=== PATIENT | male | born 1970 | race Caucasian/White ===

== ENCOUNTER 2024-10-23 01:04 | Emergency (ER) | payer MEDICARE, SELFPAY ==
--- NOTE | 2024-10-23 01:00 | DI.CT_ITS ---
Exam(s) CT LUMBAR SPINE WO EXAM: CT LUMBAR SPINE WO CLINICAL HISTORY: pain in mid lumbar after fall. TECHNIQUE: Imaging Protocol: Axial computed tomography images with coronal and sagittal reformatted images were created and reviewed COMPARISON: No exams were available for comparison FINDINGS: Bones: The last intervertebral disc space is designated the L5/S1 level for the numbering purpose of this examination. The vertebral body heights are well maintained. Alignment is satisfactory. No fracture is seen. T12-L1: No disc herniations or bulges are present. L1-2: No disc herniations or bulges are present. L2-3: No disc herniations or bulges are present. L3-4: No disc herniations or bulges are present. L4-5: Normal disc height. Concentric disc bulging. L5-S1: Normal disc height. Small central disc protrusion. The visualized SI joints and sacrum are well maintained. Soft Tissues: The paraspinal soft tissues are unremarkable. IMPRESSION: No evidence of fracture. RADIATION DOSE DELIVERED: 462.24mGy.cm Total DLP DATA REPOSITORY: All CT scans at this facility are submitted to the National Radiology Data Registry (NRDR) Dose Index Registry (DIR) with the [employer] (ACR). RADIATION OPTIMIZATION: All CT scans at this facility use at least one of these dose optimization te chniques: automated exposure control; mA and/or kV adjustment per patient size (includes targeted exa ms where dose is matched to clinical indication); or iterative reconstruction.
--- NOTE | 2024-10-23 01:00 | DI.CT_ITS ---
Exam(s) CT HEAD CERVICAL SPINE WO EXAM: CT HEAD CERVICAL SPINE WO CLINICAL HISTORY: fell, hit head, midline c spine pain. TECHNIQUE: Imaging Protocol: Axial computed tomography images with coronal and sagittal reformatted images were created and reviewed COMPARISON: No exams were available for comparison FINDINGS: Head CT Ventricles and Extra axial spaces: Normal in size and morphology for the patient's age. Hemorrhage: None. Cerebral parenchyma: No evidence of mass or acute infarct. Midline shift: None. Brainstem/Cerebellum: Normal. Calvarium: Normal. Visualized Paranasal sinuses/Mastoids: Clear. Soft tissues: Unremarkable. Cervical Spine CT BONES: Vertebral body heights are maintained. Alignment is normal. There is no evidence of acute frac ture. Degenerative disc changes and facet degenerative changes are seen, greatest at C5-6 and C6-7 where th ere is bilateral neural foraminal narrowing.. SOFT TISSUES: No paraspinal hematoma. The airway appears intact. No pneumothorax is seen at the lung apices. IMPRESSION: Head CT: No acute abnormality. C-spine CT: Degenerative changes, no acute abnormality. RADIATION DOSE DELIVERED: 1,220.03mGy.cm Total DLP DATA REPOSITORY: All CT scans at this facility are submitted to the National Radiology Data Registry (NRDR) Dose Index Registry (DIR) with the [employer] (ACR). RADIATION OPTIMIZATION: All CT scans at this facility use at least one of these dose optimization te chniques: automated exposure control; mA and/or kV adjustment per patient size (includes targeted exa ms where dose is matched to clinical indication); or iterative reconstruction.
[2024-10-23 01:09] VITALS: BP 129/81; PULSE 71; RESP 17; TEMP 36.6; O2SAT 98
[2024-10-23] MEDS: ACETAMINOPHEN 1,000 MG/100 ML BAG 400 MG IVPB (01:22)
[2024-10-23] MEDS: LORazepam 0.5 MG TAB PO (01:23)
--- NOTE | 2024-10-23 01:45 | ED.GENADUL_ITS ---
Discharge Plan Disposition Patient Disposition: Home Condition: Good Discharge Details Clinical Impression: Fall, Whiplash, Neck pain, Low back pain Primary Care Provider: Radhika Mora ED Provider: Terence Ryan Home Meds and New Rx's Prescriptions: New lidocaine [Lidoderm] 5 % adhesive patch,medicated 1 patch Topical Q24H Qty: 15 0RF No Action divalproex [Depakote] 250 MG tablet,delayed release (DR/EC) 250 mg PO BID sumatriptan succinate 100 MG tablet 100 mg PO ONCE duloxetine 60 MG capsule,delayed release(DR/EC) 60 mg PO BID clonazepam 1 mg tablet 1 mg PO QID Discharge Instructions Instructions: Low Back Pain ED, Neck Pain ED Additional Instructions: At this time your CT imaging has returned very reassuring. There is no evidence of bleeds in your brain, fractures of your bones in your head neck or back. Please use the Voltaren gel and apply 2-3 times per day to help with the aches and pains in the affected areas. Please use Lidoderm patches as prescribed to apply to the areas of increased pain. These have been sent to your pharmacy on file. If you notice any worsening of your symptoms, or any new symptoms such as vomiting, diarrhea, fever, chills, shortness of breath, chest pain, numbness, weakness, or fainting , please return immediately to the emergency department for reevaluation. Please follow up with your primary care provider as soon as possible for reassessment and reevaluation. As always, it was a pleasure participating in your medical care today. Referrals: Radhika Mora MD [Primary Care Provider] - [facility] General Date/Time Provider Initiated Documentation: 10/23/24 01:[address] [facility] Narrative: This is a 54-year-old male with a past medical history of NSAID allergy secondary to gastric irritation, GERD, previous alcoholism, anxiety, depression, who presents today for evaluation of a fall. Patient states that he was at his home when he slipped on some ice earlier today. He fell back and hit his low back and head and neck on the ice. He denies any loss of consciousness. This was all at about noon which was 13 hours ago. Since then he eventually developed a gradual worsening neck pain, headache a little bit of dizziness and low back pain. He denies any numbness tingling or weakness otherwise. He denies any vision changes. No other complaints at this time. Pain is made worse when he moves. Improved by nothing. He does not take any NSAID therapy. He was brought in via EMS, and he remained in C-spine precautions. Related Data Home Medications ?Medication ?Instructions ?Recorded ?Confirmed Depakote 250 mg tablet,delayed 250 mg PO BID 12/15/16 10/23/24 release (divalproex) duloxetine 60 mg capsule,delayed 60 mg PO BID 12/15/16 10/23/24 release sumatriptan succinate 100 mg tablet 100 mg PO ONCE 12/15/16 10/23/24 clonazepam 1 mg tablet 1 mg PO QID 10/23/24 10/23/24 lidocaine 5 % topical patch 1 patch topical Q24H #15 ea 10/23/24 (Lidoderm) Previous Rx's ?Medication ?Instructions ?Recorded lidocaine 5 % topical patch 1 patch topical Q24H #15 ea 10/23/24 (Lidoderm) Allergies Allergy/AdvReac Type Severity Reaction Status Date / Time prochlorperazine (From Allergy Unknown Unknown Verified 10/23/24 01:08 Compazine) promethazine (From Phenergan) Allergy Unknown Unknown Verified 10/23/24 01:08 NSAIDS (Non-Steroidal Allergy Unknown Verified 10/23/24 01:08 Anti-Inflamma General Stated Complaint: Fall/Non TraumaCriteria PUSHPA: 3 Exam Narrative Exam Narrative: 1.Const: Well-nourished, Well-developed, appearing stated age 2.Eyes: PERRL, no conjunctival injection, and symmetrical lids. 3.ENT: Atraumatic external nose and ears. Moist MM. Neck: Symmetric, trachea midline, No thyromegaly. There is no evidence of raccoon eyes, otoole sign, CSF rhinorrhea, mastoid tenderness, cranial crepitus, hemotympanum, exophthalmos, or hyphema. Patient demonstrates intact dentition with no signs of tooth avulsion or fracture, no signs of jaw deformity, no evidence of a LeFort's fracture, with an intact palate, nose and orbital region. There is no evidence of a nasal septal hematoma. No proptosis. Jaw closes symmetrically. Airway is clear. 4.CVS: +S1/S2, Peripheral pulses 2+ and equal in all extremities. Brisk capillary refill in all extremities. 5.RESP: Unlabored respiratory effort. Clear to auscultation bilaterally. No wheezes rales or rhonchi 6.GI: Soft, Nontender/Nondistended, No hepatosplenomegaly. No guarding or rebound. 7.MSK: Normocephali, Extremities w/o deformity or ttp No cyanosis or clubbing, Normal movement of all extremities Exam demonstrates mild midline tenderness at C3-C4 and C5, as well as midline tenderness at L5 3 L4-L5. No thoracic spinal tenderness.. Normal ROM in flexion, extension, side bend, and rotation. Patient has +5 out of 5 strength in the lower extremities in dorsiflexion and plantarflexion, knee flexion and extension, hip flexion and extension. Normal strength for dorsiflexion and plantar flexion of the great toe bilaterally. There is +2 over 2 dorsalis pedis pulses bilaterally. There is normal sensation to the skin with light touch at the foot, knee, and hip. Normal saddle sensation. Good sensation over the deep sural nerve area bilaterally. Rectal exam demonstrates good rectal tone with excellent bridget-rectal sensation. Reflexes are +2 over 4 in the patellar reflex bilaterally. +5 out of 5 strength in the medial, ulnar, radial nerve distribution bilaterally in the hands as well as intact light touch sensation to these dermatomes on the hands 8.Skin: Warm, Dry. No rashes or lesions. 9.Neuro: byproducts maker II-XII grossly intact. Sensation grossly intact, no focal neurologic deficits. No dysdiadochokinesia or dysmetria. Normal movements of extremities 10.Psych: (AAO) x3. Appropriate mood and affect Course Vital Signs Vital signs: Vital Signs Temperature 36.6 C 10/23/24 01:09 Pulse 71 10/23/24 01:09 Respiratory Rate 17 10/23/24 01:09 Blood Pressure 129/81 10/23/24 01:09 Pulse Oximetry 98 10/23/24 01:09 Temperature 36.6 C 10/23/24 01:09 Temperature Source Oral 10/23/24 01:09 Pulse 71 10/23/24 01:09 Respiratory Rate 17 10/23/24 01:09 Blood Pressure 129/81 10/23/24 01:09 Blood Pressure Position Supine 10/23/24 01:09 Pulse Oximetry 98 10/23/24 01:09 Oxygen Delivery Method Room Air 10/23/24 01:09 Oxygen Flow Rate 0 10/23/24 01:09 Pain Level 7 10/23/24 01:09 Medical Decision Making This is a 54-year-old male with a past medical history of NSAID allergy secondary to gastric irritation, GERD, previous alcoholism, anxiety, depression, who presents today for evaluation of a fall. Patient states that he was at his home when he slipped on some ice earlier today. He fell back and hit his low back and head and neck on the ice. He denies any loss of consciousness. This was all at about noon which was 13 hours ago. Since then he eventually developed a gradual worsening neck pain, headache a little bit of dizziness and low back pain. He denies any numbness tingling or weakness otherwise. He denies any vision changes. No other complaints at this time. Pain is made worse when he moves. Improved by nothing. He does not take any NSAID therapy. He was brought in via EMS, and he remained in C-spine precautions. Exam demonstrates mild midline cervical spine tenderness and lower lumbar spine tenderness. No major neurovascular deficits or neurologic deficits. No altered mental status. Pupils are equal. Differential is highest for sprain and whipl semaj, however differential does include osseous abnormality or fracture, subdural bleed, less likely epidural. Will get CT imaging, treat the patient's pain with Tylenol, and Voltaren gel, monitor closely and reassess. Additionally the patient does admit to notable amount of anxiety at this time while at the hospital. Will give a very small dose of 0.5 mg of Ativan. 3:[address] imaging has returned, no evidence of acute intracranial etiology. No mastoid tenderness on exam. No evidence of significant spinous pathology. There is evidence of disc bulging and arthritis, but no acute component. Patient feels much better. Patient does not have a ride at this time, we will give him Voltaren gel for home, we will give him a dose of morphine IR, and then observe him until discharge when he is able to be picked up by her CT. Patient otherwise feels well. Recommend continued NSAID therapy at home. Discussed red flags which return. I have extensively reviewed the treatment plan and dis charge instructions with the patient. I have addressed all patient concerns at this time. The patient was made aware of what symptoms to monitor for that would warrant a return to the emergency department. Discussed the plan with the patient, they demonstrate verbal understanding and agreement with our assessment and plan at this time. The documentation in this chart was dictated using [employer] dictation software. Please excuse any dictation errors. FINDINGS: Brain: No intracranial hemorrhage appreciated. No significant focal mass effect or significant midline shift. Cerebral ventricles: No disproportionate ventriculomegaly. Paranasal sinuses: No air-fluid levels seen. Mastoid air cells: Trace left mastoid fluid. Bones: Nasal septal and nasal bone deformities of indeterminate chronicity. C linical correlation and comparison with prior studies advised. Soft tissues: No acute findings. IMPRESSION: 1. No intracranial sequelae of trauma appreciated. 2. Additional studies dictated separately FINDINGS: Bones: No acute cervical spine fracture seen. Multilevel degenerative changes. At C2-C3 there is moderate right and mild left foraminal narrowing. At C3-C4 there is disc bulge with marked right and mild left foraminal narrowing. At C4-C5 there is disc bulge with marked right and foraminal narrowing. At C5-C6 there is prominent disc bulge with marked bilateral foraminal narrowing and moderate canal narrowing. At C6-C7 there is disc osteophyte complex with marked bilateral foraminal narrowing and marked canal narrowing. Pharynx: Tonsillar calcifications. Lungs: No acute findings. Lymph nodes: Bilateral cervical lymph nodes. Vasculature: Arterial calcifications. Soft tissues: No acute findings. IMPRESSION: 1. No cervical spine fracture seen. 2. Additional studies dictated separately. Thank you for allowing us to participate in the care of your patient. FINDINGS: Bones/joints: No fracture or suspicious osseous lesion. Broad-based L4-L5 disc bulge. Central L5- S1 disc herniation. Kidneys and ureters: Nonobstructive nephrolithiasis left kidney. Soft tissues: Unremarkable. IMPRESSION: Broad-based L4-L5 disc bulge. Central L5-S1 disc herniation. Thank you for allowing us to participate in the care of your patient. Dictated and Authenticated by: Akira Jean Baptiste MD 10/23/2024 2:21 AM Eastern Time ([place] & [place]) Quality:SDOH Health Related Social Needs: Health related social needs inadequate housing (Z59.1) , housing instability, housed, with risk of homelessness (Z59.811) PFSH All Active Problems (Updated 10/23/24 @ 03:18 by Terence Ryan DO) Low back pain (Acute) Neck pain (Acute) Whiplash (Acute) Fall (Acute) Medical History (Updated 10/23/24 @ 03:18 by Terence Ryan DO) Obesity History of alcoholism GERD (gastroesophageal reflux disease) Tremor Migraines Depression with psychotic features Anxiety Surgical History (Updated 06/15/18 @ 14:37 by [place]) Repair of inguinal hernia Family History Mother Depression Melanoma Social History Smoking/Tobacco Use Status: Current every day Tobacco Type: cigarettes Smoking risk assessment performed?: Yes Alcohol Intake: former Drug use: Occasionally Substance use type: marijuana Housing: homeless Do you feel safe at home: Yes
[2024-10-23 02:06] VITALS: BP 123/87; PULSE 59; RESP 16; O2SAT 99
--- NOTE | 2024-10-23 02:19 | DI.VRAD_ITS ---
PROCEDURE INFORMATION: Exam: CT Head Without Contrast Exam date and time: 10/23/2024 1:40 AM Age: 54 years old Clinical indication: Injury or trauma; Fall; Blunt trauma (contusions or hematomas); Consciousness not specified; Injury date: 10/23/24; Injury details: Fell, hit head, midline c spine pain TECHNIQUE: Imaging protocol: Computed tomography of the head without contrast. Radiation optimization: All CT scans at this facility use at least one of these dose optimization techniques: automated exposure control; mA and/or kV adjustment per patient size (includes targeted exams where dose is matched to clinical indication); or iterative reconstruction. COMPARISON: No relevant prior studies available. FINDINGS: Brain: No intracranial hemorrhage appreciated. No significant focal mass effect or significant midline shift. Cerebral ventricles: No disproportionate ventriculomegaly. Paranasal sinuses: No air-fluid levels seen. Mastoid air cells: Trace left mastoid fluid. Bones: Nasal septal and nasal bone deformities of indeterminate chronicity. Clinical correlation and comparison with prior studies advised. Soft tissues: No acute findings. IMPRESSION: 1. No intracranial sequelae of trauma appreciated. 2. Additional studies dictated separately. PROCEDURE INFORMATION: Exam: CT Cervical Spine Without Contrast Exam date and time: 10/23/2024 1:40 AM Age: 54 years old Clinical indication: Injury or trauma; Fall; Blunt trauma (contusions or hematomas); Consciousness not specified; Injury date: 10/23/24; Injury details: Fell, hit head, midline c spine pain TECHNIQUE: Imaging protocol: Computed tomography of the cervical spine without contrast. Radiation optimization: All CT scans at this facility use at least one of these dose optimization techniques: automated exposure control; mA and/or kV adjustment per patient size (includes targeted exams where dose is matched to clinical indication); or iterative reconstruction. COMPARISON: No relevant prior studies available. FINDINGS: Bones: No acute cervical spine fracture seen. Multilevel degenerative changes. At C2-C3 there is moderate right and mild left foraminal narrowing. At C3-C4 there is disc bulge with marked right and mild left foraminal narrowing. At C4-C5 there is disc bulge with marked right and foraminal narrowing. At C5-C6 there is prominent disc bulge with marked bilateral foraminal narrowing and moderate canal narrowing. At C6-C7 there is disc osteophyte complex with marked bilateral foraminal narrowing and marked canal narrowing. Pharynx: Tonsillar calcifications. Lungs: No acute findings. Lymph nodes: Bilateral cervical lymph nodes. Vasculature: Arterial calcifications. Soft tissues: No acute findings. IMPRESSION: 1. No cervical spine fracture seen. 2. Additional studies dictated separately. Dictated and Authenticated by: Nancy Aguila MD. Orderin Connor Pratt MD
--- NOTE | 2024-10-23 02:22 | DI.VRAD_ITS ---
PROCEDURE INFORMATION: Exam: CT Lumbar Spine Without Contrast Exam date and time: 10/23/2024 1:55 AM Age: 54 years old Clinical indication: Injury or trauma; Blunt trauma (contusions or hematomas); Injury date: 10/23/24; Injury details: Pain in mid lumbar after fall TECHNIQUE: Imaging protocol: Computed tomography of the lumbar spine without contrast. Radiation optimization: All CT scans at this facility use at least one of these dose optimization techniques: automated exposure control; mA and/or kV adjustment per patient size (includes targeted exams where dose is matched to clinical indication); or iterative reconstruction. COMPARISON: No relevant prior studies available. FINDINGS: Bones/joints: No fracture or suspicious osseous lesion. Broad-based L4-L5 disc bulge. Central L5-S1 disc herniation. Kidneys and ureters: Nonobstructive nephrolithiasis left kidney. Soft tissues: Unremarkable. IMPRESSION: Broad-based L4-L5 disc bulge. Central L5-S1 disc herniation. Dictated and Authenticated by: Akira Jean Baptiste MD. Orderin Connor Pratt MD
[2024-10-23 02:30] VITALS: BP 119/76; PULSE 62; RESP 17; O2SAT 98
[2024-10-23] MEDS: Diclofenac 1% Gel 100 GM TUBE TP (02:38)
[2024-10-23] MEDS: MORPHine IR 15 MG TAB PO (02:38)
--- NOTE | 2024-10-23 06:57 | NUR.NOTE ---
Addendum entered by Mira Muñoz 10/23/24 16:28: Patient does not have a PCP. Prior authorization faxed to [facility]. they stated they would try to deal with it. Addendum entered by Mira Muñoz 10/23/24 09:42: Prior authorization for lidocaine 5% patches faxed to PCP. Original Note: Access chart to get the demographic information and insurance information for [facility]. Filled out authorization form and faxed to [facility]. Nursing Note:
== END 2024-10-23 06:12 | disposition home or self-care (01) ==
LOC: ER 06:37
PROVIDERS: Emergency Provider Student in an Organized Health Care Education/Training Program
DX: M54.2 Cervicalgia; S13.4XXA Sprain of ligaments of cervical spine, initial encounter; M54.50 Low back pain, unspecified; W00.0XXA Fall on same level due to ice and snow, initial encounter; Z59.10 Inadequate housing, unspecified; Z59.811 Housing instability, housed, with risk of homelessness
CPT/HCPCS: 96374; 99284; 70450; 72125; 72131; 99283; J0131

== ENCOUNTER 2024-11-09 23:09 | Emergency (ER) | payer MEDICARE, SELFPAY ==
[2024-11-09 23:20] VITALS: BP 109/74; PULSE 65; RESP 16; TEMP 36.4; O2SAT 99
[2024-11-09 23:36] LABS: Abs Immature Grans 0.01 10^3/uL (0.0-0.06); Absolute Basophil Count 0.02 10^3/uL (0.0-0.2); Absolute Eosinophil Count 0.21 10^3/uL (0.0-0.7); Absolute Lymphocyte Count 2.35 10^3/uL (1.2-3.4); Absolute Neutrophil Count 3.25 10^3/uL (1.2-6.7); Basophils % 0.3 %; Eosinophils % 3.2 %; HCT 41.7 % (40.0-50.0); HGB 14.3 g/dL (13.5-17.5); Immature Grans % 0.2 %; Lymphocytes % 35.9 %; MCH 32.1 pg (27.0-33.0); MCHC 34.3 % (32.0-36.0); MCV 94 fL (80-95); MPV 10.2 fL (8.0-11.0); Monocytes % 10.7 %; Neutrophils % 49.7 %; Platelet Count 225 10^3/uL (130-400); RBC 4.46 10^6/uL (4.36-5.78); RDW-SD 44.7 fL; WBC 6.54 10^3/uL (4.4-10.8)
[2024-11-09 23:56] LABS: Salicylate 4.3 mg/dL (<2.8)
[2024-11-10 00:02] LABS: ALT 17 U/L (16-63); AST 7 U/L (15-37); Albumin 3.3 g/dL (3.4-5.0); Alkaline Phosphatase 54 U/L (46-116); Anion Gap 8.5 mmol/L (3-11); BUN 9 mg/dL (7-18); Bilirubin, Total 0.3 mg/dL (0.2-1.0); CO2 29.5 mmol/L (21.0-32.0); CREATININE 0.8 mg/dL (0.70-1.30); Calcium 9.1 mg/dL (8.5-10.1); Chloride 104 mmol/L (98-107); Estimated GFR 105.17 (mL/min/1.73m2); Glucose 103 mg/dL (74-106); Potassium 3.7 mmol/L (3.5-5.1); Sodium 142 mmol/L (136-145); Total Protein 6.3 g/dL (6.4-8.2)
[2024-11-10 00:04] LABS: Acetaminophen < 2 ug/mL (10-30); ETHANOL BLOOD < 3.0 mg/dL (<10)
--- NOTE | 2024-11-10 00:39 | ED.GENADUL_ITS ---
Discharge Plan Discharge Details Chief Complaint: PsychEval Clinical Impression: Depression, Suicide ideation Primary Care Provider: None,None ED Provider: Terence Ryan Home Meds and New Rx's Prescriptions: No Action divalproex [Depakote] 250 MG tablet,delayed release (DR/EC) 250 mg PO BID sumatriptan succinate 100 MG tablet 100 mg PO ONCE duloxetine 60 MG capsule,delayed release(DR/EC) 60 mg PO BID clonazepam 1 mg tablet 1 mg PO QID lidocaine [Lidoderm] 5 % adhesive patch,medicated 1 patch Topical Q24H Qty: 15 0RF HPI General Date/Time Provider Initiated Documentation: 11/09/24 23:12 . HPI Narrative: 54-year-old male with a past medical history of depression, presents today for suicidal thoughts. 10 years ago the patient did try to overdose on medications secondary to suicidal ideations. He has been taking his clonazepam, Depakote, duloxetine as prescribed. Patient states that over the last week or so he has become notably sad and depressed. He has lost interest in activities. He has not been sleeping well, he has not showered for the last 3 days. He states that he wants to end his life and he would do this by jumping off a katerine , walking into traffic or jumping off a bridge. He denies any auditory visual hallucinations. He denies any IV or illicit drug use. No other complaints at this time. Related Data Home Medications ?Medication ?Instructions ?Recorded ?Confirmed Depakote 250 mg tablet,delayed 250 mg PO BID 12/15/16 11/09/24 release (divalproex) duloxetine 60 mg capsule,delayed 60 mg PO BID 12/15/16 11/09/24 release sumatriptan succinate 100 mg tablet 100 mg PO ONCE 12/15/16 11/09/24 clonazepam 1 mg tablet 1 mg PO QID 10/23/24 11/09/24 lidocaine 5 % topical patch 1 patch topical Q24H #15 ea 10/23/24 11/09/24 (Lidoderm) Previous Rx's ?Medication ?Instructions ?Recorded lidocaine 5 % topical patch 1 patch topical Q24H #15 ea 10/23/24 (Lidoderm) Allergies Allergy/AdvReac Type Severity Reaction Status Date / Time prochlorperazine (From Allergy Unknown Unknown Verified 11/09/24 23:24 Compazine) promethazine (From Phenergan) Allergy Unknown Unknown Verified 11/09/24 23:24 NSAIDS (Non-Steroidal Allergy Unknown Verified 11/09/24 23:24 Anti-Inflamma General Stated Complaint: PsychEval PUSHPA: 2 Exam Narrative Exam Narrative: 1.Const: Well-nourished, disheveled appearing, well-developed, appearing stated age 2.Eyes: PERRL, no conjunctival injection, and symmetrical lids. 3.ENT: Atraumatic external nose and ears. Moist MM. Neck: Symmetric, trachea midline, No thyromegaly. 4.CVS: +S1/S2, Peripheral pulses 2+ and equal in all extremities. Brisk capil althea refill in all extremities. 5.RESP: Unlabored respiratory effort. Clear to auscultation bilaterally. No wheezes rales or rhonchi 6.GI: Soft, Nontender/Nondistended, No hepatosplenomegaly. No guarding or rebound. 7.MSK: Normocephalic/Atraumatic, Extremities w/o deformity or ttp No cyanosis or clubbing, Normal movement of all extremities 8.Skin: Warm, Dry. No rashes or lesions. 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 Sensation grossly intact, no focal neurologic deficits. 10.Psych: (AAO) x3. Appropriate mood and affect Course Vital Signs Vital signs: Vital Signs Temperature 36.4 C L 11/09/24 23:20 Pulse 65 11/09/24 23:20 Respiratory Rate 16 11/09/24 23:20 Blood Pressure 109/74 11/09/24 23:20 Pulse Oximetry 99 11/09/24 23:20 Temperature 36.4 C L 11/09/24 23:20 Temperature Source Temporal Artery Scan 11/09/24 23:20 Pulse 65 11/09/24 23:20 Respiratory Rate 16 11/09/24 23:20 Blood Pressure 109/74 11/09/24 23:20 Blood Pressure Position Sitting 11/09/24 23:20 Pulse Oximetry 99 11/09/24 23:20 Oxygen Delivery Method Room Air 11/09/24 23:20 Oxygen Flow Rate 0 11/09/24 23:20 Pain Level 0 11/09/24 23:20 Lab/Test Results Lab/Test Results: Laboratory Tests Range/Units 11/09/24 23:30 WBC (4.4-10.8) 10^3/uL 6.54 RBC (4.36-5.78) 10^6/uL 4.46 Hgb (13.5-17.5) g/dL 14.3 Hct (40.0-50.0) % 41.7 MCV (80-95) fL 94 MCH (27.0-33.0) pg 32.1 MCHC (32.0-36.0) % 34.3 RDW (11.8-14.1) % 13.0 Plt Count (130-400) 10^3/uL 225 MPV (8.0-11.0) fL 10.2 Immature Gran % % 0.2 Neutrophils % % 49.7 Lymphocytes % % 35.9 Monocytes % % 10.7 Eosinophils % % 3.2 Basophils % % 0.3 Nucleated RBC % (0.0-0.3) % 0.0 Absolute Neutrophils (1.2-6.7) 10^3/uL 3.25 Absolute Lymphocytes (1.2-3.4) 10^3/uL 2.35 Absolute Monocytes (0.1-0.8) 10^3/uL 0.70 Absolute Eosinophils (0.0-0.7) 10^3/uL 0.21 Absolute Basophils (0.0-0.2) 10^3/uL 0.02 Sodium (136-145) mmol/L 142 Potassium (3.5-5.1) mmol/L 3.7 Chloride (98-107) mmol/L 104 Carbon Dioxide (21.0-32.0) mmol/L 29.5 Anion Gap (3-11) mmol/L 8.5 BUN (7-18) mg/dL 9 Creatinine (0.70-1.30) mg/dL 0.8 Est GFR (CKD-EPI 2020) (mL/min/1.73m2) 105.17 Glucose (74-106) mg/dL 103 Calcium (8.5-10.1) mg/dL 9.1 Total Bilirubin (0.2-1.0) mg/dL 0.3 AST (15-37) U/L 7 L ALT (16-63) U/L 17 Alkaline Phosphatase (46-116) U/L 54 Total Protein (6.4-8.2) g/dL 6.3 L Albumin (3.4-5.0) g/dL 3.3 L TSH (0.36-3.74) uIU/mL 1.10 Salicylates (<2.8) mg/dL 4.3 Acetaminophen (10-30) ug/mL < 2 Ethyl Alcohol (<10) mg/dL < 3.0 Medical Decision Making 54-year-old male with a past medical history of depression, presents today for suicidal thoughts. 10 years ago the patient did try to overdose on medications secondary to suicidal ideations. He has been taking his clonazepam, Depakote, duloxetine as prescribed. Patient states that over the last week or so he has become notably sad and depressed. He has lost interest in activities. He has not been sleeping well, he has not showered for the last 3 days. He states that he wants to end his life and he would do this by jumping off a katerine, walking into traffic or jumping off a bridge. He denies any auditory visual hallucinations. He denies any IV or illicit drug use. No other complaints at this time. Exam demonstrates no significant abnormalities, concern for suicidal plan and thoughts. Medical screening exam was performed, labs were drawn and are unremarkable. Patient is high risk for home, but he is seeking voluntary treatment. With the patient's active suicidal plan, I do feel that if he no longer is seeking voluntary treatment then he would be an appropriate candidate for potential EE. Patient was seen and assessed by mental health, they agree. Patient will remain here until placement can be achieved. Scheduled medication orders have been placed. Quality:[facility] Health Related Social Needs: Health related social needs inadequate housing (Z59.1) , housing instability, housed, with risk of homelessness (Z59.811) [facility] All Active Problems (Updated 11/10/24 @ 00:46 by Terence Ryan DO) Suicide ideation (Acute) Depression (Chronic) Low back pain (Acute) Neck pain (Acute) Whiplash (Acute) Fall (Acute) Medical History (Updated 11/10/24 @ 00:46 by Terence Ryan DO) Obesity History of alcoholism GERD (gastroesophageal reflux disease) Tremor Migraines Depression with psychotic features Anxiety Surgical History (Updated 06/15/18 @ 14:37 by [employer] [place]) Repair of inguinal hernia Family History Mother Depression Melanoma Social History Smoking/Tobacco Use Status: Current every day Tobacco Type: cigarettes Smoking risk assessment performed?: Yes Alcohol Intake: former Drug use: Occasionally Substance use type: marijuana Housing: homeless Do you feel safe at home: Yes
[2024-11-10 01:04] LABS: *AMPHETAMINES SCREEN URINE Negative (Negative); *BARBITURATES SCREEN URINE Negative (Negative); *BENZODIAZEPINES SCREEN URINE Negative (Negative); Cannabinoids THC Positive (Negative); Cocaine Screen,Urine Negative (Negative); METHADONE URINE SCREEN Negative (Negative); OPIATES URINE SCREEN Negative (Negative)
[2024-11-10] MEDS: LORazepam 1 MG TAB PO (01:07)
[2024-11-10 01:08] LABS: Tricyclic Antidepressants Negative (Negative)
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
[2024-11-10 01:55] LABS: Lab Add On Test DONE
[2024-11-10 02:06] LABS: VALPROIC ACID 48.1 ug/mL
--- NOTE | 2024-11-10 08:03 | W.EDPROG ---
Date of service: 11/10/24 Time of Service: 08:04 Medical Decision Making I received sign out on this depressed 54 yo M, suicidal with plan. Home medications have been ordered. He is pending placement. Patient has an active plan and would meet likely criteria for EE if his voluntary status with change. 10:21 am I spoke to Desi Will from the [facility] who graciously agreed to accept the patient. Nurses will complete nurse to nurse and I will sign transfer paperwork. 11:15 AM Patient was transiently resistant to going to the [facility] that he had reportedly had poor experiences that in the past. Is reportedly staying locally in a motel. I met with the patient and advised him that given his concern that he might meet criteria for involuntary hold. Given that he had been accepted to the [facility] to go later today I felt that this was the best option. After lengthy conversation with the patient and his nurse and he was amenable to transferred to the [facility]. 3 PM Patient was reluctant to go to the [facility]. He was escalating his behaviors and requesting to be discharged. Given his concerning statements threatening suicide I have reengaged with [facility] human services to pursue the possibility of an EE. He amenable he took 5 mg of oral haloperidol. 3:45 PM Patient agrees to go voluntarily. Will sign patient out to the oncoming evening provider while he remains in the emergency department. Quality:[facility] Health Related Social Needs: Health related social needs inadequate housing (Z59.1), housing instability, housed, with risk of homelessness (Z59.811) Discharge Plan Discharge Details Chief Complaint: PsychEval Clinical Impression: Depression, Suicide ideation Primary Care Provider: None,None ED Provider: Aram Duran Home Meds and New Rx's Prescriptions: No Action sumatriptan succinate 100 MG tablet 100 mg PO ONCE duloxetine 60 MG capsule,delayed release(DR/EC) 60 mg PO BID clonazepam 1 mg tablet 1 mg PO QID lidocaine [Lidoderm] 5 % adhesive patch,medicated 1 patch Topical Q24H Qty: 15 0RF divalproex 500 mg tablet extended release 24 hr 1,000 mg PO HS Patient Comments: TAKE TWO TABLETS BY MOUTH EVERY EVENING AT BEDTIME
[2024-11-10] MEDS: clonazePAM 1 MG TAB PO ×3 (08:45→17:03)
[2024-11-10] MEDS: Divalproex 250 MG TABEC PO (08:45)
[2024-11-10] MEDS: DULoxetine 30 MG CAP 60 MG PO (08:45)
[2024-11-10 08:58] VITALS: BP 111/70; PULSE 56; RESP 18; TEMP 35.7; O2SAT 98
[2024-11-10] MEDS: Nicotine 4 MG GUM CH ×2 (10:38→16:05)
--- NOTE | 2024-11-10 12:23 | CMSP_ITS ---
Date of service: 11/10/24 Time of Service: 12:23 Care Management Safety Plan Status Status: Voluntary Reason for Wait Reason for Wait: Inpatient Admission (accepted at [facility]. Waiting for bed.) Safety Plan Safety Plan: VOLUNTARY FOR INPATIENT PSYCHIATRIC STABILIZATION.? Patient is appropriate in all interactions since arriving at [facility]; Pt has demonstrated appropriate coping and communication skills, has articulated his or her needs and concerns and is fully engaged during staff interactions. Safety plan has been established with patient, and care team, to adhere to patient goals, identify restrictions based on behavioral status, address nutrition, and determine allowed personal belongings, tools for hygiene and personal care. Determine level of activity including ambulation, level of supervision, visitors, and determine privileges based on behaviors and level of engagement by pt. VOLUNTARY SAFETY PLAN: 1. Will remain on suicide precautions, in paper clothes 2. Will remain in Zone B under direct supervision of one-on-one staff at all times provided by [employer]; CHRISTINA, CONFORMAL PAD FORMER pool coordinator. 3. May have paper cups, plates, finger foods as well as a cardboard spoon with which to eat meals. 4. Follow [facility] Management of the Admitted Behavioral Health Patient policy. 5. Shower available in Zone B without restriction. 6. Personal belongings-soft items permitted at RN discretion. 7. Visitors-none at this time. 8. Activities: soft cart items approved per RN discretion. 9.? Bathroom available in Zone B without restriction. 10. Phone: limited to [facility] cordless phone at RN discretion. Due to VOLUNTARY status, if patient wishes to leave [facility], staff will contact [facility] Crisis Screener ([phone]) and Men'S Furnishings Salesperson ([phone]) as soon as possible. In the event of elopement, notify [facility] Police ([phone]). Patient is currently voluntarily at [facility] and seeking inpatient admission when a bed becomes available. [facility] Frontline Yard Switcher will continue seeking placement. Please contact the [employer] Furn[employer] Salesperson ([phone]) and [facility] Yard Switcher ([phone]) for any needed changes in the Safety Plan. Safety plan has been provided to interdepartmental care team.
--- NOTE | 2024-11-10 12:23 | PDOC.CMSAFE ---
Date of service: 11/10/24 Time of Service: 12:23 Care Management Safety Plan Status Status: Voluntary Reason for Wait Reason for Wait: Inpatient Admission (accepted at [place] [facility]. Waiting for bed.) Safety Plan Safety Plan: VOLUNTARY FOR INPATIENT PSYCHIATRIC STABILIZATION.? Patient is appropriate in all interactions since arriving at [facility]; Pt has demonstrated appropriate coping and communication skills, has articulated his or her needs and concerns and is fully engaged during staff interactions. Safety plan has been established with patient, and care team, to adhere to patient goals, identify restrictions based on behavioral status, address nutrition, and determine allowed personal belongings, tools for hygiene and personal care. Determine level of activity including ambulation, level of supervision, visitors, and determine privileges based on behaviors and level of engagement by pt. VOLUNTARY SAFETY PLAN: 1. Will remain on suicide precautions, in paper clothes 2. Will remain in Zone B under direct supervision of one-on-one staff at all times provided by [employer]; CHRISTINA, [employer] TECHNICIAN floral decorator. 3. May have paper cups, plates, finger foods as well as a cardboard spoon with which to eat meals. 4. Follow [facility] Management of the Admitted Behavioral Health Patient policy. 5. Shower available in Zone B without restriction. 6. Personal belongings-soft items permitted at RN discretion. 7. Visitors-none at this time. 8. Activities: soft cart items approved per RN discretion. 9.? Bathroom available in Zone B without restriction. 10. Phone: limited to [facility] cordless phone at RN discretion. Due to VOLUNTARY status, if patient wishes to leave [facility], staff will contact [facility] Crisis Screener ([phone]) and Band Aid Machine Operator ([phone]) as soon as possible. In the event of elopement, notify [facility] Police ([phone]). Patient is currently voluntarily at [facility] and seeking inpatient admission when a bed becomes available. [facility] Frontline Nail Technician Teacher will continue seeking placement. Please contact the Band Aid Machine Operator ([phone]) and [facility] Nail Technician Teacher ([phone]) for any needed changes in the Safety Plan. Safety plan has been provided to interdepartmental care team.
--- NOTE | 2024-11-10 12:36 | CMPROGNOTE_ITS ---
Date of service: 11/10/24 Time of Service: 12:36 Care Management Progress Note Progress Note Text Progress Note Text: Isidro has been accepted to [facility] and is awaiting a bed. Discharge Anticipated Barriers to Discharge: Bed availability Patient/Family Education Needs: Review discharge instructions, discuss Ask Me Three Transportation: Other Plan: Anticipate that Isidro will be transferred to [facility] once a bed is available, he will transfer via secure transport. MH Services (Omit if N/A) Current MH Services: [facility] Status Status: Voluntary Reason for Wait: Inpatient Admission Social Determinants of Health Screening Will the Patient Participate in the Screening?: Declined to provide
[2024-11-10] MEDS: Haloperidol 5 MG TAB PO (12:52)
--- NOTE | 2024-11-10 15:57 | ED.PROG_ITS ---
Date of service: 11/10/24 Time of Service: 15:57 Medical Decision Making This patient was signed out to me. Please see previous notes for H&P and initial eval. In brief, 54yo M presenting with SI with plan to jump off bridge. Medically cleared, pending voluntary inpatient placement (likely meets EE criteria should he wish to leave). Anticipated [facility] this afternoon, transport at 1645. No acute events during my brief time caring for patient. Transported BR at ~1700. Quality:[facility] Health Related Social Needs: Health related social needs inadequate housing (Z59.1) , housing instability, housed, with risk of homelessness (Z59.811) Discharge Plan Disposition Patient Disposition: Psychiatric Hospital/Unit Specific Psychiatric Facility: [facility] Condition: Good Discharge Details Clinical Impression: Depression, Suicide ideation Primary Care Provider: None,None ED Provider: Shanelle Huffman Home Meds and New Rx's Prescriptions: No Action sumatriptan succinate 100 MG tablet 100 mg PO ONCE duloxetine 60 MG capsule,delayed release(DR/EC) 60 mg PO BID clonazepam 1 mg tablet 1 mg PO QID lidocaine [Lidoderm] 5 % adhesive patch,medicated 1 patch Topical Q24H Qty: 15 0RF divalproex 500 mg tablet extended release 24 hr 1,000 mg PO HS Patient Comments: TAKE TWO TABLETS BY MOUTH EVERY EVENING AT BEDTIME
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
== END 2024-11-10 16:50 ==
PROVIDERS: Student in an Organized Health Care Education/Training Program; Emergency Provider Student in an Organized Health Care Education/Training Program
DX: R45.851 Suicidal ideations (principal); F32.A Depression, unspecified; Z59.10 Inadequate housing, unspecified; Z59.811 Housing instability, housed, with risk of homelessness; F17.210 Nicotine dependence, cigarettes, uncomplicated
CPT/HCPCS: 00123; 36415; 80053; 80307; 96127; 99285; 80164; 80320; 80329; 84443; 85025

== ENCOUNTER 2025-01-19 00:37 | Emergency (ER) | payer MEDICARE, SELFPAY ==
[2025-01-19 00:11] VITALS: BP 134/74; PULSE 91; RESP 18; TEMP 36.6; O2SAT 96
--- NOTE | 2025-01-19 00:34 | ED.GENADUL_ITS ---
Discharge Plan Disposition Patient Disposition: Home Condition: Good Discharge Details Clinical Impression: Spasm of left trapezius muscle Primary Care Provider: None,None ED Provider: Terence Ryan Home Meds and New Rx's Prescriptions: New cyclobenzaprine 10 mg tablet 10 mg PO TID Qty: 14 0RF lidocaine [Lidoderm] 5 % adhesive patch,medicated 1 patch Topical Q24H Qty: 15 0RF No Action sumatriptan succinate 100 MG tablet 100 mg PO ONCE duloxetine 60 MG capsule,delayed release(DR/EC) 60 mg PO BID zolpidem 10 mg tablet 10 mg PO DAILY PRN nicotine (polacrilex) 4 mg mini lozenge 4 mg buccal Q2H PRN Patient Comments: USE 1 LOZENGE BY MOUTH EVERY 2 HOURS NEEDED clonazepam 1 mg tablet 1 mg PO QID divalproex 500 mg tablet extended release 24 hr 1,000 mg PO HS Patient Comments: TAKE TWO TABLETS BY MOUTH EVERY EVENING AT BEDTIME Discharge Instructions Instructions: Muscle Spasm ED Additional Instructions: At this time the CT scan of your head and neck shows no evidence of fracture or other significant abnormality. As we discussed together, I suspect is a component of a muscle spasm and a bruise that is causing the pain. Please take the cyclobenzaprine as prescribed. Please be mindful that it can cause you to be lightheaded, feel slightly confused or imbalance. Please be cautious while taking the medication. Do not operate firearms, climb ladders, swim or operate heavy machinery or drive vehicles while on the medication. If you notice any worsening of your symptoms, or any new symptoms such as vomiting, diarrhea, fever, chills, shortness of breath, chest pain, numbness, weakness, or fainting , please return immediately to the emergency department for reevaluation. Please follow up with your primary care provider as soon as possible for reassessment and reevaluation. As always, it was a pleasure participating in your medical care today. HPI General Date/Time Provider Initiated Documentation: 01/19/25 01:23 . HPI Narrative: This is a pleasant 54-year-old male with a past medical history of seizures on Depakote, gastric ulcers, chronic headaches, alcoholism, GERD, depression and anxiety who presents today for evaluation of left neck pain. Patient states that 2 days ago he fell and hit his left neck and the back of his head. Since then he has had pain in that area. Worse with movement and palpation. He denies any vision changes or numbness or tingling. He is taken Tylenol without any improvement. He denies any back or chest pain. He is not on blood thinners. No other complaints at this time. No other modifying factors. Related Data Home Medications ?Medication ?Instructions ?Recorded ?Confirmed duloxetine 60 mg capsule,delayed 60 mg PO BID 12/15/16 01/19/25 release sumatriptan succinate 100 mg tablet 100 mg PO ONCE 12/15/16 01/19/25 clonazepam 1 mg tablet 1 mg PO QID 10/23/24 01/19/25 divalproex 500 mg tablet,extended 1,000 mg PO HS 11/10/24 01/19/25 release 24 hr cyclobenzaprine 10 mg tablet 10 mg PO TID #14 tabs 01/19/25 lidocaine 5 % topical patch 1 patch topical Q24H #15 ea 01/19/25 (Lidoderm) nicotine (polacrilex) 4 mg buccal 4 mg buccal Q2H PRN 01/19/25 01/19/25 mini lozenge zolpidem 10 mg tablet 10 mg PO DAILY PRN 01/19/25 01/19/25 Previous Rx's ?Medication ?Instructions ?Recorded cyclobenzaprine 10 mg tablet 10 mg PO TID #14 tabs 01/19/25 lidocaine 5 % topical patch 1 patch topical Q24H #15 ea 01/19/25 (Lidoderm) Allergies Allergy/AdvReac Type Severity Reaction Status Date / Time prochlorperazine (From Allergy Unknown Unknown Verified 01/19/25 00:17 Compazine) promethazine (From Phenergan) Allergy Unknown Unknown Verified 01/19/25 00:17 NSAIDS (Non-Steroidal Allergy Unknown Verified 01/19/25 00:17 Anti-Inflamma General Stated Complaint: Nk/Back Pain PUSHPA: 3 Exam Narrative Exam Narrative: 1.Const: Well-nourished, Well-developed, appearing stated age 2.Eyes: PERRL, no conjunctival injection, and symmetrical lids. 3.ENT: Atraumatic external nose and ears. Moist MM. Neck: Symmetric, trachea midline, No thyromegaly. There is no evidence of raccoon eyes, otoole sign, CSF rhinorrhea, mastoid tenderness, cranial crepitus, hemotympanum, exophthalmos, or hyphema. Patient demonstrates intact dentition with no signs of tooth avulsion or fracture, no signs of jaw deformity, no evidence of a LeFort's fracture, with an intact palate, nose and orbital region. There is no evidence of a nasal septal hematoma. No proptosis. Jaw closes symmetrically. Airway is clear. 4.CVS: +S1/S2, Peripheral pulses 2+ and equal in all extremities. Brisk capillary refill in all extremities. 5.RESP: Unlabored respiratory effort. Clear to auscultation bilaterally. No wheezes rales or rhonchi 6.GI: Soft, Nontender/Nondistended, No hepatosplenomegaly. No guarding or rebound. 7.MSK: Normocephalic/Atraumatic, Extremities w/o deformity or ttp No cyanosis or clubbing, Normal movement of all extremities. Mild pain over the supraspinatus muscle of the left scapula, mild pain and tenderness and spasm over the left trapezius muscle. No midline tenderness to palpation over the TLS spine. Mild tenderness over the mid to left lateral cervical spine around C5-6-7. Normal ROM in flexion, extension, side bend, and rotation. Patient has +5 out of 5 strength in the lower extremities in dorsiflexion and plantarflexion, knee flexion and extension, hip flexion and extension. Normal strength for dorsiflexion and plantar flexion of the great toe bilaterally. There is +2 over 2 dorsalis pedis pulses bilaterally. There is normal sensation to the skin with light touch at the foot, knee, and hip. Normal saddle sensation. Good sensation over the deep sural nerve area bilaterally. Rectal exam demonstrates good rectal tone with excellent bridget-rectal sensation. Reflexes are +2 over 4 in the patellar reflex bilaterally. +5 out of 5 strength in the medial, ulnar, radial nerve distribution bilaterally in the hands as well as intact light touch sensation to these dermatomes on the hands 8.Skin: Warm, Dry. No rashes or lesions. 9.Neuro: manager net II-XII grossly intact. Sensation grossly intact, no focal neurologic deficits. 10.Psych: (AAO) x3. Appropriate mood and affect Course Vital Signs Vital signs: Vital Signs Temperature 36.6 C 01/19/25 00:11 Pulse 91 H 01/19/25 00:11 Respiratory Rate 18 01/19/25 00:11 Blood Pressure 134/74 01/19/25 00:11 Pulse Oximetry 96 01/19/25 00:11 Temperature 36.6 C 01/19/25 00:11 Temperature Source Oral 01/19/25 00:11 Pulse 91 H 01/19/25 00:11 Respiratory Rate 18 01/19/25 00:11 Blood Pressure 134/74 01/19/25 00:11 Blood Pressure Position Sitting 01/19/25 00:11 Pulse Oximetry 96 01/19/25 00:11 Oxygen Delivery Method Room Air 01/19/25 00:11 Oxygen Flow Rate 0 01/19/25 00:11 Pain Level 8 01/19/25 00:19 Medical Decision Making This is a pleasant 54-year-old male with a past medical history of seizures on Depakote, gastric ulcers, chronic headaches, alcoholism, GERD, depression and anxiety who presents today for evaluation of left neck pain. Patient states that 2 days ago he fell and hit his left neck and the back of his head. Since then he has had pain in that area. Worse with movement and palpation. He denies any vision changes or numbness or tingling. He is taken Tylenol without any improvement. He denies any back or chest pain. He is not on blood thinners. No other complaints at this time. No other modifying factors. Exam demonstrates mild muscle spasm over the trapezius and left supraspinatus muscle, mild lateral paraspinal tenderness over C5-6 and 7 on the left. Concern for potential osseous injury. Will get radiographic imaging, treat with Lidoderm patches, monitor closely and reassess. 1:26 AM On reassessment patient CT scan of the head has returned negative. No acute process. CT scan of the C-spine negative for acute process. Symptoms appear consistent with a muscle spasm and contusion. No evidence of acute life- threatening neurovascular injury or compromise based on exam and assessment. Patient will be given cyclobenzaprine Lidoderm patches for home. Recommend stretches. Discussed red flags for which to return. I have extensively reviewed the treatment plan and discharge instructions with the patient. I have addressed all patient concerns at this time. The patient was made aware of what symptoms to monitor for that would warrant a return to the emergency department. Discussed the plan with the patient, they demonstrate verbal understanding and agreement with our assessment and plan at this time. The documentation in this chart was dictated using [employer] dictation software. Please excuse any dictation errors. FINDINGS: Brain: No acute intracranial hemorrhage or mass lesions. No midline shift. Normal pink-white differentiation. Cerebral ventricles: No ventriculomegaly. Paranasal sinuses: Visualized sinuses are unremarkable. No fluid levels. Mastoid air cells: Visualized mastoid air cells are well aerated. Bones: Unremarkable. No acute fracture. Soft tissues: Unremarkable. IMPRESSION: No acute intracranial findings FINDINGS: Bones: Mild degenerative changes are present within the cervical spine including intervertebral disc space narrowing, endplate sclerosis, and osteophytosis. There is loss of the expected cervical lordosis and focal kyphosis centered at C4. No acute fracture or dislocation. Lungs: Mild scarring is present at the bilateral pulmonary apices. Soft tissues: Unremarkable. There are multiple incidentally noted tonsilliths bilaterally. IMPRESSION: No acute cervical spine injury. Thank you for allowing us to participate in the care of your patient. Dictated and Authenticated by: Laura Duffy MD 01/19/2025 1:17 AM Eastern Time ([place] Quality:SDOH Health Related Social Needs: Health related social needs inadequate housing (Z59.1) , housing inst ability, housed, with risk of homelessness (Z59.811) PFSH All Active Problems (Updated 01/19/25 @ 01:24 by Terence Ryan DO) Spasm of left trapezius muscle (Acute) Medical History (Updated 01/19/25 @ 01:24 by Terence Ryan DO) Obesity History of alcoholism GERD (gastroesophageal reflux disease) Tremor Migraines Depression with psychotic features Anxiety Surgical History (Updated 06/15/18 @ 14:37 by [facility]) Repair of inguinal hernia Family History Mother Depression Melanoma Social History Smoking/Tobacco Use Status: Current every day Tobacco Type: cigars Smoking risk assessment performed?: Yes Alcohol Intake: former Drug use: Occasionally Substance use type: marijuana Housing: other Do you feel safe at home: Yes Do you feel safe in your relationship?: Yes
[2025-01-19] MEDS: Lidocaine 5% Patch 2 PATCH TP (00:44)
--- NOTE | 2025-01-19 00:49 | DI.CT_ITS ---
Exam(s) CT HEAD CERVICAL SPINE WO EXAM: CT HEAD CERVICAL SPINE WO CLINICAL HISTORY: fell, hit left neck. TECHNIQUE: Imaging Protocol: Axial computed tomography images with coronal and sagittal reformatted images were created and reviewed COMPARISON: CT CT HEAD CERVICAL SPINE WO from 10/23/2024 FINDINGS: Head CT Ventricles and Extra axial spaces: Normal in size and morphology for the patient's age. Hemorrhage: None. Cerebral parenchyma: No evidence of mass or acute infarct. Midline shift: None. Brainstem/Cerebellum: Normal. Calvarium: Normal. Visualized Paranasal sinuses/Mastoids: Clear. Soft tissues: Unremarkable. Cervical Spine CT BONES: Vertebral body heights are maintained. Alignment is normal. There is no evidence of acute frac ture. Degenerative disc changes and facet degenerative changes are seen at C5-6 and C6-7 where there is swetha ral foraminal narrowing. There is also some narrowing of the AP dimension of the central canal at th gabi levels.. SOFT TISSUES: No paraspinal hematoma. The airway appears intact. No pneumothorax is seen at the lung apices. Mild emphysematous changes. IMPRESSION: Head CT: No acute abnormality. C-spine CT: Degenerative changes, no acute abnormality. RADIATION DOSE DELIVERED: 1,195.29mGy.cm Total DLP DATA REPOSITORY: All CT scans at this facility are submitted to the National Radiology Data Registry (NRDR) Dose Index Registry (DIR) with the [employer] ([employer]). RADIATION OPTIMIZATION: All CT scans at this facility use at least one of these dose optimization te chniques: automated exposure control; mA and/or kV adjustment per patient size (includes targeted exa ms where dose is matched to clinical indication); or iterative reconstruction.
--- NOTE | 2025-01-19 01:18 | DI.VRAD_ITS ---
PROCEDURE INFORMATION: Exam: CT Head Without Contrast Exam date and time: 01/19/2025 12:34 AM Age: 54 years old Clinical indication: Injury or trauma; Blunt trauma (contusions or hematomas); Consciousness not specified; Injury date: 01/17/25; Fall, hit left neck TECHNIQUE: Imaging protocol: Computed tomography of the head without contrast. Radiation optimization: All CT scans at this facility use at least one of these dose optimization techniques: automated exposure control; mA and/or kV adjustment per patient size (includes targeted exams where dose is matched to clinical indication); or iterative reconstruction. COMPARISON: CT HEAD CERVICAL SPINE WO 10/23/2024 1:40 AM FINDINGS: Brain: No acute intracranial hemorrhage or mass lesions. No midline shift. Normal pink-white differentiation. Cerebral ventricles: No ventriculomegaly. Paranasal sinuses: Visualized sinuses are unremarkable. No fluid levels. Mastoid air cells: Visualized mastoid air cells are well aerated. Bones: Unremarkable. No acute fracture. Soft tissues: Unremarkable. IMPRESSION: No acute intracranial findings. PROCEDURE INFORMATION: Exam: CT Cervical Spine Without Contrast Exam date and time: 01/19/2025 12:34 AM Age: 54 years old Clinical indication: Injury or trauma; Blunt trauma (contusions or hematomas); Consciousness not specified; Injury date: 01/17/25; Fall, hit left neck TECHNIQUE: Imaging protocol: Computed tomography of the cervical spine without contrast. Radiation optimization: All CT scans at this facility use at least one of these dose optimization techniques: automated exposure control; mA and/or kV adjustment per patient size (includes targeted exams where dose is matched to clinical indication); or iterative reconstruction. COMPARISON: CT HEAD CERVICAL SPINE WO 10/23/2024 1:40 AM FINDINGS: Bones: Mild degenerative changes are present within the cervical spine including intervertebral disc space narrowing, endplate sclerosis, and osteophytosis. There is loss of the expected cervical lordosis and focal kyphosis centered at C4. No acute fracture or dislocation. Lungs: Mild scarring is present at the bilateral pulmonary apices. Soft tissues: Unremarkable. There are multiple incidentally noted tonsilliths bilaterally. IMPRESSION: No acute cervical spine injury. Dictated and Authenticated by: Laura Duffy MD. Orderin Connor Pratt MD
[2025-01-19] MEDS: Cyclobenzaprine 10 MG TAB, 3 TABS/BTL PO (01:31)
== END 2025-01-19 01:54 | disposition home or self-care (01) ==
PROVIDERS: Emergency Provider Student in an Organized Health Care Education/Training Program
DX: M62.838 Other muscle spasm (principal); M54.2 Cervicalgia; G40.909 Epilepsy, unspecified, not intractable, without status epilepticus
CPT/HCPCS: 99284; 70450; 72125

== ENCOUNTER 2025-01-20 00:31 | Emergency (ER) | payer MEDICARE, SELFPAY ==
[2025-01-20] VITALS (18 sets, daily range): BP systolic 106–136; BP diastolic 69–80; PULSE 53–81; RESP 20–32; O2SAT 95–98
--- NOTE | 2025-01-20 00:14 | W.ED.GENAD ---
Discharge Plan Disposition Patient Disposition: Home Condition: Good Discharge Details Chief Complaint: Fall/Non TraumaCriteria Clinical Impression: Medication refill Primary Care Provider: None,None ED Provider: Terence Ryan Home Meds and New Rx's Prescriptions: No Action sumatriptan succinate 100 MG tablet 100 mg PO ONCE duloxetine 60 MG capsule,delayed release(DR/EC) 60 mg PO BID zolpidem 10 mg tablet 10 mg PO DAILY PRN nicotine (polacrilex) 4 mg mini lozenge 4 mg buccal Q2H PRN Patient Comments: USE 1 LOZENGE BY MOUTH EVERY 2 HOURS NEEDED cyclobenzaprine 10 mg tablet 10 mg PO TID Qty: 14 0RF lidocaine [Lidoderm] 5 % adhesive patch,medicated 1 patch Topical Q24H Qty: 15 0RF clonazepam 1 mg tablet 1 mg PO QID divalproex 500 mg tablet extended release 24 hr 1,000 mg PO HS Patient Comments: TAKE TWO TABLETS BY MOUTH EVERY EVENING AT BEDTIME Discharge Instructions Additional Instructions: Please take 1 cyclobenzaprine pill every 8 hours. Please abide by the discharge instructions given at your previous visit. If you notice any worsening of your symptoms, or any new symptoms such as vomiting, diarrhea, fever, chills, shortness of breath, chest pain, numbness, weakness, or fainting , please return immediately to the emergency department for reevaluation. Please follow up with your primary care provider as soon as possible for reassessment and reevaluation. As always, it was a pleasure participating in your medical care today. HPI HPI Narrative: This is a pleasant 54-year-old male with a past medical history of seizures on Depakote, gastric ulcers, chronic headaches, alcoholism, GERD, depression and anxiety who presents today for medication refill. Patient was here about 24 hours ago, at that time he had fallen and hit his left head and neck. He had a spasm of his trapezius muscle. CT scan of the head neck was performed with no evidence of acute process or fracture. Patient was given Lidoderm patches and cyclobenzaprine and had notable improvement of his symptoms. Unfortunately he contacted his pharmacy today (which is Wednesday) and states that they said that because of the holiday weekend his prescription will not be filled until Wednesday. He subsequently called EMS to be brought in for medications. Of note he does state that he did fall once today, he did not hit anything. He had a slight contusion on the wrist but he states that this does not hurt otherwise. He denies hitting his head or back. He states that it did not necessarily make his back or neck pain significantly worse. He denies any fever or chills. He states that the cyclobenzaprine that he was given as a to go pack yesterday had nearly completely resolved his symptoms. When he was evaluated by EMS they did give him fentanyl and Ofirmev for his chronic pain. He otherwise feels well at this time, with no other complaints. He did not strike his head or his back when he fell earlier today. No chest pain abdominal pain or extremity pain otherwise. Related Data Home Medications ?Medication ?Instructions ?Recorded ?Confirmed duloxetine 60 mg capsule,delayed 60 mg PO BID 12/15/16 01/20/25 release sumatriptan succinate 100 mg tablet 100 mg PO ONCE 12/15/16 01/20/25 clonazepam 1 mg tablet 1 mg PO QID 10/23/24 01/20/25 divalproex 500 mg tablet,extended 1,000 mg PO HS 11/10/24 01/20/25 release 24 hr cyclobenzaprine 10 mg tablet 10 mg PO TID #14 tabs 01/19/25 01/20/25 lidocaine 5 % topical patch 1 patch topical Q24H #15 ea 01/19/25 01/20/25 (Lidoderm) nicotine (polacrilex) 4 mg buccal 4 mg buccal Q2H PRN 01/19/25 01/20/25 mini lozenge zolpidem 10 mg tablet 10 mg PO DAILY PRN 01/19/25 01/20/25 Previous Rx's ?Medication ?Instructions ?Recorded cyclobenzaprine 10 mg tablet 10 mg PO TID #14 tabs 01/19/25 lidocaine 5 % topical patch 1 patch topical Q24H #15 ea 01/19/25 (Lidoderm) Allergies Allergy/AdvReac Type Severity Reaction Status Date / Time prochlorperazine (From Allergy Unknown Unknown Verified 01/20/25 00:19 Compazine) promethazine (From Phenergan) Allergy Unknown Unknown Verified 01/20/25 00:19 NSAIDS (Non-Steroidal Allergy Unknown Verified 01/20/25 00:19 Anti-Inflamma General PUSHPA: 3 Exam Narrative Exam Narrative: 1.Const: Well-nourished, Well-developed, appearing stated age 2.Eyes: PERRL, no conjunctival injection, and symmetrical lids. 3.ENT: Atraumatic external nose and ears. Moist MM. Neck: Symmetric, trachea midline, No thyromegaly. 4.CVS: +S1/S2, Peripheral pulses 2+ and equal in all extremities. Brisk capillary refill in all extremities. 5.RESP: Unlabored respiratory effort. Clear to auscultation bilaterally. No wheezes rales or rhonchi 6.GI: Soft, Nontender/Nondistended, No hepatosplenomegaly. No guarding or rebound. 7.MSK: Normocephalic/Atraumatic, Extremities w/o deformity or ttp No cyanosis or clubbing, Normal movement of all extremities. No midline cervical thoracic or lumbar spine tenderness. No significant tenderness in the wrists. Good movement. No anatomical snuffbox tenderness. 8.Skin: Warm, Dry. No rashes or lesions. 9.Neuro: chief lifestyle officer II-XII grossly intact. Sensation grossly intact, no focal neurologic deficits. 10.Psych: (AAO) x3. Appropriate mood and affect Medical Decision Making This is a pleasant 54-year-old male with a past medical history of seizures on Depakote, gastric ulcers, chronic headaches, alcoholism, GERD, depression and anxiety who presents today for medication refill. Patient was here about 24 hours ago, at that time he had fallen and hit his left head and neck. He had a spasm of his trapezius muscle. CT scan of the head neck was performed with no evidence of acute process or fracture. Patient was given Lidoderm patches and cyclobenzaprine and had notable improvement of his symptoms. Unfortunately he contacted his pharmacy today (which is Wednesday) and states that they said that because of the holiday weekend his prescription will not be filled until Wednesday. He subsequently called EMS to be brought in for medications. Of note he does state that he did fall once today, he did not hit anything. He had a slight contusion on the wrist but he states that this does not hurt otherwise. He denies hitting his head or back. He states that it did not necessarily make his back or neck pain significantly worse. He denies any fever or chills. He states that the cyclobenzaprine that he was given as a to go pack yesterday had nearly completely resolved his symptoms. When he was evaluated by EMS they did give him fentanyl and Ofirmev for his chronic pain. He otherwise feels well at this time, with no other complaints. He did not strike his head or his back when he fell earlier today. No chest pain abdominal pain or extremity pain otherwise. Patient looks clinically well, no signs of trauma for the head neck chest abdomen pelvis or extremities. Patient has complete resolution of his pain after the medications of fentanyl and Ofirmev given by EMS. Otherwise patient shows no concerning deficits. Fall earlier today elicited no additional trauma based on current clinical assessment and exam, and lack of tenderness. No indication for repeat imaging especially with his last imaging being stable. Patient will be discharged home with 4 days of Flexeril. I have extensively reviewed the treatment plan and discharge instructions with the patient. I have addressed all patient concerns at this time. The patient was made aware of what symptoms to monitor for that would warrant a return to the emergency department. Discussed the plan with the patient, they demonstrate verbal understanding and agreement with our assessment and plan at this time. The documentation in this chart was dictated using [employer] dictation software. Please excuse any dictation errors. Quality:SDOH Health Related Social Needs: Health related social needs inadequate housing (Z59.1), housing instability, housed, with risk of homelessness (Z59.811) PFSH All Active Problems (Updated 01/20/25 @ 00:50 by Terence Ryan DO) Medication refill (Acute) Spasm of left trapezius muscle (Acute) Medical History (Updated 01/20/25 @ 00:50 by Terence Ryan DO) Obesity History of alcoholism GERD (gastroesophageal reflux disease) Tremor Migraines Depression with psychotic features Anxiety Surgical History (Updated 06/15/18 @ 14:37 by [employer] MD) Repair of inguinal hernia Family History Mother Depression Melanoma Social History Smoking/Tobacco Use Status: Current every day Tobacco Type: cigars Smoking risk assessment performed?: Yes Alcohol Intake: former Drug use: Occasionally Substance use type: marijuana Housing: other Do you feel safe at home: Yes Do you feel safe in your relationship?: Yes
[2025-01-20] MEDS: Cyclobenzaprine 10 MG TAB 60 MG PO (01:57)
[2025-01-20] MEDS: Cyclobenzaprine 10 MG TAB, 3 TABS/BTL PO (01:57)
== END 2025-01-20 02:00 | disposition home or self-care (01) ==
PROVIDERS: Emergency Provider Student in an Organized Health Care Education/Training Program
DX: Z76.0 Encounter for issue of repeat prescription; Z59.10 Inadequate housing, unspecified; Z59.811 Housing instability, housed, with risk of homelessness
CPT/HCPCS: 99283; 99282

== ENCOUNTER 2025-02-02 21:28 | Emergency (ER) | payer MEDICARE, SELFPAY ==
[2025-02-02 21:28] VITALS: BP 99/66; PULSE 79; RESP 16; TEMP 35.3; O2SAT 96
[2025-02-02] MEDS: Methocarbamol 500 MG TAB 1000 MG PO (21:38)
[2025-02-02] MEDS: Acetaminophen 500 MG TAB 1000 MG PO (21:38)
--- NOTE | 2025-02-02 22:39 | ED.GENADUL_ITS ---
Discharge Plan Disposition Patient Disposition: Home Discharge Details Clinical Impression: Back pain Primary Care Provider: None,None ED Provider: Parish Jacobson Home Meds and New Rx's Prescriptions: No Action sumatriptan succinate 100 MG tablet 100 mg PO ONCE duloxetine 60 MG capsule,delayed release(DR/EC) 60 mg PO BID zolpidem 10 mg tablet 10 mg PO DAILY PRN nicotine (polacrilex) 4 mg mini lozenge 4 mg buccal Q2H PRN Patient Comments: USE 1 LOZENGE BY MOUTH EVERY 2 HOURS NEEDED cyclobenzaprine 10 mg tablet 10 mg PO TID Qty: 14 0RF lidocaine [Lidoderm] 5 % adhesive patch,medicated 1 patch Topical Q24H Qty: 15 0RF clonazepam 1 mg tablet 1 mg PO QID divalproex 500 mg tablet extended release 24 hr 1,000 mg PO HS Patient Comments: TAKE TWO TABLETS BY MOUTH EVERY EVENING AT BEDTIME Discharge Instructions Additional Instructions: You have a normal back and neurologic exam this evening after you fell out of your bed. Please continue Tylenol, lidocaine patches and your clonazepam can be helpful for muscle soreness as well. Do gentle stretches, heat pack and range of motion exercises to help with the stiffness. Follow-up with your primary care provider for any ongoing issues. HPI General Date/Time Provider Initiated Documentation: 02/02/25 21:32 . Limitations to Documentation: no limitations . Information obtained by: patient and EMS . HPI Narrative: 55-year-old gentleman with past medical history of anxiety, alcoholism presents for evaluation of back pain. Patient reports that he rolled out of bed this evening onto the floor. He did not hit his head or lose consciousness. He reports that his back hurt so he called EMS. He reports his bed is approximately 3 feet off the ground and rolled onto carpeted surface. Patient tried no medications prior to coming to the emergency department. Related Data Home Medications ?Medication ?Instructions ?Recorded ?Confirmed duloxetine 60 mg capsule,delayed 60 mg PO BID 12/15/16 02/02/25 release sumatriptan succinate 100 mg tablet 100 mg PO ONCE 12/15/16 02/02/25 clonazepam 1 mg tablet 1 mg PO QID 10/23/24 02/02/25 divalproex 500 mg tablet,extended 1,000 mg PO HS 11/10/24 02/02/25 release 24 hr cyclobenzaprine 10 mg tablet 10 mg PO TID #14 tabs 01/19/25 02/02/25 lidocaine 5 % topical patch 1 patch topical Q24H #15 ea 01/19/25 02/02/25 (Lidoderm) nicotine (polacrilex) 4 mg buccal 4 mg buccal Q2H PRN 01/19/25 02/02/25 mini lozenge zolpidem 10 mg tablet 10 mg PO DAILY PRN 01/19/25 02/02/25 Previous Rx's ?Medication ?Instructions ?Recorded cyclobenzaprine 10 mg tablet 10 mg PO TID #14 tabs 01/19/25 lidocaine 5 % topical patch 1 patch topical Q24H #15 ea 01/19/25 (Lidoderm) Allergies Allergy/AdvReac Type Severity Reaction Status Date / Time prochlorperazine (From Allergy Unknown Unknown Verified 02/02/25 21:36 Compazine) promethazine (From Phenergan) Allergy Unknown Unknown Verified 02/02/25 21:36 NSAIDS (Non-Steroidal Allergy Unknown Verified 02/02/25 21:36 Anti-Inflamma General Stated Complaint: Fall/Non TraumaCriteria PUSHPA: 4 Exam Narrative Exam Narrative: Review of Systems: All systems reviewed & are unremarkable except as noted in HPI and below Well-developed, no acute distress NCAT PERRL, normal conjunctiva RRR no murmur Unlabored respiratory effort clear bilaterally Nondistended abdomen No midline back tenderness step-off or deformity there is no significant appreciable paraspinal tenderness Bilateral lower extremities with 5 out of 5 strength, normal gait, normal sensation Course Vital Signs Vital signs: Vital Signs Temperature 35.3 C L 02/02/25 21:28 Pulse 79 02/02/25 21:28 Respiratory Rate 16 02/02/25 21:28 Blood Pressure 99/66 L 02/02/25 21:28 Pulse Oximetry 96 02/02/25 21:28 Temperature 35.3 C L 02/02/25 21:28 Temperature Source Temporal Artery Scan 02/02/25 21:28 Pulse 79 02/02/25 21:28 Respiratory Rate 16 02/02/25 21:28 Blood Pressure 99/66 L 02/02/25 21:28 Pulse Oximetry 96 02/02/25 21:28 Oxygen Delivery Method Room Air 02/02/25 21:28 Oxygen Flow Rate 0 02/02/25 21:28 Pain Level 9 02/02/25 21:28 Medical Decision Making Emergent evaluation of back pain after rolling out of bed. The patient has benign examination. Based on his description of his bed the mechanism of injury , this was not a very far fall and I do not suspect that traumatic injury. He has a normal physical examination no signs or concerns for acute neurologic emergency. He is ambulatory around the emergency department, got himself off the EMS stretcher and walked into his room. Patient was provided some medication for symptom relief in the emergency department and recommend continued Tylenol and Motrin at home. Note no indication for additional prescriptions especially given his HAT PRESSER reviewed. Quality:SDOH Health Related Social Needs: Health related social needs inadequate housing (Z59.1) , housing instability, housed, with risk of homelessness (Z59.811) PFSH All Active Problems (Updated 02/02/25 @ 21:35 by Parish Jacobson MD) Back pain (Acute) Medication refill (Acute) Spasm of left trapezius muscle (Acute) Medical History (Updated 02/02/25 @ 21:35 by Parish Jacobson MD) Obesity History of alcoholism GERD (gastroesophageal reflux disease) Tremor Migraines Depression with psychotic features Anxiety Surgical History (Updated 06/15/18 @ 14:37 by [employer]) Repair of inguinal hernia Family History Mother Depression Melanoma Social History Smoking/Tobacco Use Status: Current every day Tobacco Type: cigars Smoking risk assessment performed?: Yes Alcohol Intake: former Drug use: Occasionally Substance use type: marijuana Housing: other Do you feel safe at home: Yes Do you feel safe in your relationship?: Yes
== END 2025-02-02 21:49 | disposition home or self-care (01) ==
LOC: ER 21:45
PROVIDERS: Emergency Provider Emergency Medicine
DX: M54.50 Low back pain, unspecified (principal); F17.290 Nicotine dependence, other tobacco product, uncomplicated; W06.XXXA Fall from bed, initial encounter; Y93.89 Activity, other specified; Y92.013 Bedroom of single-family (private) house as the place of occurrence of the external cause
CPT/HCPCS: 99283

== ENCOUNTER 2025-02-24 10:51 | Emergency (ER) | payer MEDICARE, SELFPAY ==
[2025-02-24] VITALS (42 sets, daily range): BP systolic 104–129; BP diastolic 62–81; PULSE 45–58; RESP 12–24; TEMP 36.4–36.6; O2SAT 95–99
--- NOTE | 2025-02-24 10:45 | RT.EKG_ITS ---
APPROVED REPORT Exam: Resting ECG Reason for Exam: Dizziness and Weakness Patient Location: E HR:53 bpm ECG Measurements Heart Rate 53 AXIS MO [id number] P [id number] QRSd 79 QRS 60 QT 392 T 46 QTc 369 Conclusion Atrial fibrillation...V-rate 51- 54, irreg A-activity Ventricular premature complex...V complex w/ short R-R interval I have reviewed and interpreted ECG and agree with software generated interpretation.
--- NOTE | 2025-02-24 11:00 | DI.CT_ITS ---
Exam(s) CT BRAIN NECK CTA EXAM: CT BRAIN NECK CTA CLINICAL HISTORY: Left-sided weakness, RUSS, eval for bleed or stroke. TECHNIQUE: Imaging Protocol: Axial CT angiography was performed with multi- slice acquisition and multi-planar and MIP reconstructions. CONTRAST MATERIAL: Intravenous: Omnipaque 350 Contrast volume:70 ml COMPARISON: CT CT HEAD CERVICAL SPINE WO from 01/19/2025 FINDINGS: CT Head W/O and W contrast: Ventricles and Extra axial spaces: Normal in size and morphology for the patient's age. Hemorrhage: None. Cerebral parenchyma: No evidence of acute infarct or mass. Midline shift: None. Brainstem/Cerebellum: No acute findings.. Calvarium: Normal. Visualized Paranasal sinuses/Mastoids: Clear. Soft Tissues: Unremarkable. Enhancement: Normal. Venous sinuses are patent. CTA Brain W: Internal Carotid Arteries: Right: No aneurysm, occlusion or significant stenosis. Left: No aneurysm, occlusion or significant stenosis. Middle Cerebral Arteries: Right: No aneurysm, occlusion or significant stenosis. Left: No aneurysm, occlusion or significant stenosis. Anterior Cerebral Arteries: Right: No aneurysm, occlusion or significant stenosis. Left: No aneurysm, occlusion or significant stenosis. Posterior cerebral Arteries: Right: No aneurysm, occlusion or significant stenosis. Left: No aneurysm, occlusion or significant stenosis. Vertebral Arteries: Right: No aneurysm, occlusion or significant stenosis. Left: No aneurysm, occlusion or significant stenosis. Basilar Artery: No aneurysm, occlusion or significant stenosis. CTA Neck W: Common Carotid: No visible atherosclerotic changes. Right: No dissection, occlusion or significant stenosis. Left: No dissection, occlusion or significant stenosis. External Carotid: Right: No dissection, occlusion or significant stenosis. Left: No dissection, occlusion or significant stenosis. Internal Carotid: No visible atherosclerotic changes. Right: No dissection, occlusion or significant stenosis. Left: No dissection, occlusion or significant stenosis. Vertebral Artery: Right: No dissection, occlusion or significant stenosis. Left: No dissection, occlusion or significant stenosis. Lung Apices: No acute findings. Mild emphysematous changes. Bones: No acute abnormality. Soft Tissues: Normal. IMPRESSION: 1. CTA brain: Normal CTA examination of the [place]. 2. Head CT: No acute abnormality. 3. CTA neck: No evidence of occlusion, significant stenosis or dissection. The preliminary [facility] report was reviewed. RADIATION DOSE DELIVERED: Total DLP DATA REPOSITORY: All CT scans at this facility are submitted to the National Radiology Data Registry (NRDR) Dose Index Registry (DIR) with the [employer] (ACR). RADIATION OPTIMIZATION: All CT scans at this facility use at least one of these dose optimization techniques: automated exposure control; mA and/or kV adjustment per patient size (includes targeted exams where dose is matched to clinical indication); or iterative reconstruction.
[2025-02-24] MEDS: Normal Saline - Diluent 50 ML VIAL IJ (11:12)
[2025-02-24] MEDS: Omnipaque 350 MG/ML 100 ML BTL 70 ML IJ (11:13)
[2025-02-24 11:20] LABS: BE (Venous) 7 mmol/L (-2-3); HCO3 (Venous) 33 mmol/L (23-28); O2 Sat (Venous) 26 %; TCO2 (Venous) 30 mmol/L (24-29); pH (Venous) 7.34 (7.31-7.41); pO2 (Venous) 15 mmHg
[2025-02-24 11:22] LABS: Abs Immature Grans 0.02 10^3/uL (0.0-0.06); Absolute Basophil Count 0.02 10^3/uL (0.0-0.2); Absolute Eosinophil Count 0.18 10^3/uL (0.0-0.7); Absolute Lymphocyte Count 2.25 10^3/uL (1.2-3.4); Absolute Monocyte Count 0.37 10^3/uL (0.1-0.8); Absolute Neutrophil Count 4.91 10^3/uL (1.2-6.7); Basophils % 0.3 %; Eosinophils % 2.3 %; HCT 46.4 % (40.0-50.0); HGB 15.3 g/dL (13.5-17.5); Immature Grans % 0.3 %; MCH 31.4 pg (27.0-33.0); MCV 95 fL (80-95); MPV 10.1 fL (8.0-11.0); Monocytes % 4.8 %; Neutrophils % 63.3 %; Platelet Count 308 10^3/uL (130-400); RBC 4.87 10^6/uL (4.36-5.78); RDW-SD 48.8 fL; WBC 7.75 10^3/uL (4.4-10.8)
[2025-02-24 11:24] LABS: Bilirubin Negative (Negative); Blood Negative (Negative); Clarity Clear (Clear); Glucose Negative (Negative); Ketones Negative (Negative); Leukocyte Esterase Negative (Negative); Nitrite Negative (Negative); Specific Gravity 1.015 (1.005-1.025); Urobilinogen 0.2 mg/dL (Up to 0.2); pH 7.5 (5-8)
[2025-02-24 11:24] LABS: pCO2 (Venous) 61 mmHg (41-51)
[2025-02-24] MEDS: Normal Saline 500 ML IV (11:33)
--- NOTE | 2025-02-24 11:33 | W.ED.GENAD ---
Discharge Plan Disposition Patient Disposition: Home Condition: Good Discharge Details Clinical Impression: Weakness, Dehydration Primary Care Provider: None,None ED Provider: Terence Ryan Home Meds and New Rx's Prescriptions: No Action sumatriptan succinate 100 MG tablet 100 mg PO PRN duloxetine 60 MG capsule,delayed release(DR/EC) 60 mg PO BID zolpidem 10 mg tablet 10 mg PO DAILY PRN nicotine (polacrilex) 4 mg mini lozenge 4 mg buccal Q2H PRN Patient Comments: USE 1 LOZENGE BY MOUTH EVERY 2 HOURS NEEDED cyclobenzaprine 10 mg tablet 10 mg PO TID Qty: 14 0RF lidocaine [Lidoderm] 5 % adhesive patch,medicated 1 patch Topical Q24H Qty: 15 0RF clonazepam 1 mg tablet 1 mg PO QID divalproex 500 mg tablet extended release 24 hr 1,000 mg PO HS Patient Comments: TAKE TWO TABLETS BY MOUTH EVERY EVENING AT BEDTIME Discharge Instructions Instructions: Generalized Weakness Additional Instructions: At this time your workup is returned reassuring. Your CAT scan does not show any evidence of stroke, bleed, fracture or other abnormality. Please drink plenty fluids and stay well-hydrated. Please follow-up closely with your primary care provider. If you notice any worsening of your symptoms, or any new symptoms such as vomiting, diarrhea, fever, chills, shortness of breath, chest pain, numbness, weakness, or fainting , please return immediately to the emergency department for reevaluation. Please follow up with your primary care provider as soon as possible for reassessment and reevaluation. As always, it was a pleasure participating in your medical care today. HPI General Date/Time Provider Initiated Documentation: 02/24/25 10:52. HPI Narrative: 55-year-old male who denies any medical problems but does have a history of psychiatric problems including alcoholism, depression, anxiety, and has been diagnosed with migraines and GERD in the past,(who is also not seen at medical doctor in years) presents today for evaluation of headache and weakness. Patient states that he awoke last night at around 3 AM with a sudden onset headache, headache is in the front of his head, he does not describe it as thunderclap in nature, but does state that it was relatively quick in onset. He states that he normally gets headaches but this is slightly worse than normal. He states that it kept him up throughout the rest of the night. He also noticed some weakness in his left upper and lower extremity at the time, which has mildly improved. He admits to very mild dizziness but denies any falls or trauma. He denies any chest pain, chest tightness, arm neck or shoulder pain. He denies any visual changes. No other complaints at this time. Patient does admit to strong history of alcoholism in the past, but denies any current use. He denies any IV or illicit drug use. He denies any other complaints at this time. Related Data Home Medications ?Medication ?Instructions ?Recorded ?Confirmed duloxetine 60 mg capsule,delayed 60 mg PO BID 12/15/16 02/24/25 release sumatriptan succinate 100 mg tablet 100 mg PO PRN 12/15/16 02/24/25 clonazepam 1 mg tablet 1 mg PO QID 10/23/24 02/24/25 divalproex 500 mg tablet,extended 1,000 mg PO HS 11/10/24 02/24/25 release 24 hr cyclobenzaprine 10 mg tablet 10 mg PO TID #14 tabs 01/19/25 02/24/25 Held on 02/24/25. Instructions: Pt Stopped/Never Started lidocaine 5 % topical patch 1 patch topical Q24H #15 ea 01/19/25 02/24/25 (Lidoderm) Held on 02/24/25. Instructions: Pt Stopped/Never Started nicotine (polacrilex) 4 mg buccal 4 mg buccal Q2H PRN 01/19/25 02/24/25 mini lozenge Held on 02/24/25. Instructions: Pt Stopped/Never Started zolpidem 10 mg tablet 10 mg PO DAILY PRN 01/19/25 02/24/25 Previous Rx's ?Medication ?Instructions ?Recorded cyclobenzaprine 10 mg tablet 10 mg PO TID #14 tabs 01/19/25 Held on 02/24/25. Instructions: Pt Stopped/Never Started lidocaine 5 % topical patch 1 patch topical Q24H #15 ea 01/19/25 (Lidoderm) Held on 02/24/25. Instructions: Pt Stopped/Never Started Allergies Allergy/AdvReac Type Severity Reaction Status Date / Time prochlorperazine (From Allergy Unknown Unknown Verified 02/24/25 11:29 Compazine) promethazine (From Phenergan) Allergy Unknown Unknown Verified 02/24/25 11:29 NSAIDS (Non-Steroidal Allergy Unknown Verified 02/24/25 11:29 Anti-Inflamma General Stated Complaint: GenMedical PUSHPA: 2 Exam Narrative Exam Narrative: 1.Const: Well-nourished, Well-developed, appearing stated age. Notable disheveled meant in dirtiness, particularly with significant cigarette smoke stains over his hands bilaterally 2.Eyes: PERRL, no conjunctival injection, and symmetrical lids. 3.ENT: Atraumatic external nose and ears. Moist MM. Neck: Symmetric, trachea midline, No thyromegaly. 4.CVS: +S1/S2, Peripheral pulses 2+ and equal in all extremities. Brisk capillary refill in all extremities. 5.RESP: Unlabored respiratory effort. Clear to auscultation bilaterally. No wheezes rales or rhonchi 6.GI: Soft, Nontender/Nondistended, No hepatosplenomegaly. No guarding or rebound. 7.MSK: Normocephalic/Atraumatic, Extremities w/o deformity or ttp No cyanosis or clubbing, Normal movement of all extremities 8.Skin: Warm, Dry. No rashes or lesions. 9.Neuro: professor of philosophy II-XII grossly intact. Sensation grossly intact, no focal neurologic deficits. All 6 cardinal planes of vision are fully intact. No evidence of rotatory or vertical nystagmus. The patient demonstrated a normal [id number], good dexterity. There was no evidence of dysdiadochokinesia. Patient was able to ambulate without difficulty. There was no wide-based gait. Romberg testing was normal. Pxne-ah-wfdx testing was normal. Sensation was intact bilaterally as well as muscle strength bilaterally for all extremities. Patient was able to verbalize butter cup with no slurring, or miss pronunciation. NIH stroke score of 0, 10.Psych: (AAO) x3. Appropriate mood and affect Course Vital Signs Vital signs: Vital Signs Pulse 57 L 02/24/25 10:51 Respiratory Rate 17 02/24/25 10:51 Blood Pressure 129/71 02/24/25 10:51 Pulse Oximetry 99 02/24/25 10:51 Temperature 36.4 C L 02/24/25 11:01 Temperature Source Tympanic 02/24/25 11:01 Pulse 57 L 02/24/25 10:51 Respiratory Rate 17 02/24/25 10:51 Respiratory Effort Normal, Non-Labored 02/24/25 11:01 Respiratory Depth Normal 02/24/25 11:01 Respiratory Pattern Normal 02/24/25 11:01 Blood Pressure 129/71 02/24/25 10:51 Blood Pressure Position Sitting 02/24/25 10:51 Pulse Oximetry 99 02/24/25 10:51 Oxygen Delivery Method Room Air 02/24/25 10:51 Oxygen Flow Rate 0 02/24/25 10:51 Pain Level 0 02/24/25 10:51 Lab/Test Results Lab/Test Results: Laboratory Tests Range/Units 02/24/25 02/24/25 11:09 11:15 WBC (4.4-10.8) 10^3/uL 7.75 RBC (4.36-5.78) 10^6/uL 4.87 Hgb (13.5-17.5) g/dL 15.3 Hct (40.0-50.0) % 46.4 MCV (80-95) fL 95 MCH (27.0-33.0) pg 31.4 MCHC (32.0-36.0) % 33.0 RDW (11.8-14.1) % 14.0 Plt Count (130-400) 10^3/uL 308 MPV (8.0-11.0) fL 10.1 Immature Gran % % 0.3 Neutrophils % % 63.3 Lymphocytes % % 29.0 Monocytes % % 4.8 Eosinophils % % 2.3 Basophils % % 0.3 Nucleated RBC % (0.0-0.3) % 0.0 Absolute Neutrophils (1.2-6.7) 10^3/uL 4.91 Absolute Lymphocytes (1.2-3.4) 10^3/uL 2.25 Absolute Monocytes (0.1-0.8) 10^3/uL 0.37 Absolute Eosinophils (0.0-0.7) 10^3/uL 0.18 Absolute Basophils (0.0-0.2) 10^3/uL 0.02 VBG pH (7.31-7.41) 7.34 VBG pCO2 (41-51) mmHg 61 H VBG pO2 mmHg 15 VBG HCO3 (23-28) mmol/L 33 H VBG Total CO2 (24-29) mmol/L 30 H VBG O2 Saturation % 26 VBG Base Excess (-2-3) mmol/L 7 H Urine Color (Yellow) Yellow Urine Clarity (Clear) Clear Urine pH (5-8) 7.5 Ur Specific [place] (1.005-1.025) 1.015 Urine Protein (Neg-Trace) mg/dL Negative Urine Ketones (Negative) mg/dL Negative Urine Blood (Negative) Negative Urine Nitrite (Negative) Negative Urine Bilirubin (Negative) Negative Urine Urobilinogen (Up to 0.2) mg/dL 0.2 Ur Leukocyte Esterase (Negative) Negative Urine Glucose (Negative) mg/dL Negative Medical Decision Making 55-year-old male who denies any medical problems but does have a history of psychiatric problems including alcoholism, depression, anxiety, and has been diagnosed with migraines and GERD in the past,(who is also not seen at medical doctor in years) presents today for evaluation of headache and weakness. Patient states that he awoke last night at around 3 AM with a sudden onset headache, headache is in the front of his head, he does not describe it as thunderclap in nature, but does state that it was relatively quick in onset. He states that he normally gets headaches but this is slightly worse than normal. He states that it kept him up throughout the rest of the night. He also noticed some weakness in his left upper and lower extremity at the time, which has mildly improved. He admits to very mild dizziness but denies any falls or trauma. He denies any chest pain, chest tightness, arm neck or shoulder pain. He denies any visual changes. No other complaints at this time. Patient does admit to strong history of alcoholism in the past, but denies any current use. He denies any IV or illicit drug use. He denies any other complaints at this time. Exam demonstrates a disheveled male, no acute distress, assessment demonstrates an NIH stroke scale of 0, no focal neurologic deficits. No dysdiadochokinesia or dysmetria. No nuchal rigidity or neck stiffness. No tenderness over his eyes to suggest acute angle-closure glaucoma. Headache origin was earlier this morning, however it does not appear overly clinically consistent with evidence to suggest ruptured aneurysm or acute bleed, however this is on the differential. Will start with CT/CTA to evaluate for major hemorrhage, major stroke or tumor, or intact aneurysm. Will treat with Ofirmev, we will evaluate for electrolyte disturbance, patient is not a tPA candidate secondary to the longevity of symptoms, and lack of symptoms currently. Meningitis seems notably clinically inconsistent as he has a soft and supple neck with no stiffness. Will monitor closely and reassess. 3:[address] scan has returned, negative for acute process, no evidence of large occlusion or stroke. Laboratory workup has returned normal, no significant laboratory abnormalities. Mild elevation in his pCO2, but normal pH, electrolytes stable, renal function normal. Ammonia less than 10, serial troponins normal, thyroid function normal, urinalysis negative for infection. Patient on reassessment feels much better. He ambulates well throughout the ED. No evidence to suggest stroke. Additionally headache is completely resolved. Symptoms clinically inconsistent with meningitis, acute intercranial hemorrhage, encephalitis. Suspect he was certainly fatigued tired and mildly dehydrated. After fluid and rest he is feeling well. Patient stable for discharge. No evidence or focal neurologic deficit to suggest stroke or other concerning etiology. Patient will be discharged home. Discussed red flags which return. I have extensively reviewed the treatment plan and discharge instructions with the patient. I have addressed all patient concerns at this time. The patient was made aware of what symptoms to monitor for that would warrant a return to the emergency department. Discussed the plan with the patient, they demonstrate verbal understanding and agreement with our assessment and plan at this time. The documentation in this chart was dictated using [employer] dictation software. Please excuse any dictation errors. FINDINGS: ANTERIOR CIRCULATION: Right internal carotid artery: Intracranial segment is patent with no significant stenosis or occlusion. No aneurysm. Right middle cerebral artery: No occlusion or significant stenosis. No aneurysm. Right anterior cerebral artery: No occlusion or significant stenosis. No aneurysm. Left internal carotid artery: Intracranial segment is patent with no significant stenosis. No aneurysm. Left middle cerebral artery: No occlusion or significant stenosis. No aneurysm. Left anterior cerebral artery: No occlusion or significant stenosis. No aneurysm. POSTERIOR CIRCULATION: Right vertebral artery: No occlusion or significant stenosis. No aneurysm Left vertebral artery: No occlusion or significant stenosis. No aneurysm. Basilar artery: No occlusion or significant stenosis. No aneurysm. Right posterior cerebral artery: No occlusion or significant stenosis. No aneurysm. Left posterior cerebral artery: No occlusion or significant stenosis. No aneurysm. HEAD: Brain: Normal. No hemorrhage. Unremarkable white matter. No mass effect. Cerebral ventricles: Normal. No ventriculomegaly. Bones: Unremarkable. No acute fracture. Paranasal sinuses: Visualized sinuses are normal. No fluid levels. Mastoid air cells: Visualized mastoids are normal. No mastoid effusion. Soft tissues: Unremarkable. IMPRESSION: 1. No large vessel occlusion. 2. Unremarkable CT head. FINDINGS: Right common carotid artery: No stenosis. No dissection or occlusion. Right internal carotid artery: No stenosis of the extracranial segment. No dissection or occlusion. Right external carotid artery: No occlusion or stenosis of the origin. Left common carotid artery: No stenosis. No dissection or occlusion. Left internal carotid artery: No stenosis of the extracranial segment. No dissection or occlusion. Left external carotid artery: No occlusion or stenosis of the origin Right vertebral artery: No stenosis. No dissection or occlusion. Left vertebral artery: No stenosis. No dissection or occlusion. Pharynx: There are calcified tonsilliths in the tonsils Soft tissues: Normal. No significant soft tissue swelling. Bones/joints: There are mild degenerative changes in the cervical spine. Lungs: Mild paraseptal emphysematous changes in the apical lungs IMPRESSION: No occlusion or stenosis in the arteries of the neck. Quality:SDOH Health Related Social Needs: Health related social needs inadequate housing risk of homeless PFSH All Active Problems (Updated 02/24/25 @ 15:23 by Terence Ryan DO) Dehydration (Acute) Weakness (Acute) Back pain (Acute) Medical History (Updated 02/24/25 @ 15:23 by Terence Ryan DO) Obesity History of alcoholism GERD (gastroesophageal reflux disease) Tremor Migraines Depression with psychotic features Anxiety Surgical History (Updated 06/15/18 @ 14:37 by [employer] [facility]) Repair of inguinal hernia Family History Mother Depression Melanoma Social History Smoking/Tobacco Use Status: Current every day Tobacco Type: cigars Smoking risk assessment performed?: Yes Alcohol Intake: former Drug use: Occasionally Substance use type: marijuana Housing: other Do you feel safe at home: Yes Do you feel safe in your relationship?: Yes
[2025-02-24 11:42] LABS: PTT Activated 26.7 sec (20.6-30.2); Prothrombin Time 10.2 sec (9.1-11.1)
[2025-02-24 11:48] LABS: Ammonia < 10 umol/L (11-32)
[2025-02-24 11:56] LABS: ALT 24 U/L (16-63); AST 13 U/L (15-37); Albumin 3.8 g/dL (3.4-5.0); Alkaline Phosphatase 69 U/L (46-116); Anion Gap 6.5 mmol/L (3-11); BUN 3 mg/dL (7-18); Bilirubin, Total 0.5 mg/dL (0.2-1.0); CO2 33.5 mmol/L (21.0-32.0); CREATININE 0.6 mg/dL (0.70-1.30); Calcium 9.4 mg/dL (8.5-10.1); Chloride 103 mmol/L (98-107); Glucose 98 mg/dL (74-106); Potassium 4.6 mmol/L (3.5-5.1); Sodium 143 mmol/L (136-145); Total Protein 7.7 g/dL (6.4-8.2)
[2025-02-24 12:00] LABS: TSH (W/Ref FT4) 0.57 uIU/mL (0.36-3.74); Troponin I 4 ng/L (<or=76)
[2025-02-24 12:29] LABS: Troponin I 4 ng/L (<or=76)
--- NOTE | 2025-02-24 13:40 | DI.VRAD_ITS ---
PROCEDURE INFORMATION: Exam: CTA Head Without And With Contrast, Arteriography Exam date and time: 02/24/2025 12:33 PM Age: 55 years old Clinical indication: Stroke-like symptoms; Left upper extremity numbness/paresthesia TECHNIQUE: Imaging protocol: Computed tomographic angiography of the head without and with contrast. Exam focused on the arteries. 3D rendering (Not supervised by radiologist): MIP and/or 3D reconstructed images were created by the technologist. Contrast material: OMNI 350; Contrast volume: 70 ml; Contrast route: INTRAVENOUS (IV); Other technique: STROKE PROTOCOL was implemented. COMPARISON: CT HEAD CERVICAL SPINE WO 01/19/2025 12:34 AM FINDINGS: ANTERIOR CIRCULATION: Right internal carotid artery: Intracranial segment is patent with no significant stenosis or occlusion. No aneurysm. Right middle cerebral artery: No occlusion or significant stenosis. No aneurysm. Right anterior cerebral artery: No occlusion or significant stenosis. No aneurysm. Left internal carotid artery: Intracranial segment is patent with no significant stenosis. No aneurysm. Left middle cerebral artery: No occlusion or significant stenosis. No aneurysm. Left anterior cerebral artery: No occlusion or significant stenosis. No aneurysm. POSTERIOR CIRCULATION: Right vertebral artery: No occlusion or significant stenosis. No aneurysm. Left vertebral artery: No occlusion or significant stenosis. No aneurysm. Basilar artery: No occlusion or significant stenosis. No aneurysm. Right posterior cerebral artery: No occlusion or significant stenosis. No aneurysm. Left posterior cerebral artery: No occlusion or significant stenosis. No aneurysm. HEAD: Brain: Normal. No hemorrhage. Unremarkable white matter. No mass effect. Cerebral ventricles: Normal. No ventriculomegaly. Bones: Unremarkable. No acute fracture. Paranasal sinuses: Visualized sinuses are normal. No fluid levels. Mastoid air cells: Visualized mastoids are normal. No mastoid effusion. Soft tissues: Unremarkable. IMPRESSION: 1. No large vessel occlusion. 2. Unremarkable CT head. ASSESSMENT: ASPECTS ([place] Stroke Program Early CT Score) is 10. PROCEDURE INFORMATION: Exam: CTA Neck Without And With Contrast Exam date and time: 02/24/2025 12:33 PM Age: 55 years old Clinical indication: Stroke-like symptoms; Left upper extremity numbness/paresthesia TECHNIQUE: Imaging protocol: Computed tomographic angiography of the neck without and with contrast. Exam focused on the cervical segments of the vasculature. 3D rendering (Not supervised by radiologist): MIP and/or 3D reconstructed images were created by the technologist. Contrast material: OMNI 350; Contrast volume: 70 ml; Contrast route: INTRAVENOUS (IV); COMPARISON: No relevant prior studies available. FINDINGS: Right common carotid artery: No stenosis. No dissection or occlusion. Right internal carotid artery: No stenosis of the extracranial segment. No dissection or occlusion. Right external carotid artery: No occlusion or stenosis of the origin. Left common carotid artery: No stenosis. No dissection or occlusion. Left internal carotid artery: No stenosis of the extracranial segment. No dissection or occlusion. Left external carotid artery: No occlusion or stenosis of the origin. Right vertebral artery: No stenosis. No dissection or occlusion. Left vertebral artery: No stenosis. No dissection or occlusion. Pharynx: There are calcified tonsilliths in the tonsils Soft tissues: Normal. No significant soft tissue swelling. Bones/joints: There are mild degenerative changes in the cervical spine. Lungs: Mild paraseptal emphysematous changes in the apical lungs IMPRESSION: No occlusion or stenosis in the arteries of the neck. REFERENCES: NASCET CRITERIA. The degree of stenosis in the cervical segment of the internal carotid artery is based on NASCET criteria. Normal is no stenosis. Mild is less than 50% stenosis. Moderate is 50-69% stenosis. Severe is 70% to 99% stenosis. Total occlusion is no detectable patent lumen. Dictated and Authenticated by: Tank Jaramillo MD. Orderin Connor Pratt MD
[2025-02-24] MEDS: MORPHine 4 MG/ML SYR IVP (13:47)
[2025-02-24] MEDS: Meclizine 25 MG TAB PO (15:11)
== END 2025-02-24 16:37 | disposition home or self-care (01) ==
PROVIDERS: Emergency Provider Student in an Organized Health Care Education/Training Program
DX: R53.1 Weakness (principal); R42 Dizziness and giddiness; E86.0 Dehydration; F17.290 Nicotine dependence, other tobacco product, uncomplicated
CPT/HCPCS: 36415; 70496; 70498; 80053; 82805; 93005; 96365; 96375; 99285; 81003; 82140; 84443; 84484; 85025; 85610; 85730; 93010; 99284; J0131; J2270; J3490

== ENCOUNTER 2025-02-25 21:48 | Emergency (ER) | payer MEDICARE, SELFPAY ==
[2025-02-25] VITALS (22 sets, daily range): BP systolic 100–120; BP diastolic 48–75; PULSE 60–75; RESP 18; TEMP 36.7; O2SAT 94–99
--- NOTE | 2025-02-25 22:13 | W.ED.GENAD ---
Discharge Plan Discharge Details Chief Complaint: Headache Primary Care Provider: None,None ED Provider: Melquiades Shrestha Home Meds and New Rx's Prescriptions: No Action sumatriptan succinate 100 MG tablet 100 mg PO PRN duloxetine 60 MG capsule,delayed release(DR/EC) 60 mg PO BID zolpidem 10 mg tablet 10 mg PO DAILY PRN nicotine (polacrilex) 4 mg mini lozenge 4 mg buccal Q2H PRN Patient Comments: USE 1 LOZENGE BY MOUTH EVERY 2 HOURS NEEDED cyclobenzaprine 10 mg tablet 10 mg PO TID Qty: 14 0RF lidocaine [Lidoderm] 5 % adhesive patch,medicated 1 patch Topical Q24H Qty: 15 0RF clonazepam 1 mg tablet 1 mg PO QID divalproex 500 mg tablet extended release 24 hr 1,000 mg PO HS Patient Comments: TAKE TWO TABLETS BY MOUTH EVERY EVENING AT BEDTIME HPI General Date/Time Provider Initiated Documentation: 02/25/25 21:58. HPI Narrative: Isidro is a 55-year-old male who presents to the emergency department today via EMS for evaluation of sudden onset of headache accompanied by dizziness and slightly blurred vision to L eye occurring approximately 3 hours prior to arrival. He reports that he took some of his Imitrex without improvement of symptoms. Dizziness is described as a feeling of offkilter, difficulty walking. Denies fever/chills, congestion, ear pain/tinnitus, sore throat, cough, shortness of breath, chest pain, nausea/vomiting, abdominal pain, change in bowel or bladder function, extremity weakness. Denies significant past medical history other than migraines, does have history of psychiatric problems including alcoholism (denies recent alcohol use), depression/anxiety. Does not have PCP. Physical exam remarkable for slight wobbling on Romberg, gait not evaluated due to unsteadiness on feet. Normal [id number], RAAM's, heel murphy. 5/5 muscle strength upper and lower extremities, sensation grossly intact. 2+ patellar reflexes. A+O x 4. Cranial nerves II through XII intact as tested, no nystagmus. Clear speech easy work of breathing, lung sounds clear bilaterally. Normal heart sounds. Abdomen soft, nondistended, nontender to palpation. No pedal edema. DDx includes but is not limited to: Migraine, dehydration, electrolyte imbalance. No red flags concerning for posterior stroke at this time. I did review recent ED note from 02/24/2025 in which patient had normal CTA for evaluation of headache/weakness. IV fluids, toradol, and droperidol given for headache symptoms. Handoff report given to Dr. Shrestha, overnight attending physician with results pending. Related Data Home Medications ?Medication ?Instructions ?Recorded ?Confirmed duloxetine 60 mg capsule,delayed 60 mg PO BID 12/15/16 02/25/25 release sumatriptan succinate 100 mg tablet 100 mg PO PRN 12/15/16 02/25/25 clonazepam 1 mg tablet 1 mg PO QID 10/23/24 02/25/25 divalproex 500 mg tablet,extended 1,000 mg PO HS 11/10/24 02/25/25 release 24 hr cyclobenzaprine 10 mg tablet 10 mg PO TID #14 tabs 01/19/25 02/25/25 Held on 02/24/25. Instructions: Pt Stopped/Never Started lidocaine 5 % topical patch 1 patch topical Q24H #15 ea 01/19/25 02/25/25 (Lidoderm) Held on 02/24/25. Instructions: Pt Stopped/Never Started nicotine (polacrilex) 4 mg buccal 4 mg buccal Q2H PRN 01/19/25 02/25/25 mini lozenge Held on 02/24/25. Instructions: Pt Stopped/Never Started zolpidem 10 mg tablet 10 mg PO DAILY PRN 01/19/25 02/25/25 Previous Rx's ?Medication ?Instructions ?Recorded cyclobenzaprine 10 mg tablet 10 mg PO TID #14 tabs 01/19/25 Held on 02/24/25. Instructions: Pt Stopped/Never Started lidocaine 5 % topical patch 1 patch topical Q24H #15 ea 01/19/25 (Lidoderm) Held on 02/24/25. Instructions: Pt Stopped/Never Started Allergies Allergy/AdvReac Type Severity Reaction Status Date / Time prochlorperazine (From Allergy Unknown Unknown Verified 02/25/25 21:49 Compazine) promethazine (From Phenergan) Allergy Unknown Unknown Verified 02/25/25 21:49 NSAIDS (Non-Steroidal Allergy Unknown Verified 02/25/25 21:49 Anti-Inflamma General Stated Complaint: Headache PUSHPA: 3 Review of Systems Narrative: see HPI Exam Const General: cooperative, healthy appearing, comfortable, no acute distress and well developed Nutritional Appearance: thin Orientation: alert and oriented x3 HENMT Head: normal to inspection, normocephalic and atraumatic Ears: hearing grossly normal bilaterally General nose exam: external nose normal Face and sinus: normal facial exam Mouth: oral mucosae normal, lip normal and tongue normal Neck Neck: normal visual inspection, full ROM and no lymphadenopathy Resp Effort & Inspection: normal respiratory effort and able to speak in complete sentences Auscultation: clear to auscultation bilaterally Cardio Rate: regular rate Rhythm: regular rhythm GI Inspection: normal to inspection Palpation: soft, no guarding, not rigid and nontender Skin General skin exam: no rashes or lesions noted Neuro General: patient alert, patient oriented x3, tone normal, moves all extremities and CN's II-XI intact bilaterally Cranial Nerves: CN's II-XI intact bilaterally, PERRL, EOM intact bilaterally, no nystagmus and facial strength normal Cognition: normal cognition Speech: speech normal Motor: muscle tone normal throughout and strength 5/5 throughout Sensory Exam: no sensory deficits noted Coordination: dyidqz-ge-kvdi test normal, ltvh-qp-[id number] test normal, rapid alternating movement UE normal and other (swaying with Romberg) Extrem General: normal to inspection and pedal edema present Course Vital Signs Vital signs: Vital Signs Temperature 36.7 C 02/25/25 21:43 Pulse 67 02/25/25 21:43 Respiratory Rate 18 02/25/25 21:43 Blood Pressure 112/48 L 02/25/25 21:43 Pulse Oximetry 96 02/25/25 21:43 Temperature 36.7 C 02/25/25 21:43 Pulse 70 02/25/25 21:50 Respiratory Rate 18 02/25/25 21:43 Blood Pressure 112/48 L 02/25/25 21:45 Blood Pressure Mean 68 02/25/25 21:45 Pulse Oximetry 96 02/25/25 21:50 Pain Level 10 02/25/25 21:43 Medical Decision Making Quality:SDOH Health Related Social Needs: Health related social needs inadequate housing risk of homeless PFSH All Active Problems (Updated 02/24/25 @ 15:23 by Terence Ryan DO) Dehydration (Acute) Weakness (Acute) Back pain (Acute) Medical History (Updated 02/24/25 @ 15:23 by Terence Ryan DO) Obesity History of alcoholism GERD (gastroesophageal reflux disease) Tremor Migraines Depression with psychotic features Anxiety Surgical History (Updated 06/15/18 @ 14:37 by [employer] [place]) Repair of inguinal hernia Family History Mother Depression Melanoma Social History Smoking/Tobacco Use Status: Current every day Tobacco Type: cigars Smoking risk assessment performed?: Yes Alcohol Intake: former Drug use: Occasionally Substance use type: marijuana Housing: other Do you feel safe at home: Yes Do you feel safe in your relationship?: Yes
[2025-02-25] MEDS: Ketorolac 15 MG/ML VIAL IVP (22:32)
[2025-02-25] MEDS: Normal Saline 1,000 ML 1000 ML IV (22:32)
[2025-02-25] MEDS: Droperidol 5 MG/2 ML VIAL 2.5 MG IVP (22:33)
[2025-02-25 22:36] LABS: Abs Immature Grans 0.02 10^3/uL (0.0-0.06); Absolute Basophil Count 0.05 10^3/uL (0.0-0.2); Absolute Eosinophil Count 0.27 10^3/uL (0.0-0.7); Absolute Lymphocyte Count 3.12 10^3/uL (1.2-3.4); Absolute Monocyte Count 0.82 10^3/uL (0.1-0.8); Absolute Neutrophil Count 6.52 10^3/uL (1.2-6.7); Basophils % 0.5 %; Eosinophils % 2.5 %; HCT 45.6 % (40.0-50.0); HGB 15.3 g/dL (13.5-17.5); Immature Grans % 0.2 %; Lymphocytes % 28.9 %; MCH 31.9 pg (27.0-33.0); MCHC 33.6 % (32.0-36.0); MCV 95 fL (80-95); MPV 10.3 fL (8.0-11.0); Monocytes % 7.6 %; Neutrophils % 60.3 %; Platelet Count 350 10^3/uL (130-400); RBC 4.79 10^6/uL (4.36-5.78); RDW 13.9 % (11.8-14.1); RDW-SD 48.5 fL
[2025-02-25 22:55] LABS: ETHANOL BLOOD < 3.0 mg/dL (<10)
[2025-02-25 23:00] LABS: Bilirubin Negative (Negative); Blood Negative (Negative); Clarity Clear (Clear); Glucose Negative (Negative); Ketones Negative (Negative); Leukocyte Esterase Negative (Negative); Nitrite Negative (Negative); pH 8.5 (5-8)
[2025-02-25 23:00] LABS: ALT 24 U/L (16-63); AST 13 U/L (15-37); Albumin 3.7 g/dL (3.4-5.0); Alkaline Phosphatase 65 U/L (46-116); Anion Gap 5.9 mmol/L (3-11); BUN 8 mg/dL (7-18); Bilirubin, Total 0.4 mg/dL (0.2-1.0); CO2 35.1 mmol/L (21.0-32.0); CREATININE 0.9 mg/dL (0.70-1.30); Calcium 9.4 mg/dL (8.5-10.1); Chloride 103 mmol/L (98-107); Estimated GFR 100.86 (mL/min/1.73m2); Glucose 84 mg/dL (74-106); Magnesium 1.8 mg/dL (1.8-2.4); Potassium 3.7 mmol/L (3.5-5.1); Sodium 144 mmol/L (136-145); Total Protein 7.4 g/dL (6.4-8.2)
[2025-02-25 23:03] LABS: TSH 1.24 uIU/mL (0.36-3.74)
[2025-02-25 23:17] LABS: *AMPHETAMINES SCREEN URINE Negative (Negative); *BARBITURATES SCREEN URINE Negative (Negative); *BENZODIAZEPINES SCREEN URINE Negative (Negative); Cannabinoids THC Positive (Negative); Cocaine Screen,Urine Negative (Negative); METHADONE URINE SCREEN Negative (Negative); OPIATES URINE SCREEN Negative (Negative)
[2025-02-25 23:19] LABS: Tricyclic Antidepressants Negative (Negative)
[2025-02-25 23:24] LABS: VALPROIC ACID 64.1 ug/mL
[2025-02-26] VITALS (69 sets, daily range): BP systolic 93–146; BP diastolic 53–86; PULSE 50–69; RESP 18; O2SAT 94–100
--- NOTE | 2025-02-26 05:35 | ED.PROG_ITS ---
Date of service: 02/25/25 Time of Service: 22:30 Medical Decision Making The patient was seen and evaluated in conjunction with Mitra Lopez, the nurse practitioner the initially evaluated the patient and with the main emergency note. Briefly, this patient has a fully normal neurologic examination with no significant findings of cranial nerve deficits, normal motor function, normal sensory function, and absent nystagmus both vertically and horizontally. The patient has a history of chronic neck pain and has a frontal headache, which she describes as different than his typical migraine pain which is usually in the bilateral parietal areas. The patient was seen here yesterday and was given IV analgesics which did not fully alleviate his headache. While his headache was better, he states that it never fully went away and returned later this evening prompting him to return to the emergency room for evaluation. The patient used his sumatriptan at home without any significant improvement in his symptoms. Here in the emergency room, the patient was given given some IV ketorolac but also IV droperidol along with IV fluid hydration. The patient fell asleep and has been resting comfortably throughout the arc of this entire shift. His workup including chemistries, white blood count, and toxicology screening were all negative for any acute findings. This most likely represents a change presentation for the patient's chronic migraine disease, although the patient could be experiencing a tension type headache as well. When the patient awakens this morning, if he has any residual headache symptoms, I will likely recommend a Medrol Dosepak in conjunction with some Fioricet as a bridge to primary care follow-up for ongoing management considerations. I did send a tick panel on the patient as there has been recent uptick in the diagnosis of Anaplasma in the local area which has been associated with headaches. However, the patient has not been experiencing any high fever or associated rash. The patient has no known tick exposure. I do not anticipate that the patient will r equire admission to the hospital but should be able to be discharged with oral outpatient medications as needed. Quality:SDOH Health Related Social Needs: Health related social needs inadequate housing risk of homeless Discharge Plan Disposition Patient Disposition: Home Condition: Good Discharge Details Clinical Impression: Headache, chronic migraine without aura Primary Care Provider: None,None ED Provider: Melquiades Shrestha Home Meds and New Rx's Prescriptions: No Action sumatriptan succinate 100 MG tablet 100 mg PO PRN duloxetine 60 MG capsule,delayed release(DR/EC) 60 mg PO BID zolpidem 10 mg tablet 10 mg PO DAILY PRN nicotine (polacrilex) 4 mg mini lozenge 4 mg buccal Q2H PRN Patient Comments: USE 1 LOZENGE BY MOUTH EVERY 2 HOURS NEEDED cyclobenzaprine 10 mg tablet 10 mg PO TID Qty: 14 0RF lidocaine [Lidoderm] 5 % adhesive patch,medicated 1 patch Topical Q24H Qty: 15 0RF clonazepam 1 mg tablet 1 mg PO QID divalproex 500 mg tablet extended release 24 hr 1,000 mg PO HS Patient Comments: TAKE TWO TABLETS BY MOUTH EVERY EVENING AT BEDTIME Discharge Instructions Instructions: Migraine in adults Additional Instructions: Continue your current medications as previously directed. Follow-up with your regular primary care doctor for reevaluation and further management if your migraine headache disease is not well-controlled. You can always return to the ER for any new concerns or sudden changes in your health which you feel require emergency medical attention. If your tick panel becomes positive for any organisms, we will contact you for further treatment recommendations. Discharge Data Discharge Physician: Melquiades Shrestha
[2025-02-27 10:48] LABS: Lyme Ab w Rflx to Lyme Confirm Negative (Negative)
[2025-03-01 15:00] LABS: Anaplasma phagocytophilum Negative (Negative); B. miyamotoi PCR Negative (Negative); Babesia divergens/MO-1 Negative (Negative); Babesia duncani Negative (Negative); Babesia microti Negative (Negative); Ehrlichia chaffeensis Negative (Negative); Ehrlichia ewingii/canis Negative (Negative); Ehrlichia muris eauclairensis Negative (Negative)
== END 2025-02-26 06:48 | disposition home or self-care (01) ==
PROVIDERS: Nurse Practitioner Family; Emergency Provider Emergency Medicine Emergency Medical Services
DX: G43.709 Chronic migraine without aura, not intractable, without status migrainosus (principal); H53.8 Other visual disturbances; R42 Dizziness and giddiness; Z59.811 Housing instability, housed, with risk of homelessness; Z59.10 Inadequate housing, unspecified
CPT/HCPCS: 99284; 99285; 96374; 96375; 00123; 80053; 80307; 87798; 96361; 80164; 80320; 81003; 83735; 84443; 84484; 85025; 86618; J1790; J1885

== ENCOUNTER 2025-03-10 01:12 | Emergency (ER) | payer MEDICARE, SELFPAY ==
[2025-03-10] VITALS (8 sets, daily range): BP systolic 109–120; BP diastolic 67–76; PULSE 60–74; RESP 16; TEMP 36.5; O2SAT 94–98
--- NOTE | 2025-03-10 01:30 | DI.CT_ITS ---
Exam(s) CT CERVICAL SPINE RECONS CT BRAIN NECK CTA EXAM: CT BRAIN NECK CTA CLINICAL HISTORY: fall, HS, vertgio. TECHNIQUE: Imaging Protocol: Axial CT angiography was performed with multi- slice acquisition and multi-planar and MIP reconstructions. CONTRAST MATERIAL: Intravenous: Omnipaque 350 Contrast volume:70 ml COMPARISON: CT CT HEAD CERVICAL SPINE WO from 10/23/[address] BRAIN NECK CTA from 02/24/[address] CERVICAL SPINE RECONS from 03/10/2025 FINDINGS: CT Head W/O and W contrast: Ventricles and Extra axial spaces: Normal in size and morphology for the patient's age. Hemorrhage: None. Cerebral parenchyma: No evidence of acute infarct or mass. No evidence of atrophy or white matter changes. Midline shift: None. Brainstem/Cerebellum: No acute findings.. Calvarium: Normal. Visualized Paranasal sinuses/Mastoids: Mucous retention in the left maxillary sinus. Soft Tissues: Unremarkable. Enhancement: Normal. Venous sinuses are patent. CTA Brain W: Internal Carotid Arteries: Right: No aneurysm, occlusion or significant stenosis. Left: No aneurysm, occlusion or significant stenosis. Middle Cerebral Arteries: Right: No aneurysm, occlusion or significant stenosis. Left: No aneurysm, occlusion or significant stenosis. Anterior Cerebral Arteries: Right: No aneurysm, occlusion or significant stenosis. Left: No aneurysm, occlusion or significant stenosis. Posterior cerebral Arteries: Right: No aneurysm, occlusion or significant stenosis. Left: No aneurysm, occlusion or significant stenosis. Vertebral Arteries: Right: No aneurysm, occlusion or significant stenosis. Left: No aneurysm, occlusion or significant stenosis. Basilar Artery: No aneurysm, occlusion or significant stenosis. CTA Neck W: Common Carotid: Right: Minimal plaque at the bulb. No dissection, occlusion or significant stenosis. Left: Mild plaque at the bulb. No dissection, occlusion or significant stenosis. External Carotid: Right: No dissection, occlusion or significant stenosis. Left: No dissection, occlusion or significant stenosis. Internal Carotid: Right: No dissection, occlusion or significant stenosis. Left: No dissection, occlusion or significant stenosis. Vertebral Artery: Right: No dissection, occlusion or significant stenosis. Left: No dissection, occlusion or significant stenosis. Lung Apices: No acute findings. Mild paraseptal emphysematous changes. Bones: No acute abnormality. Stable reversal of the normal cervical lordosis. Mild moderate narrowing of the C 5 6 and C6-7 disc spaces. Endplate osteophytes cause bilateral neural foraminal narrowing, greater greater at C6-7. Mild narrowing of the AP dimension of the central canal. Soft Tissues: Normal. IMPRESSION: 1. CTA brain: Normal CTA examination of the [place]. 2. Head CT: No acute abnormality. 3. CTA neck: No evidence of occlusion, significant stenosis or dissection. 4. Cervical Spine: Degenerative disc changes at C5-6 and C6-7. Stable degenerative reversal of the normal cervical lordosis. No acute abnormality. The preliminary [facility] report was reviewed. RADIATION DOSE DELIVERED: Total DLP DATA REPOSITORY: All CT scans at this facility are submitted to the National Radiology Data Registry (NRDR) Dose Index Registry (DIR) with the [employer] (ACR). RADIATION OPTIMIZATION: All CT scans at this facility use at least one of these dose optimization techniques: automated exposure control; mA and/or kV adjustment per patient size (includes targeted exams where dose is matched to clinical indication); or iterative reconstruction.
[2025-03-10 01:59] LABS: Abs Immature Grans 0.02 10^3/uL (0.0-0.06); HCT 43.0 % (40.0-50.0); HGB 14.5 g/dL (13.5-17.5); Immature Grans % 0.2 %; MCH 31.5 pg (27.0-33.0); MCHC 33.7 % (32.0-36.0); MCV 93 fL (80-95); MPV 10.0 fL (8.0-11.0); Platelet Count 284 10^3/uL (130-400); RBC 4.61 10^6/uL (4.36-5.78); RDW 13.6 % (11.8-14.1); RDW-SD 46.4 fL; WBC 9.84 10^3/uL (4.4-10.8)
[2025-03-10] MEDS: Normal Saline - Diluent 50 ML VIAL IJ (02:05)
[2025-03-10] MEDS: Omnipaque 350 MG/ML 100 ML BTL 70 ML IJ (02:06)
[2025-03-10 02:21] LABS: ALT 20 U/L (16-63); AST 8 U/L (15-37); Albumin 3.2 g/dL (3.4-5.0); Alkaline Phosphatase 60 U/L (46-116); Anion Gap 5.2 mmol/L (3-11); BUN 9 mg/dL (7-18); Bilirubin, Total 0.2 mg/dL (0.2-1.0); CO2 34.8 mmol/L (21.0-32.0); Calcium 9.2 mg/dL (8.5-10.1); Chloride 102 mmol/L (98-107); Estimated GFR 114.00 (mL/min/1.73m2); Glucose 100 mg/dL (74-106); Magnesium 1.6 mg/dL (1.8-2.4); Potassium 3.7 mmol/L (3.5-5.1); Sodium 142 mmol/L (136-145); Total Protein 6.8 g/dL (6.4-8.2)
[2025-03-10] MEDS: Droperidol 5 MG/2 ML VIAL 1.25 MG IVP (02:23)
[2025-03-10] MEDS: ACETAMINOPHEN 1,000 MG/100 ML BAG 400 MG IVPB (02:23)
--- NOTE | 2025-03-10 02:33 | W.ED.GENAD ---
Discharge Plan Disposition Patient Disposition: Home Condition: Good Discharge Details Clinical Impression: Frequent falls, Headache, Neck pain, Vertigo Primary Care Provider: None,None ED Provider: Shanelle Huffman Home Meds and New Rx's Prescriptions: Continued sumatriptan succinate 100 MG tablet 100 mg PO PRN duloxetine 60 MG capsule,delayed release(DR/EC) 60 mg PO BID clonazepam 1 mg tablet 1 mg PO QID divalproex 500 mg tablet extended release 24 hr 1,000 mg PO HS Patient Comments: TAKE TWO TABLETS BY MOUTH EVERY EVENING AT BEDTIME Discontinued nicotine (polacrilex) 4 mg mini lozenge 4 mg buccal Q2H PRN Patient Comments: USE 1 LOZENGE BY MOUTH EVERY 2 HOURS NEEDED cyclobenzaprine 10 mg tablet 10 mg PO TID Qty: 14 0RF lidocaine [Lidoderm] 5 % adhesive patch,medicated 1 patch Topical Q24H Qty: 15 0RF zolpidem 12.5 mg tablet,ext release multiphase 12.5 mg PO HS PRN Discharge Instructions Instructions: Preventing falls in adults, Dizziness, Adult ED, Vertigo ED Additional Instructions: Stop taking your Ambien; this may contributing to your frequent falls. Call your primary care doctor in the morning to schedule an appointment for within the next 72 hours to followup on your visit here. At that visit please discuss your vertigo, falls, and the medications you are on. Return to the emergency department for new or worsening symptoms including new/different/worse headache, vomiting, numbness or weakness, or if you have any other concerns. HPI General Mode of arrival: EMS. Date/Time Provider Initiated Documentation: 03/10/25 01:40. Limitations to Documentation: no limitations. Information obtained by: patient and old records reviewed (ED visit notes/images/labs 02/24/25, 02/26/25 , 02/02/25, and 01/19/25). HPI Narrative: 55yo M with hx of migraines and vertigo presenting with head injury. Has had vertigo on and off for the past three to four weeks. This evening when standing up from bed he fell backwards and struck his head. No LOC. His vertigo is still present but is not worse than usual tonight. No nausea, vomiting, numbness, weakness, or vision changes. He does have a dull occiptal headache as well as posterior neck pain. Headache and neck pain started after the fall. He is otherwise in his usual state of health with no fevers, chills, rash, chest pain, shortness of breath, abdominal pain, extremity pain, or other concerns. Related Data Home Medications ?Medication ?Instructions ?Recorded ?Confirmed duloxetine 60 mg capsule,delayed 60 mg PO BID 12/15/16 03/10/25 release sumatriptan succinate 100 mg tablet 100 mg PO PRN 12/15/16 03/10/25 clonazepam 1 mg tablet 1 mg PO QID 10/23/24 03/10/25 divalproex 500 mg tablet,extended 1,000 mg PO HS 11/10/24 03/10/25 release 24 hr Allergies Allergy/AdvReac Type Severity Reaction Status Date / Time prochlorperazine (From Allergy Unknown Unknown Verified 03/10/25 01:00 Compazine) promethazine (From Phenergan) Allergy Unknown Unknown Verified 03/10/25 01:00 NSAIDS (Non-Steroidal Allergy Unknown Verified 03/10/25 01:00 Anti-Inflamma General Stated Complaint: Dizzy/Sync PUSHPA: 3 Review of Systems Narrative: see HPI Exam Narrative Exam Narrative: GENERAL: Alert, C-collar in place. SKIN: Warm and well perfused. No rashes, bruises, discolorations or abrasions. HEAD: Atraumatic, normocephalic without edema, discoloration or evidence of trauma. Facial bones without deformities or tenderness. EYES: PERRL. No scleral icterus or conjunctival injection. EARS: No hemotympanum. NOSE: No discharge, tenderness, laxity. MOUTH: No malocclusion or trismus. Moist mucus membranes without blood. NECK: Trachea midline. No discolorations or edema. Neck immobilized in cervical collar. CV: Regular rate and rhythm, Normal s1 and s2. No murmurs, rubs, or gallops. PV: Radial pulses 2+ bilaterally and symmetric. Dorsalis pedis pulses 2+ bilaterally and symmetric. 2+ capillary refill. No extremity edema. CHEST: No abrasions or ecchymosis. Chest symmetric with respirations. No chest wall tenderness. Lungs are clear to auscultation bilaterally. ABDOMEN: No ecchymosis or abrasions. Soft, nondistended, nontender. BACK: No abrasions, skin openings, or ecchymosis. TTP of occiput through distal C-spine with paraspinal tenderness in the same area. No step offs. No other bony tenderness of spine. PELVIC: Pelvis stable, nontender to lateral compression MSK: No gross deformities or discolorations or lesions. Tolerates full range of motion of extremities without tenderness. NEURO: GCS 15.? PERRL.? EOMI.? Fluent speech, no dysarthria. Motor- 5/5 strength symmetric bilateral upper and lower extremities Sensation- ?Intact to light touch and symmetric multiple dermatomes including upper and lower extremities Coordination- No dysmetria on finger to nose Reflexes- 2/4 achilles & patellar, no clonus Gait/station: ?Deferred CRANIAL NERVES: II: Pupils equal and reactive, III, IV, : EOM intact, no gaze preference or deviation, no nystagmus. V: normal sensation in V1, V2, and V3 segments bilaterally VII: no asymmetry, no nasolabial fold flattening VIII: normal hearing to speech IX, X: normal palatal elevation, no uvular deviation XI: Deferred; c-collar in place XII: midline tongue protrusion Course Vital Signs Vital signs: Vital Signs Temperature 36.5 C 03/10/25 00:57 Pulse 74 03/10/25 00:57 Respiratory Rate 16 03/10/25 00:57 Blood Pressure 112/76 03/10/25 00:57 Pulse Oximetry 94 03/10/25 00:57 Temperature 36.5 C 03/10/25 00:57 Pulse 74 03/10/25 00:57 Respiratory Rate 16 03/10/25 01:09 Respiratory Effort Normal 03/10/25 01:09 Respiratory Depth Normal 03/10/25 01:09 Respiratory Pattern Normal 03/10/25 01:09 Blood Pressure 112/76 03/10/25 00:57 Pulse Oximetry 94 03/10/25 00:57 Oxygen Delivery Method Room Air 03/10/25 00:57 Oxygen Flow Rate 0 03/10/25 00:57 Lab/Test Results Lab/Test Results: Laboratory Tests Range/Units 03/10/25 01:52 WBC (4.4-10.8) 10^3/uL 9.84 RBC (4.36-5.78) 10^6/uL 4.61 Hgb (13.5-17.5) g/dL 14.5 Hct (40.0-50.0) % 43.0 MCV (80-95) fL 93 MCH (27.0-33.0) pg 31.5 MCHC (32.0-36.0) % 33.7 RDW (11.8-14.1) % 13.6 Plt Count (130-400) 10^3/uL 284 MPV (8.0-11.0) fL 10.0 Immature Gran % % 0.2 Neutrophils % % 58.2 Lymphocytes % % 28.5 Monocytes % % 7.8 Eosinophils % % 4.8 Basophils % % 0.5 Nucleated RBC % (0.0-0.3) % 0.0 Absolute Neutrophils (1.2-6.7) 10^3/uL 5.73 Absolute Lymphocytes (1.2-3.4) 10^3/uL 2.80 Absolute Monocytes (0.1-0.8) 10^3/uL 0.77 Absolute Eosinophils (0.0-0.7) 10^3/uL 0.47 Absolute Basophils (0.0-0.2) 10^3/uL 0.05 Sodium (136-145) mmol/L 142 Potassium (3.5-5.1) mmol/L 3.7 Chloride (98-107) mmol/L 102 Carbon Dioxide (21.0-32.0) mmol/L 34.8 H Anion Gap (3-11) mmol/L 5.2 BUN (7-18) mg/dL 9 Creatinine (0.70-1.30) mg/dL 0.6 L Est GFR (CKD-EPI 2020) (mL/min/1.73m2) 114.00 Glucose (74-106) mg/dL 100 Calcium (8.5-10.1) mg/dL 9.2 Magnesium (1.8-2.4) mg/dL 1.6 L Total Bilirubin (0.2-1.0) mg/dL 0.2 AST (15-37) U/L 8 L ALT (16-63) U/L 20 Alkaline Phosphatase (46-116) U/L 60 Total Protein (6.4-8.2) g/dL 6.8 Albumin (3.4-5.0) g/dL 3.2 L Medical Decision Making 55yo M with hx of migraines and vertigo presenting with head injury. Fell backwards from standing d/t vertigo. Vertigo is not worse than usual. Since the fall has had headache and neck pain. No numbness, weakness, or visual changes. Normal neurologic exam. TTP of occiput through distal cervical spine, both midline and paraspinal. Will start with tylenol and droperidol for headache (pt with allergy to compazine) while awaiting results of workup. [facility] records reviewed with frequent ED visits following falls. -Labs reviewed as below, CBC reassuring with no leukocytosis or anemia, CMP with no actionable abnormalities, Mg slightly low. -CTs independently reviewed; no ICH or displaced cervical spinal fracture on my view, radiology reads below with no acute findings including no vascular injury or large vessel occlusion. On reassessment patient reports headache has improved but is still present. Will add toradol and IV magnesium. Cervical collar removed, CN XI intact. Normal Romberg. Pt reports mild vertigo remains, worse with head movement, and is unchanged from it's baseline state over the last three weeks. Low suspicion for posterior stroke (certainly not acute); would not transfer for emergent MRI. Med rec shows patient on QID klonopin as well as zolpidem (dose recently increased); this may be contributing to his frequent ED visits for falls. On subsequent reassessment patient reports headache and neck pain have improved and are now tolerable. Able to range neck freely. Ambulated in department steadily independently. Discharged; discharge instructions and return precautions were reviewed with patient who verbalized understanding. All questions were answered and he is in full agreement with the plan. Imaging Data Radiologic Study: Imaging: CT Scan Radiologist's impression: CTA head/neck: IMPRESSION: 1. No large vessel occlusion. 2. Unremarkable CT head. IMPRESSION: No stenosis or occlusion/vascular injury C spine: IMPRESSION: No acute fracture. Bones: Reversal cervical lordosis. No acute fracture. No subluxation. Moderate spondylosis C5-C6 and C6-C7 with secondary stenosis *Reversed cervical lordotic alignment is unchanged from prior cervical spine CT Lab Data Lab results reviewed: Yes I reviewed the patient's lab results. Labs: Laboratory Tests Range/Units 03/10/25 01:52 WBC (4.4-10.8) 10^3/uL 9.84 RBC (4.36-5.78) 10^6/uL 4.61 Hgb (13.5-17.5) g/dL 14.5 Hct (40.0-50.0) % 43.0 MCV (80-95) fL 93 MCH (27.0-33.0) pg 31.5 MCHC (32.0-36.0) % 33.7 RDW (11.8-14.1) % 13.6 Plt Count (130-400) 10^3/uL 284 MPV (8.0-11.0) fL 10.0 Immature Gran % % 0.2 Neutrophils % % 58.2 Lymphocytes % % 28.5 Monocytes % % 7.8 Eosinophils % % 4.8 Basophils % % 0.5 Nucleated RBC % (0.0-0.3) % 0.0 Absolute Neutrophils (1.2-6.7) 10^3/uL 5.73 Absolute Lymphocytes (1.2-3.4) 10^3/uL 2.80 Absolute Monocytes (0.1-0.8) 10^3/uL 0.77 Absolute Eosinophils (0.0-0.7) 10^3/uL 0.47 Absolute Basophils (0.0-0.2) 10^3/uL 0.05 Sodium (136-145) mmol/L 142 Potassium (3.5-5.1) mmol/L 3.7 Chloride (98-107) mmol/L 102 Carbon Dioxide (21.0-32.0) mmol/L 34.8 H Anion Gap (3-11) mmol/L 5.2 BUN (7-18) mg/dL 9 Creatinine (0.70-1.30) mg/dL 0.6 L Est GFR (CKD-EPI 2020) (mL/min/1.73m2) 114.00 Glucose (74-106) mg/dL 100 Calcium (8.5-10.1) mg/dL 9.2 Magnesium (1.8-2.4) mg/dL 1.6 L Total Bilirubin (0.2-1.0) mg/dL 0.2 AST (15-37) U/L 8 L ALT (16-63) U/L 20 Alkaline Phosphatase (46-116) U/L 60 Total Protein (6.4-8.2) g/dL 6.8 Albumin (3.4-5.0) g/dL 3.2 L Quality:SDOH Health Related Social Needs: Health related social needs inadequate housing risk of homeless PFSH All Active Problems (Updated 03/10/25 @ 06:27 by Shanelle Huffman MD) Vertigo (Acute) Neck pain (Acute) Headache (Acute) Frequent falls (Acute) Headache, chronic migraine without aura (Acute) Dehydration (Acute) Weakness (Acute) Medical History (Updated 03/10/25 @ 06:27 by Shanelle Huffman MD) Obesity History of alcoholism GERD (gastroesophageal reflux disease) Tremor Migraines Depression with psychotic features Anxiety Surgical History (Updated 06/15/18 @ 14:37 by [email or web address] [place]) Repair of inguinal hernia Family History Mother Depression Melanoma Social History Smoking/Tobacco Use Status: Current every day Tobacco Type: cigars Smoking risk assessment performed?: Yes Alcohol Intake: former Drug use: Occasionally Substance use type: marijuana Housing: other Do you feel safe at home: Yes Do you feel safe in your relationship?: Yes
--- NOTE | 2025-03-10 03:10 | DI.VRAD_ITS ---
Addendum created by William Lewis MD on 03/10/2025 3:31:41 AM EDT: Also unchanged in alignment from the cervical CT of January 19, 2025. Addendum created by William Lewis MD on 03/10/2025 3:30:25 AM EDT: Reversed cervical lordotic alignment is unchanged from prior cervical spine CT October 23, 2024. Initial report created on 03/10/2025 3:10:16 AM EDT: PROCEDURE INFORMATION: Exam: CT Cervical Spine Without Contrast Exam date and time: 03/10/2025 1:49 AM Age: 55 years old Clinical indication: Injury or trauma; Blunt trauma; Injury date: 03/10/25; Fall, neck pain TECHNIQUE: Imaging protocol: Computed tomography of the cervical spine without contrast. Total images: 481 Radiation optimization: All CT scans at this facility use at least one of these dose optimization techniques: automated exposure control; mA and/or kV adjustment per patient size (includes targeted exams where dose is matched to clinical indication); or iterative reconstruction. COMPARISON: No relevant prior studies available. FINDINGS: Bones: Reversal cervical lordosis. No acute fracture. No subluxation. Moderate spondylosis C5-C6 and C6-C7 with secondary stenosis. Lungs: Apical paraseptal emphysema. Pleural spaces: Biapical pleural thickening. Soft tissues: Unremarkable. IMPRESSION: No acute fracture. Dictated and Authenticated by: William Lewis MD. Orderin Armida Timmons MD
--- NOTE | 2025-03-10 03:28 | DI.VRAD_ITS ---
PROCEDURE INFORMATION: Exam: CTA Head Without And With Contrast, Arteriography Exam date and time: 03/10/2025 1:49 AM Age: 55 years old Clinical indication: Injury or trauma; Blunt trauma; Head; Injury date: 03/10/25; Fall, hs, vertigo TECHNIQUE: Imaging protocol: Computed tomographic angiography of the head without and with contrast. Exam focused on the arteries. 3D rendering (Not supervised by radiologist): MIP and/or 3D reconstructed images were created by the technologist. Total images: 2255 Radiation optimization: All CT scans at this facility use at least one of these dose optimization techniques: automated exposure control; mA and/or kV adjustment per patient size (includes targeted exams where dose is matched to clinical indication); or iterative reconstruction. Contrast material: [id number]; Contrast volume: 70 ml; Contrast route: INTRAVENOUS (IV); COMPARISON: CT BRAIN NECK CTA 02/24/2025 12:33 PM FINDINGS: ANTERIOR CIRCULATION: Right internal carotid artery: No significant stenosis or occlusion. No aneurysm or dissection. Right middle cerebral artery: No significant stenosis or occlusion. No aneurysm or dissection. Right anterior cerebral artery: No significant stenosis or occlusion. No aneurysm or dissection. Left internal carotid artery: No significant stenosis or occlusion. No aneurysm or dissection. Left middle cerebral artery: No significant stenosis or occlusion. No aneurysm or dissection. Left anterior cerebral artery: No significant stenosis or occlusion. No aneurysm or dissection. POSTERIOR CIRCULATION: Right vertebral artery: No significant stenosis or occlusion. No aneurysm or dissection. Left vertebral artery: No significant stenosis or occlusion. No aneurysm or dissection. Basilar artery: No significant stenosis or occlusion. No aneurysm or dissection. Right posterior cerebral artery: No significant stenosis or occlusion. No aneurysm or dissection. Left posterior cerebral artery: No significant stenosis or occlusion. No aneurysm or dissection. Veins: No dural venous sinus thrombosis. HEAD: Brain: No hemorrhage. No edema. No abnormal intracerebral enhancement. Cerebral ventricles: No significant hydrocephalus. Bones: No acute bony abnormality. Paranasal sinuses: Chronic left maxillary sinusitis. Mastoid air cells: No mastoid effusion. Soft tissues: No significant soft tissue swelling. IMPRESSION: 1. No large vessel occlusion. 2. Unremarkable CT head. PROCEDURE INFORMATION: Exam: CTA Neck Without And With Contrast Exam date and time: 03/10/2025 1:49 AM Age: 55 years old Clinical indication: Injury or trauma; Blunt trauma; Head; Injury date: 03/10/25; Fall, hs, vertigo TECHNIQUE: Imaging protocol: Computed tomographic angiography of the neck without and with contrast. Exam focused on the cervical segments of the vasculature. 3D rendering (Not supervised by radiologist): MIP and/or 3D reconstructed images were created by the technologist. Radiation optimization: All CT scans at this facility use at least one of these dose optimization techniques: automated exposure control; mA and/or kV adjustment per patient size (includes targeted exams where dose is matched to clinical indication); or iterative reconstruction. Contrast material: [id number]; Contrast volume: 70 ml; Contrast route: INTRAVENOUS (IV); COMPARISON: No relevant prior studies available. FINDINGS: Right common carotid artery: No significant stenosis, occlusion or dissection. Right internal carotid artery: No significant stenosis, occlusion or dissection. Right external carotid artery: No significant stenosis or occlusion. Left common carotid artery: No significant stenosis, occlusion or dissection. Left internal carotid artery: No significant stenosis, occlusion or dissection. Left external carotid artery: No significant stenosis or occlusion. Right vertebral artery: No significant stenosis, occlusion or dissection. Left vertebral artery: No significant stenosis, occlusion or dissection. Right subclavian artery: No significant stenosis or occlusion. Left subclavian artery: No significant stenosis or occlusion. Soft tissues: No significant soft tissue swelling or mass. Bones/joints: Reversal cervical lordosis. 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 Lungs: Apical paraseptal emphysema. IMPRESSION: No stenosis or occlusion/vascular injury. REFERENCES: NASCET CRITERIA. The degree of stenosis in the cervical segment of the internal carotid artery is based on NASCET criteria. Normal is no stenosis. Mild is less than 50% stenosis. Moderate is 50-69% stenosis. Severe is 70% to 99% stenosis. Total occlusion is no detectable patent lumen. Dictated and Authenticated by: William Lewis MD. Orderin Armida Timmons MD
[2025-03-10] MEDS: Ketorolac 15 MG/ML VIAL IVP (03:40)
[2025-03-10] MEDS: MAGNESIUM SULFATE 1 GM/100 ML BAG IV_INF (03:41)
== END 2025-03-10 07:35 | disposition home or self-care (01) ==
PROVIDERS: Emergency Provider Student in an Organized Health Care Education/Training Program
DX: R51.9 Headache, unspecified (principal); M54.2 Cervicalgia; R42 Dizziness and giddiness; F17.290 Nicotine dependence, other tobacco product, uncomplicated; Z91.81 History of falling
CPT/HCPCS: 70496; 70498; 72125; 80053; 96365; 96367; 96375; 99285; 83735; 85025; J0131; J1790; J1885; J3475; J3490

== ENCOUNTER 2025-03-13 23:43 | Emergency (ER) | payer MEDICARE, SELFPAY ==
--- NOTE | 2025-03-13 23:30 | RT.EKG_ITS ---
APPROVED REPORT Exam: Resting ECG Reason for Exam: dizziness Patient Location: E HR:63 bpm ECG Measurements Heart Rate 63 AXIS MA 159 P 53 QRSd 91 QRS 57 QT 380 T 51 QTc 388 Conclusion Sinus rhythm...normal P axis, V-rate 60- 99 Ventricular premature complex...V complex w/ short R-R interval Normal [place]/Interval No ST changes
[2025-03-13 23:40] VITALS: BP 122/71; PULSE 71; RESP 18; TEMP 36.4; O2SAT 95
[2025-03-13 23:53] VITALS: BP 122/71; PULSE 71; RESP 18; TEMP 36.4; O2SAT 95
--- NOTE | 2025-03-13 23:55 | ED.GENADUL_ITS ---
Discharge Plan Disposition Patient Disposition: Home Condition: Good Discharge Details Clinical Impression: Headache, Vertigo Primary Care Provider: None,None ED Provider: Derek Benz Meds and New Rx's Prescriptions: New meclizine 25 mg tablet 25 mg PO TID PRN (Reason: dizziness) Qty: 20 0RF Continued sumatriptan succinate 100 MG tablet 100 mg PO PRN duloxetine 60 MG capsule,delayed release(DR/EC) 60 mg PO BID clonazepam 1 mg tablet 1 mg PO QID divalproex 500 mg tablet extended release 24 hr 1,000 mg PO HS Patient Comments: TAKE TWO TABLETS BY MOUTH EVERY EVENING AT BEDTIME Discharge Instructions Additional Instructions: You were seen for recurrent headache and dizziness. Your examination, EKG, laboratory studies are all reassuring. Previous imaging was reviewed. A prescription for meclizine has been sent to pharmacy for you to try while you are waiting for your upcoming appointment to see if it improves your dizziness. Be sure to stay hydrated during the hot weather. Return to ED for any new neurologic change, inability to ambulate, syncope, other concerns. HPI General Mode of arrival: EMS . Date/Time Provider Initiated Documentation: 03/13/25 23:49 . Limitations to Documentation: no limitations . Information obtained by: patient, RN notes reviewed and old records reviewed . HPI Narrative: Patient presents to ED by ambulance with complaint of headache and vertigo. Patient has history of same. Patient actually here less than a week ago with similar complaints. The vertigo is not new. He does have primary care down in [place] but because he is in the [facility] program he is up here and has no way to get back to primary care. He does report that he has made an appointment with a primary up here though he is not sure how long he will still be in the area. He does not have anything to take for his vertigo. He has not had any falls in the last day or 2. He does not think he has been drinking enough which may contribute to some of his symptoms. Denies any type of chest pain, shortness of breath, abdominal pain, vomiting, numbness or weakness. States his gait is pretty good for the most part. He has been taking acetaminophen for his headache. Has history of headaches in addition to the vertigo. Reports that he cannot really use NSAIDs because of a history of ulcers. Reports allergy to prochlorperazine and promethazine which caused anxiety. Related Data Home Medications ?Medication ?Instructions ?Recorded ?Confirmed duloxetine 60 mg capsule,delayed 60 mg PO BID 12/15/16 03/10/25 release sumatriptan succinate 100 mg tablet 100 mg PO PRN 11/2803/10/25 clonazepam 1 mg tablet 1 mg PO QID 10/23/24 5 divalproex 500 mg tablet,extended 1,000 mg PO HS 11/1003/10/25 release 24 hr meclizine 25 mg tablet 25 mg PO TID PRN dizziness # 20 tabs 03/14/25 Previous Rx's ?Medication ?Instructions ?Recorded meclizine 25 mg tablet 25 mg PO TID PRN dizziness # 20 tabs 03/14/25 Allergies Allergy/AdvReac Type Severity Reaction Status Date / Time prochlorperazine (From Allergy Unknown Unknown Verified 03/10/25 01:00 Compazine) promethazine (From Phenergan) Allergy Unknown Unknown Verified 03/10/25 01:00 NSAIDS (Non-Steroidal Allergy Unknown Verified 03/10/25 01:00 Anti-Inflamma General Stated Complaint: GenMedical PUSHPA: 4 Exam Narrative Exam Narrative: Const: Thin male in NAD. VS per triage. HEENT: NC/AT. Normal facial exam. Neck: Supple. Trachea midline. Lungs: Normal respiratory effort. Lungs are clear. Cor: RRR with murmur. Good radial pulses. GI: Soft/ND/NT. Neuro: A+O x 3. Normal speech, mentation, gait. Cranial nerves II - XII grossly intact. No gross motor or sensory deficit. Ext: No C/C/E. Course Vital Signs Vital signs: Vital Signs Temperature 97.6 F 03/13/25 23:40 Pulse 71 03/13/25 23:40 Respiratory Rate 18 03/13/25 23:40 Blood Pressure 122/71 03/13/25 23:40 Pulse Oximetry 95 03/13/25 23:40 Temperature 97.6 F 03/13/25 23:40 Temperature Source Tympanic 03/13/25 23:40 Pulse 71 03/13/25 23:40 Respiratory Rate 18 03/13/25 23:40 Blood Pressure 122/71 03/13/25 23:40 Blood Pressure Position Supine 03/13/25 23:40 Pulse Oximetry 95 03/13/25 23:40 Oxygen Delivery Method Room Air 03/13/25 23:40 Oxygen Flow Rate 0 03/13/25 23:40 Medical Decision Making Patient presents to ED with continued headache and vertigo which are chronic intermittent problems for him. He has no neurologic complaints or symptoms. He has had no recent fall. He was here on the and underwent CTA of brain and neck as well as CT cervical spine. There was nothing acute found. Reports he is seeing someone in the area on Wednesday to try to get a prescription to help with his vertigo. Has been taking acetaminophen today for his headache. His exam is unremarkable. He is non-focal neurologically. He is on valproic acid with a recent check back in January. Will place an IV and give a single dose of ketorolac to help with his headache. Will try oral meclizine to help with his vertigo. Will check a repeat valproic acid level as well as hemoglobin and electrolytes. Does not require any further imaging at this time. Laboratory studies are reassuring. His valproic acid remains low normal. Hemoglobin is normal. Electrolytes are normal. He does report improvement with fluids and medications. Will plan discharge with a prescription for meclizine for him to try over the next few days while he is waiting for his appointment next week. Stay hydrated during the heat wave. Return precautions provided. Medical Records Medical records reviewed: Yes I reviewed the patient's medical records. Medical records narrative: previous ED visit/imaging Lab Data Lab results reviewed: Yes I reviewed the patient's lab results. Lab results narrative: see [facility] ECG Data Attestation: I personally reviewed and interpreted this ECG (s) as follows: Prior ECG tracings: available for review Interpretation: see EKG/[facility] Quality:SDOH Health Related Social Needs: Health related social needs risk of homeless transpo i nsecurity house/econ circumstance education Health related social needs details patient currently lives in a hotel which he pays out of pocket for. PFSH All Active Problems (Updated 03/14/25 @ 02:04 by Derek Benz MD) Vertigo (Acute) Neck pain (Acute) Headache (Acute) Frequent falls (Acute) Headache, chronic migraine without aura (Acute) Dehydration (Acute) Weakness (Acute) Medical History Obesity History of alcoholism GERD (gastroesophageal reflux disease) Tremor Migraines Depression with psychotic features Anxiety Surgical History Repair of inguinal hernia Family History Mother Depression Melanoma Social History Smoking/Tobacco Use Status: Current every day Tobacco Type: cigars Smoking risk assessment performed?: Yes Alcohol Intake: former Drug use: Occasionally Substance use type: marijuana Housing: other Do you feel safe at home: Yes Do you feel safe in your relationship?: Yes
[2025-03-14] MEDS: Meclizine 25 MG TAB PO (00:47)
[2025-03-14 00:56] LABS: HCT 40.2 % (40.0-50.0); HGB 13.7 g/dL (13.5-17.5); MCH 31.9 pg (27.0-33.0); MCHC 34.1 % (32.0-36.0); MCV 94 fL (80-95); MPV 10.1 fL (8.0-11.0); Platelet Count 276 10^3/uL (130-400); RBC 4.30 10^6/uL (4.36-5.78); RDW 13.6 % (11.8-14.1); RDW-SD 46.5 fL; WBC 8.45 10^3/uL (4.4-10.8)
[2025-03-14] MEDS: Ketorolac 15 MG/ML VIAL IVP (00:56)
[2025-03-14] MEDS: Normal Saline 1,000 ML 1000 ML IV (00:57)
[2025-03-14 01:05] LABS: Anion Gap 5.3 mmol/L (3-11); BUN 10 mg/dL (7-18); CO2 33.7 mmol/L (21.0-32.0); Calcium 9.1 mg/dL (8.5-10.1); Chloride 104 mmol/L (98-107); Estimated GFR 108.82 (mL/min/1.73m2); Glucose 98 mg/dL (74-106); Potassium 3.7 mmol/L (3.5-5.1); Sodium 143 mmol/L (136-145)
[2025-03-14 03:21] VITALS: BP 131/90; PULSE 59; RESP 16; TEMP 36.4; O2SAT 97
== END 2025-03-14 05:33 | disposition home or self-care (01) ==
PROVIDERS: Emergency Provider Emergency Medicine
DX: R51.9 Headache, unspecified (principal); R42 Dizziness and giddiness; F17.290 Nicotine dependence, other tobacco product, uncomplicated
CPT/HCPCS: 80048; 85027; 93005; 96361; 96374; 99284; 80164; 93010; J1885

== ENCOUNTER 2025-03-24 23:50 | Emergency (ER) | payer MEDICARE, SELFPAY ==
--- NOTE | 2025-03-24 23:45 | RT.EKG_ITS ---
APPROVED REPORT Exam: Resting ECG Reason for Exam: fall Patient Location: E HR:62 bpm ECG Measurements Heart Rate 62 AXIS ME 162 P 49 QRSd 90 QRS 68 QT 380 T 48 QTc 385 Conclusion Sinus rhythm...normal P axis, V-rate 60- 99 I have reviewed and interpreted ECG and agree with software generated interpretation.
[2025-03-24 23:50] VITALS: BP 100/69; PULSE 71; RESP 29; TEMP 36.6; O2SAT 94
[2025-03-24 23:54] VITALS: PULSE 69; PULSE 72; RESP 18; O2SAT 94
[2025-03-25] VITALS (23 sets, daily range): BP systolic 98–131; BP diastolic 65–84; PULSE 56–73; RESP 17–32; TEMP 36.6; O2SAT 92–100
--- NOTE | 2025-03-25 00:12 | DI.CT_ITS ---
Exam(s) CT HEAD CERVICAL SPINE WO EXAM: CT HEAD CERVICAL SPINE WO CLINICAL HISTORY: fell, hit posterior head, +LOC, pain in mid c spin. TECHNIQUE: Imaging Protocol: Axial computed tomography images with coronal and sagittal reformatted images were created and reviewed COMPARISON: CT CT CERVICAL SPINE RECONS from 03/10/2025 FINDINGS: Head CT Ventricles and Extra axial spaces: Normal in size and morphology for the patient's age. Hemorrhage: None. Cerebral parenchyma: No evidence of mass or acute infarct. Midline shift: None. Brainstem/Cerebellum: Normal. Calvarium: Normal. Visualized Paranasal sinuses/Mastoids: Clear. Soft tissues: Unremarkable. Cervical Spine CT BONES: Vertebral body heights are maintained. Alignment is normal. There is no evidence of acute fracture. There are elongated styloid processes which could be associated with [place] syndrome. Degenerative disc changes and facet degenerative changes are seen at C5-6 and C6-7 causing bilateral neural foraminal narrowing and mild to moderate central canal stenosis, greater at C5-6... SOFT TISSUES: No paraspinal hematoma. The airway appears intact. There are few calcifications in the tongue No pneumothorax is seen at the lung apices. Mild emphysematous changes. IMPRESSION: Head CT: No acute abnormality. C-spine CT: Degenerative changes, no acute abnormality. The preliminary [facility] report was reviewed. RADIATION DOSE DELIVERED: Total DLP DATA REPOSITORY: All CT scans at this facility are submitted to the National Radiology Data Registry (NRDR) Dose Index Registry (DIR) with the [employer] (A[employer]). RADIATION OPTIMIZATION: All CT scans at this facility use at least one of these dose optimization techniques: automated exposure control; mA and/or kV adjustment per patient size (includes targeted exams where dose is matched to clinical indication); or iterative reconstruction.
--- NOTE | 2025-03-25 00:12 | DI.CT_ITS ---
Exam(s) CT CHEST/ABD/PEL W CT THORACIC LUMBAR SPINE REC EXAM: CT CHEST/ABD/PEL W CLINICAL HISTORY: fell, hit back,entire spine pain R hip pain. TECHNIQUE: Imaging Protocol: Axial computed tomography images with coronal and sagittal reformatted images were created and reviewed. Computer aided detection (CAD) was utilized. CONTRAST MATERIAL: Intravenous: Omnipaque 350 Contrast volume:75 ml Oral: no COMPARISON: CT CT LUMBAR SPINE WO from 10/23/[address] THORACIC LUMBAR SPINE REC from 03/25/2025 FINDINGS: CHEST: Pulmonary parenchyma: No consolidation. No dominant measurable mass. Mild emphysematous changes at the lung apices. Dependent changes at the bases. Tracheobronchial tree: No bronchiectasis. No mucous plugging.No bronchial wall thickening. Pleura: No effusion or pneumothorax. Mediastinum: Within normal limits. Pulmonary arteries: No visible emboli. Cardiovascular: Heart size normal. No pericardial effusion. Thoracic aorta non-dilated. Bones: Unremarkable for age. Minimal endplate osteophytes. Focal area of sclerosis in the anterior left 6th rib. No additional screw orotic lesions elsewhere. No lytic lesions. No compression fractures. Soft tissues: Unremarkable. ABDOMEN and PELVIS: The exam is limited by streak artifact secondary to patient arm positioning. Liver: Normal density. No suspicious mass. Gallbladder and biliary tract: No evidence of stones or wall thickening. No biliary dilatation. Pancreas: Normal density, no abnormal calcifications or inflammatory process. Spleen: Normal. Kidneys: Normal size, contour and axis. Tiny nonobstructing stone near the upper pole of the left kidney. No obstructive uropathy. Small simple cyst lower pole right kidney. No suspicious masses seen. Adrenal glands: Mild thickening of the left adrenal gland. Small low-density nodule unchanged infra from prior exam. It measures water density on the prior exam, consistent with adenoma. No follow-up recommended. Aorta: Abdominal portion non-dilated. Lymph nodes: Within normal limits. Soft tissues: Unremarkable. Bladder: Unremarkable. Bowel: No obstruction or bowel wall thickening. Peritoneal cavity: No ascites. No focal collection. No mesenteric inflammatory response. No free air. Bones: Unremarkable for age. No evidence of spine or pelvic fracture. Reproductive organs: Unremarkable for age. IMPRESSION: No acute abnormality in the chest, abdomen or pelvis. No evidence of thoracic or lumbar spine fractures. Nonspecific area of sclerosis in the anterior left 6th rib. The preliminary [facility] report was reviewed. RADIATION DOSE DELIVERED: Total DLP DATA REPOSITORY: All CT scans at this facility are submitted to the National Radiology Data Registry (NRDR) Dose Index Registry (DIR) with the [employer] (ACR). RADIATION OPTIMIZATION: All CT scans at this facility use at least one of these dose optimization techniques: automated exposure control; mA and/or kV adjustment per patient size (includes targeted exams where dose is matched to clinical indication); or iterative reconstruction.
[2025-03-25 00:16] LABS: Abs Immature Grans 0.04 10^3/uL (0.0-0.06); HCT 44.1 % (40.0-50.0); HGB 14.8 g/dL (13.5-17.5); Immature Grans % 0.3 %; MCH 31.5 pg (27.0-33.0); MCHC 33.6 % (32.0-36.0); MCV 94 fL (80-95); MPV 10.2 fL (8.0-11.0); Platelet Count 299 10^3/uL (130-400); RBC 4.70 10^6/uL (4.36-5.78); RDW 13.5 % (11.8-14.1); RDW-SD 47.0 fL; WBC 13.07 10^3/uL (4.4-10.8)
[2025-03-25 00:31] LABS: Magnesium 1.6 mg/dL (1.8-2.4)
[2025-03-25 00:42] LABS: ALT 21 U/L (16-63); AST 12 U/L (15-37); Albumin 3.5 g/dL (3.4-5.0); Alkaline Phosphatase 62 U/L (46-116); Anion Gap 5.6 mmol/L (3-11); BUN 14 mg/dL (7-18); Bilirubin, Total 0.2 mg/dL (0.2-1.0); CO2 37.4 mmol/L (21.0-32.0); Calcium 9.5 mg/dL (8.5-10.1); Chloride 103 mmol/L (98-107); Estimated GFR 88.88 (mL/min/1.73m2); Glucose 63 mg/dL (74-106); Potassium 3.6 mmol/L (3.5-5.1); Sodium 146 mmol/L (136-145); Total Protein 7.0 g/dL (6.4-8.2); Troponin I 4 ng/L (<or=76)
[2025-03-25] MEDS: Normal Saline - Diluent 50 ML VIAL IJ (00:48)
[2025-03-25] MEDS: Omnipaque 350 MG/ML 100 ML BTL IJ (00:49)
--- NOTE | 2025-03-25 00:56 | DI.[facility]_ITS ---
PROCEDURE INFORMATION: Exam: CT Head Without Contrast Exam date and time: 03/25/2025 12:35 AM Age: 55 years old Clinical indication: Injury or trauma; Fall; Blunt trauma (contusions or hematomas); Consciousness not specified; Injury details: Fell, hit posterior head, +loc, pain in mid c spin TECHNIQUE: Imaging protocol: Computed tomography of the head without contrast. COMPARISON: CT BRAIN NECK CTA 03/10/2025 1:49 AM FINDINGS: Brain: Normal. No hemorrhage. Unremarkable white matter. No mass effect. Cerebral ventricles: No ventriculomegaly. Paranasal sinuses: Visualized sinuses are unremarkable. No fluid levels. Mastoid air cells: Visualized mastoid air cells are well aerated. Bones: Unremarkable. No acute fracture. Soft tissues: Unremarkable. IMPRESSION: No acute findings. PROCEDURE INFORMATION: Exam: CT Cervical Spine Without Contrast Exam date and time: 03/25/2025 12:35 AM Age: 55 years old Clinical indication: Injury or trauma; Fall; Blunt trauma (contusions or hematomas); Consciousness not specified; Injury details: Fell, hit posterior head, +loc, pain in mid c spin TECHNIQUE: Imaging protocol: Computed tomography of the cervical spine without contrast. COMPARISON: CT CERVICAL SPINE WO 03/10/2025 1:49 AM FINDINGS: Bones: Degenerative changes of the cervical spine most evident at C5-C6 and C6-C7 where there is robust disc osteophyte complexes causing [id number] spinal canal stenosis and severe superimposed bilateral foraminal stenosis. Bilateral prominent styloid processes. Pharynx: Benign tonsilliths are seen. Lungs: Lung apices are normal. Vasculature: Some mild early atherosclerotic disease. Soft tissues: Unremarkable. IMPRESSION: 1. No acute findings. 2. 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 Dictated and Authenticated by: Jaydon Santamaria MD. Orderin Connor Pratt MD
--- NOTE | 2025-03-25 01:01 | W.ED.GENAD ---
Discharge Plan Disposition Patient Disposition: Home Condition: Good Discharge Details Clinical Impression: Adrenal nodule, Fall, Hypomagnesemia, Hypoglycemia, Food insecurity Primary Care Provider: None,None ED Provider: Terence Ryan Home Meds and New Rx's Prescriptions: No Action sumatriptan succinate 100 MG tablet 100 mg PO PRN duloxetine 60 MG capsule,delayed release(DR/EC) 60 mg PO BID meclizine 25 mg tablet 25 mg PO TID PRN (Reason: dizziness) Qty: 20 0RF clonazepam 1 mg tablet 1 mg PO QID divalproex 500 mg tablet extended release 24 hr 1,000 mg PO HS Patient Comments: TAKE TWO TABLETS BY MOUTH EVERY EVENING AT BEDTIME Discharge Instructions Additional Instructions: As we discussed together, it would be caputo to follow-up with a family doctor in the area to continue to monitor and manage your chronic medical conditions. Additionally there was evidence of an adrenal gland nodule on your imaging, please follow-up on this not emergently for further determination of potential cancerous status. Please take your home meclizine to help with your dizziness. Please visit the [employer] kitchen in the area for food. They have regular meals on Tuesdays, , Saturdays and Sundays. If you notice any worsening of your symptoms, or any new symptoms such as vomiting, diarrhea, fever, chills, shortness of breath, chest pain, numbness, weakness, or fainting , please return immediately to the emergency department for reevaluation. Please follow up with your primary care provider as soon as possible for reassessment and reevaluation. As always, it was a pleasure participating in your medical care today. HPI General Date/Time Provider Initiated Documentation: 03/25/25 00:19. HPI Narrative: 55-year-old male who denies any medical problems but does have a history of psychiatric problems including alcoholism, depression, anxiety, and has been diagnosed with migraines and GERD in the past,(who is also not seen at medical doctor in years) and is prescribed occasional clonazepam (but uncertain from whom) presents today for evaluation of fall. Patient states that for weeks he has been feeling dizzy occasionally. He has been to the emergency department multiple times for falls. He states that he was standing up today when he felt lightheaded, and slightly dizzy. He felt that the room was slightly spinning. He then fell backwards and hit the back of his head. He believes he was unconscious for some time. When he awoke he had neck and back pain. He denies any new numbness or tingling. EMS then brought him to the emergency department for further assessment. He denies any chest pain or abdominal pain. He does admit to mild right-sided hip pain. He denies any syncope prior to the event. No other complaints at this time. He denies any bowel or bladder incontinence. Related Data Home Medications ?Medication ?Instructions ?Recorded ?Confirmed duloxetine 60 mg capsule,delayed 60 mg PO BID 12/15/16 03/10/25 release sumatriptan succinate 100 mg tablet 100 mg PO PRN 12/15/16 03/10/25 clonazepam 1 mg tablet 1 mg PO QID 10/23/24 03/10/25 divalproex 500 mg tablet,extended 1,000 mg PO HS 11/10/24 03/10/25 release 24 hr meclizine 25 mg tablet 25 mg PO TID PRN dizziness #20 tabs 03/14/25 Previous Rx's ?Medication ?Instructions ?Recorded meclizine 25 mg tablet 25 mg PO TID PRN dizziness #20 tabs 03/14/25 Allergies Allergy/AdvReac Type Severity Reaction Status Date / Time prochlorperazine (From Allergy Unknown Unknown Verified 03/10/25 01:00 Compazine) promethazine (From Phenergan) Allergy Unknown Unknown Verified 03/10/25 01:00 NSAIDS (Non-Steroidal Allergy Unknown Verified 03/10/25 01:00 Anti-Inflamma General Stated Complaint: Fall/Non TraumaCriteria PUSHPA: 3 Exam Narrative Exam Narrative: 1.Const: Well-nourished, Well-developed, appearing stated age 2.Eyes: PERRL, no conjunctival injection, and symmetrical lids. 3.ENT: Atraumatic external nose and ears. Moist MM. Neck: Symmetric, trachea midline, No thyromegaly. There is no evidence of raccoon eyes, otoole sign, CSF rhinorrhea, mastoid tenderness, cranial crepitus, hemotympanum, exophthalmos, or hyphema. Patient demonstrates intact dentition with no signs of tooth avulsion or fracture, no signs of jaw deformity, no evidence of a LeFort's fracture, with an intact palate, nose and orbital region. There is no evidence of a nasal septal hematoma. No proptosis. Jaw closes symmetrically. Airway is clear. 4.CVS: +S1/S2, Peripheral pulses 2+ and equal in all extremities. Brisk capillary refill in all extremities. 5.RESP: Unlabored respiratory effort. Clear to auscultation bilaterally. No wheezes rales or rhonchi 6.GI: Soft, Nontender/Nondistended, No hepatosplenomegaly. No guarding or rebound. 7.MSK: Extremities w/o deformity. No cyanosis or clubbing, Normal movement of all extremities. Patient does have pain at the right hip, as well as with logroll of the right lower extremity radiating pain subsequently to the right hip. There is tenderness to palpation over the CTLS spine. Patient has +5 out of 5 strength in the lower extremities in dorsiflexion and plantarflexion, knee flexion and extension, hip flexion and extension. Normal strength for dorsiflexion and plantar flexion of the great toe bilaterally. There is +2 over 2 dorsalis pedis pulses bilaterally. There is normal sensation to the skin with light touch at the foot, knee, and hip. Normal saddle sensation. Good sensation over the deep sural nerve area bilaterally. Rectal exam demonstrates good rectal tone.. Reflexes are +2 over 4 in the patellar reflex bilaterally. +5 out of 5 strength in the medial, ulnar, radial nerve distribution bilaterally in the hands as well as intact light touch sensation to these dermatomes on the hands 8.Skin: Warm, Dry. No rashes or lesions. 9.Neuro: inside sales lead II-XII grossly intact. Sensation grossly intact, no focal neurologic deficits. 10.Psych: (AAO) x3. Appropriate mood and affect Course Vital Signs Vital signs: Vital Signs Temperature 36.6 C 03/24/25 23:50 Pulse 71 03/24/25 23:50 Respiratory Rate 29 H 03/24/25 23:50 Blood Pressure 100/69 03/24/25 23:50 Pulse Oximetry 94 03/24/25 23:50 Temperature 36.6 C 03/24/25 23:50 Temperature Source Oral 03/24/25 23:50 Pulse 63 03/25/25 00:31 Pulse 64 03/25/25 00:31 Respiratory Rate 27 H 03/25/25 00:31 Blood Pressure 105/66 03/25/25 00:30 Blood Pressure Mean 78 03/25/25 00:30 Blood Pressure Position Supine 03/24/25 23:50 Pulse Oximetry 94 03/25/25 00:31 Oxygen Delivery Method Room Air 03/24/25 23:50 Oxygen Flow Rate 0 03/24/25 23:50 Lab/Test Results Lab/Test Results: Laboratory Tests Range/Units 03/25/25 00:05 WBC (4.4-10.8) 10^3/uL 13.07 H RBC (4.36-5.78) 10^6/uL 4.70 Hgb (13.5-17.5) g/dL 14.8 Hct (40.0-50.0) % 44.1 MCV (80-95) fL 94 MCH (27.0-33.0) pg 31.5 MCHC (32.0-36.0) % 33.6 RDW (11.8-14.1) % 13.5 Plt Count (130-400) 10^3/uL 299 MPV (8.0-11.0) fL 10.2 Immature Gran % % 0.3 Neutrophils % % 65.4 Lymphocytes % % 22.9 Monocytes % % 7.7 Eosinophils % % 3.4 Basophils % % 0.3 Nucleated RBC % (0.0-0.3) % 0.0 Absolute Neutrophils (1.2-6.7) 10^3/uL 8.55 H Absolute Lymphocytes (1.2-3.4) 10^3/uL 2.99 Absolute Monocytes (0.1-0.8) 10^3/uL 1.01 H Absolute Eosinophils (0.0-0.7) 10^3/uL 0.44 Absolute Basophils (0.0-0.2) 10^3/uL 0.04 Sodium (136-145) mmol/L 146 H Potassium (3.5-5.1) mmol/L 3.6 Chloride (98-107) mmol/L 103 Carbon Dioxide (21.0-32.0) mmol/L 37.4 H Anion Gap (3-11) mmol/L 5.6 BUN (7-18) mg/dL 14 Creatinine (0.70-1.30) mg/dL 1.0 Est GFR (CKD-EPI 2021) (mL/min/1.73m2) 88.88 Glucose (74-106) mg/dL 63 L Calcium (8.5-10.1) mg/dL 9.5 Magnesium (1.8-2.4) mg/dL 1.6 L Total Bilirubin (0.2-1.0) mg/dL 0.2 AST (15-37) U/L 12 L ALT (16-63) U/L 21 Alkaline Phosphatase (46-116) U/L 62 Troponin I (<or=76) ng/L 4 Total Protein (6.4-8.2) g/dL 7.0 Albumin (3.4-5.0) g/dL 3.5 Medical Decision Making 55-year-old male who denies any medical problems but does have a history of psychiatric problems including alcoholism, depression, anxiety, and has been diagnosed with migraines and GERD in the past,(who is also not seen at medical doctor in years) and is prescribed occasional clonazepam (but uncertain from whom) presents today for evaluation of fall. Patient states that for weeks he has been feeling dizzy occasionally. He has been to the emergency department multiple times for falls. He states that he was standing up today when he felt lightheaded, and slightly dizzy. He felt that the room was slightly spinning. He then fell backwards and hit the back of his head. He believes he was unconscious for some time. When he awoke he had neck and back pain. He denies any new numbness or tingling. EMS then brought him to the emergency department for further assessment. He denies any chest pain or abdominal pain. He does admit to mild right-sided hip pain. He denies any syncope prior to the event. No other complaints at this time. He denies any bowel or bladder incontinence. Exam demonstrates no evidence of significant focal trauma, however he has tenderness over the cervical thoracic or lumbar spine. He also has tenderness over the right hip. No deformities though. Will get CT imaging, evaluate for cardiac etiology, monitor closely and reassess. 1:[address] imaging is returned, no evidence of acute fracture or dislocation or bleed. There is questionable evidence of an adrenal gland, possible nonspecific colitis however this does not clinically correlate with his current symptomatology. I did discuss the adrenal gland abnormality, and patient understands. I did recommend follow-up for him. Patient's laboratory workup has returned and shows a low glucose at 63, patient states that he has not been eating much because of money issues. I have discussed with him the soup [place] in town as well as other forms of assistance to help with food. Additionally his magnesium is low at 1.6. We will give IV magnesium 2 g, as well as an amp of D50 glucose to prevent any hypoglycemia. We will offer food. Patient otherwise is stable. He is neurovascularly intact. We did give meclizine here, and will send a prescription to his pharmacy for meclizine at home as needed for BPPV. Symptoms at this time appear clinically inconsistent with stroke, fracture, or other life-threatening abnormality. Patient is requesting to be discharged so that he can walk home. I did offer to let him stay in the ED until morning, but he has declined. I have extensively reviewed the treatment plan and discharge instructions with the patient. I have addressed all patient concerns at this time. The patient was made aware of what symptoms to monitor for that would warrant a return to the emergency department. Discussed the plan with the patient, they demonstrate verbal understanding and agreement with our assessment and plan at this time. The documentation in this chart was dictated using [employer] dictation software. Please excuse any dictation errors. FINDINGS: Brain: Normal. No hemorrhage. Unremarkable white matter. No mass effect. Cerebral ventricles: No ventriculomegaly. Paranasal sinuses: Visualized sinuses are unremarkable. No fluid levels. Mastoid air cells: Visualized mastoid air cells are well aerated. Bones: Unremarkable. No acute fracture. Soft tissues: Unremarkable. IMPRESSION: No acute findings. FINDINGS: Bones: Degenerative changes of the cervical spine most evident at C5-C6 and C6-C7 where there is robust disc osteophyte complexes causing [id number] spinal canal stenosis and severe superimposed bilateral foraminal stenosis. Bilateral prominent styloid processes. Pharynx: Benign tonsilliths are seen. Lungs: Lung apices are normal. Vasculature: Some mild early atherosclerotic disease. Soft tissues: Unremarkable. IMPRESSION: 1. No acute findings. 2. Findings which can be seen in [place] syndrome. FINDINGS: Bones/joints: No acute fracture. Normal alignment. No significant disc bulge or herniation. No severe spinal canal stenosis. No significant neural foraminal narrowing. Soft tissues: See dedicated CT of the chest, abdomen, and pelvis. IMPRESSION: No acute thoracic spine fracture. FINDINGS: Bones/joints: Degenerative disc bulge at L4-L5 which causes perhaps mild narrowing of the anterior thecal sac. No significant osseous narrowing of the neural foramina. Soft tissues: See dedicated CT of the chest, abdomen, and pelvis. IMPRESSION: No acute findings. Thank you for allowing us to participate in the care of your patient. Dictated and Authenticated by: Jaydon Santamaria DO 03/25/2025 1:19 AM Eastern Time ([place] & [place]) FINDINGS: Lungs: Few small foci of subpleural emphysema are noted of the lung apices. Ground-glass attenuation in the posterior dependent aspects of the bilateral lung bases. Pleural spaces: Unremarkable. No pneumothorax. No pleural effusion. Heart: Unremarkable. No cardiomegaly. No pericardial effusion. Lymph nodes: Unremarkable. No enlarged lymph nodes. Vasculature: Unremarkable. No aortic aneurysm. Bones/joints: Expansile sclerotic cortical based focus at the anterior left 6th rib (series 4, image 59). No aggressive erosion or soft tissue appearance. Margins are thin/narrow. Soft tissues: Unremarkable. IMPRESSION: 1. No acute findings. 2. 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 If there is point tenderness, recommend further evaluation with bone scan. 3. Lung base findings suggest possible underlying fibrotic changes, although nonspecific and could represent scarring/atelectasis. FINDINGS: Liver: Benign right hepatic cyst. A few other hepatic hypodensities too small to characterize by modality, statistically likely represent benign inconsequential finding. Gallbladder and biliary ducts: Normal. No calcified stones. No ductal dilation. Pancreas: Normal. No ductal dilation. Spleen: Incidental splenule. Adrenal glands: Thickened appearance of the bilateral adrenal glands, focal nodule noted in the inferior lateral arm of the left adrenal gland measuring about 14 x 12 mm (series 4, image 78). Kidneys and ureters: Nonobstructive left lower renal pole stone. Benign exophytic right renal cyst. Stomach and bowel: Moderate colonic stool burden. Perhaps mild proximal colonic inflammatory changes. Appendix: No evidence of appendicitis. Intraperitoneal space: Unremarkable. No free air. No significant fluid collection. Vasculature: Few pelvic phleboliths are seen. Lymph nodes: Unremarkable. No enlarged lymph nodes. Urinary bladder: Unremarkable as visualized. Reproductive: Unremarkable as visualized. Bones/joints: Right os acetabula versus chronic labral injury. Mild degenerative changes throughout the visualized osseous structures. Soft tissues: Unremarkable. IMPRESSION: 1. No acute traumatic findings. 2. Possible mild nonspecific proximal colitis. 3. Adrenal protocol MRI is recommended for further evaluation of the left adrenal nodule. This is nonurgent recommendation/finding Quality:SDOH Health Related Social Needs: Health related social needs risk of homeless transpo insecurity house/econ circumstance education Health related social needs details patient currently lives in a hotel which he pays out of pocket for. Critical Care Time Critical Care Time Critical Care Time: Yes Total Critical Care Time: 20 Attestation: Upon my evaluation, this patient had a high probability of imminent or life-threatening deterioration, which required my direct attention, intervention, and personal management. I have personally provided 20 minutes of critical care time exclusive of time spent on separately billable procedures. Time includes review of laboratory data, radiology results, discussion with consultants, and monitoring for potential decompensation. Interventions were performed as documented. PFSH All Active Problems (Updated 03/25/25 @ 01:36 by Terence Ryan DO) Food insecurity (Acute) Hypoglycemia (Acute) Hypomagnesemia (Acute) Fall (Acute) Adrenal nodule (Acute) Vertigo (Acute) Neck pain (Acute) Headache (Acute) Frequent falls (Acute) Headache, chronic migraine without aura (Acute) Dehydration (Acute) Weakness (Acute) Medical History Obesity History of alcoholism GERD (gastroesophageal reflux disease) Tremor Migraines Depression with psychotic features Anxiety Surgical History Repair of inguinal hernia Family History Mother Depression Melanoma Social History Smoking/Tobacco Use Status: Current every day Tobacco Type: cigars Per week: 14 Smoking risk assessment performed?: Yes Alcohol Intake: former Drug use: Occasionally Substance use type: marijuana Housing: other Do you feel safe at home: Yes Do you feel safe in your relationship?: Yes
[2025-03-25] MEDS: LORazepam 20 MG/10 ML VIAL IVP (01:02)
[2025-03-25] MEDS: Normal Saline 500 ML IV (01:04)
--- NOTE | 2025-03-25 01:16 | DI.VRAD_ITS ---
PROCEDURE INFORMATION: Exam: CT Chest With Contrast; Diagnostic Exam date and time: 03/25/2025 12:45 AM Age: 55 years old Clinical indication: Injury or trauma; Fall; Generalized; Blunt trauma (contusions or hematomas); Injury details: Fell, hit back, entire spine pain \T\ R hip pain TECHNIQUE: Imaging protocol: Diagnostic computed tomography of the chest with contrast. Contrast material: OMNI 350; Contrast volume: 75 ml; Contrast route: INTRAVENOUS (IV); COMPARISON: CT CERVICAL SPINE WO 03/10/2025 1:49 AM FINDINGS: Lungs: Few small foci of subpleural emphysema are noted of the lung apices. Ground-glass attenuation in the posterior dependent aspects of the bilateral lung bases. Pleural spaces: Unremarkable. No pneumothorax. No pleural effusion. Heart: Unremarkable. No cardiomegaly. No pericardial effusion. Lymph nodes: Unremarkable. No enlarged lymph nodes. Vasculature: Unremarkable. No aortic aneurysm. Bones/joints: Expansile sclerotic cortical based focus at the anterior left 6th rib (series 4, image 59). No aggressive erosion or soft tissue appearance. Margins are thin/narrow. Soft tissues: Unremarkable. IMPRESSION: 1. No acute findings. 2. 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 If there is point tenderness, recommend further evaluation with bone scan. 3. Lung base findings suggest possible underlying fibrotic changes, although nonspecific and could represent scarring/atelectasis. PROCEDURE INFORMATION: Exam: CT Abdomen And Pelvis With Contrast Exam date and time: 03/25/2025 12:45 AM Age: 55 years old Clinical indication: Injury or trauma; Fall; Generalized; Blunt trauma (contusions or hematomas); Injury details: Fell, hit back, entire spine pain \T\ R hip pain TECHNIQUE: Imaging protocol: Computed tomography of the abdomen and pelvis with contrast. Contrast material: OMNI 350; Contrast volume: 75 ml; Contrast route: INTRAVENOUS (IV); COMPARISON: CT LUMBAR SPINE WO 10/23/2024 1:55 AM FINDINGS: Liver: Benign right hepatic cyst. A few other hepatic hypodensities too small to characterize by modality, statistically likely represent benign inconsequential finding. Gallbladder and biliary ducts: Normal. No calcified stones. No ductal dilation. Pancreas: Normal. No ductal dilation. Spleen: Incidental splenule. Adrenal glands: Thickened appearance of the bilateral adrenal glands, focal nodule noted in the inferior lateral arm of the left adrenal gland measuring about 14 x 12 mm (series 4, image 78). Kidneys and ureters: Nonobstructive left lower renal pole stone. Benign exophytic right renal cyst. Stomach and bowel: Moderate colonic stool burden. Perhaps mild proximal colonic inflammatory changes. Appendix: No evidence of appendicitis. Intraperitoneal space: Unremarkable. No free air. No significant fluid collection. Vasculature: Few pelvic phleboliths are seen. Lymph nodes: Unremarkable. No enlarged lymph nodes. Urinary bladder: Unremarkable as visualized. Reproductive: Unremarkable as visualized. Bones/joints: Right os acetabula versus chronic labral injury. Mild degenerative changes throughout the visualized osseous structures. Soft tissues: Unremarkable. IMPRESSION: 1. No acute traumatic findings. 2. Possible mild nonspecific proximal colitis. 3. Adrenal protocol MRI is recommended for further evaluation of the left adrenal nodule. This is nonurgent recommendation/findings. Dictated and Authenticated by: Jaydon Santamaria MD. Orderin Connor Pratt MD
--- NOTE | 2025-03-25 01:19 | DI.VRAD_ITS ---
PROCEDURE INFORMATION: Exam: CT Thoracic Spine Without Contrast Exam date and time: 03/25/2025 12:45 AM Age: 55 years old Clinical indication: Injury or trauma; Fall; Blunt trauma (contusions or hematomas); Injury details: Fell, hit back, entire spine pain \T\ R hip pain TECHNIQUE: Imaging protocol: Computed tomography of the thoracic spine without contrast. COMPARISON: CT CERVICAL SPINE WO 03/10/2025 1:49 AM FINDINGS: Bones/joints: No acute fracture. Normal alignment. No significant disc bulge or herniation. No severe spinal canal stenosis. No significant neural foraminal narrowing. Soft tissues: See dedicated CT of the chest, abdomen, and pelvis. IMPRESSION: No acute thoracic spine fracture. PROCEDURE INFORMATION: Exam: CT Lumbar Spine Without Contrast Exam date and time: 03/25/2025 12:45 AM Age: 55 years old Clinical indication: Injury or trauma; Fall; Blunt trauma (contusions or hematomas); Injury details: Fell, hit back, entire spine pain \T\ R hip pain TECHNIQUE: Imaging protocol: Computed tomography of the lumbar spine without contrast. COMPARISON: CT LUMBAR SPINE WO 10/23/2024 1:55 AM FINDINGS: Bones/joints: Degenerative disc bulge at L4-L5 which causes perhaps mild narrowing of the anterior thecal sac. No significant osseous narrowing of the neural foramina. Soft tissues: See dedicated CT of the chest, abdomen, and pelvis. IMPRESSION: No acute findings. Dictated and Authenticated by: Jaydon Santamaria MD. Orderin Connor Pratt MD
[2025-03-25] MEDS: MAGNESIUM SULFATE 2 GM/50 ML BAG IV_INF (01:26)
[2025-03-25] MEDS: Dextrose 50%-Water 25 GM/50 ML SYR IVP (01:27)
[2025-03-25] MEDS: MORPHine 4 MG/ML SYR 2 MG IVP (01:38)
[2025-03-25] MEDS: Meclizine 25 MG TAB PO (01:41)
--- NOTE | 2025-03-25 02:46 | NUR.NOTE ---
patient ambulated out of the ED accompanied by RN. states understanding of instructions
== END 2025-03-25 02:45 | disposition home or self-care (01) ==
PROVIDERS: Emergency Provider Student in an Organized Health Care Education/Training Program
DX: R42 Dizziness and giddiness (principal); E27.8 Other specified disorders of adrenal gland; E83.42 Hypomagnesemia; E16.2 Hypoglycemia, unspecified; F17.290 Nicotine dependence, other tobacco product, uncomplicated; Z59.41 Food insecurity
CPT/HCPCS: 74177; 80053; 93005; 96361; 96374; 96375; 99285; 70450; 71260; 72125; 83735; 84484; 85025; 93010; 99284; J2060; J2270; J3475; J3490

== ENCOUNTER 2025-04-12 06:06 | Emergency (ER) | payer MEDICARE, SELFPAY ==
[2025-04-12 06:01] VITALS: BP 143/85; PULSE 87; RESP 18; TEMP 36.9; O2SAT 98
--- NOTE | 2025-04-12 06:45 | DI.CT_ITS ---
Exam(s) CT ABDOMEN PELVIS W EXAM: CT ABDOMEN PELVIS W CLINICAL HISTORY: LLQ pain and tenderness. TECHNIQUE: Imaging Protocol: Axial computed tomography images with coronal and sagittal reformatted images were created and reviewed CONTRAST MATERIAL: Intravenous: Omnipaque 350 Contrast volume:100 ml Oral: no COMPARISON: CT CT CHEST/ABD/PEL W from 03/25/[address] THORACIC LUMBAR SPINE REC from 03/25/2025 FINDINGS: ABDOMEN and PELVIS: Lung Bases: No acute findings. Liver: Normal density. No suspicious mass. Gallbladder and biliary tract: No radiodense calculus. No wall thickening or pericholecystic fluid. No biliary dilation. Pancreas: Normal density. No abnormal calcifications or inflammatory process. No evidence of mass. Spleen: Normal. Kidneys: Normal size, contour and axis. Nonobstructing stone upper pole left kidney. No obstructive uropathy. Simple cyst lower pole right kidney. No follow-up recommended. No suspicious masses seen. Adrenal glands: Stable small left adrenal nodule. Vasculature: Abdominal aorta non-dilated. Soft tissues: Unremarkable. Bladder: No gross wall thickening. No calculi.No focal mass. Bowel: No obstruction. No bowel wall thickening. Appendix normal. Peritoneal cavity: No ascites. No focal collection. No mesenteric inflammatory response. No free air. Bones: Unremarkable for age. Reproductive organs: Unremarkable. Lymph nodes: No pathologically enlarged lymph nodes. IMPRESSION:: No acute abnormality in the abdomen or pelvis. RADIATION DOSE DELIVERED: 250.09mGy.cm Total DLP DATA REPOSITORY: All CT scans at this facility are submitted to the National Radiology Data Registry (NRDR) Dose Index Registry (DIR) with the [employer] (ACR). RADIATION OPTIMIZATION: All CT scans at this facility use at least one of these dose optimization techniques: automated exposure control; mA and/or kV adjustment per patient size (includes targeted exams where dose is matched to clinical indication); or iterative reconstruction.
--- NOTE | 2025-04-12 06:45 | RT.EKG_ITS ---
APPROVED REPORT Exam: Resting ECG Reason for Exam: medical clearance Patient Location: E HR:71 bpm ECG Measurements Heart Rate 71 AXIS NH 150 P 65 QRSd 88 QRS 63 QT 380 T 52 QTc 413 Conclusion Sinus rhythm...normal P axis, V-rate 60- 99 appropriate intervals
--- NOTE | 2025-04-12 06:49 | W.ED.GENAD ---
Discharge Plan Discharge Details Chief Complaint: PsychEval Clinical Impression: Suicide ideation, Abdominal pain Primary Care Provider: None,None ED Provider: Shanelle Huffman Home Meds and New Rx's Prescriptions: No Action sumatriptan succinate 100 MG tablet 100 mg PO PRN duloxetine 60 MG capsule,delayed release(DR/EC) 60 mg PO BID meclizine 25 mg tablet 25 mg PO TID PRN (Reason: dizziness) Qty: 20 0RF clonazepam 1 mg tablet 1 mg PO QID divalproex 500 mg tablet extended release 24 hr 1,000 mg PO HS Patient Comments: TAKE TWO TABLETS BY MOUTH EVERY EVENING AT BEDTIME zolpidem [Ambien] .ROUTE HPI General Mode of arrival: EMS. Date/Time Provider Initiated Documentation: 04/12/25 06:12. Limitations to Documentation: no limitations. Information obtained by: patient. HPI Narrative: 55yo M with hx bipolar disorder presenting with SI. Has been thinking about killing himself, looked around for a knife and could not find one. Reports prior suicide attempts via overdose and via putting in a gun in his mouth and pulling the trigger (Reports the gun misfired). Reports prior admission to [facility] for psychiatric reasons. Suicidality is worse today in the setting of finanical pressures. He is also reporting LLQ abdomminal pain that started last night, dull, moderate, no alleviating or aggraving factors. Has has some diarrhea (nonbloody), no nausea or vomiting. He does state that even if he was not having SI he would have sought medical attention for this today. Does use cocaine frequently, last yesterday. Otherwise in his usual state of heatlh. Related Data Home Medications ?Medication ?Instructions ?Recorded ?Confirmed duloxetine 60 mg capsule,delayed 60 mg PO BID 12/15/16 04/12/25 release sumatriptan succinate 100 mg tablet 100 mg PO PRN 12/15/16 04/12/25 clonazepam 1 mg tablet 1 mg PO QID 10/23/24 04/12/25 divalproex 500 mg tablet,extended 1,000 mg PO HS 11/10/24 04/12/25 release 24 hr meclizine 25 mg tablet 25 mg PO TID PRN dizziness #20 tabs 03/14/25 04/12/25 zolpidem .ROUTE 04/12/25 Previous Rx's ?Medication ?Instructions ?Recorded meclizine 25 mg tablet 25 mg PO TID PRN dizziness #20 tabs 03/14/25 Allergies Allergy/AdvReac Type Severity Reaction Status Date / Time prochlorperazine (From Allergy Unknown Unknown Verified 04/12/25 06:08 Compazine) promethazine (From Phenergan) Allergy Unknown Unknown Verified 04/12/25 06:08 NSAIDS (Non-Steroidal Allergy Unknown Verified 04/12/25 06:08 Anti-Inflamma General Stated Complaint: PsychEval PUSHPA: 2 Review of Systems Narrative: see HPI Exam Narrative Exam Narrative: General: Alert, well appearing, well nourished,anxious Head: Normocephalic, atraumatic Neck: Trachea midline, ?Neck supple. ENT: ?MMM.? Cardiac: ?RRR, no murmurs appreciated Resp: No respiratory distress. CTAB. Abd: ?Soft, non-distended, mild LLQ tenderness with no rebound or guarding : ?No suprapubic tenderness. Extremities: ?No deformities.? No peripheral edema. Neurologic: GCS 15. ? Moves all extremities freely against gravity Psych: Anxious, tearful, cooperative.? Well groomed.? Mood awful, affect congruent.? Speech with normal volume, rate, rythym and tone. Linear and goal directed.? + SI with plan to cut. Denies HI/AH/VH. ? Does not appear to be responding to internal stimuli. Course Vital Signs Vital signs: Vital Signs Temperature 36.9 C 04/12/25 06:01 Pulse 87 04/12/25 06:01 Respiratory Rate 18 04/12/25 06:01 Blood Pressure 143/85 H 04/12/25 06:01 Pulse Oximetry 98 04/12/25 06:01 Temperature 36.9 C 04/12/25 06:01 Pulse 87 04/12/25 06:01 Respiratory Rate 18 04/12/25 06:01 Blood Pressure 143/85 H 04/12/25 06:01 Pulse Oximetry 98 04/12/25 06:01 Oxygen Delivery Method Room Air 04/12/25 06:01 Oxygen Flow Rate 0 04/12/25 06:01 Pain Level 0 04/12/25 06:01 Medical Decision Making 55yo M with hx bipolar disorder presenting with SI. [facility] plan to cut. Prior SA with adequate means and prior psych admissions. Vital signs reassuring on arrival; he also reports LLQ abdominal pain and diarrhea. LLQ mildly TTP with no rebound or guarding (? diverticulitis, gastroenteritis; low supscion for obstruction or emergently surigcal pathology). Will treat pain with tylenol pending results of workup, and given PO ativan for anxiety. Medical screening to include EKG, labs, CT imaging given abdominal tenderness. If medically cleared would have patient evaluated by [facility]. Signed out to oncoming physican, plan as above. Quality:SDOH Health Related Social Needs: Health related social needs risk of homeless transpo insecurity house/econ circumstance education Health related social needs details patient currently lives in a hotel which he pays out of pocket for. PFSH All Active Problems (Updated 04/12/25 @ 08:01 by Shanelle Huffman MD) Abdominal pain (Acute) Suicide ideation (Acute) Food insecurity (Acute) Hypoglycemia (Acute) Hypomagnesemia (Acute) Fall (Acute) Adrenal nodule (Acute) Medical History Obesity History of alcoholism GERD (gastroesophageal reflux disease) Tremor Migraines Depression with psychotic features Anxiety Surgical History Repair of inguinal hernia Family History Mother Depression Melanoma Social History Smoking/Tobacco Use Status: Current every day Tobacco Type: cigars Per week: 14 Smoking risk assessment performed?: Yes Alcohol Intake: former Drug use: Occasionally Substance use type: marijuana and crack/cocaine Housing: other Do you feel safe at home: Yes Do you feel safe in your relationship?: Yes
[2025-04-12 07:52] LABS: Abs Immature Grans 0.02 10^3/uL (0.0-0.06); HCT 44.1 % (40.0-50.0); HGB 14.9 g/dL (13.5-17.5); Immature Grans % 0.3 %; MCH 31.0 pg (27.0-33.0); MCHC 33.8 % (32.0-36.0); MCV 92 fL (80-95); MPV 9.7 fL (8.0-11.0); Platelet Count 288 10^3/uL (130-400); RBC 4.80 10^6/uL (4.36-5.78); RDW 13.5 % (11.8-14.1); RDW-SD 46.4 fL; WBC 7.21 10^3/uL (4.4-10.8)
[2025-04-12] MEDS: LORazepam 1 MG TAB PO (08:07)
[2025-04-12] MEDS: ACETAMINOPHEN 1,000 MG/100 ML BAG 400 MG IVPB (08:07)
[2025-04-12 08:29] LABS: ALT 32 U/L (16-63); AST 22 U/L (15-37); Albumin 3.6 g/dL (3.4-5.0); Alkaline Phosphatase 61 U/L (46-116); Anion Gap 6.9 mmol/L (3-11); BUN 8 mg/dL (7-18); Bilirubin, Total 0.5 mg/dL (0.2-1.0); CO2 31.1 mmol/L (21.0-32.0); Calcium 9.4 mg/dL (8.5-10.1); Chloride 103 mmol/L (98-107); Estimated GFR 104.51 (mL/min/1.73m2); Glucose 116 mg/dL (74-106); Lipase 25 U/L (<78); Magnesium 1.9 mg/dL (1.8-2.4); Potassium 4.5 mmol/L (3.5-5.1); Sodium 141 mmol/L (136-145); Total Protein 7.2 g/dL (6.4-8.2)
[2025-04-12 08:50] LABS: Salicylate 5.7 mg/dL (<2.8)
[2025-04-12 08:51] LABS: Acetaminophen < 2 ug/mL (10-30)
[2025-04-12] MEDS: Omnipaque 350 MG/ML 500 ML BTL-Imaging package IJ (09:02)
[2025-04-12] MEDS: Normal Saline Flush 10 ML SYR IVP (09:04)
[2025-04-12] MEDS: Normal Saline - Diluent 50 ML VIAL IJ (09:04)
[2025-04-12 10:12] LABS: Glucose Negative (Negative)
[2025-04-12] MEDS: Nicotine 21 MG/24 HR PATCH TD (12:50)
--- NOTE | 2025-04-12 13:37 | ED.PSYCHBOAR ---
Date of service: 04/12/25 Time of Service: 13:37 Psychiatric Border Handoff Update Brief Story: Patient signed out to me pending PT labs all of which came back without concerning findings. Patient still voicing thoughts of self-harm. He was evaluated by the crisis screener and the plan will be for him to be a voluntary psych bed search. Status: voluntary Able to leave: would need physician/XOCHITL and crisis evaluation prior to leaving Mediation Reconciliation performed: Yes Code Status ordered: Yes Diet ordered: Yes Discharge Plan Discharge Details Chief Complaint: PsychEval Clinical Impression: Suicide ideation, Abdominal pain Primary Care Provider: None,None ED Provider: Michael Rubalcava Home Meds and New Rx's Prescriptions: No Action sumatriptan succinate 100 MG tablet 100 mg PO PRN duloxetine 60 MG capsule,delayed release(DR/EC) 60 mg PO BID meclizine 25 mg tablet 25 mg PO TID PRN (Reason: dizziness) Qty: 20 0RF clonazepam 1 mg tablet 1 mg PO QID divalproex 500 mg tablet extended release 24 hr 1,000 mg PO HS Patient Comments: TAKE TWO TABLETS BY MOUTH EVERY EVENING AT BEDTIME zolpidem [Ambien] 10 mg .Route .night
[2025-04-12] MEDS: Acetaminophen 500 MG TAB 1000 MG PO (13:43)
--- NOTE | 2025-04-12 14:19 | PDOC.MHCN_ITS ---
Date of service: 04/12/25 Time of Service: 13:05 PHQ-9 Over the last 2 weeks, how often have you been bothered by any of the following problems? 1. Little interest or pleasure in doing things: nearly every day 2. Feeling down, depressed, or hopeless: nearly every day 3. Trouble falling or staying asleep, or sleeping too much: nearly every day 4. Feeling tired or having little energy: several days 5. Poor appetite or overeating: nearly every day 6. Feeling bad about yourself - or that you are a failure or have let yourself and your family down: nearly every day 7. Trouble concentrating on things, such as reading the newspaper or watching television: more than half the days 8. Moving or speaking so slowly that other people could have noticed? - Or the opposite - being so fidgety or restless that you have been moving around a lot more than usual: nearly every day 9. Thoughts that you would be better off or of hurting yourself in some way: several days Total score: 22 If you checked off any problems, how difficult have these problems made it for you to do your work, take care of things at home, or get along with other people?: very difficult Source: Developed by Drs. Derek Dobbs, Meme Odell, Alok Mott and colleagues, with an educational kai from [employer]. Suicide Severity Rate CSSRS Have you wished you were or wished you could go to sleep and not wake up?: Yes Have you actually had any thoughts of killing yourself?: Yes CSSRS2 Have you been thinking about how you might do this?: Yes Have you had these thoughts and had some intention of acting on them?: Yes Have you started to work out or worked out the details of how to kill yourself? Do you intend to carry out this plan?: Yes CSSRS3 Have you ever done anything, started to do anything or prepared to do anything to end your life?: Yes CSSRS4 Was this within the past three months?: No Screening Score Total Score: 6 Screening: Positive Mental Health Emergency Note Release [facility] release signed:: Yes Reason for Visit The client presented to the [facility] ED endorsing SI. The client reports coming off a four day cocaine more, having food, housing and financial insecurities. The client is known to [facility] and this loan underwriter. The client was seen last by ES on 11/10/24. The client self reports to have been hospitalized 3-[facility] times in the [facility] roughly ten years ago. In the last 2 weeks has the pt presented for ES prior to today?: No Client Information Client is: New Well Housed: No,status: Homeless Unstable housing Non Suicidal Self Injury Current: No History: No Safety Risk/Harm to Self or Others Current Ideation to Harm Self or Others: Yes to self. (The client rates his intent to be a 8 out of 10. The client shares a plan of jumping off a bridge or stabbing himself.) Intent: yes, has intent. Plan: yes,has a plan. History of suicide attempt: yes,history of suicide attempt reported. Details of previous suicide attempt: The client reports two past attempts on his life by OD and having a firearm in his mouth. Risk: Does risk to harm exist?: yes. Access to means: No. Risk: Moderate Risk Duty to warn indicated: No Asssessment/Mental Status Appearance: Poor hygiene Attitude: Cooperative and Friendly Behavior: Unremarkable Speech: Normal Affect: Flat Mood: Depressed Thought process: Goal directed and Circumstational Hallucinations: No Delusions: No Attention: Unremarkable Perception: Not impaired Orientation: Fully orientated Memory: Intact Insight: Poor Judgement: Poor Neurovegetative Symptoms Sleep: Decrease Appetitie: Decrease Interests: Decrease Energy: Decrease Libido: Not applicable Substance Use: Have you used substances in the last 7 days?: yes, The client reports to have been using cocaine over the past four days. Additional Issues: Assaultive/Threatening Behavior: No Medical Concerns: No Client engaged in active self harm w/weapon: No Threatening to run away: No Child reported abuse/neglect: No Voluntarily presenting for services: Yes Domestic violence is a concern: No Extreme Psychosis or extreme behavior is present: No Impression The client is a 55 year old biological male who is currently homeless in [place], [place]. The client presents in blue paper scrubs in his hospital bed displaying poor hygiene. Affect is flat and speech is in normal range. Client is friendly and cooperative; they report their mood as depressed. Thought process appears to be circumstantial and goal directed as they see the need for treatment. There are no delusions observed by this clinician. The client denied visual and auditory hallucinations. Cognitive assessment reveals orientation to person, place and time. The client reports coming to [facility] because he has hit [facility]. The client states he has no food, no housing and no money. The client states he has been staying at the [facility] in [facility] since September and now is out of money and cannot afford to stay there anymore. The client reports going on a cocaine more the last four days due to everything going on in his life. The client denied HI and NSSI with no intent or plan. The client reports SI with intent scored a 8 out of 10. The client shared a plan of ending his life by stabbing himself and states he would have last night if he could have found a knife. The client reports another plan of jumping off the bridge by the [facility] [employer] [place]. The client scored a 22/27 on the PHQ-9 and a 6/6 on the CSSRS. The client states he would like to seek voluntary impatient treatment to help with his mental health and get back on the right track. Plan/Disposition Recommended Disposition: Hospitalization facilities contacted. Plan: The client will remain in the Zone B of [facility] awaiting voluntary inpatient treatment. The client will receive daily assessments from until placement is secured. Reports/communication Outcome discussed with: ED/Personnel
[2025-04-12] MEDS: clonazePAM 1 MG TAB PO ×2 (16:17→19:45)
--- NOTE | 2025-04-12 18:58 | ED.PROG_ITS ---
Date of service: 04/12/25 Time of Service: 18:58 Medical Decision Making Patient was stable throughout my shift. Did receive a call from Dr. Rider at [facility]. She accepts the patient for transfer. Transfer paperwork will be completed. I have extensively reviewed the treatment plan with the pat true. I have addressed all patient concerns at this time. I have also discussed the plan with the admitting physician and they agree with the current assessment and plan and have agreed to assume responsibility for the patient. All parties demonstrate verbal understanding and agreement with our assessment and plan at this time. The documentation in this chart was dictated using [employer] dictation software. Please excuse any dictation errors. Quality:SDOH Health Related Social Needs: Health related social needs risk of homeless transpo i nsecurity house/econ circumstance education Health related social needs details patient currently lives in a hotel which he pays out of pocket for. Discharge Plan Disposition Patient Disposition: Psychiatric Hospital/Unit Specific Psychiatric Facility: [facility] Discharge Details Clinical Impression: Suicide ideation, Abdominal pain Primary Care Provider: None,None ED Provider: Terence Ryan Home Meds and New Rx's Prescriptions: No Action sumatriptan succinate 100 MG tablet 100 mg PO PRN duloxetine 60 MG capsule,delayed release(DR/EC) 60 mg PO BID meclizine 25 mg tablet 25 mg PO TID PRN (Reason: dizziness) Qty: 20 0RF clonazepam 1 mg tablet 1 mg PO QID divalproex 500 mg tablet extended release 24 hr 1,000 mg PO HS Patient Comments: TAKE TWO TABLETS BY MOUTH EVERY EVENING AT BEDTIME zolpidem [Ambien] 10 mg .Route .night Discharge Instructions Additional Instructions: You were seen and medically cleared. No abnormalities were noted on your workup. Because of your depression and suicidal plan, the patient will be tr ansferred to [facility] for continued inpatient management.
[2025-04-12] MEDS: DULoxetine 30 MG CAP 60 MG PO (19:45)
[2025-04-12] MEDS: Zolpidem 10 MG TAB PO (19:46)
[2025-04-12] MEDS: Divalproex Sodium 500 MG TAB.ER.24H 1000 MG PO (19:46)
[2025-04-13] MEDS: clonazePAM 1 MG TAB PO ×4 (08:25→20:13)
[2025-04-13] MEDS: DULoxetine 30 MG CAP 60 MG PO ×2 (08:25→20:11)
[2025-04-13 08:29] VITALS: BP 157/96; PULSE 106; RESP 18; TEMP 36.6; O2SAT 98
--- NOTE | 2025-04-13 09:13 | CMSP_ITS ---
Date of service: 04/13/25 Time of Service: 09:15 Care Management Safety Plan Status Status: Voluntary Reason for Wait Reason for Wait: Inpatient Admission Safety Plan Safety Plan: VOLUNTARY FOR INPATIENT PSYCHIATRIC STABILIZATION.? Patient is appropriate in all interactions since arriving at [facility]; Pt has demonstrated appropriate coping and communication skills, has articulated his or her needs and concerns and is fully engaged during staff interactions. Safety plan has been established with patient, and care team, to adhere to patient goals, identify restrictions based on behavioral status, address nutrition, and determine allowed personal belongings, tools for hygiene and personal care. Determine level of activity including ambulation, level of superv ision, visitors, and determine privileges based on behaviors and level of engagement by pt. VOLUNTARY SAFETY PLAN: 1. Will remain on suicide precautions, in paper clothes 2. Will remain in Zone B under direct supervision of one-on-one staff at all times provided by [employer]; CHRISTINA, CLINICAL NURSING PROFESSOR radio communication coordinator. 3. May have paper cups, plates, finger foods as well as a cardboard spoon with which to eat meals. 4. Follow [facility] Management of the Admitted Behavioral Health Patient policy. 5. Shower available in Zone B without restriction. 6. Personal belongings-soft items permitted at RN discretion. 7. Visitors-none at this time. 8. Activities: soft cart items, hospital tablets (Netflix/Dendron+/music) approved per RN discretion. 9.? Bathroom available in Zone B without restriction. 10. Phone: limited to [facility] cordless phone at RN discretion. Due to VOLUNTARY status, if patient wishes to leave [facility], staff will contact [facility] Crisis Screener ([phone]) and Enrollment Advisor ([phone]) as soon as possible. In the event of elopement, notify [facility] Police ([phone]). Patient is currently voluntarily at [facility] and seeking inpatient admission when a bed becomes available. [facility] Frontline Compressor Stations Superintendent will continue seeking placement. Please contact the Enrollment Advisor ([phone]) and [facility] Compressor Stations Superintendent ([phone]) for any needed changes in the Safety Plan. Safety plan has been provided to interdepartmental care team.
--- NOTE | 2025-04-13 09:13 | PDOC.CMSAFE ---
Date of service: 04/13/25 Time of Service: 09:15 Care Management Safety Plan Status Status: Voluntary Reason for Wait Reason for Wait: Inpatient Admission Safety Plan Safety Plan: VOLUNTARY FOR INPATIENT PSYCHIATRIC STABILIZATION.? Patient is appropriate in all interactions since arriving at [facility]; Pt has demonstrated appropriate coping and communication skills, has articulated his or her needs and concerns and is fully engaged during staff interactions. Safety plan has been established with patient, and care team, to adhere to patient goals, identify restrictions based on behavioral status, address nutrition, and determine allowed personal belongings, tools for hygiene and personal care. Determine level of activity including ambulation, level of supervision, visitors, and determine privileges based on behaviors and level of engagement by pt. VOLUNTARY SAFETY PLAN: 1. Will remain on suicide precautions, in paper clothes 2. Will remain in Zone B under direct supervision of one-on-one staff at all times provided by [employer]; CHRISTINA, UNDERWRITING INTERNSHIP supervisor film processing. 3. May have paper cups, plates, finger foods as well as a cardboard spoon with which to eat meals. 4. Follow [facility] Management of the Admitted Behavioral Health Patient policy. 5. Shower available in Zone B without restriction. 6. Personal belongings-soft items permitted at RN discretion. 7. Visitors-none at this time. 8. Activities: soft cart items, hospital tablets (Netflix/Obed+/music) approved per RN discretion. 9.? Bathroom available in Zone B without restriction. 10. Phone: limited to [facility] cordless phone at RN discretion. Due to VOLUNTARY status, if patient wishes to leave [facility], staff will contact [facility] Crisis Screener ([phone]) and Vrt Mechanic ([phone]) as soon as possible. In the event of elopement, notify [facility] Police ([phone]). Patient is currently voluntarily at [facility] and seeking inpatient admission when a bed becomes available. [facility] Frontline Flavor Maker will continue seeking placement. Please contact the Vrt Mechanic ([phone]) and [facility] Flavor Maker ([phone]) for any needed changes in the Safety Plan. Safety plan has been provided to interdepartmental care team.
[2025-04-13] MEDS: Nicotine 21 MG/24 HR PATCH TD (12:00)
--- NOTE | 2025-04-13 15:20 | CMPROGNOTE_ITS ---
Date of service: 04/13/25 Time of Service: 11:30 Care Management Progress Note Progress Note Text Progress Note Text: Huddle was held with [facility] staff, [facility] staff and ER nurse charge rn. Isidro was offered a bed at [facility]. Per, [facility], when this was discussed with Isidro, he became extremely anxious, and even to the point of crying. He had been at been at [place] years ago, and had a bad experience. He reported he had been hospitalized there for a year, and he will only go if it the absolute last resort. Transfer was put on hold. [facility] is going to f/u on the referrals sent yesterday to other facilities. [facility] stated that because Isidro is here voluntarily, he does have the right to refuse transfer. Status Status: Voluntary Reason for Wait: Inpatient Admission Social Determinants of Health Screening Will the Patient Participate in the Screening?: Declined to provide
--- NOTE | 2025-04-13 15:20 | PDOC.CMPRO ---
Date of service: 04/13/25 Time of Service: 11:30 Care Management Progress Note Progress Note Text Progress Note Text: Huddle was held with [facility] staff, Zone [facility] staff and ER gas charger. Isidro was offered a bed at [facility]. Per, [facility], when this was discussed with Isidro, he became extremely anxious, and even to the point of crying. He had been at been at [place] years ago, and had a bad experience. He reported he had been hospitalized there for a year, and he will only go if it the absolute last resort. Transfer was put on hold. [facility] is going to f/u on the referrals sent yesterday to other facilities. [facility] stated that because Isidro is here voluntarily, he does have the right to refuse transfer. Status Status: Voluntary Reason for Wait: Inpatient Admission Social Determinants of Health Screening Will the Patient Participate in the Screening?: Declined to provide
--- NOTE | 2025-04-13 16:31 | ED.PROG1_ITS ---
Date of service: 04/13/25 Time of Service: 16:31 Psychiatric Border Handoff Update Status: voluntary Able to leave: would need physician/XOCHITL and crisis evaluation prior to leaving Behavioral Concerns: none Potential Disposition: none Barriers to Disposition: patient refused [facility] Medical Concerns: none Mediation Reconciliation performed: Yes Code Status ordered: Yes Diet ordered: Yes Discharge Plan Disposition Patient Disposition: Psychiatric Hospital/Unit Discharge Details Clinical Impression: Suicide ideation Primary Care Provider: None,None ED Provider: Blair Buchanan P[place]a Meds and New Rx's Prescriptions: No Action sumatriptan succinate 100 MG tablet 100 mg PO PRN duloxetine 60 MG capsule,delayed release(DR/EC) 60 mg PO BID meclizine 25 mg tablet 25 mg PO TID PRN (Reason: dizziness) Qty: 20 0RF clonazepam 1 mg tablet 1 mg PO QID divalproex 500 mg tablet extended release 24 hr 1,000 mg PO HS Patient Comments: TAKE TWO TABLETS BY MOUTH EVERY EVENING AT BEDTIME zolpidem [Ambien] 10 mg .Route .night Discharge Instructions Additional Instructions: You were seen and medically cleared. No abnormalities were noted on your workup. Because of your depression and suicidal plan, the patient will be transferred to [facility] for continued inpatient management.
[2025-04-13] MEDS: Acetaminophen 500 MG TAB 1000 MG PO (17:26)
[2025-04-13] MEDS: Divalproex Sodium 500 MG TAB.ER.24H 1000 MG PO (20:11)
[2025-04-13] MEDS: Zolpidem 10 MG TAB PO (20:13)
[2025-04-14 07:09] VITALS: BP 129/76; PULSE 54; RESP 16; TEMP 36.6; O2SAT 98
--- NOTE | 2025-04-14 07:43 | ED.PROG1_ITS ---
Date of service: 04/14/25 Time of Service: 07:44 Psychiatric Border Handoff Update Brief Story: 55-year-old male presenting the ER with complaints of epigastric pain with a reassuring evaluation, admitted to also having active suicidal ideations. Currently pending bed search for inpatient psychiatric facility. Behavioral Concerns: SI with plan. History of bipolar Potential Disposition: Inpatient psychiatric facility Barriers to Disposition: Bed search Medical Concerns: None at this time Future to do Items: Follow-up with behavioral health recommendations for placement Discharge Plan Disposition Patient Disposition: Psychiatric Hospital/Unit Discharge Details Clinical Impression: Suicide ideation Primary Care Provider: None,None ED Provider: Shabbir Gonzalez Home Meds and New Rx's Prescriptions: No Action sumatriptan succinate 100 MG tablet 100 mg PO PRN duloxetine 60 MG capsule,delayed release(DR/EC) 60 mg PO BID meclizine 25 mg tablet 25 mg PO TID PRN (Reason: dizziness) Qty: 20 0RF clonazepam 1 mg tablet 1 mg PO QID divalproex 500 mg tablet extended release 24 hr 1,000 mg PO HS Patient Comments: TAKE TWO TABLETS BY MOUTH EVERY EVENING AT BEDTIME zolpidem [Ambien] 10 mg .Route .night Discharge Instructions Additional Instructions: You were seen and medically cleared. No abnormalities were noted on your collin p. Because of your depression and suicidal plan, the patient will be transferred to [facility] for continued inpatient management.
[2025-04-14] MEDS: DULoxetine 30 MG CAP 60 MG PO ×2 (07:54→19:50)
[2025-04-14] MEDS: clonazePAM 1 MG TAB PO ×4 (07:54→19:50)
--- NOTE | 2025-04-14 08:45 | CMSP_ITS ---
Date of service: 04/14/25 Time of Service: 08:45 Care Management Safety Plan Status Status: Voluntary Reason for Wait Reason for Wait: Inpatient Admission Safety Plan Safety Plan: VOLUNTARY FOR INPATIENT PSYCHIATRIC STABILIZATION.? Patient is appropriate in all interactions since arriving at [facility]; Pt has demonstrated appropriate coping and communication skills, has articulated his or her needs and concerns and is fully engaged during staff interactions. Safety plan has been established with patient, and care team, to adhere to patient goals, identify restrictions based on behavioral status, address nutrition, and determine allowed personal belongings, tools for hygiene and personal care. Determine level of activity including ambulation, level of superv ision, visitors, and determine privileges based on behaviors and level of engagement by pt. VOLUNTARY SAFETY PLAN: 1. Will remain on suicide precautions, in paper clothes 2. Will remain in Zone B under direct supervision of one-on-one staff at all times provided by [employer]; CHRISTINA, FRONT END ASSISTANT director of institutional research. 3. May have paper cups, plates, finger foods as well as a cardboard spoon with which to eat meals. 4. Follow [facility] Management of the Admitted Behavioral Health Patient policy. 5. Shower available in Zone B without restriction. 6. Personal belongings-soft items permitted at RN discretion. 7. Visitors-none at this time. 8. Activities: soft cart items, hospital tablets (Netflix/[employer]+/music) approved per RN discretion. 9.? Bathroom available in Zone B without restriction. 10. Phone: limited to [facility] cordless phone at RN discretion. Due to VOLUNTARY status, if patient wishes to leave [facility], staff will contact [facility] Crisis Screener ([phone]) and Urban Designer ([phone]) as soon as possible. In the event of elopement, notify [facility] Police ([phone]). Patient is currently voluntarily at [facility] and seeking inpatient admission when a bed becomes available. [facility] Frontline Revenue Cycle Administrator will continue seeking placement. Please contact the Urban Designer ([phone]) and [facility] Revenue Cycle Administrator ([phone]) for any needed changes in the Safety Plan. Safety plan has been provided to interdepartmental care team.
--- NOTE | 2025-04-14 08:45 | PDOC.CMSAFE ---
Date of service: 04/14/25 Time of Service: 08:45 Care Management Safety Plan Status Status: Voluntary Reason for Wait Reason for Wait: Inpatient Admission Safety Plan Safety Plan: VOLUNTARY FOR INPATIENT PSYCHIATRIC STABILIZATION.? Patient is appropriate in all interactions since arriving at [facility]; Pt has demonstrated appropriate coping and communication skills, has articulated his or her needs and concerns and is fully engaged during staff interactions. Safety plan has been established with patient, and care team, to adhere to patient goals, identify restrictions based on behavioral status, address nutrition, and determine allowed personal belongings, tools for hygiene and personal care. Determine level of activity including ambulation, level of supervision, visitors, and determine privileges based on behaviors and level of engagement by pt. VOLUNTARY SAFETY PLAN: 1. Will remain on suicide precautions, in paper clothes 2. Will remain in Zone B under direct supervision of one-on-one staff at all times provided by [employer]; CHRISTINA, COMMUNICATIONS INSTRUCTOR arch cushion skiving machine operator. 3. May have paper cups, plates, finger foods as well as a cardboard spoon with which to eat meals. 4. Follow [facility] Management of the Admitted Behavioral Health Patient policy. 5. Shower available in Zone B without restriction. 6. Personal belongings-soft items permitted at RN discretion. 7. Visitors-none at this time. 8. Activities: soft cart items, hospital tablets (Netflix/Obed+/music) approved per RN discretion. 9.? Bathroom available in Zone B without restriction. 10. Phone: limited to [facility] cordless phone at RN discretion. Due to VOLUNTARY status, if patient wishes to leave [facility], staff will contact [facility] Crisis Screener ([phone]) and Manufacturing Engineer ([phone]) as soon as possible. In the event of elopement, notify [facility] Police ([phone]). Patient is currently voluntarily at [facility] and seeking inpatient admission when a bed becomes available. [facility] Frontline Leadership Program Internship will continue seeking placement. Please contact the Manufacturing Engineer ([phone]) and [facility] Leadership Program Internship ([phone]) for any needed changes in the Safety Plan. Safety plan has been provided to interdepartmental care team.
--- NOTE | 2025-04-14 09:36 | NUR.NOTE ---
Helen declined. Nursing Note:
[2025-04-14] MEDS: Nicotine 21 MG/24 HR PATCH TD (10:43)
--- NOTE | 2025-04-14 10:48 | PDOC.MHPN2 ---
Date of service: 04/14/25 Time of Service: 10:48 Mental Health Emergency Note Release [facility] release signed:: Yes Reason for Visit The client is known to [facility] and this clinician. The client was seen last by ES on 11/10/24. The client self-reports to have been hospitalized 3-4 times in the past roughly ten years ago. However, per this clinician last note in October he was hospitalized then at . In the last 2 weeks has the pt presented for ES prior to today?: Unknown Impression The client is a 55-year-old biological male who is currently homeless in [place], [place]. The client presents in blue paper scrubs in his hospital bed. The client uses He/Hi pronouns, and all underrepresented categories were honored during this assessment. The client expressed anxiety about having to go to noting he had a traumatic experience there. This clinician explained that we are looking at other hospitals however, may be the only one and either way we would discuss with him first. The client denied current SI and HI and last had SI all day yesterday. His sleep and appetite are fine. He is still voluntarily seeking treatment. Plan/Disposition Recommended Disposition: Hospitalization facilities contacted. Plan: The client will remain at [facility] pending acceptance to a psychiatric facility. Reports/communication Outcome discussed with: ED/Personnel
--- NOTE | 2025-04-14 14:28 | CMPROGNOTE_ITS ---
Date of service: 04/14/25 Time of Service: 14:28 Care Management Progress Note Progress Note Text Progress Note Text: Isidro met with [facility] staff this morning, and huddle with [facility], [facility] staff and RN force adjustment supervisor was held shortly thereafter. Isidro is still voicing anxiety over [place]. [facility] is exploring other options for him, but he is aware his only choice may be [place]. He was declined at [facility]. Per staff, Isidro is eating and sleeping well. Status Status: Voluntary Reason for Wait: Inpatient Admission Social Determinants of Health Screening Will the Patient Participate in the Screening?: Declined to provide
--- NOTE | 2025-04-14 14:28 | PDOC.CMPRO ---
Date of service: 04/14/25 Time of Service: 14:28 Care Management Progress Note Progress Note Text Progress Note Text: Isidro met with [facility] staff this morning, and huddle with [facility], [facility] staff and RN air intercept controller supervisor was held shortly thereafter. Isidro is still voicing anxiety over [place]. [facility] is exploring other options for him, but he is aware his only choice may be [place]. He was declined at [facility]. Per staff, Isidro is eating and sleeping well. Status Status: Voluntary Reason for Wait: Inpatient Admission Social Determinants of Health Screening Will the Patient Participate in the Screening?: Declined to provide
[2025-04-14] MEDS: LORazepam 1 MG TAB PO (18:19)
[2025-04-14] MEDS: Divalproex Sodium 500 MG TAB.ER.24H 1000 MG PO (19:50)
[2025-04-14] MEDS: Zolpidem 10 MG TAB PO (19:50)
[2025-04-14] MEDS: diphenhydrAMINE 25 MG CAP PO (23:55)
[2025-04-14] MEDS: Melatonin 3 MG TAB PO (23:55)
--- NOTE | 2025-04-15 07:12 | ED.PSYCHBOAR ---
Date of service: 04/15/25 Time of Service: 07:12 Psychiatric Border Handoff Update Brief Story: 55-year-old male presents for suicidal ideation. Medically cleared. Pending bed search. Required melatonin Benadryl for sleep last night. No acute issues. Behavioral Concerns: Active suicidality Potential Disposition: Inpatient psychiatric facility Barriers to Disposition: Bed availability, refused to go to [facility] Medical Concerns: None at this time Mediation Reconciliation performed: Yes Code Status ordered: Yes Diet ordered: Yes Discharge Plan Disposition Patient Disposition: Psychiatric Hospital/Unit Discharge Details Clinical Impression: Suicide ideation Primary Care Provider: None,None ED Provider: Shabbir Gonzalez Home Meds and New Rx's Prescriptions: No Action sumatriptan succinate 100 MG tablet 100 mg PO PRN duloxetine 60 MG capsule,delayed release(DR/EC) 60 mg PO BID meclizine 25 mg tablet 25 mg PO TID PRN (Reason: dizziness) Qty: 20 0RF clonazepam 1 mg tablet 1 mg PO QID divalproex 500 mg tablet extended release 24 hr 1,000 mg PO HS Patient Comments: TAKE TWO TABLETS BY MOUTH EVERY EVENING AT BEDTIME zolpidem [Ambien] 10 mg .Route .night Discharge Instructions Additional Instructions: You were seen and medically cleared. No abnormalities were noted on your workup. Because of your depression and suicidal plan, the patient will be transferred to [facility] for continued inpatient management.
[2025-04-15 07:39] VITALS: BP 126/73; PULSE 97; RESP 16; TEMP 36.6; O2SAT 97
[2025-04-15] MEDS: DULoxetine 30 MG CAP 60 MG PO (08:51)
[2025-04-15] MEDS: clonazePAM 1 MG TAB PO ×4 (08:51→19:49)
--- NOTE | 2025-04-15 09:14 | CMSP_ITS ---
Date of service: 04/15/25 Time of Service: 09:14 Care Management Safety Plan Status Status: Voluntary Reason for Wait Reason for Wait: Inpatient Admission Safety Plan Safety Plan: VOLUNTARY FOR INPATIENT PSYCHIATRIC STABILIZATION.? Patient is appropriate in all interactions since arriving at [facility]; Pt has demonstrated appropriate coping and communication skills, has articulated his or her needs and concerns and is fully engaged during staff interactions. Safety plan has been established with patient, and care team, to adhere to patient goals, identify restrictions based on behavioral status, address nutrition, and determine allowed personal belongings, tools for hygiene and personal care. Determine level of activity including ambulation, level of supervision, visitors, and determine privileges based on behaviors and level of engagement by pt. VOLUNTARY SAFETY PLAN: 1. Will remain on suicide precautions, in paper clothes 2. Will remain in Zone B under direct supervision of one-on-one staff at all times provided by [employer]; CHRISTINA, BUSINESS ANALYST SALES OPERATIONS wad compressor operator adjuster. 3. May have paper cups, plates, finger foods as well as a cardboard spoon with which to eat meals. 4. Follow [facility] Management of the Admitted Behavioral Health Patient policy. 5. Shower available in Zone B without restriction. 6. Personal belongings-soft items permitted at RN discretion. 7. Visitors-none at this time. 8. Activities: soft cart items, hospital tablets (Netflix/Obed+/music) approved per RN discretion. 9.? Bathroom available in Zone B without restriction. 10. Phone: limited to [facility] cordless phone at RN discretion. Due to VOLUNTARY status, if patient wishes to leave [facility], staff will contact [facility] Crisis Screener ([phone]) and Physical Education Department Chair ([phone]) as soon as possible. In the event of elopement, notify [facility] Police ([phone]). Patient is currently voluntarily at [facility] and seeking inpatient admission when a bed becomes available. [facility] Frontline Senior Manager Creative Services will continue seeking placement. Please contact the Physical Education Department Chair ([phone]) and [facility] Senior Manager Creative Services ([phone]) for any needed changes in the Safety Plan. Safety plan has been provided to interdepartmental care team.
--- NOTE | 2025-04-15 10:48 | MHPN_ITS ---
Date of service: 04/15/25 Time of Service: 10:59 Mental Health Emergency Note Release [facility] release signed:: Yes Reason for Visit The client is known to [facility] and this clinician. The client was seen last by ES on 11/10/24. The client self-reports to have been hospitalized 3-4 times in the past roughly ten years ago. However, per this clinician last note in October he was hospitalized then at . [facility] In the last 2 weeks has the pt presented for ES prior to today?: Unknown Impression The client is a 55-year-old biological male who is currently homeless in [place], [place]. The client presents in blue paper scrubs in his hospital bed. The client uses He/Hi pronouns, and all underrepresented categories were honored during this assessment. The client is not endorsing any SI or HI and still would like inpatient treatment to help me get straightened out and on the right path. He presents sitting on his side in his bed. He reported poor sleep last night due to tremors. He reported he has struggled with the tremors his entire life. He also is experiencing a headache. He is fully oriented and is seeking voluntary treatment. He reported his appetite is normal. Plan/Disposition Recommended Disposition: Hospitalization facilities contacted. Plan: The client will remain at [facility] pending acceptance to a psychiatric facility. Person reported agreement to plan: Yes Reports/communication Outcome discussed with: ED/Personnel
[2025-04-15] MEDS: Acetaminophen 500 MG TAB 1000 MG PO (10:59)
[2025-04-15] MEDS: Nicotine 21 MG/24 HR PATCH TD (12:19)
--- NOTE | 2025-04-15 12:57 | CMPROGNOTE_ITS ---
Date of service: 04/15/25 Time of Service: 11:00 Care Management Progress Note Progress Note Text Progress Note Text: Isidro was seen by [facility] c iron worker this morning. Huddle was held after session with [facility], [facility] staff, RN hand silvering supervisor and CM. [facility] stated that Isidro is not endorsing any SI/HI today. He would still like to go inpatient to help me get straightened out and on the right path. He reported he slept poorly last night as he was having tremors. Isidro is recently homeless. Isidro is still expressing anxiety over going to [facility], but he was declined at [place], and [facility] feels he will be a difficult placement. Per [facility], Isidro did have a stay at [facility] in October of this year, but he feels trauma from years ago when he was there for a year. Isidro had been accepted to [facility] on Wednesday, but refused the bed. [facility] plans to send another referral today. Status Status: Voluntary Reason for Wait: Inpatient Admission Social Determinants of Health Screening Will the Patient Participate in the Screening?: Declined to provide
--- NOTE | 2025-04-15 12:57 | PDOC.CMPRO ---
Date of service: 04/15/25 Time of Service: 11:00 Care Management Progress Note Progress Note Text Progress Note Text: Isidro was seen by [facility] machine worker this morning. Huddle was held after session with [facility], [facility] staff, RN stewarding supervisor and CM. [facility] stated that Isidro is not endorsing any SI/HI today. He would still like to go inpatient to help me get straightened out and on the right path. He reported he slept poorly last night as he was having tremors. Isidro is recently homeless. Isidor is still expressing anxiety over going to [place], but he was declined at [place], and [facility] feels he will be a difficult placement. Per [facility], Isidro did have a stay at [place] in October of this year, but he feels trauma from years ago when he was there for a year. Isidro had been accepted to [place] on Wednesday, but refused the bed. [facility] plans to send another referral today. Status Status: Voluntary Reason for Wait: Inpatient Admission Social Determinants of Health Screening Will the Patient Participate in the Screening?: Declined to provide
[2025-04-15 18:20] VITALS: BP 117/81; PULSE 104; RESP 18; TEMP 37.5; O2SAT 96
[2025-04-15] MEDS: Zolpidem 10 MG TAB PO (19:49)
[2025-04-15] MEDS: Divalproex Sodium 500 MG TAB.ER.24H 1000 MG PO (19:49)
--- NOTE | 2025-04-15 20:45 | RT.EKG_ITS ---
APPROVED REPORT Exam: Resting ECG Reason for Exam: Chest pain Patient Location: E HR:80 bpm ECG Measurements Heart Rate 80 AXIS [place] 155 P 54 QRSd 85 QRS 56 QT 344 T 45 QTc 397 Conclusion Sinus rhythm, rate 80 No interval abnormalities Borderline ST segment elevation <1mm V1/V2, no reciprocal changes No other changes from priors
--- NOTE | 2025-04-15 21:00 | DI.RAD_ITS ---
Exam(s) XR CHEST 2V PA LATERAL EXAM: XR CHEST 2V PA LATERAL CLINICAL HISTORY: Chest pain. TECHNIQUE: 2D digital imaging was performed. COMPARISON: No exams were available for comparison FINDINGS: 2 views: Heart size is normal. The mediastinum is not widened. There is bilateral hyperinflation-COPD findings. Left hemidiaphragm is elevated. There is no free air subjacent to the hemidiaphragms. No pulmonary edema. No fractures. IMPRESSION: No acute pulmonary findings. DATA REPOSITORY: RADIATION DOSE DELIVERED:
[2025-04-15] MEDS: Calcium Carbonate *TUMS* 500 MG CHEW 1000 MG PO (21:07)
[2025-04-15] MEDS: Aspirin 81 MG CHEW 324 MG CH (21:07)
[2025-04-15 21:22] LABS: Abs Immature Grans 0.02 10^3/uL (0.0-0.06); HCT 44.0 % (40.0-50.0); HGB 14.8 g/dL (13.5-17.5); Immature Grans % 0.2 %; MCH 30.7 pg (27.0-33.0); MCHC 33.6 % (32.0-36.0); MCV 91 fL (80-95); MPV 9.8 fL (8.0-11.0); Platelet Count 295 10^3/uL (130-400); RBC 4.82 10^6/uL (4.36-5.78); RDW 13.2 % (11.8-14.1); RDW-SD 44.2 fL; WBC 11.00 10^3/uL (4.4-10.8)
[2025-04-15 21:52] LABS: ALT 25 U/L (16-63); AST 12 U/L (15-37); Albumin 3.4 g/dL (3.4-5.0); Alkaline Phosphatase 57 U/L (46-116); Anion Gap 8.1 mmol/L (3-11); BUN 15 mg/dL (7-18); Bilirubin, Total 0.2 mg/dL (0.2-1.0); CO2 31.9 mmol/L (21.0-32.0); Calcium 9.3 mg/dL (8.5-10.1); Chloride 103 mmol/L (98-107); Estimated GFR 104.51 (mL/min/1.73m2); Glucose 99 mg/dL (74-106); Magnesium 1.5 mg/dL (1.8-2.4); Potassium 4.1 mmol/L (3.5-5.1); Sodium 143 mmol/L (136-145); Total Protein 6.8 g/dL (6.4-8.2); Troponin I 5 ng/L (<or=76)
[2025-04-15 21:57] LABS: D-Dimer 111 ng/mlFEU (<500)
[2025-04-15] MEDS: MAGNESIUM SULFATE 2 GM/50 ML BAG IV_INF (22:36)
[2025-04-15 22:45] LABS: Troponin I 6 ng/L (<or=76)
[2025-04-15] MEDS: ACETAMINOPHEN 1,000 MG/100 ML BAG 400 MG IVPB (23:40)
--- NOTE | 2025-04-16 00:08 | ED.PROG1_ITS ---
Date of service: 04/16/25 Time of Service: 20:00 Psychiatric Border Handoff Update Brief Story: In brief, this is a 55-year-old male patient who is boarding in our emergency department voluntarily for suicidal ideation and depression awaiting inpatient psychiatric placement. Prior to my taking over their care, the patient was medically cleared, and has been resting comfortably. They have met with the social sciences department chair and we are awaiting final dispo. They have not required any additional medications for restraint or sedation. They have been admitted to ED psych observation. On my shift, the patient had a sudden onset of left-sided chest pain, reproducible with palpation, associated with some tachypnea. He has no significant cardiac risk factors or history, states that he has never had pain like this in the past, and it came on at rest. It does not radiate, is not worse with deep breath, and no overlying skin changes were noted. His repeat physical examination demonstrates tachypnea with no tachycardia, clear lung sounds, heart with regular rate and rhythm. An EKG was obtained, which shows a sinus rhythm without evidence of acute/active ischemia, interval abnormalities or ectopy. No significant changes are appreciated from priors. He does have borderline less than 1 mm elevations in V1 and V2 that do not meet STEMI criteria. I provided the patient with 4 baby aspirin, and will obtain laboratory studies to include CBC, CMP, magnesium, troponin. Will obtain chest x-ray. Chest x-ray reviewed by myself, that does not show any acute abnormalities to explain the patient's new symptoms. I reviewed the patient's laboratory studies, which show no significant leukocytosis, anemia or thrombocytopenia. D- dimer was negative at 111 and we will not proceed with CT imaging of the chest. There are no electrolyte derangements beyond a slightly low magnesium to 1.5, which was repleted intravenously. No evidence of kidney or liver dysfunction. The patient's 1st and 2nd troponin were negative and without significant 1 hour delta increase. The patient remains with chest pain, reproducible, and for this reason we will proceed with the 3-hour troponin. I provided the patient with Tylenol for his presumed most likely musculoskeletal chest pain. I signed out the care of the patient to the oncoming provider prior to results of the third and final Trope, anticipating that this patient will be appropriate for transfer back to [facility] after final medical clearance is completed. Alexa Dwyer MD Status: voluntary Able to leave: would need physician/XOCHITL and crisis evaluation prior to leaving Discharge Plan Disposition Patient Disposition: Psychiatric Hospital/Unit Discharge Details Clinical Impression: Suicide ideation Primary Care Provider: None,None ED Provider: Alexa Dwyer Home Meds and New Rx's Prescriptions: No Action sumatriptan succinate 100 MG tablet 100 mg PO PRN duloxetine 60 MG capsule,delayed release(DR/EC) 60 mg PO BID meclizine 25 mg tablet 25 mg PO TID PRN (Reason: dizziness) Qty: 20 0RF clonazepam 1 mg tablet 1 mg PO QID divalproex 500 mg tablet extended release 24 hr 1,000 mg PO HS Patient Comments: TAKE TWO TABLETS BY MOUTH EVERY EVENING AT BEDTIME zolpidem [Ambien] 10 mg .Route .night Discharge Instructions Additional Instructions: You were seen and medically cleared. No abnormalities were noted on your workup. Because of your depression and suicidal plan, the patient will be transferred to [facility] for continued inpatient management.
[2025-04-16 00:52] LABS: Troponin I 5 ng/L (<or=76)
--- NOTE | 2025-04-16 01:03 | W.EDPROG ---
Date of service: 04/16/25 Time of Service: 00:00 Medical Decision Making Mag infusion completed. 3rd troponin reassuring. Transferred back to Quality:SDOH Health Related Social Needs: Health related social needs risk of homeless transpo insecurity house/econ circumstance education Health related social needs details patient currently lives in a hotel which he pays out of pocket for. Discharge Plan Disposition Patient Disposition: Psychiatric Hospital/Unit Discharge Details Clinical Impression: Suicide ideation Primary Care Provider: None,None ED Provider: Shanelle Huffman Home Meds and New Rx's Prescriptions: No Action sumatriptan succinate 100 MG tablet 100 mg PO PRN duloxetine 60 MG capsule,delayed release(DR/EC) 60 mg PO BID meclizine 25 mg tablet 25 mg PO TID PRN (Reason: dizziness) Qty: 20 0RF clonazepam 1 mg tablet 1 mg PO QID divalproex 500 mg tablet extended release 24 hr 1,000 mg PO HS Patient Comments: TAKE TWO TABLETS BY MOUTH EVERY EVENING AT BEDTIME zolpidem [Ambien] 10 mg .Route .night Discharge Instructions Additional Instructions: You were seen and medically cleared. No abnormalities were noted on your workup. Because of your depression and suicidal plan, the patient will be transferred to [facility] for continued inpatient management.
--- NOTE | 2025-04-16 07:24 | ED.PROG1_ITS ---
Date of service: 04/16/25 Time of Service: 07:24 Psychiatric Border Handoff Update Brief Story: Patient here on voluntary status for thoughts of self-harm. Will continue to monitor until safe disposition found Status: voluntary Able to leave: would need physician/XOCHITL and crisis evaluation prior to leaving Mediation Reconciliation performed: Yes Code Status ordered: Yes Diet ordered: Yes Discharge Plan Discharge Details Chief Complaint: PsychEval Clinical Impression: Suicide ideation Primary Care Provider: None,None ED Provider: Michael Rubalcava [place] Meds and New Rx's Prescriptions: No Action sumatriptan succinate 100 MG tablet 100 mg PO PRN duloxetine 60 MG capsule,delayed release(DR/EC) 60 mg PO BID meclizine 25 mg tablet 25 mg PO TID PRN (Reason: dizziness) Qty: 20 0RF clonazepam 1 mg tablet 1 mg PO QID divalproex 500 mg tablet extended release 24 hr 1,000 mg PO HS Patient Comments: TAKE TWO TABLETS BY MOUTH EVERY EVENING AT BEDTIME zolpidem [Ambien] 10 mg .Route .night Discharge Instructions Additional Instructions: You were seen and medically cleared. No abnormalities were noted on your workup. Because of your depression and suicidal plan, the patient will be transferred to [facility] for continued inpatient management.
[2025-04-16 08:15] VITALS: BP 128/91; PULSE 104; RESP 16; TEMP 37.4; O2SAT 99
--- NOTE | 2025-04-16 08:24 | CMPROGNOTE_ITS ---
Date of service: 04/16/25 Time of Service: 16:07 Care Management Progress Note Progress Note Text Progress Note Text: CM huddled with [facility], the Multiple Drum Sander Helper, ED chief controller tower, and KAVITHA VASQUEZ to discuss the Peter?s current plan of care. Per [facility], the patient became recently homeless as of Wednesday, having previously resided at the [facility]. It was reported that the patient had been accepted for admission at [facility] on Wednesday but declined the available bed. [facility] reports the patient is currently experiencing suicidal ideation, rated at 7/10 and did not have a clear plan for SI other than anything. The patient is originally from the [facility] and remains an active client of the [facility]. [facility] is in the process of resubmitting referrals and anticipates a discharge with a safety plan if the patient is not accepted into an inpatient treatment facility, for tomorrow. CM will continue follow and support discharge planning efforts. Social Determinants of Health Screening Will the Patient Participate in the Screening?: Declined to provide
--- NOTE | 2025-04-16 08:24 | CMSP_ITS ---
Date of service: 04/16/25 Time of Service: 08:25 Care Management Safety Plan Status Status: Voluntary Safety Plan Safety Plan: VOLUNTARY FOR INPATIENT PSYCHIATRIC STABILIZATION.? Patient is appropriate in all interactions since arriving at [facility]; Pt has demonstrated appropriate coping and communication skills, has articulated his or her needs and concerns and is fully engaged during staff interactions. Safety plan has been established with patient, and care team, to adhere to patient goals, identify restrictions based on behavioral status, address nutrition, and determine allowed personal belongings, tools for hygiene and personal care. Determine level of activity including ambulation, level of supervision, visitors, and determine privileges based on behaviors and level of engagement by pt. VOLUNTARY SAFETY PLAN: 1. Will remain on suicide precautions, in paper clothes 2. Will remain in Zone B under direct supervision of one-on-one staff at all times provided by [employer]; CHRISTINA, EDUCATIONAL DIAGNOSTICIAN host coordinator. 3. May have paper cups, plates, finger foods as well as a cardboard spoon with which to eat meals. 4. Follow [facility] Management of the Admitted Behavioral Health Patient policy. 5. Shower available in Zone B without restriction. 6. Personal belongings-soft items permitted at RN discretion. 7. Visitors-none at this time. 8. Activities: soft cart items, hospital tablets (Netflix/[place]+/music) appr travis per RN discretion. 9.? Bathroom available in Zone B without restriction. 10. Phone: limited to [facility] cordless phone at RN discretion. Due to VOLUNTARY status, if patient wishes to leave [facility], staff will contact [facility] Crisis Screener ([phone]) and State Editor ([phone]) as soon as possible. In the event of elopement, notify [facility] Police ([phone]). Patient is currently voluntarily at [facility] and seeking inpatient admission when a bed becomes available. [facility] Frontline Consular Officer will continue seeking placement. Please contact the State Editor ([phone]) and [facility] Consular Officer ([phone]) for any needed changes in the Safety Plan. Safety plan has been provided to interdepartmental care team.
--- NOTE | 2025-04-16 08:24 | PDOC.CMPRO ---
Date of service: 04/16/25 Time of Service: 16:07 Care Management Progress Note Progress Note Text Progress Note Text: CM huddled with [facility], the Elevator Examiner, ED remote control mirror installer, and KAVITHA VASQUEZ to discuss the Peter?s current plan of care. Per [facility], the patient became recently homeless as of Wednesday, having previously resided at the [facility]. It was reported that the patient had been accepted for admission at [facility] on Wednesday but declined the available bed. [facility] reports the patient is currently experiencing suicidal ideation, rated at 7/10 and did not have a clear plan for SI other than anything. The patient is originally from the [facility] and remains an active client of the [facility]. [facility] is in the process of resubmitting referrals and anticipates a discharge with a safety plan if the patient is not accepted into an inpatient treatment facility, for tomorrow. CM will continue follow and support discharge planning efforts. Social Determinants of Health Screening Will the Patient Participate in the Screening?: Declined to provide
--- NOTE | 2025-04-16 08:24 | PDOC.CMSAFE ---
Date of service: 04/16/25 Time of Service: 08:25 Care Management Safety Plan Status Status: Voluntary Safety Plan Safety Plan: VOLUNTARY FOR INPATIENT PSYCHIATRIC STABILIZATION.? Patient is appropriate in all interactions since arriving at [facility]; Pt has demonstrated appropriate coping and communication skills, has articulated his or her needs and concerns and is fully engaged during staff interactions. Safety plan has been established with patient, and care team, to adhere to patient goals, identify restrictions based on behavioral status, address nutrition, and determine allowed personal belongings, tools for hygiene and personal care. Determine level of activity including ambulation, level of supervision, visitors, and determine privileges based on behaviors and level of engagement by pt. VOLUNTARY SAFETY PLAN: 1. Will remain on suicide precautions, in paper clothes 2. Will remain in Zone B under direct supervision of one-on-one staff at all times provided by [employer]; CHRISTINA, SENIOR SAFETY SUPPORT MANAGER acoustical tile carpenters supervisor. 3. May have paper cups, plates, finger foods as well as a cardboard spoon with which to eat meals. 4. Follow [facility] Management of the Admitted Behavioral Health Patient policy. 5. Shower available in Zone B without restriction. 6. Personal belongings-soft items permitted at RN discretion. 7. Visitors-none at this time. 8. Activities: soft cart items, hospital tablets (Netflix/[place]+/music) approved per RN discretion. 9.? Bathroom available in Zone B without restriction. 10. Phone: limited to [facility] cordless phone at RN discretion. Due to VOLUNTARY status, if patient wishes to leave [facility], staff will contact [facility] Crisis Screener ([phone]) and Trimmer Machine Operator ([phone]) as soon as possible. In the event of elopement, notify [facility] Police ([phone]). Patient is currently voluntarily at [facility] and seeking inpatient admission when a bed becomes available. [facility] Frontline Warehouse And Receiving Supervisor will continue seeking placement. Please contact the Trimmer Machine Operator ([phone]) and [facility] Warehouse And Receiving Supervisor ([phone]) for any needed changes in the Safety Plan. Safety plan has been provided to interdepartmental care team.
[2025-04-16] MEDS: clonazePAM 1 MG TAB PO ×4 (09:57→19:27)
[2025-04-16] MEDS: DULoxetine 30 MG CAP 60 MG PO ×2 (10:14→19:29)
[2025-04-16] MEDS: Nicotine 2 MG LOZG SUC ×2 (12:21→17:52)
--- NOTE | 2025-04-16 17:13 | PDOC.MHCN_ITS ---
Date of service: 04/13/25 Time of Service: 11:00 PHQ-9 Over the last 2 weeks, how often have you been bothered by any of the following problems? 1. Little interest or pleasure in doing things: more than half the days 2. Feeling down, depressed, or hopeless: nearly every day 3. Trouble falling or staying asleep, or sleeping too much: more than half the days 4. Feeling tired or having little energy: more than half the days 5. Poor appetite or overeating: not at all 6. Feeling bad about yourself - or that you are a failure or have let yourself and your family down: nearly every day 7. Trouble concentrating on things, such as reading the newspaper or watching television: not at all 8. Moving or speaking so slowly that other people could have noticed? - Or the opposite - being so fidgety or restless that you have been moving around a lot more than usual: not at all 9. Thoughts that you would be better off or of hurting yourself in some way: nearly every day Total score: 15 If you checked off any problems, how difficult have these problems made it for you to do your work, take care of things at home, or get along with other people?: very difficult PHQ-9 Results: Positive Source: Developed by Drs. Derek Dobbs, Meme Odell, Alok Mott and colleagues, with an educational kai from [employer]. Suicide Severity Rate CSSRS Have you wished you were or wished you could go to sleep and not wake up?: Yes Have you actually had any thoughts of killing yourself?: Yes CSSRS2 Have you been thinking about how you might do this?: Yes Have you had these thoughts and had some intention of acting on them?: Yes Have you started to work out or worked out the details of how to kill yourself? Do you intend to carry out this plan?: No CSSRS3 Have you ever done anything, started to do anything or prepared to do anything to end your life?: Yes CSSRS4 Was this within the past three months?: No Screening Score Total Score: 6 Screening: Positive Mental Health Emergency Note Release [facility] release signed:: Yes Reason for Visit Suicidal thoughts with intent and plan. In the last 2 weeks has the pt presented for ES prior to today?: Unknown Client Information Client is: New Well Housed: No,status: Homeless Stable housing Non Suicidal Self Injury Current: No History: No Safety Risk/Harm to Self or Others Current Ideation to Harm Self or Others: Yes to self. Intent: yes, has intent. Plan: yes,has a plan. Risk: Does risk to harm exist?: yes. Access to means: Yes. Risk: High Risk Duty to warn indicated: No Asssessment/Mental Status Appearance: Poor hygiene Attitude: Cooperative and Friendly Behavior: Unremarkable Speech: Normal Affect: Labile and Cogruent with mood Mood: Stressed, Depressed and Anxious Thought process: Circumstational and Poverty of content Hallucinations: No Delusions: No Attention: Unremarkable Perception: Not impaired Orientation: Fully orientated Memory: Intact Insight: Fair Judgement: Fair Neurovegetative Symptoms Sleep: Decrease Appetitie: No change Interests: No change Energy: No change Libido: No change Substance Use: Have you used substances in the last 7 days?: yes, Reported 4 day cocaine more Additional Issues: Assaultive/Threatening Behavior: No Medical Concerns: No Client engaged in active self harm w/weapon: No Threatening to run away: No Child reported abuse/neglect: No Voluntarily presenting for services: Yes Domestic violence is a concern: No Extreme Psychosis or extreme behavior is present: No Impression The client presented in a malodorous and disheveled state, dressed in hospital s afety scrubs and grippy socks. He displayed a friendly and cooperative demeanor, welcoming the team into the room at [facility] Zone B. However, the client continues to be at risk to himself due to homelessness, financial instability, and substance issues. He expressed feelings of hopelessness, stating he has 'given up' and that he would probably find a way to kill himself if he left the hospital today. The client had an immediate and dramatic reaction to the prospect of going to [facility], citing a very traumatic experience there in the past. He became very emotional, shaking and crying as he described having a 'terrible time last time, it was horrible. ' Currently, the client remains in voluntary status, awaiting placement at an alternative inpatient facility, excluding [facility]. Referrals for inpatient treatment were resubmitted today. Additionally, a request for community connections and kingdom recovery was made through [facility] Care Management. Plan/Disposition Recommended Disposition: Hospitalization facilities contacted and Community resources. Person reported agreement to plan: Yes Facilities contacted if Applicable [facility] (Client reports extreme trauma experience at [place] and is terrified of returning.) Not accepted, Other [facility] Not accepted, No bed available [facility] Not accepted, No bed available, [facility] Not accepted, No bed available [facility] Not accepted, Acuity Reports/communication Outcome discussed with: ED/Personnel
--- NOTE | 2025-04-16 17:38 | MHPN_ITS ---
Date of service: 04/16/25 Time of Service: 11:00 Suicide Severity Rate CSSRS Have you wished you were or wished you could go to sleep and not wake up?: Yes Have you actually had any thoughts of killing yourself?: Yes CSSRS2 Have you been thinking about how you might do this?: Yes Have you had these thoughts and had some intention of acting on them?: Yes Have you started to work out or worked out the details of how to kill yourself? Do you intend to carry out this plan?: No CSSRS3 Have you ever done anything, started to do anything or prepared to do anything to end your life?: Yes CSSRS4 Was this within the past three months?: No Screening Score Total Score: 6 Screening: Positive Mental Health Emergency Note Release [facility] release signed:: Yes Reason for Visit Suicidal thoughts and historical suicidal actions. In the last 2 weeks has the pt presented for ES prior to today?: Unknown Client Information Client is: New Well Housed: No,status: Homeless Stable housing Non Suicidal Self Injury Current: No History: No Safety Risk/Harm to Self or Others Current Ideation to Harm Self or Others: Yes to self. Intent: yes, has intent. Plan: no.does not have a plan. Risk: Risk: Moderate Risk Duty to warn indicated: No Asssessment/Mental Status Appearance: Well groomed Attitude: Cooperative and Friendly Behavior: Unremarkable Speech: Normal Affect: Normal and Cogruent with mood Mood: Depressed and Anxious Thought process: Circumstational and Poverty of content Hallucinations: No Delusions: No Attention: Unremarkable Perception: Not impaired Orientation: Fully orientated Memory: Intact Insight: Good Judgement: Good Neurovegetative Symptoms Sleep: Increase Appetitie: No change Interests: No change Energy: No change Libido: No change Substance Use: Have you used substances in the last 7 days?: yes, Reported four day cocaine more just prior to admission. Additional Issues: Assaultive/Threatening Behavior: No Medical Concerns: No Client engaged in active self harm w/weapon: No Threatening to run away: No Child reported abuse/neglect: No Voluntarily presenting for services: Yes Domestic violence is a concern: No Extreme Psychosis or extreme behavior is present: No Impression The client presented as clean, calm, and friendly, wearing blue safety scrubs and yellow grippy socks. He reported that he has been eating and sleeping well, but also indicated a recent visit to Emergency last night due to chest pain, which he noted has returned today while gesturing and rubbing his lower left ribcage. Although the client denied suicidal ideation (SI), homicidal ideation (HI), and non-suicidal self-injury (NSSI), he qualified this by stating that if he has to leave before receiving help, he would become suicidal and would find a way to end his life. Additionally, the client expressed feelings of anxiety and depression, along with concerns regarding how he will manage in the community. The clinician identified the underlying problems related to housing, resources, and the need for community supports. Plan/Disposition Recommended Disposition: Hospitalization facilities contacted and Community resources. Person reported agreement to plan: Yes Facilities contacted if Applicable [facility] Not accepted, No bed available [facility] Not accepted, No bed available, [facility] Not accepted, Acuity Reports/communication Outcome discussed with: ED/Personnel
[2025-04-16] MEDS: Zolpidem 10 MG TAB PO (19:27)
[2025-04-16] MEDS: Divalproex Sodium 500 MG TAB.ER.24H 1000 MG PO (19:29)
[2025-04-16] MEDS: Acetaminophen 500 MG TAB 1000 MG PO (19:29)
[2025-04-16] MEDS: SUMAtriptan 50 MG TAB 100 MG PO (20:30)
[2025-04-17 08:01] VITALS: BP 129/86; PULSE 80; RESP 18; TEMP 36.6; O2SAT 98
[2025-04-17] MEDS: DULoxetine 30 MG CAP 60 MG PO ×2 (08:11→19:49)
[2025-04-17] MEDS: clonazePAM 1 MG TAB PO ×4 (08:11→19:49)
[2025-04-17] MEDS: Nicotine 21 MG/24 HR PATCH TD (08:20)
--- NOTE | 2025-04-17 11:17 | ED.PSYCHBOAR ---
Date of service: 04/17/25 Time of Service: 11:17 Psychiatric Border Handoff Update Brief Story: Patient presents the emergency department for suicidal ideation. Has been observed in the emergency department for the past 6 days. Initially refused to go to [facility] despite there being an available bed. Since then patient has been well-behaved and has had no acute issues during his stay. The past 2 days he has contemplated leaving to follow-up with a skilled nursing. However this morning he stated that he would take his that smoke a cigarette and kill himself. As such patient will require psychiatric inpatient treatment, and since he is refusing to go to the only available bed he will be made involuntary patient in order to facilitate psychiatric care. Status: EE Able to leave: no, this patient is an EE Behavioral Concerns: Active suicidal ideation Potential Disposition: Inpatient psychiatric facility Barriers to Disposition: Bed search Medical Concerns: Medically cleared no active concerns Discharge Plan Discharge Details Chief Complaint: PsychEval Clinical Impression: Suicide ideation Primary Care Provider: None,None ED Provider: Shabbir Gonzalez Home Meds and New Rx's Prescriptions: No Action sumatriptan succinate 100 MG tablet 100 mg PO PRN duloxetine 60 MG capsule,delayed release(DR/EC) 60 mg PO BID meclizine 25 mg tablet 25 mg PO TID PRN (Reason: dizziness) Qty: 20 0RF clonazepam 1 mg tablet 1 mg PO QID divalproex 500 mg tablet extended release 24 hr 1,000 mg PO HS Patient Comments: TAKE TWO TABLETS BY MOUTH EVERY EVENING AT BEDTIME zolpidem [Ambien] 10 mg .Route .night Discharge Instructions Additional Instructions: You were seen and medically cleared. No abnormalities were noted on your workup. Because of your depression and suicidal plan, the patient will be transferred to [facility] for continued inpatient management.
--- NOTE | 2025-04-17 12:00 | CMSP_ITS ---
Date of service: 04/17/25 Time of Service: 12:01 Care Management Safety Plan Status Status: Involuntary Reason for Wait Reason for Wait: Inpatient Admission and Assessment/Screening Safety Plan Safety Plan: INVOLUNTARY FOR INPATIENT PSYCHIATRIC STABILIZATION.? Patient is appropriate in all interactions since arriving at [facility]; Pt has demonstrated appropriate coping and communication skills, has articulated his or her needs and concerns and is fully engaged during staff interactions. Safety plan has been established with patient, and care team, to adhere to patient goals, identify restrictions based on behavioral status, address nutrition, and determine allowed personal belongings, tools for hygiene and personal care. Determine level of activity including ambulation, level of supervision, visitors, and determine privileges based on behaviors and level of engagement by pt. SAFETY PLAN: 1. Will remain on suicide precautions, in paper clothes 2. Will remain in Zone B under direct supervision of one-on-one staff at all times provided by [employer]; CHRISTINA, TRADE MARKER newspaper illustrator. 3. May have paper cups, plates, finger foods as well as a cardboard spoon with which to eat meals. 4. Follow [facility] Management of the Admitted Behavioral Health Patient policy. 5. Shower available in Zone B without restriction. 6. Personal belongings-soft items permitted at RN discretion. 7. Visitors-none at this time. 8. Activities: soft cart items approved per RN discretion. 9.? Bathroom available in Zone B without restriction. 10. Phone: limited to legal aid on [facility] cordless phone at RN discretion. Due to INVOLUNTARY status, patient is being held at [facility] by the Department of Mental Health ([facility]) until 2nd certification by [facility] Psychiatrist can be performed (within 24 hours). Staff will provide de-escalation support (CPI) as needed. If patient wishes to leave [facility], staff will contact [facility] Crisis Screener ) and Traffic And Transport Planner ([phone]) as soon as possible. In the event of elopement, notify [place] State Police ([phone]). Patient is currently involuntarily at [facility]. [facility] Frontline Garment Looper will continue seeking placement. Please contact the Traffic And Transport Planner for any needed changes to Safety Plan. Safety plan has been provided to interdepartmental care team. Patient will be transported by [facility] at time of discharge.
--- NOTE | 2025-04-17 12:00 | PDOC.CMSAFE ---
Date of service: 04/17/25 Time of Service: 12:01 Care Management Safety Plan Status Status: Involuntary Reason for Wait Reason for Wait: Inpatient Admission and Assessment/Screening Safety Plan Safety Plan: INVOLUNTARY FOR INPATIENT PSYCHIATRIC STABILIZATION.? Patient is appropriate in all interactions since arriving at [facility]; Pt has demonstrated appropriate coping and communication skills, has articulated his or her needs and concerns and is fully engaged during staff interactions. Safety plan has been established with patient, and care team, to adhere to patient goals, identify restrictions based on behavioral status, address nutrition, and determine allowed personal belongings, tools for hygiene and personal care. Determine level of activity including ambulation, level of supervision, visitors, and determine privileges based on behaviors and level of engagement by pt. SAFETY PLAN: 1. Will remain on suicide precautions, in paper clothes 2. Will remain in Zone B under direct supervision of one-on-one staff at all times provided by [employer]; CHRISTINA, COAL WEIGHER security director. 3. May have paper cups, plates, finger foods as well as a cardboard spoon with which to eat meals. 4. Follow [facility] Management of the Admitted Behavioral Health Patient policy. 5. Shower available in Zone B without restriction. 6. Personal belongings-soft items permitted at RN discretion. 7. Visitors-none at this time. 8. Activities: soft cart items approved per RN discretion. 9.? Bathroom available in Zone B without restriction. 10. Phone: limited to bankruptcy paralegal on [facility] cordless phone at RN discretion. Due to INVOLUNTARY status, patient is being held at [facility] by the Department of Mental Health ([facility]) until 2nd certification by [facility] Psychiatrist can be performed (within 24 hours). Staff will provide de-escalation support (CPI) as needed. If patient wishes to leave [facility], staff will contact [facility] Crisis Screener ([phone]) and Api Architect ([phone]) as soon as possible. In the event of elopement, notify [place] [employer] ([phone]). Patient is currently involuntarily at [facility]. [facility] Frontline Geology Faculty Member will continue seeking placement. Please contact the Api Architect for any needed changes to Safety Plan. Safety plan has been provided to interdepartmental care team. Patient will be transported by [employer] at time of discharge.
--- NOTE | 2025-04-17 12:05 | CMPROGNOTE_ITS ---
Date of service: 04/17/25 Time of Service: 12:05 Care Management Progress Note Progress Note Text Progress Note Text: CM huddled with NK, ED provider, ED RN, ED supervisor propellant charge loading, and RN Collections Assistant to discuss the plan of care. Per RN, Isidro reported that he is feeling that he wants to leave and go to a usp. RN provided this information to [facility], who discussed it with him. Per [facility], Isidro stated that he wants to leave the ED, smoke a cigarette, and then end his life. He did not engage in safety planning, and has already declined a voluntary bed at [facility]. [facility] and the ED provider agreed that Isidro should be held for emergency evaluation, therefore an EE was written, and he is being held involuntarily at this time, pending a second certification. [facility] will resend updated referrals now that Isidro is involuntary. Safety plan was updated as an involuntary plan. CM will continue to follow. Social Determinants of Health Screening Will the Patient Participate in the Screening?: Declined to provide
--- NOTE | 2025-04-17 12:05 | PDOC.CMPRO ---
Date of service: 04/17/25 Time of Service: 12:05 Care Management Progress Note Progress Note Text Progress Note Text: CM huddled with NK, ED provider, ED RN, ED discharge coordinator, and RN Senior Account Representative to discuss the plan of care. Per RN, Isidro reported that he is feeling that he wants to leave and go to a retirement. RN provided this information to [facility], who discussed it with him. Per [facility], Isidro stated that he wants to leave the ED, smoke a cigarette, and then end his life. He did not engage in safety planning, and has already declined a voluntary bed at [facility]. [facility] and the ED provider agreed that Isidro should be held for emergency evaluation, therefore an EE was written, and he is being held involuntarily at this time, pending a second certification. [facility] will resend updated referrals now that Isidro is involuntary. Safety plan was updated as an involuntary plan. CM will continue to follow. Social Determinants of Health Screening Will the Patient Participate in the Screening?: Declined to provide
[2025-04-17] MEDS: SUMAtriptan 50 MG TAB 100 MG PO ×2 (15:11→22:53)
--- NOTE | 2025-04-17 16:18 | MHPN_ITS ---
Date of service: 04/17/25 Time of Service: 10:50 Mental Health Emergency Note Release [facility] release signed:: Yes Reason for Visit Mr Limon is a 55 year old single male who is currently unhoused. The client reports that he is considering leaving and is not sure if he wants to stay. This clinician stated that he could work on creating a safety plan with the client. This clinician stated that the client would need to consider [place] [facility] as an option if he chose to stay. The client escalated verbally stating in an increased volume that he would not be held involuntarily and would call his lawyer criminal. Clinician Cory Cohen reassured the client at this stage the client was not being held against his will. The client reported wanting to leave. The client refused to engage in screening tools. This clinician worked with the client on creating a safety plan and next steps to find housing and get back to [facility] where the client has services. The client after completing the safety plan then told this clinician and clinician Cory Cohen that he would go smoke a cigarette and complete suicide. The client refused to disclose a plan. QMHP Sarahy was requested and then wrote a emergency examination. In the last 2 weeks has the pt presented for ES prior to today?: No Impression Mr Limon is a 55 year old single male who is currently unhoused. The client reports that he is considering leaving and is not sure if he wants to stay. This clinician stated that he could work on creating a safety plan with the client. This clinician stated that the client would need to consider [place] [facility] as an option if he chose to stay. The client escalated verbally stating in an increased volume that he would not be held involuntarily and would call his lawyer criminal. Clinician Cory Cohen reassured the client at this stage the client was not being held against his will. The client reported wanting to leave. The client refused to engage in screening tools. This clinician worked with the client on creating a safety plan and next steps to find housing and get back to [facility] where the client has services. The client after completing the safety plan then told this clinician and clinician Cory Cohen that he would go smoke a cigarette and complete suicide. The client refused to disclose a plan. QMHP Sarahy was requested and then wrote a emergency examination. Plan/Disposition Recommended Disposition: Hospitalization facilities contacted. Plan: CHARLEEN Weathers wrote a emergency examination on the client due to suicidal comments the client made. Reports/communication Outcome discussed with: ED/Personnel
[2025-04-17] MEDS: Acetaminophen 500 MG TAB 1000 MG PO (19:48)
[2025-04-17] MEDS: diazePAM 5 MG TAB PO (19:49)
[2025-04-17] MEDS: Zolpidem 10 MG TAB PO (19:49)
[2025-04-17] MEDS: Divalproex Sodium 500 MG TAB.ER.24H 1000 MG PO (19:49)
[2025-04-17] MEDS: Nicotine 2 MG LOZG SUC (21:36)
[2025-04-18] MEDS: diphenhydrAMINE 25 MG CAP 50 MG PO (00:34)
[2025-04-18] MEDS: clonazePAM 1 MG TAB PO ×4 (07:58→19:13)
[2025-04-18] MEDS: DULoxetine 30 MG CAP 60 MG PO ×2 (07:59→19:13)
--- NOTE | 2025-04-18 08:59 | CMSP_ITS ---
Date of service: 04/18/25 Time of Service: 09:17 Care Management Safety Plan Status Status: Involuntary Reason for Wait Reason for Wait: Inpatient Admission Safety Plan Safety Plan: INVOLUNTARY FOR INPATIENT PSYCHIATRIC STABILIZATION.? Patient is appropriate in all interactions since arriving at [facility]; Pt has demonstrated appropriate coping and communication skills, has articulated his or her needs and concerns and is fully engaged during staff interactions. Safety plan has been established with patient, and care team, to adhere to patient goals, identify restrictions based on behavioral status, address nutrition, and determine allowed personal belongings, tools for hygiene and personal care. Determine level of activity including ambulation, level of supervision, visitors, and determine privileges based on behaviors and level of engagement by pt. SAFETY PLAN: 1. Will remain on suicide precautions, in paper clothes 2. Will remain in Zone B under direct supervision of one-on-one staff at all times provided by [employer]; CHRISTINA, ELECTRICAL MACHINIST supervisor byproducts. 3. May have paper cups, plates, finger foods as well as a cardboard spoon with which to eat meals. 4. Follow [facility] Management of the Admitted Behavioral Health Patient policy. 5. Shower available in Zone B without restriction. 6. Personal belongings-soft items permitted at RN discretion. 7. Visitors-none at this time. 8. Activities: soft cart items approved per RN discretion. 9.? Bathroom available in Zone B without restriction. 10. Phone: limited to safety counselor on [facility] cordless phone at RN discretion. Due to INVOLUNTARY status, patient is being held at [facility] by the Department of Mental Health ([facility]) until 2nd certification by [facility] Psychiatrist can be performed (within 24 hours). Staff will provide de-escalation support (CPI) as needed. If patient wishes to leave [facility], staff will contact [facility] Crisis Screener ([phone]) and Oral Therapist ([phone]) as soon as possible. In the event of elopement, notify [place] [employer] Police ([phone]). Patient is currently involuntarily at [facility]. [facility] Frontline Assistant Office Manager will continue seeking placement. Please contact the Oral Therapist for any needed changes to Safety Plan. Safety plan has been provided to interdepartmental care team. Patient will be transported by [employer] at time of discharge.
--- NOTE | 2025-04-18 08:59 | PDOC.CMPRO ---
Date of service: 04/18/25 Time of Service: 11:02 Care Management Progress Note Progress Note Text Progress Note Text: CM huddled with ZB RN, ED admission discharge rn, and [facility] surrounding Patel plan of care. Isidro was lying in bed during this huddle. Per [facility], he became escalated surrounding the conversation of being held involuntary. Per NK, [facility] has accepted him and he will transport there later today; [facility] will coordinate transportation. CM will continue to follow. Status Status: Voluntary Reason for Wait: Inpatient Admission Social Determinants of Health Screening Will the Patient Participate in the Screening?: Declined to provide
--- NOTE | 2025-04-18 08:59 | PDOC.CMSAFE ---
Date of service: 04/18/25 Time of Service: 09:17 Care Management Safety Plan Status Status: Involuntary Reason for Wait Reason for Wait: Inpatient Admission Safety Plan Safety Plan: INVOLUNTARY FOR INPATIENT PSYCHIATRIC STABILIZATION.? Patient is appropriate in all interactions since arriving at [facility]; Pt has demonstrated appropriate coping and communication skills, has articulated his or her needs and concerns and is fully engaged during staff interactions. Safety plan has been established with patient, and care team, to adhere to patient goals, identify restrictions based on behavioral status, address nutrition, and determine allowed personal belongings, tools for hygiene and personal care. Determine level of activity including ambulation, level of supervision, visitors, and determine privileges based on behaviors and level of engagement by pt. SAFETY PLAN: 1. Will remain on suicide precautions, in paper clothes 2. Will remain in Zone B under direct supervision of one-on-one staff at all times provided by [employer]; CHRISTINA, REGISTERED NURSE communications senior associate. 3. May have paper cups, plates, finger foods as well as a cardboard spoon with which to eat meals. 4. Follow [facility] Management of the Admitted Behavioral Health Patient policy. 5. Shower available in Zone B without restriction. 6. Personal belongings-soft items permitted at RN discretion. 7. Visitors-none at this time. 8. Activities: soft cart items approved per RN discretion. 9.? Bathroom available in Zone B without restriction. 10. Phone: limited to legal support manager on [facility] cordless phone at RN discretion. Due to INVOLUNTARY status, patient is being held at [facility] by the Department of Mental Health ([facility]) until 2nd certification by [facility] Psychiatrist can be performed (within 24 hours). Staff will provide de-escalation support (CPI) as needed. If patient wishes to leave [facility], staff will contact [facility] Crisis Screener ([phone]) and Walnut Dehydrator Operator ([phone]) as soon as possible. In the event of elopement, notify [place] [employer] Police ([phone]). Patient is currently involuntarily at [facility]. [facility] Frontline Chimney Builder will continue seeking placement. Please contact the Walnut Dehydrator Operator for any needed changes to Safety Plan. Safety plan has been provided to interdepartmental care team. Patient will be transported by [employer] at time of discharge.
--- NOTE | 2025-04-18 11:51 | MHPN_ITS ---
Date of service: 04/17/25 Time of Service: 20:31 Mental Health Emergency Note Release [facility] release signed:: Yes Reason for Visit In the last 2 weeks has the pt presented for ES prior to today?: No Asssessment/Mental Status Appearance: Disheveled Attitude: Passive and Hostile Behavior: Unremarkable Speech: Normal Affect: Cogruent with mood Mood: Stressed, Depressed and Anxious Thought process: Unremarkable Hallucinations: No evidence Delusions: No evidence Attention: Unremarkable Perception: Not impaired Orientation: Fully orientated Memory: Intact Insight: Fair Judgement: Fair Neurovegetative Symptoms Sleep: No change Appetitie: No change Interests: No change Energy: No change Libido: Not applicable Impression Isidro is a 55 year old male who was seen by [facility] psychiatrists Dr. Marcela Rivas. Isidro reported that he was feeling better than this morning and he was trigger when offered inpatient placement at [facility]. Isidro reported to Dr. Rivas that he is currently homeless and wanted to be released to a homeless usp. Isidro reported that he is not suicidal and did not want to hurt himself. Isidro continued to requested to go to a local homeless usp for the night. Dr. Rivas then spoke privately with the continuity writer about community resources and if placement at a homeless usp was possible. This continuity writer inform Dr. Rivas that resources are limited at night but our local homeless shelters are full. Dr. Rivas then went back to speak to this client and asked if anyone could take him in for the night, which Isidro reported no. This continuity writer observed Isidro to be vague went answering questions, and often his answers were related to no wanting to hurt himself. Plan/Disposition Recommended Disposition: Hospitalization (involuntary) facilities contacted. Plan: Dr. Marcela Rivas reported that she would be certifying Isidro's emergency examination and Isidro will be placed on a 72 hour involuntary hold will inpatient placement is found. Reports/communication Outcome discussed with: ED/Personnel
[2025-04-18] MEDS: Nicotine 2 MG LOZG SUC (12:05)
--- NOTE | 2025-04-18 12:52 | ED.PSYCHBOAR ---
Date of service: 04/18/25 Time of Service: 12:53 Psychiatric Border Handoff Update Brief Story: Patient presented for suicidal ideation. Pending bed search at this time. Patient made involuntary hold following his refusal to participate in either outpatient therapy and follow-up or go to available inpatient facility. Behavioral Concerns: Active suicidal ideation Potential Disposition: Case discussed with Andre Neely NP at [facility] who agrees to accept the patient for further management Barriers to Disposition: Transportation Medical Concerns: None at this time Mediation Reconciliation performed: Yes Code Status ordered: Yes Diet ordered: Yes Future to do Items: Follow-up transport Discharge Plan Disposition Patient Disposition: Psychiatric Hospital/Unit Specific Psychiatric Facility: [facility] Discharge Details Clinical Impression: Suicide ideation Primary Care Provider: None,None ED Provider: Shabbir Gonzalez Home Meds and New Rx's Prescriptions: Continued sumatriptan succinate 100 MG tablet 100 mg PO PRN duloxetine 60 MG capsule,delayed release(DR/EC) 60 mg PO BID meclizine 25 mg tablet 25 mg PO TID PRN (Reason: dizziness) Qty: 20 0RF clonazepam 1 mg tablet 1 mg PO QID divalproex 500 mg tablet extended release 24 hr 1,000 mg PO HS Patient Comments: TAKE TWO TABLETS BY MOUTH EVERY EVENING AT BEDTIME zolpidem [Ambien] 10 mg .Route .night Discharge Instructions Instructions: Suicide Prevention Additional Instructions: You were seen and medically cleared. No abnormalities were noted on your workup. Because of your depression and suicidal plan, the patient will be transferred to [facility] for continued inpatient management.
--- NOTE | 2025-04-18 13:05 | NUR.NOTE ---
nurse to nurse done with Alicia CARRERA at [facility]. They will be working on transport.
[2025-04-18] MEDS: diazePAM 5 MG TAB PO (14:44)
[2025-04-18] MEDS: Acetaminophen 500 MG TAB 1000 MG PO (18:36)
[2025-04-18] MEDS: Divalproex Sodium 500 MG TAB.ER.24H 1000 MG PO (19:13)
[2025-04-18] MEDS: Zolpidem 10 MG TAB PO (19:13)
[2025-04-18 19:35] VITALS: BP 114/80; PULSE 98; RESP 16; TEMP 36.6; O2SAT 98
[2025-04-18] MEDS: Lidocaine 5% Patch 1 PATCH TP (19:57)
[2025-04-18] MEDS: oxyCODONE 5 MG TAB PO (19:57)
--- NOTE | 2025-04-19 07:24 | ED.PROG1_ITS ---
Date of service: 04/19/25 Time of Service: 07:24 Psychiatric Border Handoff Update Brief Story: Hx bipolar, presenting with SI. Now involuntary. Plan for [facility] resent. Status: EE Able to leave: no, this patient is an EE Behavioral Concerns: No acute events overnight. Potential Disposition: Pending placement. Pt requesting muscle relaxer for backache. Will prescribe diazepam. 11:42 AM I met with care management [facility] human services and patient's nurse. Patient remains cooperative. He reportedly had had a traumatizing experience at the [facility] in the past. As result the state had reached out to [facility] in an attempt to have him excepted there. Paperwork has been sent to [place]. 4 PM No active behavioral issues on my shift. Patient signed out to Dr. Gonzalez pending placement at [place]. Mediation Reconciliation performed: Yes Code Status ordered: Yes Diet ordered: Yes Discharge Plan Disposition Patient Disposition: Psychiatric Hospital/Unit Specific Psychiatric Facility: [facility] Discharge Details Clinical Impression: Suicide ideation Primary Care Provider: None,None ED Provider: Aram Duran [place] Meds and New Rx's Prescriptions: Continued sumatriptan succinate 100 MG tablet 100 mg PO PRN duloxetine 60 MG capsule,delayed release(DR/EC) 60 mg PO BID meclizine 25 mg tablet 25 mg PO TID PRN (Reason: dizziness) Qty: 20 0RF clonazepam 1 mg tablet 1 mg PO QID divalproex 500 mg tablet extended release 24 hr 1,000 mg PO HS Patient Comments: TAKE TWO TABLETS BY MOUTH EVERY EVENING AT BEDTIME zolpidem [Ambien] 10 mg .Route .night Discharge Instructions Instructions: Suicide Prevention Additional Instructions: You were seen and medically cleared. No abnormalities were noted on your workup. Because of your depression and suicidal plan, the patient will be transferred to [facility] for continued inpatient management.
[2025-04-19] MEDS: Nicotine 2 MG LOZG SUC ×3 (07:44→20:29)
[2025-04-19] MEDS: DULoxetine 30 MG CAP 60 MG PO ×2 (08:16→20:16)
[2025-04-19] MEDS: Acetaminophen 500 MG TAB 1000 MG PO (08:16)
[2025-04-19] MEDS: clonazePAM 1 MG TAB PO ×4 (08:16→20:16)
[2025-04-19 08:17] VITALS: BP 128/86; PULSE 80; RESP 10; TEMP 36.4; O2SAT 99
[2025-04-19] MEDS: diazePAM 5 MG TAB PO (10:06)
--- NOTE | 2025-04-19 15:59 | NUR.NOTE ---
Nicole from [facility] called to inquire whether Isidro would be willing to go to [place]. Patient stated he would be willing. Twenty minutes later patient came out of room and stated that he would not go anywhere but . and then went into room slamming door. notified along with Nicole.
--- NOTE | 2025-04-19 16:54 | CMSP_ITS ---
Date of service: 04/19/25 Time of Service: 16:54 Care Management Safety Plan Status Status: Involuntary Reason for Wait Reason for Wait: Inpatient Admission Safety Plan Safety Plan: INVOLUNTARY FOR INPATIENT PSYCHIATRIC STABILIZATION.? Patient is appropriate in all interactions since arriving at [facility]; Pt has demonstrated appropriate coping and communication skills, has articulated his or her needs and concerns and is fully engaged during staff interactions. Safety plan has been established with patient, and care team, to adhere to patient goals, identify restrictions based on behavioral status, address nutrition, and determine allowed personal belongings, tools for hygiene and personal care. Determine level of activity including ambulation, level of supervision, visitors, and determine privileges based on behaviors and level of engagement by pt. SAFETY PLAN: 1. Will remain on suicide precautions, in paper clothes 2. Will remain in Zone B under direct supervision of one-on-one staff at all times provided by [employer]; CHRISTINA, HEAD SCORER senior gis analyst. 3. May have paper cups, plates, finger foods as well as a cardboard spoon with which to eat meals. 4. Follow [facility] Management of the Admitted Behavioral Health Patient policy. 5. Shower available in Zone B without restriction. 6. Personal belongings-soft items permitted at RN discretion. 7. Visitors-none at this time. 8. Activities: soft cart items approved per RN discretion. 9.? Bathroom available in Zone B without restriction. 10. Phone: limited to legal operations manager on [facility] cordless phone at RN discretion. Due to INVOLUNTARY status, patient is being held at [facility] by the Department of Mental Health ([facility]) until 2nd certification by [facility] Psychiatrist can be performed (within 24 hours). Staff will provide de-escalation support (CPI) as needed. If patient wishes to leave [facility], staff will contact [facility] Crisis Screener ([phone]) and [employer] ([phone]) as soon as possible. In the event of elopement, notify [place] [employer] Police ([phone]). Patient is currently involuntarily at [facility]. [facility] Frontline Peoplesoft Hr Developer will continue seeking placement. Please contact the [employer] for any needed changes to Safety Plan. Safety plan has been provided to interdepartmental care team. Patient will be transported by [employer] at time of discharge.
--- NOTE | 2025-04-19 16:54 | PDOC.CMSAFE ---
Date of service: 04/19/25 Time of Service: 16:54 Care Management Safety Plan Status Status: Involuntary Reason for Wait Reason for Wait: Inpatient Admission Safety Plan Safety Plan: INVOLUNTARY FOR INPATIENT PSYCHIATRIC STABILIZATION.? Patient is appropriate in all interactions since arriving at [facility]; Pt has demonstrated appropriate coping and communication skills, has articulated his or her needs and concerns and is fully engaged during staff interactions. Safety plan has been established with patient, and care team, to adhere to patient goals, identify restrictions based on behavioral status, address nutrition, and determine allowed personal belongings, tools for hygiene and personal care. Determine level of activity including ambulation, level of supervision, visitors, and determine privileges based on behaviors and level of engagement by pt. SAFETY PLAN: 1. Will remain on suicide precautions, in paper clothes 2. Will remain in Zone B under direct supervision of one-on-one staff at all times provided by [employer]; CHRISTINA, PROMOTION MANAGER clinical unit educator. 3. May have paper cups, plates, finger foods as well as a cardboard spoon with which to eat meals. 4. Follow [facility] Management of the Admitted Behavioral Health Patient policy. 5. Shower available in Zone B without restriction. 6. Personal belongings-soft items permitted at RN discretion. 7. Visitors-none at this time. 8. Activities: soft cart items approved per RN discretion. 9.? Bathroom available in Zone B without restriction. 10. Phone: limited to paralegal internship on [facility] cordless phone at RN discretion. Due to INVOLUNTARY status, patient is being held at [facility] by the Department of Mental Health ([facility]) until 2nd certification by [facility] Psychiatrist can be performed (within 24 hours). Staff will provide de-escalation support (CPI) as needed. If patient wishes to leave [facility], staff will contact [facility] Crisis Screener ([phone]) and Casket Liner ([phone]) as soon as possible. In the event of elopement, notify [place] [employer] ([phone]). Patient is currently involuntarily at [facility]. [facility] Frontline Top Taper Machine will continue seeking placement. Please contact the Casket Liner for any needed changes to Safety Plan. Safety plan has been provided to interdepartmental care team. Patient will be transported by [employer] at time of discharge.
--- NOTE | 2025-04-19 16:55 | CMPROGNOTE_ITS ---
Date of service: 04/19/25 Time of Service: 16:55 Care Management Progress Note Progress Note Text Progress Note Text: CM huddled with [facility], ED provider, ED RN, ED monorail charger operator, and RN plastering supervisor this morning to discuss Isidro's plan of care. Per report, Isidro's transfer was put on hold, as [facility] attempted to accommodate another facility taking him due to his reported trauma associated with [place]. Per [facility], [facility] is communicating with [facility], and anticipated that he would transfer to either [facility] or today. Once a bed is confirmed, [facility] will coordinate transport. Safety plan in place. CM will continue to follow. Social Determinants of Health Screening Will the Patient Participate in the Screening?: Declined to provide
--- NOTE | 2025-04-19 16:55 | PDOC.CMPRO ---
Date of service: 04/19/25 Time of Service: 16:55 Care Management Progress Note Progress Note Text Progress Note Text: CM huddled with [facility], ED provider, ED RN, ED charge entry clerk, and RN crop supervisor this morning to discuss Isidro's plan of care. Per report, Isidro's transfer was put on hold, as [facility] attempted to accommodate another facility taking him due to his reported trauma associated with [place]. Per [facility], [facility] is communicating with [facility], and anticipated that he would transfer to either [facility] or today. Once a bed is confirmed, [facility] will coordinate transport. Safety plan in place. CM will continue to follow. Social Determinants of Health Screening Will the Patient Participate in the Screening?: Declined to provide
--- NOTE | 2025-04-19 17:22 | NUR.NOTE ---
Patient stated his back hurt. Offered patient PRN tylenol which he declined stating it does nothing for his pain. Stated he wanted to see a doctor CUONG. Patient informed this would not happen right away as the doctor was busy with some high acuity patients in the main er.
[2025-04-19] MEDS: Divalproex Sodium 500 MG TAB.ER.24H 1000 MG PO (20:16)
[2025-04-19] MEDS: Zolpidem 10 MG TAB PO (20:16)
[2025-04-19 20:23] VITALS: BP 164/90; PULSE 89; TEMP 36.4; O2SAT 96
--- NOTE | 2025-04-19 20:31 | NUR.NOTE ---
PT offered tylenol for back pain. PT refused. Nursing Note:
--- NOTE | 2025-04-19 21:50 | PDOC.MHPN2 ---
Date of service: 04/19/25 Time of Service: 19:29 Mental Health Emergency Note Release [facility] release signed:: Yes Reason for Visit The client presented to [facility] ED on 04/12/25 for SI. The client was awaiting voluntary placement and was assessed daily by emergency services until being EE'd by ELIS Weathers on 04/17/25. The client is currently now being reassessed by this clinician in the Zone B [facility]. The client is known to [facility] and was seen by ROCIO on 10/10/24 for the first time. The client self reports that he has been psychiatrically hospitalized twice in the past for his mental health. In the last 2 weeks has the pt presented for ES prior to today?: Yes, presented at [facility] ED and [facility] Client Information Client is: Adult Outpatient Well Housed: No,status: Homeless Non Suicidal Self Injury Current: No History: No Safety Risk/Harm to Self or Others Current Ideation to Harm Self or Others: No Risk: Does risk to harm exist?: No Risk: Low Risk Duty to warn indicated: No Asssessment/Mental Status Appearance: Unremarkable Attitude: Demanding and Friendly Behavior: Agitated Speech: Normal Affect: Cogruent with mood Mood: Other (The client reports their mood as upset.) Thought process: Circumstational and Poverty of content Hallucinations: No Delusions: No Attention: Unremarkable Perception: Not impaired Orientation: Fully orientated Memory: Intact Insight: Poor Judgement: Poor Neurovegetative Symptoms Sleep: Decrease Appetitie: No change Interests: No change Energy: No change Libido: Not applicable Additional Issues: Assaultive/Threatening Behavior: No Medical Concerns: No Client engaged in active self harm w/weapon: No Threatening to run away: No Child reported abuse/neglect: No Voluntarily presenting for services: Yes Domestic violence is a concern: No Extreme Psychosis or extreme behavior is present: No Impression The client is a 55 year old biological male who is currently homeless in [place], [place]. The client presents in blue paper scrubs in his hospital bed in the Zone B of [facility]. Affect is congruent with mood and speech is in normal range. Client is friendly and demanding with this clinician; they report their mood as upset. Thought process appears to be circumstantial and poverty of content. There are no delusions observed by this clinician. The client denied visual and auditory hallucinations. Cognitive assessment reveals orientation to person, place and time. The client reported he was leaving [facility] tomorrow, he is not suicidal and does not need treatment or rehab. The client stated he was sick of being at the hospital and wants to be outside as he is an outdoors person. The client stated he did not like a few of the nurses in the [facility] ED as well. This clinician asked the administrative underwriter what his plan would be when he left the hospital. The client stated he was planning to call the skilled nursing in [facility] and try to get in there. This clinician asked the client what his plan would be if he could not get into the skilled nursing. The client stated he was gonna live outside in the [place], under a bridge or where ever he could. This clinician asked the client what has changed to where he is not feeling suicidal. The client stated he thinks the [facility] is what made him feel that way as the people are very rude there. The client denied SI, HI and NSSI with no intent or plan. The client reported he is still getting services through the [facility] however they would be washing their hands of him if he did not find skilled nursing. The client was agreeable to get set up with services at [facility] if that were to happen. This administrative underwriter talked about safety planning the client out of the Zone B of [facility]. The client stated he had plans to try and walk back to [facility] once released from the hospital. This clinician consulted with ESC/ES steam station supervisor Sarahy and ED provider Dr. Menendez about safety planning the client and all parties were agreeable. This clinician and the client completed a safety plan. At the end of the safety plan the client asked if he could now be released in the morning and this clinician stated no tonight. The client became escalated and stated well fuck I am gonna go kill myself then and proceeded to kick this clinician out of his hospital room. This clinician, ESC/ES steam station supervisor and ED provider Dr. Menendez consulted again and ED provider Dr. Menendez was not comfortable with the client leaving on his safety plan tonight. Plan/Disposition Recommended Disposition: [facility] Services [facility] Services: Psychiatric Evaluation and Hospitalization No. Plan: The client will remain in the Zone B of the [facility] ED until tomorrow morning where he will be safety planned or referred to IP treatment. Reports/communication Outcome discussed with: ED/Personnel
[2025-04-20] MEDS: Nicotine 2 MG LOZG SUC (07:05)
[2025-04-20] MEDS: clonazePAM 1 MG TAB PO (08:48)
[2025-04-20] MEDS: DULoxetine 30 MG CAP 60 MG PO (08:48)
--- NOTE | 2025-04-20 09:16 | W.EDPROG ---
Date of service: 04/20/25 Time of Service: 09:22 Medical Decision Making Patient was signed out to me. Second certification did not hold. I did go and reevaluate the patient and he states I do not want to be here, I promise you are not going to kill myself. I do not want to kill myself. I just want to get the heck out of here! I discussed going home again with the patient, and he stated this is what I want, I am fine, I do not want to kill myself, I just want to get out of here!. Currently he does not necessarily have a place to stay. We will provide him with additional outpatient resources. Discussed this with the mental health team, and child care leader. They agree with plan. Mental health feels confident with him going home, does not feel that he meets the indications for inpatient criterion. As he is no longer suicidal or demonstrating signs of depression. I have extensively reviewed the treatment plan and discharge instructions with the patient. I have addressed all patient concerns at this time. The patient was made aware of what symptoms to monitor for that would warrant a return to the emergency department. Discussed the plan with the patient, they demonstrate verbal understanding and agreement with our assessment and plan at this time. The documentation in this chart was dictated using [employer] dictation software. Please excuse any dictation errors. Quality:SDOH Health Related Social Needs: Health related social needs risk of homeless transpo insecurity house/econ circumstance education Health related social needs details patient currently lives in a hotel which he pays out of pocket for. Discharge Plan Disposition Patient Disposition: Home Condition: Good Discharge Details Clinical Impression: Suicide ideation, Homeless Primary Care Provider: None,None ED Provider: Terence Ryan Home Meds and New Rx's Prescriptions: Continued sumatriptan succinate 100 MG tablet 100 mg PO PRN duloxetine 60 MG capsule,delayed release(DR/EC) 60 mg PO BID meclizine 25 mg tablet 25 mg PO TID PRN (Reason: dizziness) Qty: 20 0RF clonazepam 1 mg tablet 1 mg PO QID divalproex 500 mg tablet extended release 24 hr 1,000 mg PO HS Patient Comments: TAKE TWO TABLETS BY MOUTH EVERY EVENING AT BEDTIME zolpidem [Ambien] 10 mg .Route .night Discharge Instructions Instructions: Suicide Prevention Additional Instructions: You were seen and medically cleared. No abnormalities were noted on your workup. At this time you are requesting to go, and you are denying your suicidal ideations. We will not keep you here at this time. Please utilize the resources that have been provided to you to help maintain your outpatient stability. If you notice any worsening of your symptoms, or any new symptoms such as vomiting, diarrhea, fever, chills, shortness of breath, chest pain, numbness, weakness, or fainting , please return immediately to the emergency department for reevaluation. Please follow up with your primary care provider as soon as possible for reassessment and reevaluation. As always, it was a pleasure participating in your medical care today.
[2025-04-20 09:44] VITALS: BP 140/90; PULSE 72; RESP 18; TEMP 36.7; O2SAT 100
--- NOTE | 2025-04-20 11:55 | CMPROGNOTE_ITS ---
Date of service: 04/20/25 Time of Service: 11:55 Care Management Progress Note Progress Note Text Progress Note Text: CM huddled with [facility], ED RN, ED car whacker, ED provider and RN supervisor inventory merchandising to discuss Isidro's plan of care. Per NK, [facility] did not uphold Isidro's EE, therefore he was no longer an involuntary patient. [facility] attempted to safety plan Isidro, who declined to participate. Isidro was provided options for resources, which he declined. MD spoke to Isidro who stated that he is not feeling suicidal, and he wants to leave [facility], therefore he was discharged. Social Determinants of Health Screening Will the Patient Participate in the Screening?: Declined to provide
== END 2025-04-20 09:40 | disposition home or self-care (01) ==
PROVIDERS: Emergency Medicine; Student in an Organized Health Care Education/Training Program; Emergency Provider Student in an Organized Health Care Education/Training Program
DX: R10.32 Left lower quadrant pain (principal); F32.A Depression, unspecified; R45.851 Suicidal ideations; R07.9 Chest pain, unspecified; I10 Essential (primary) hypertension; Z59.01 Sheltered homelessness; Z59.41 Food insecurity; Z59.89 Other problems related to housing and economic circumstances; Z59.82 Transportation insecurity
CPT/HCPCS: 99285 ×10; 36415; 00123; 80053; 83690; 93005; 96127; G0378; 71046; 74177; 80164; 80329; 81003; 83735; 84484; 85025; 85379; 93010; J0131; J3475; J3490

== ENCOUNTER 2025-04-20 13:29 | Emergency (ER) | payer MEDICARE, SELFPAY ==
[2025-04-20 13:34] VITALS: BP 132/102; PULSE 126; RESP 18; TEMP 36.4; O2SAT 99
--- NOTE | 2025-04-20 13:35 | W.ED.GENAD ---
Discharge Plan Discharge Details Chief Complaint: PsychEval Clinical Impression: Suicide ideation Primary Care Provider: None,None ED Provider: Terence Ryan Home Meds and New Rx's Prescriptions: No Action sumatriptan succinate 100 MG tablet 100 mg PO PRN duloxetine 60 MG capsule,delayed release(DR/EC) 60 mg PO BID meclizine 25 mg tablet 25 mg PO TID PRN (Reason: dizziness) Qty: 20 0RF clonazepam 1 mg tablet 1 mg PO QID divalproex 500 mg tablet extended release 24 hr 1,000 mg PO HS Patient Comments: TAKE TWO TABLETS BY MOUTH EVERY EVENING AT BEDTIME zolpidem [Ambien] 10 mg .Route .night HPI General Date/Time Provider Initiated Documentation: 04/20/25 13:35. HPI Narrative: 55-year-old male who denies any medical problems but does have a history of psychiatric problems including alcoholism, depression, anxiety, and has been diagnosed with migraines and GERD in the past,(who is also not seen at medical doctor in years) and is prescribed occasional clonazepam as prescribed by his psychiatrist, who was recently here for 192 hours in the emergency department as an observation status patient, who Bianka presents today. For his recent time here he was admitted, he was initially voluntary, it was recommended that he go to [facility] but he declined. [facility] excepted him but he declined because of past experiences. No other facility excepted him during his time here. There was a few day period where he was EE'ed,, but the second certification did not hold. The day before his discharge(which was yesterday) he stated that he did not want to leave and he would just kill himself if he left. And then he was examined this morning. He was asked if he was still suicidal, and he declined. He stated very clearly that I am not suicidal, I am not going to kill myself, I just want to get out of here. He was assessed by mental health, and the patient was deemed stable for discharge. Patient was discharged at his own request. After that he went, he did smoke marijuana, he denies any alcohol. Then he called 911 stating that he is ready to receive help. He states that he thinks about killing himself and he would do this with a knife that he has at his hotel. Thankfully though he is not able to access the knife because he is no longer allowed to access his hotel as he was kicked out. He also states that he is willing to go to [facility] now stating it was a long time ago that the previous event occurred, and they are probably different now. Patient has no other complaints. He denies any auditory or visual hallucinations. He denies any other drug use. No other complaints at this time. Related Data Home Medications ?Medication ?Instructions ?Recorded ?Confirmed duloxetine 60 mg capsule,delayed 60 mg PO BID 12/15/16 04/20/25 release sumatriptan succinate 100 mg tablet 100 mg PO PRN 12/15/16 04/20/25 clonazepam 1 mg tablet 1 mg PO QID 10/23/24 04/20/25 divalproex 500 mg tablet,extended 1,000 mg PO HS 11/10/24 04/20/25 release 24 hr meclizine 25 mg tablet 25 mg PO TID PRN dizziness #20 tabs 03/14/25 04/20/25 zolpidem 10 mg .Route .night 04/12/25 04/20/25 Previous Rx's ?Medication ?Instructions ?Recorded meclizine 25 mg tablet 25 mg PO TID PRN dizziness #20 tabs 03/14/25 Allergies Allergy/AdvReac Type Severity Reaction Status Date / Time prochlorperazine (From Allergy Unknown Unknown Verified 04/20/25 13:39 Compazine) promethazine (From Phenergan) Allergy Unknown Unknown Verified 04/20/25 13:39 NSAIDS (Non-Steroidal Allergy Unknown Verified 04/20/25 13:39 Anti-Inflamma General PUSHPA: 2 Exam Narrative Exam Narrative: 1.Const: Well-nourished, Well-developed, appearing stated age 2.Eyes: PERRL, no conjunctival injection, and symmetrical lids. 3.ENT: Atraumatic external nose and ears. Moist MM. Neck: Symmetric, trachea midline, No thyromegaly. 4.CVS: +S1/S2, Peripheral pulses 2+ and equal in all extremities. Brisk capillary refill in all extremities. 5.RESP: Unlabored respiratory effort. Clear to auscultation bilaterally. No wheezes rales or rhonchi 6.GI: Soft, Nontender/Nondistended, No hepatosplenomegaly. No guarding or rebound. 7.MSK: Normocephalic/Atraumatic, Extremities w/o deformity or ttp No cyanosis or clubbing, Normal movement of all extremities 8.Skin: Warm, Dry. No rashes or lesions. 9.Neuro: securities dealer II-XII grossly intact. Sensation grossly intact, no focal neurologic deficits. 10.Psych: (AAO) x3. Appropriate mood and affect Medical Decision Making 55-year-old male who denies any medical problems but does have a history of psychiatric problems including alcoholism, depression, anxiety, and has been diagnosed with migraines and GERD in the past,(who is also not seen at medical doctor in years) and is prescribed occasional clonazepam as prescribed by his psychiatrist, who was recently here for 192 hours in the emergency department as an observation status patient, who Bianka presents today. For his recent time here he was admitted, he was initially voluntary, it was recommended that he go to [facility] but he declined. [facility] excepted him but he declined because of past experiences. No other facility excepted him during his time here. There was a few day period where he was EE'ed,, but the second certification did not hold. The day before his discharge(which was yesterday) he stated that he did not want to leave and he would just kill himself if he left. And then he was examined this morning. He was asked if he was still suicidal, and he declined. He stated very clearly that I am not suicidal, I am not going to kill myself, I just want to get out of here. He was assessed by mental health, and the patient was deemed stable for discharge. Patient was discharged at his own request. After that he went, he did smoke marijuana, he denies any alcohol. Then he called 911 stating that he is ready to receive help. He states that he thinks about killing himself and he would do this with a knife that he has at his hotel. Thankfully though he is not able to access the knife because he is no longer allowed to access his hotel as he was kicked out. He also states that he is willing to go to [facility] now stating it was a long time ago that the previous event occurred, and they are probably different now. Patient has no other complaints. He denies any auditory or visual hallucinations. He denies any other drug use. No other complaints at this time. Exam demonstrates a well-appearing male, vital signs stable. Heart rate 103, blood pressure normal, afebrile normal oxygenation. Phenytoin level was checked recently and was normal. Remainder of his exam is benign. Patient will be cleared by smart form. Mental health has been contacted and they will come and evaluate the patient. Will look for placement options. Quality:SDOH Health Related Social Needs: Health related social needs risk of homeless transpo insecurity house/econ circumstance education Health related social needs details patient currently lives in a hotel which he pays out of pocket for. PFSH All Active Problems (Updated 04/20/25 @ 14:55 by Terence Ryan DO) Homeless (Acute) Suicide ideation (Acute) Food insecurity (Acute) Hypoglycemia (Acute) Hypomagnesemia (Acute) Fall (Acute) Adrenal nodule (Acute) Medical History Obesity History of alcoholism GERD (gastroesophageal reflux disease) Tremor Migraines Depression with psychotic features Anxiety Surgical History Repair of inguinal hernia Family History Mother Depression Melanoma Social History Smoking/Tobacco Use Status: Current every day Tobacco Type: cigars Per week: 14 Smoking risk assessment performed?: Yes Alcohol Intake: former Drug use: Occasionally Substance use type: marijuana and crack/cocaine Housing: other Do you feel safe at home: Yes Do you feel safe in your relationship?: Yes
[2025-04-20 14:24] VITALS: BP 115/65; PULSE 103; O2SAT 100
[2025-04-20 15:23] VITALS: BP 115/65; PULSE 103; RESP 16; TEMP 36.7; O2SAT 100
--- NOTE | 2025-04-20 15:45 | PDOC.CMSAFE ---
Date of service: 04/20/25 Time of Service: 15:46 Care Management Safety Plan Status Status: Voluntary Reason for Wait Reason for Wait: Inpatient Admission and Assessment/Screening Safety Plan Safety Plan: VOLUNTARY FOR INPATIENT PSYCHIATRIC STABILIZATION.? Patient is appropriate in all interactions since arriving at [facility]; Pt has demonstrated appropriate coping and communication skills, has articulated his or her needs and concerns and is fully engaged during staff interactions. Safety plan has been established with patient, and care team, to adhere to patient goals, identify restrictions based on behavioral status, address nutrition, and determine allowed personal belongings, tools for hygiene and personal care. Determine level of activity including ambulation, level of supervision, visitors, and determine privileges based on behaviors and level of engagement by pt. SAFETY PLAN: 1. Will remain on suicide precautions, in paper clothes 2. Will remain in room under direct supervision of one-on-one staff at all times provided by [employer]; CHRISTINA, BELL SPINNER fiberglass pipe covering supervisor. 3. May have paper cups, plates, finger foods as well as a cardboard spoon with which to eat meals. 4. Follow [facility] Management of the Admitted Behavioral Health Patient policy. 5. Comfort bath system, shower permitted with escort at RN discretion. 6. Personal belongings-soft items permitted at RN discretion. 7. Visitors-none at this time. 8. Activities: soft cart items approved per RN discretion. 9.? Bathroom privileges with escort in the ED. 10. Phone: limited to cordless phone at RN discretion. Due to VOLUNTARY status, if patient wishes to leave [facility], staff will contact [facility] Crisis Screener ([phone]) and On-Call Buyer Assistant ([phone]) as soon as possible. In the event of elopement, notify [facility] Police ([phone]).
[2025-04-20] MEDS: clonazePAM 1 MG TAB PO ×2 (16:44→20:09)
--- NOTE | 2025-04-20 17:18 | PDOC.MHCN ---
Date of service: 04/20/25 Time of Service: 15:40 PHQ-9 Over the last 2 weeks, how often have you been bothered by any of the following problems? 1. Little interest or pleasure in doing things: nearly every day 2. Feeling down, depressed, or hopeless: nearly every day 3. Trouble falling or staying asleep, or sleeping too much: nearly every day 4. Feeling tired or having little energy: several days 5. Poor appetite or overeating: more than half the days 6. Feeling bad about yourself - or that you are a failure or have let yourself and your family down: nearly every day 7. Trouble concentrating on things, such as reading the newspaper or watching television: more than half the days 8. Moving or speaking so slowly that other people could have noticed? - Or the opposite - being so fidgety or restless that you have been moving around a lot more than usual: more than half the days 9. Thoughts that you would be better off or of hurting yourself in some way: nearly every day Total score: 22 If you checked off any problems, how difficult have these problems made it for you to do your work, take care of things at home, or get along with other people?: extremely difficult PHQ-9 Results: Positive Source: Developed by Drs. Derek Dobbs, Meme Odell, Alok Mott and colleagues, with an educational kai from [employer]. Suicide Severity Rate CSSRS Have you wished you were or wished you could go to sleep and not wake up?: Yes Have you actually had any thoughts of killing yourself?: Yes CSSRS2 Have you been thinking about how you might do this?: Yes Have you had these thoughts and had some intention of acting on them?: Yes Have you started to work out or worked out the details of how to kill yourself? Do you intend to carry out this plan?: No CSSRS3 Have you ever done anything, started to do anything or prepared to do anything to end your life?: Yes CSSRS4 Was this within the past three months?: Yes Screening Score Total Score: 8 Screening: Positive Mental Health Emergency Note Release [facility] release signed:: Yes Reason for Visit Suicidal thoughts with intent In the last 2 weeks has the pt presented for ES prior to today?: Yes, presented at [facility] ED Client Information Well Housed: No,status: Homeless Non Suicidal Self Injury Current: No Safety Risk/Harm to Self or Others Current Ideation to Harm Self or Others: Yes to self. Intent: yes, has intent. Plan: no.does not have a plan. History of suicide attempt: yes,history of suicide attempt reported. Details of previous suicide attempt: Client reports history of suicidal acts including overdose Risk: Does risk to harm exist?: yes. Access to means: Yes. Types of Means: Other. Details: Client has access to natural means in the community such as bridges, roadways, sharps . Risk: High Risk Duty to warn indicated: No Asssessment/Mental Status Appearance: Disheveled and Poor hygiene Attitude: Cooperative Behavior: Unremarkable Speech: Soft Affect: Labile and Cogruent with mood Mood: Sad and Depressed Thought process: Poverty of content Hallucinations: No Delusions: No Attention: Unremarkable Perception: Not impaired Orientation: Fully orientated Memory: Intact Insight: Fair Judgement: Fair Neurovegetative Symptoms Sleep: No change Appetitie: No change Interests: No change Energy: No change Libido: No change Substance Use: Other Have you used substances in the last 7 days?: yes, THC, undisclosed amount Additional Issues: Assaultive/Threatening Behavior: No Medical Concerns: No Client engaged in active self harm w/weapon: No Threatening to run away: No Child reported abuse/neglect: No Voluntarily presenting for services: Yes Domestic violence is a concern: No Extreme Psychosis or extreme behavior is present: No Impression The client presented in an unhygienic and disheveled state, dressed in hospital safety scrubs and grippy socks. He displayed a friendly and cooperative demeanor, clearly subdued and emotional. Client was seen in person at [facility] ED, Room 5 and was laying down in a darkened room. The client continues to be at risk to himself due to homelessness, financial instability, and substance issues. He expressed feelings of hopelessness, stating he wants to , does not want to live if this is how his life is going to be. The client does not have a specific plan, but has reasonable access to means in the community and restates that he will do what he has to do to end his life if he goes back out there. The client immediately engaged in dangerous behaviors during brief time in the community today. Despite [facility] reactions to [facility], client states he will go if that is the first and/or only bed available and will engage in supports. Currently, the client remains in voluntary status, awaiting placement at the first available inpatient facility. Client should be released to a step-down (crisis bed) type of facility at the end of treatment, reconnecting client to his designated agency ([facility]) where client currently receives services and supports. Client reports he is unable to live independently or without daily program support Plan/Disposition Recommended Disposition: Hospitalization facilities contacted. Plan: Client remains voluntary status awaiting placement for inpatient mental health treatment. CLIENT SHOULD BE REFERRED TO [facility] for step-down process from inpatient treatment. Client is a current [facility] client. Person reported agreement to plan: Yes Facilities contacted if Applicable [facility] Not accepted, No bed available [facility] Not accepted, No bed available, [facility] Not accepted, No bed available [facility] Not accepted, No bed available [facility] Not accepted, No bed available Reports/communication Outcome discussed with: ED/Personnel
[2025-04-20] MEDS: Nicotine 2 MG LOZG SUC (18:36)
[2025-04-20] MEDS: Zolpidem 10 MG TAB PO (20:10)
[2025-04-20] MEDS: DULoxetine 20 MG CAP 60 MG PO (20:10)
[2025-04-20] MEDS: Divalproex Sodium 500 MG TAB.ER.24H 1000 MG PO (20:10)
--- NOTE | 2025-04-21 07:41 | ED.PSYCHBOAR ---
Date of service: 04/21/25 Time of Service: 07:41 Psychiatric Border Handoff Update Brief Story: Patient here voluntarily for depression and no issues reported on prior shift. Will continue to monitor until safe disposition found Status: voluntary Able to leave: would need physician/XOCHITL and crisis evaluation prior to leaving Mediation Reconciliation performed: Yes Code Status ordered: Yes Diet ordered: Yes Discharge Plan Discharge Details Chief Complaint: PsychEval Clinical Impression: Homeless, Depression Primary Care Provider: None,None ED Provider: Michael Rubalcava Home Meds and New Rx's Prescriptions: No Action sumatriptan succinate 100 MG tablet 100 mg PO PRN duloxetine 60 MG capsule,delayed release(DR/EC) 60 mg PO BID meclizine 25 mg tablet 25 mg PO TID PRN (Reason: dizziness) Qty: 20 0RF clonazepam 1 mg tablet 1 mg PO QID divalproex 500 mg tablet extended release 24 hr 1,000 mg PO HS Patient Comments: TAKE TWO TABLETS BY MOUTH EVERY EVENING AT BEDTIME zolpidem [Ambien] 10 mg .Route .night
[2025-04-21] MEDS: clonazePAM 1 MG TAB PO ×4 (08:38→19:30)
[2025-04-21] MEDS: DULoxetine 20 MG CAP 60 MG PO ×2 (08:38→19:33)
[2025-04-21 08:43] VITALS: BP 133/85; PULSE 63; RESP 16; TEMP 36.7; O2SAT 98
[2025-04-21] MEDS: Nicotine 2 MG LOZG SUC ×4 (09:00→19:37)
--- NOTE | 2025-04-21 13:09 | PDOC.MHPN2 ---
Date of service: 04/21/25 Time of Service: 09:35 Mental Health Emergency Note Release [facility] release signed:: Yes Reason for Visit Isidro is previously known to [facility] but not to this screen writer. Isidro is at [facility] seeking voluntary inpatient treatment. In the last 2 weeks has the pt presented for ES prior to today?: Unknown Client Information Client is: Adult Outpatient Well Housed: No,status: Homeless Unstable housing Non Suicidal Self Injury Current: No History: No Safety Risk/Harm to Self or Others Current Ideation to Harm Self or Others: No Risk: Does risk to harm exist?: No Risk: N/A Duty to warn indicated: No Asssessment/Mental Status Appearance: Unremarkable Attitude: Guarded Behavior: Unremarkable Speech: Normal Affect: Normal Mood: Stressed and Anxious Thought process: Goal directed Hallucinations: No evidence Delusions: No evidence Attention: Unremarkable Perception: Not impaired Orientation: Fully orientated Memory: Intact Insight: Fair Judgement: Fair Neurovegetative Symptoms Sleep: No change Appetitie: No change Interests: No change Libido: No change Substance Use: Do you use nicotine?: No Have you used substances in the last 7 days?: No Additional Issues: Assaultive/Threatening Behavior: No Medical Concerns: No Client engaged in active self harm w/weapon: No Threatening to run away: No Child reported abuse/neglect: No Voluntarily presenting for services: Yes Domestic violence is a concern: No Extreme Psychosis or extreme behavior is present: No Impression Isidro is a [age] year old male who resides at the [facility] due to loosing his housing in September. Isidro reports he lived in the same home for twenty years but his landlord sold it and it forced him to be homeless. Isidro presents to this screen writer laying down, is brief, guarded, and goal directed. Isidro denies SI, HI, and NSSI while in the hospital. Isidro reports he feels safe in the hospital. Isidro reports he does not need anything at this time and will be content until he is placed. Plan/Disposition Recommended Disposition: Hospitalization facilities contacted. Reports/communication Outcome discussed with: ED/Personnel
[2025-04-21] MEDS: diazePAM 5 MG TAB PO (14:06)
--- NOTE | 2025-04-21 14:15 | CMSP_ITS ---
Date of service: 04/21/25 Time of Service: 14:15 Care Management Safety Plan Status Status: Voluntary Reason for Wait Reason for Wait: Inpatient Admission Safety Plan Safety Plan: VOLUNTARY FOR INPATIENT PSYCHIATRIC STABILIZATION.? Patient is appropriate in all interactions since arriving at [facility]; Pt has demonstrated appropriate coping and communication skills, has articulated his needs and concerns and is fully engaged during staff interactions. Safety plan has been established with patient, and care team, to adhere to patient goals, identify restrictions based on behavioral status, address nutrition, and determine allowed personal belongings, tools for hygiene and personal care. Determine level of activity including ambulation, level of supervision, visitors, and determine privileges based on behaviors and level of engagement by pt. VOLUNTARY SAFETY PLAN: 1. Will remain on suicide precautions, in paper clothes 2. Will remain in Zone B under direct supervision of one-on-one staff at all times provided by [employer]; CHRISTINA, MOMD TEACHER pole lift operator. 3. May have paper cups, plates, finger foods as well as a cardboard spoon with which to eat meals. 4. Follow [facility] Management of the Admitted Behavioral Health Patient policy. 5. Shower available in Zone B without restriction. 6. Personal belongings-soft items permitted at RN discretion. 7. Visitors-none at this time. 8. Activities: soft cart items, hospital tablets (Netflix/[place]+/music) approved per RN discretion. 9.? Bathroom available in Zone B without restriction. 10. Phone: limited to [facility] cordless phone at RN discretion. Due to VOLUNTARY status, if patient wishes to leave [facility], staff will contact [facility] Crisis Screener ([phone]) and Preventive Maintenance Coordinator ([phone]) as soon as possible. In the event of elopement, notify [facility] Police ([phone]). Patient is currently voluntarily at [facility] and seeking inpatient admission when a bed becomes available. [facility] Frontline Still Pump Operator will continue seeking placement. Please contact the Preventive Maintenance Coordinator ([phone]) and [facility] Still Pump Operator ([phone]) for any needed changes in the Safety Plan. Safety plan has been provided to interdepartmental care team.
--- NOTE | 2025-04-21 14:15 | PDOC.CMSAFE ---
Date of service: 04/21/25 Time of Service: 14:15 Care Management Safety Plan Status Status: Voluntary Reason for Wait Reason for Wait: Inpatient Admission Safety Plan Safety Plan: VOLUNTARY FOR INPATIENT PSYCHIATRIC STABILIZATION.? Patient is appropriate in all interactions since arriving at [facility]; Pt has demonstrated appropriate coping and communication skills, has articulated his needs and concerns and is fully engaged during staff interactions. Safety plan has been established with patient, and care team, to adhere to patient goals, identify restrictions based on behavioral status, address nutrition, and determine allowed personal belongings, tools for hygiene and personal care. Determine level of activity including ambulation, level of supervision, visitors, and determine privileges based on behaviors and level of engagement by pt. VOLUNTARY SAFETY PLAN: 1. Will remain on suicide precautions, in paper clothes 2. Will remain in Zone B under direct supervision of one-on-one staff at all times provided by [employer]; CHRISTINA, DEFENSE ANALYST director of optimization. 3. May have paper cups, plates, finger foods as well as a cardboard spoon with which to eat meals. 4. Follow [facility] Management of the Admitted Behavioral Health Patient policy. 5. Shower available in Zone B without restriction. 6. Personal belongings-soft items permitted at RN discretion. 7. Visitors-none at this time. 8. Activities: soft cart items, hospital tablets (Netflix/[employer]+/music) approved per RN discretion. 9.? Bathroom available in Zone B without restriction. 10. Phone: limited to [facility] cordless phone at RN discretion. Due to VOLUNTARY status, if patient wishes to leave [facility], staff will contact [facility] Crisis Screener ([phone]) and Family Services Worker ([phone]) as soon as possible. In the event of elopement, notify [facility] Police ([phone]). Patient is currently voluntarily at [facility] and seeking inpatient admission when a bed becomes available. [facility] Frontline Deli Clerk will continue seeking placement. Please contact the Family Services Worker ([phone]) and [facility] Deli Clerk ([phone]) for any needed changes in the Safety Plan. Safety plan has been provided to interdepartmental care team.
--- NOTE | 2025-04-21 14:17 | CMPROGNOTE_ITS ---
Date of service: 04/21/25 Time of Service: 14:17 Care Management Progress Note Progress Note Text Progress Note Text: Isidro was admitted as an observation patient to [facility] on 04/12/25. He was initially voluntary, however when a bed at [facility] became available he refused to accept the bed. He was then EE'd and held longer, however the second certification was not upheld and he was discharged late morning on 04/20/25, stating he had no SI or HI thoughts. A short time later (within 2 hours) Isidro returned to the ED stating that he was suicidal again and was seeking voluntary psychiatric placement for stabilization. He was screened by [facility] and deemed appropriate for voluntary psychiatric treatment. Social Determinants of Health Screening Will the Patient Participate in the Screening?: Declined to provide
[2025-04-21 19:05] VITALS: BP 118/82; PULSE 101; RESP 16; TEMP 36.5; O2SAT 97
[2025-04-21] MEDS: Divalproex Sodium 500 MG TAB.ER.24H 1000 MG PO (19:30)
[2025-04-21] MEDS: Zolpidem 10 MG TAB PO (19:30)
[2025-04-21] MEDS: Acetaminophen 500 MG TAB 1000 MG PO (19:52)
[2025-04-21] MEDS: Lidocaine 5% Patch 1 PATCH TP (19:52)
[2025-04-21 22:10] VITALS: BP 127/82; PULSE 87; RESP 18; TEMP 36.3; O2SAT 97
--- NOTE | 2025-04-21 22:15 | DI.CT_ITS ---
Exam(s) CT HEAD CERVICAL SPINE WO EXAM: CT HEAD CERVICAL SPINE WO CLINICAL HISTORY: fall off bed, posterior head strike. TECHNIQUE: Imaging Protocol: Axial computed tomography images with coronal and sagittal reformatted images were created and reviewed COMPARISON: CT CT HEAD CERVICAL SPINE WO from 03/25/2025 FINDINGS: BRAIN: There are no skull fractures nor fluid in the visualized paranasal sinuses. Mild mucosal thickening lateral wall the right maxillary sinus is noted. No fluid level. There is no evidence of intracranial hemorrhage, mass effect, or shift of midline structures. There are no extra-axial fluid collections. The ventricles are not enlarged or shifted and there is no blood within the ventricular system nor within the basal cisterns. Calcification in the anterior falx noted. CERVICAL SPINE: There is no evidence of fracture nor listhesis. No significant prevertebral soft tissue swelling. There is some reversal of normal cervical curvature. There is chronic disc space narrowing at C5-6 and C6-7 levels with anterior osteophytes at these levels and there are also bilateral Luschka joint osteophytes at these 2 levels. There is no significant facet arthropathy in the cervical spine. T There is no significant facet joint malalignment. No significant osseous lesions evident. IMPRESSION: No acute intracranial findings on this noninfused CT scan of the brain. No evidence of cervical spine fracture, malalignment, nor acute compromise of the cervical spinal canal. Chronic degenerative disc disease C5-6 and C6-7 levels. Also reversal of the normal curvature. No facet malalignment. RADIATION DOSE DELIVERED: 1,224.57mGy.cm Total DLP DATA REPOSITORY: All CT scans at this facility are submitted to the National Radiology Data Registry (NRDR) Dose Index Registry (DIR) with the [employer] (ACR). RADIATION OPTIMIZATION: All CT scans at this facility use at least one of these dose optimization techniques: automated exposure control; mA and/or kV adjustment per patient size (includes targeted exams where dose is matched to clinical indication); or iterative reconstruction.
--- NOTE | 2025-04-21 22:19 | ED.PROG1_ITS ---
Date of service: 04/21/25 Time of Service: 22:19 Psychiatric Border Handoff Update Brief Story: I was summoned to bedside at 2215, the patient was laying in his bed, which was approximately 4 inches pulled out from the wall without the side rail up. The patient states that he was falling asleep in the next and he knew he was on the floor. He had fallen in between the bed and the wall, was able to be gotten up and back into bed without difficulty. The patient reports that he has some discomfort in the back of his head. He does not take blood thinners, does not have physical exam evidence concerning for hematoma, laceration or abrasion, and does not have any neurodeficits on my repeat physical examination. Pupils equal and reactive at 3 mm bilaterally. Given the patient's potential loss of consciousness, though it is not clear if he was actually asleep prior to the event, it is reasonable to proceed with CT imaging of the brain to rule out intracranial hemorrhage, skull fracture. No neck pain to suggest cervical spine fracture, though with the patient's history of chronic back pain and his age it is a reasonable to obtain imaging of this structure as well. CT of the brain and C-spine was reviewed by myself, and shows no evidence of intracranial hemorrhage, skull fracture, or cervical spine fracture. The patient was informed of this finding. He is now medically cleared once more, and does have Tylenol available to him as needed for ongoing pain. Fall precautions were put in place in his room including moving the bed against the wall and leaving the handrail up. I signed out care of the patient to the oncoming provider prior to final disposition. Alexa Dwyer MD Status: voluntary Able to leave: would need physician/XOCHITL and crisis evaluation prior to leaving Discharge Plan Discharge Details Chief Complaint: PsychEval Clinical Impression: Homeless, Depression Primary Care Provider: None,None ED Provider: Derek Benz [place] Meds and New Rx's Prescriptions: No Action sumatriptan succinate 100 MG tablet 100 mg PO PRN duloxetine 60 MG capsule,delayed release(DR/EC) 60 mg PO BID meclizine 25 mg tablet 25 mg PO TID PRN (Reason: dizziness) Qty: 20 0RF clonazepam 1 mg tablet 1 mg PO QID divalproex 500 mg tablet extended release 24 hr 1,000 mg PO HS Patient Comments: TAKE TWO TABLETS BY MOUTH EVERY EVENING AT BEDTIME zolpidem [Ambien] 10 mg .Route .night
--- NOTE | 2025-04-21 23:29 | DI.VRAD_ITS ---
PROCEDURE INFORMATION: Exam: CT Head Without Contrast Exam date and time: 04/21/2025 10:41 PM Age: 55 years old Clinical indication: Injury or trauma; Blunt trauma (contusions or hematomas); Fall off bed, posterior head strike TECHNIQUE: Imaging protocol: Computed tomography of the head without contrast. COMPARISON: CT HEAD CERVICAL SPINE WO 03/25/2025 12:35 AM FINDINGS: Brain: Normal. No hemorrhage. Unremarkable white matter. No mass effect. Cerebral ventricles: No ventriculomegaly. Paranasal sinuses: Mild mucosal disease of the right maxillary sinus Mastoid air cells: Visualized mastoid air cells are well aerated. Bones: Unremarkable. No acute fracture. Soft tissues: Unremarkable. IMPRESSION: No acute intracranial posttraumatic changes. PROCEDURE INFORMATION: Exam: CT Cervical Spine Without Contrast Exam date and time: 04/21/2025 10:41 PM Age: 55 years old Clinical indication: Injury or trauma; Blunt trauma (contusions or hematomas); Fall off bed, posterior head strike TECHNIQUE: Imaging protocol: Computed tomography of the cervical spine without contrast. COMPARISON: No relevant prior studies available. FINDINGS: Bones: The cervical spine demonstrates mild degenerative changes at multiple levels. Reversal of the cervical lordosis. No acute fracture, compression deformity or spondylolisthesis. Pharynx: Bilateral palatine tonsil calcifications. Lungs: Bilateral apical fibrotic changes. Mild centrilobular emphysematous changes are present. Vasculature: There is mild atherosclerotic calcification of the carotid arteries. Soft tissues: Unremarkable. IMPRESSION: No acute posttraumatic changes in the cervical spine. Dictated and Authenticated by: Shawn Kurtz MD. Orderin St. Christos Liu MD
[2025-04-22] MEDS: Nicotine 2 MG LOZG SUC ×5 (06:19→20:20)
--- NOTE | 2025-04-22 08:03 | ED.PSYCHBOAR ---
Date of service: 04/22/25 Time of Service: 08:03 Psychiatric Border Handoff Update Brief Story: Patient here on voluntary status for thoughts of self-harm, no issues reported on prior shift. Will continue to monitor until safe disposition found. Status: voluntary Able to leave: would need physician/XOCHITL and crisis evaluation prior to leaving Mediation Reconciliation performed: Yes Code Status ordered: Yes Diet ordered: Yes Discharge Plan Discharge Details Chief Complaint: PsychEval Clinical Impression: Homeless, Depression Primary Care Provider: None,None ED Provider: Michael Rubalcava [place] Meds and New Rx's Prescriptions: No Action sumatriptan succinate 100 MG tablet 100 mg PO PRN duloxetine 60 MG capsule,delayed release(DR/EC) 60 mg PO BID meclizine 25 mg tablet 25 mg PO TID PRN (Reason: dizziness) Qty: 20 0RF clonazepam 1 mg tablet 1 mg PO QID divalproex 500 mg tablet extended release 24 hr 1,000 mg PO HS Patient Comments: TAKE TWO TABLETS BY MOUTH EVERY EVENING AT BEDTIME zolpidem [Ambien] 10 mg .Route .night
[2025-04-22] MEDS: clonazePAM 1 MG TAB PO ×4 (08:10→20:20)
[2025-04-22] MEDS: DULoxetine 20 MG CAP 60 MG PO ×2 (08:10→20:20)
[2025-04-22 08:21] VITALS: BP 115/78; RESP 18; TEMP 36.6; O2SAT 97
[2025-04-22] MEDS: Acetaminophen 500 MG TAB 1000 MG PO ×2 (08:37→13:23)
--- NOTE | 2025-04-22 10:05 | CMSP_ITS ---
Date of service: 04/22/25 Time of Service: 10:05 Care Management Safety Plan Status Status: Voluntary Reason for Wait Reason for Wait: Inpatient Admission Safety Plan Safety Plan: VOLUNTARY FOR INPATIENT PSYCHIATRIC STABILIZATION.? Patient is appropriate in all interactions since arriving at [facility]; Pt has demonstrated appropriate coping and communication skills, has articulated his needs and concerns and is fully engaged during staff interactions. Safety plan has been established with patient, and care team, to adhere to patient goals, identify restrictions based on behavioral status, address nutrition, and determine allowed personal belongings, tools for hygiene and personal care. Determine level of activity including ambulation, level of supervision, visitors, and determine privileges based on behaviors and level of engagement by pt. VOLUNTARY SAFETY PLAN: 1. Will remain on suicide precautions, in paper clothes 2. Will remain in Zone B under direct supervision of one-on-one staff at all times provided by [employer]; CHRISTINA, COAL MINE INSPECTOR luster applicator. 3. May have paper cups, plates, finger foods as well as a cardboard spoon with which to eat meals. 4. Follow [facility] Management of the Admitted Behavioral Health Patient policy. 5. Shower available in Zone B without restriction. 6. Personal belongings-soft items permitted at RN discretion. 7. Visitors-none at this time. 8. Activities: soft cart items, hospital tablets (Netflix/[place]+/music) approved per RN discretion. 9.? Bathroom available in Zone B without restriction. 10. Phone: limited to [facility] cordless phone at RN discretion. Due to VOLUNTARY status, if patient wishes to leave [facility], staff will contact [facility] Crisis Screener ([phone]) and Oenologist ([phone]) as soon as possible. In the event of elopement, notify [facility] Police ([phone]). Patient is currently voluntarily at [facility] and seeking inpatient admission when a bed becomes available. [facility] Frontline Driver Supervisor will continue seeking placement. Please contact the Oenologist ([phone]) and [facility] Driver Supervisor ([phone]) for any needed changes in the Safety Plan. Safety plan has been provided to interdepartmental care team.
--- NOTE | 2025-04-22 10:05 | PDOC.CMSAFE ---
Date of service: 04/22/25 Time of Service: 10:05 Care Management Safety Plan Status Status: Voluntary Reason for Wait Reason for Wait: Inpatient Admission Safety Plan Safety Plan: VOLUNTARY FOR INPATIENT PSYCHIATRIC STABILIZATION.? Patient is appropriate in all interactions since arriving at [facility]; Pt has demonstrated appropriate coping and communication skills, has articulated his needs and concerns and is fully engaged during staff interactions. Safety plan has been established with patient, and care team, to adhere to patient goals, identify restrictions based on behavioral status, address nutrition, and determine allowed personal belongings, tools for hygiene and personal care. Determine level of activity including ambulation, level of supervision, visitors, and determine privileges based on behaviors and level of engagement by pt. VOLUNTARY SAFETY PLAN: 1. Will remain on suicide precautions, in paper clothes 2. Will remain in Zone B under direct supervision of one-on-one staff at all times provided by [employer]; CHRISTINA, MANAGER OF DEVELOPMENT lab coordinator. 3. May have paper cups, plates, finger foods as well as a cardboard spoon with which to eat meals. 4. Follow [facility] Management of the Admitted Behavioral Health Patient policy. 5. Shower available in Zone B without restriction. 6. Personal belongings-soft items permitted at RN discretion. 7. Visitors-none at this time. 8. Activities: soft cart items, hospital tablets (Netflix/[place]+/music) approved per RN discretion. 9.? Bathroom available in Zone B without restriction. 10. Phone: limited to [facility] cordless phone at RN discretion. Due to VOLUNTARY status, if patient wishes to leave [facility], staff will contact [facility] Crisis Screener ([phone]) and Mechanical Unit Repairer ([phone]) as soon as possible. In the event of elopement, notify [facility] Police ([phone]). Patient is currently voluntarily at [facility] and seeking inpatient admission when a bed becomes available. [facility] Frontline Director Software will continue seeking placement. Please contact the Mechanical Unit Repairer ([phone]) and [facility] Director Software ([phone]) for any needed changes in the Safety Plan. Safety plan has been provided to interdepartmental care team.
--- NOTE | 2025-04-22 10:05 | PDOC.CMPRO ---
Date of service: 04/22/25 Time of Service: 10:05 Care Management Progress Note Progress Note Text Progress Note Text: Isidro remains pleasant and cooperative. He is waiting for voluntary placement in an inpatient psychiatric facility for stabilization. Discharge Anticipated Barriers to Discharge: Bed availability Plan: Isidro is awaiting a bed for voluntary inpatient psychiatric stabilization. Transportation will be determined by disposition. Social Determinants of Health Screening Will the Patient Participate in the Screening?: Declined to provide
[2025-04-22] MEDS: Lidocaine 5% Patch 1 PATCH TP (18:00)
--- NOTE | 2025-04-22 19:49 | PDOC.MHPN2 ---
Date of service: 04/22/25 Time of Service: 10:27 Mental Health Emergency Note Release [facility] release signed:: Yes Reason for Visit The client is previously known to [facility] but not to this advertising copy writer. The client is at [facility] seeking voluntary inpatient treatment. This advertising copy writer assesses the client via telehealth. In the last 2 weeks has the pt presented for ES prior to today?: No Impression The client is a 55 y/o old male who was previously residing at the [facility] due to loosing his housing in September, however reports that he has ran out of funds and is current homeless. The client reports he lived in the same home for twenty years but his landlord sold it and it forced him to be homeless. The client presents to this advertising copy writer laying down, is brief, guarded, and goal directed stating: I am looking forward to getting placed so I can get back on my feet. The client currently denies SI/HI as well as intent and plan, however reports if he were to be released from the hospital he does not know how will he will do. Plan/Disposition Recommended Disposition: Hospitalization facilities contacted. Plan: The client will remain at [facility] ED on voluntary status pending placement to an inpatient facility. The client will be re-assessed daily by [facility] until placement is found or the client is able to be safety planned to the community. Reports/communication Outcome discussed with: ED/Personnel (Verbal given to [facility] zone b staff)
[2025-04-22] MEDS: Zolpidem 10 MG TAB PO (20:20)
[2025-04-22] MEDS: Divalproex Sodium 500 MG TAB.ER.24H 1000 MG PO (20:20)
[2025-04-23] MEDS: Nicotine 2 MG LOZG SUC ×2 (06:41→09:07)
--- NOTE | 2025-04-23 07:18 | ED.PSYCHBOAR ---
Date of service: 04/23/25 Time of Service: 07:18 Psychiatric Border Handoff Update Brief Story: Suicidal recently EEed. Status: voluntary Able to leave: would need physician/XOCHITL and crisis evaluation prior to leaving Behavioral Concerns: None Potential Disposition: Pending placement. 9:41 AM I was in touch with Nathaniel Lomeli from the [facility] who graciously agreed to accept the patient in transfer. I signed transfer paperwork to have the patient transferred to the [facility]. Mediation Reconciliation performed: No Code Status ordered: Yes Diet ordered: Yes Discharge Plan Disposition Patient Disposition: Psychiatric Hospital/Unit Specific Psychiatric Facility: [facility] Discharge Details Clinical Impression: Homeless, Depression Primary Care Provider: None,None ED Provider: Aram Duran Ama Meds and New Rx's Prescriptions: Continued sumatriptan succinate 100 MG tablet 100 mg PO PRN duloxetine 60 MG capsule,delayed release(DR/EC) 60 mg PO BID meclizine 25 mg tablet 25 mg PO TID PRN (Reason: dizziness) Qty: 20 0RF clonazepam 1 mg tablet 1 mg PO QID divalproex 500 mg tablet extended release 24 hr 1,000 mg PO HS Patient Comments: TAKE TWO TABLETS BY MOUTH EVERY EVENING AT BEDTIME zolpidem [Ambien] 10 mg .Route .night Discharge Instructions Additional Instructions: You were in the emergency department for your thoughts of self-harm. You were transferred to the [facility]. None of your medications were changed. Discharge Data Discharge Date/Time-TO BE ENTERED AT DEPARTURE: 04/23/25 12:38
[2025-04-23 07:46] VITALS: BP 135/78; PULSE 93; TEMP 36.6; O2SAT 98
[2025-04-23] MEDS: DULoxetine 20 MG CAP 60 MG PO (09:07)
[2025-04-23] MEDS: Nicotine 21 MG/24 HR PATCH TD (09:07)
[2025-04-23] MEDS: clonazePAM 1 MG TAB PO (09:07)
[2025-04-23] MEDS: Acetaminophen 500 MG TAB 1000 MG PO (11:10)
--- NOTE | 2025-04-23 12:47 | CMPROGNOTE_ITS ---
Date of service: 04/23/25 Time of Service: 12:47 Care Management Progress Note Progress Note Text Progress Note Text: Isidro is at [facility] voluntarily, seeking mental health support. He was offered a bed at [facility] this morning, which he reluctantly accepted. He was transferred to by Mario Womack, coordinated by ED staff. Social Determinants of Health Screening Will the Patient Participate in the Screening?: Declined to provide
== END 2025-04-23 12:38 ==
PROVIDERS: Emergency Provider Emergency Medicine
DX: F32.A Depression, unspecified (principal); R45.851 Suicidal ideations; F12.90 Cannabis use, unspecified, uncomplicated; Z59.00 Homelessness unspecified; Z59.82 Transportation insecurity; Z59.89 Other problems related to housing and economic circumstances; W06.XXXA Fall from bed, initial encounter
CPT/HCPCS: 99285 ×4; 00123; 96127; G0378; 70450; 72125; J3490

== ENCOUNTER 2025-05-13 15:48 | Emergency (ER) | payer MEDICARE, SELFPAY ==
[2025-05-13] VITALS (33 sets, daily range): BP systolic 88–165; BP diastolic 69–96; PULSE 60–105; RESP 15–26; TEMP 36.5; O2SAT 96–99
[2025-05-13 16:17] LABS: Abs Immature Grans 0.02 10^3/uL (0.0-0.06); HCT 45.4 % (40.0-50.0); HGB 15.2 g/dL (13.5-17.5); Immature Grans % 0.2 %; MCH 31.0 pg (27.0-33.0); MCHC 33.5 % (32.0-36.0); MCV 93 fL (80-95); MPV 9.2 fL (8.0-11.0); Platelet Count 363 10^3/uL (130-400); RBC 4.90 10^6/uL (4.36-5.78); RDW 13.6 % (11.8-14.1); RDW-SD 46.4 fL; WBC 10.19 10^3/uL (4.4-10.8)
--- NOTE | 2025-05-13 16:23 | ED.GENADUL_ITS ---
Discharge Plan Disposition Patient Disposition: Psychiatric Hospital/Unit Discharge Details Clinical Impression: Suicide ideation, Depression Primary Care Provider: None,None ED Provider: Shabbir Gonzalez Home Meds and New Rx's Prescriptions: Continued sumatriptan succinate 100 MG tablet 100 mg PO PRN duloxetine 60 MG capsule,delayed release(DR/EC) 60 mg PO BID clonazepam 1 mg tablet 1 mg PO QID divalproex 500 mg tablet extended release 24 hr 1,000 mg PO HS Patient Comments: TAKE TWO TABLETS BY MOUTH EVERY EVENING AT BEDTIME zolpidem [Ambien] 10 mg .Route .night HPI General Date/Time Provider Initiated Documentation: 05/13/25 15:57 . HPI Narrative: MDM/Narrative: 1. Chronic suicidal ideation. Reported ingestion of 160 mg of Cymbalta to self-harm. Screening labs (acetaminophen, salicylates, urine drug tox screen, EKG) will be obtained. Mental health evaluation to be discussed with [facility]. ED Course: Labs reviewed, no significant abnormalities. Patient remains hemodynamicaly stable. Patient is medically cleared. [facility] recommends voluntary admission for inpatient bed placement. This document was created with assistance from [employer]. The patient consented to its use. Disposition: Voluntary admit Pending bed-search HPI: The patient is a 55-year-old male with a history of homelessness, major depressive disorder, and multiple evaluations for suicidal ideation. The patient reports ingesting 160 mg of duloxetine (Cymbalta) in an attempt to self-harm, with no co-ingestions or new symptoms reported. ROS: Negative besides as mentioned above Exam: Vital signs: Reviewed. General Appearance: Tremulous. HEENT: NCAT, EOMI, not icteric. External ears normal. No rhinorrhea. Moist mucous membranes. Neck: Supple, full range of motion, no observable masses, No meningeal sign. Respiratory: No Respiratory distress. No tachypnea. Cardiovascular: RRR, no edema. Gastrointestinal: Soft, nondistended, No rebound tenderness. Back: No midline tenderness to palpation or palpable step-offs of the C/T/L spine. Skin: Warm and dry, no rash. Neurological: Normal Gait, Grossly intact. Psychiatric: Appropriate for situation. Labs: Laboratory Tests Range/Units 05/13/25 05/13/25 15:45 17:21 WBC (4.4-10.8) 10^3/uL 10.19 RBC (4.36-5.78) 10^6/uL 4.90 Hgb (13.5-17.5) g/dL 15.2 Hct (40.0-50.0) % 45.4 MCV (80-95) fL 93 MCH (27.0-33.0) pg 31.0 MCHC (32.0-36.0) % 33.5 RDW (11.8-14.1) % 13.6 Plt Count (130-400) 10^3/uL 363 MPV (8.0-11.0) fL 9.2 Immature Gran % % 0.2 Neutrophils % % 59.2 Lymphocytes % % 28.9 Monocytes % % 7.5 Eosinophils % % 3.5 Basophils % % 0.7 Nucleated RBC % (0.0-0.3) % 0.0 Absolute Neutrophils (1.2-6.7) 10^3/uL 6.04 Absolute Lymphocytes (1.2-3.4) 10^3/uL 2.94 Absolute Monocytes (0.1-0.8) 10^3/uL 0.76 Absolute Eosinophils (0.0-0.7) 10^3/uL 0.36 Absolute Basophils (0.0-0.2) 10^3/uL 0.07 Sodium (136-145) mmol/L 143 Potassium (3.5-5.1) mmol/L 4.2 Chloride (98-107) mmol/L 104 Carbon Dioxide (21.0-32.0) mmol/L 32.2 H Anion Gap (3-11) mmol/L 6.8 BUN (7-18) mg/dL 4 L Creatinine (0.70-1.30) mg/dL 0.8 Est GFR (CKD-EPI 2020) (mL/min/1.73m2) 104.51 Glucose (74-106) mg/dL 112 H Calcium (8.5-10.1) mg/dL 9.5 Total Bilirubin (0.2-1.0) mg/dL 0.5 AST (15-37) U/L 17 ALT (16-63) U/L 30 Alkaline Phosphatase (46-116) U/L 58 Total Protein (6.4-8.2) g/dL 7.7 Albumin (3.4-5.0) g/dL 4.1 Urine Color (Yellow) Yellow Urine Clarity (Clear) Clear Urine pH (5-8) 7.0 Ur Specific [place] (1.005-1.025) 1.015 Urine Protein (Neg-Trace) mg/dL Negative Urine Ketones (Negative) mg/dL Negative Urine Blood (Negative) Negative Urine Nitrite (Negative) Negative Urine Bilirubin (Negative) Negative Urine Urobilinogen (Up to 0.2) mg/dL 0.2 Ur Leukocyte Esterase (Negative) Negative Urine Glucose (Negative) mg/dL Negative Salicylates (<2.8) mg/dL 4.6 Urine Opiates Screen (Negative) Negative Urine Methadone Screen (Negative) Negative Acetaminophen (10-30) ug/mL < 2 Ur Barbiturates Screen (Negative) Negative Ur Tricyclics Screen (Negative) Negative Ur Amphetamines Screen (Negative) Negative U Benzodiazepines Scrn (Negative) Negative Urine Cocaine Screen (Negative) Negative Ur THC Screen (Negative) Positive A Ethyl Alcohol (<10) mg/dL < 3.0 Related Data Home Medications ?Medication ?Instructions ?Recorded ?Confirmed duloxetine 60 mg capsule,delayed 60 mg PO BID 12/15/16 05/13/25 release sumatriptan succinate 100 mg tablet 100 mg PO PRN 11/2805/13/25 clonazepam 1 mg tablet 1 mg PO QID 10/23/24 5 divalproex 500 mg tablet,extended 1,000 mg PO HS 11/1005/13/25 release 24 hr zolpidem 10 mg .Route .night 04/12/25 05/13/25 Allergies Allergy/AdvReac Type Severity Reaction Status Date / Time prochlorperazine (From Allergy Unknown Unknown Verified 04/20/25 13:39 Compazine) promethazine (From Phenergan) Allergy Unknown Unknown Verified 04/20/25 13:39 NSAIDS (Non-Steroidal Allergy Unknown Verified 04/20/25 13:39 Anti-Inflamma General Stated Complaint: OD/Poison PUSHPA: 2 Course Vital Signs Vital signs: Vital Signs Temperature 36.5 C 05/13/25 15:53 Pulse 70 05/13/25 15:53 Respiratory Rate 21 05/13/25 15:53 Blood Pressure 150/84 H 05/13/25 15:53 Pulse Oximetry 98 05/13/25 15:53 Temperature 36.5 C 05/13/25 15:53 Temperature Source Oral 05/13/25 15:53 Pulse 70 05/13/25 15:53 Respiratory Rate 21 05/13/25 15:53 Blood Pressure 150/84 H 05/13/25 15:53 Blood Pressure Position Supine 05/13/25 15:53 Pulse Oximetry 98 05/13/25 15:53 Oxygen Delivery Method Room Air 05/13/25 15:53 Oxygen Flow Rate 0 05/13/25 15:53 Lab/Test Results Lab/Test Results: Laboratory Tests Range/Units 05/13/25 15:45 WBC (4.4-10.8) 10^3/uL 10.19 RBC (4.36-5.78) 10^6/uL 4.90 Hgb (13.5-17.5) g/dL 15.2 Hct (40.0-50.0) % 45.4 MCV (80-95) fL 93 MCH (27.0-33.0) pg 31.0 MCHC (32.0-36.0) % 33.5 RDW (11.8-14.1) % 13.6 Plt Count (130-400) 10^3/uL 363 MPV (8.0-11.0) fL 9.2 Immature Gran % % 0.2 Neutrophils % % 59.2 Lymphocytes % % 28.9 Monocytes % % 7.5 Eosinophils % % 3.5 Basophils % % 0.7 Nucleated RBC % (0.0-0.3) % 0.0 Absolute Neutrophils (1.2-6.7) 10^3/uL 6.04 Absolute Lymphocytes (1.2-3.4) 10^3/uL 2.94 Absolute Monocytes (0.1-0.8) 10^3/uL 0.76 Absolute Eosinophils (0.0-0.7) 10^3/uL 0.36 Absolute Basophils (0.0-0.2) 10^3/uL 0.07 Medical Decision Making Quality:SDOH Health Related Social Needs: Health related social needs risk of homeless transpo i nsecurity house/econ circumstance education Health related social needs details patient currently lives in a hotel which he pays out of pocket for. PFSH All Active Problems (Updated 05/13/25 @ 21:06 by Shabbir Gonzalez MD) Depression (Chronic) Homeless (Acute) Suicide ideation (Acute) Medical History Obesity History of alcoholism GERD (gastroesophageal reflux disease) Tremor Migraines Depression with psychotic features Anxiety Surgical History Repair of inguinal hernia Family History Mother Depression Melanoma Social History Smoking/Tobacco Use Status: Current every day Tobacco Type: cigars Per week: 14 Smoking risk assessment performed?: Yes Alcohol Intake: former Drug use: Occasionally Substance use type: marijuana and crack/cocaine Details: smoked marijuana week before coming to the hospital Housing: other Do you feel safe at home: Yes Do you feel safe in your relationship?: Yes
--- NOTE | 2025-05-13 16:28 | NUR.NOTE ---
Nursing Note:call to poison control, spoke to christos, recommendations made and made aware of recommendations
[2025-05-13 16:38] LABS: ALT 30 U/L (16-63); AST 17 U/L (15-37); Albumin 4.1 g/dL (3.4-5.0); Alkaline Phosphatase 58 U/L (46-116); Anion Gap 6.8 mmol/L (3-11); BUN 4 mg/dL (7-18); Bilirubin, Total 0.5 mg/dL (0.2-1.0); CO2 32.2 mmol/L (21.0-32.0); Calcium 9.5 mg/dL (8.5-10.1); Chloride 104 mmol/L (98-107); Estimated GFR 104.51 (mL/min/1.73m2); Glucose 112 mg/dL (74-106); Potassium 4.2 mmol/L (3.5-5.1); Sodium 143 mmol/L (136-145); Total Protein 7.7 g/dL (6.4-8.2)
[2025-05-13 17:34] LABS: Salicylate 4.6 mg/dL (<2.8)
[2025-05-13 17:39] LABS: Acetaminophen < 2 ug/mL (10-30)
[2025-05-13 17:52] LABS: Glucose Negative (Negative)
[2025-05-13 17:55] LABS: Cannabinoids THC Positive (Negative); METHADONE URINE SCREEN Negative (Negative)
[2025-05-13] MEDS: Nicotine 4 MG LOZG SUC (20:03)
--- NOTE | 2025-05-13 20:49 | PDOC.MHCN_ITS ---
Date of service: 05/13/25 Time of Service: 17:53 PHQ-9 Over the last 2 weeks, how often have you been bothered by any of the following problems? 1. Little interest or pleasure in doing things: several days 2. Feeling down, depressed, or hopeless: nearly every day 3. Trouble falling or staying asleep, or sleeping too much: more than half the days 4. Feeling tired or having little energy: nearly every day 5. Poor appetite or overeating: nearly every day 6. Feeling bad about yourself - or that you are a failure or have let yourself and your family down: nearly every day 7. Trouble concentrating on things, such as reading the newspaper or watching television: nearly every day 8. Moving or speaking so slowly that other people could have noticed? - Or the opposite - being so fidgety or restless that you have been moving around a lot more than usual: nearly every day 9. Thoughts that you would be better off or of hurting yourself in some way: nearly every day Total score: 24 If you checked off any problems, how difficult have these problems made it for you to do your work, take care of things at home, or get along with other people?: very difficult Source: Developed by Drs. Derek Dobbs, Meme Odell, Alok Mott and colleagues, with an educational kai from [employer]. Suicide Severity Rate CSSRS Have you wished you were or wished you could go to sleep and not wake up?: Yes Have you actually had any thoughts of killing yourself?: Yes CSSRS2 Have you been thinking about how you might do this?: Yes Have you had these thoughts and had some intention of acting on them?: Yes Have you started to work out or worked out the details of how to kill yourself? Do you intend to carry out this plan?: Yes CSSRS3 Have you ever done anything, started to do anything or prepared to do anything to end your life?: Yes CSSRS4 Was this within the past three months?: Yes Screening Score Total Score: 8 Screening: Positive Mental Health Emergency Note Release [facility] release signed:: Yes Reason for Visit The client presented to [facility] ED via ambulance after calling 911 reporting to on Duloxetine. The client is known to [facility] and this clinician. The client was assessed last by ES on 04/22/25 and no showed his last AO psych appointment on 05/10/25. The client self reports to have been hospitalized 3 times in the past for his mental health with the last time being two weeks ago at [facility]. In the last 2 weeks has the pt presented for ES prior to today?: Yes, presented at [facility] ED and [facility] Client Information Client is: Adult Outpatient Well Housed: No,status: Not homeless, Unstable housing Non Suicidal Self Injury Current: No History: No Safety Risk/Harm to Self or Others Current Ideation to Harm Self or Others: Yes to self. Intent: yes, has intent. Plan: no.does not have a plan. History of suicide attempt: yes,history of suicide attempt reported. Details of previous suicide attempt: The client reported to jump of a bridge today and to OD on 100 60mg duloxetine capsules Risk: Does risk to harm exist?: yes. Access to means: Yes. Types of Means: Medication. Counseling provided: No Risk: High Risk Duty to warn indicated: No Asssessment/Mental Status Appearance: Disheveled and Poor hygiene Attitude: Cooperative Behavior: Poor impulse control Speech: Normal Affect: Cogruent with mood Mood: Depressed Thought process: Goal directed and Poverty of content Hallucinations: No Delusions: No Attention: Unremarkable Perception: Not impaired Orientation: Fully orientated Memory: Intact Insight: Poor Judgement: Poor Neurovegetative Symptoms Sleep: No change Appetitie: Decrease Interests: Decrease Energy: Decrease Libido: Not applicable Additional Issues: Assaultive/Threatening Behavior: No Medical Concerns: No Client engaged in active self harm w/weapon: No Threatening to run away: No Child reported abuse/neglect: No Voluntarily presenting for services: Yes Domestic violence is a concern: No Extreme Psychosis or extreme behavior is present: No Impression The client is a 55 year old single biological male who is currently residing at the [facility] in [place], [place]. The client presents in a disheveled appearance with poor hygiene and is seen in muñiz sweatpants and a long sleeve black shirt laying in his hospital bed. Affect is congruent with mood and speech is in normal range. Client is cooperative with this clinician; they report their mood as depressed. Thought process appears to be a poverty of content and goal directed. There are no delusions observed by this clinician. The client denied visual and auditory hallucinations. Cognitive assessment reveals orientation to person, place and time. The client presented to the [facility] ED via ambulance after reporting to take one hundred 60mg Duloxetine capsules with the intention to . The client reports feeling depressed and does no disclose any details to why they have been feeling like this. The client reports to have jumped off the bridge by the [employer] with the intention to . The client states he had missed the rocks and landed in the water with no injuries. The client denies HI and NSSI with no intent or plan. The client reports SI with his intent scored as a 9 out of 10 and no current plan. The client scored 24/27 on the PHQ-9 and a 6/6 on the CSSRS. The client states he is seeking voluntary inpatient treatment for his mental health. Plan/Disposition Recommended Disposition: Hospitalization facilities contacted. Plan: The client will remain in the Zone [facility] of [facility] until voluntary inpatient treatment is secured. The client will receive once a day reassessments by emergency services until placement is found. Reports/communication Outcome discussed with: ED/Personnel
[2025-05-13 22:45] LABS: Acetaminophen < 2 ug/mL (10-30)
[2025-05-14] VITALS (48 sets, daily range): BP systolic 126–139; BP diastolic 84–115; PULSE 65–102; RESP 14–33; TEMP 36.3–37.1; O2SAT 94–98
--- NOTE | 2025-05-14 06:15 | RT.EKG_ITS ---
APPROVED REPORT Exam: Resting ECG Reason for Exam: overdose Patient Location: E HR:88 bpm ECG Measurements Heart Rate 88 AXIS MN 170 P 47 QRSd 93 QRS 53 QT 358 T 50 QTc 433 Conclusion Sinus rhythm...normal P axis, V-rate 60- 99 I have reviewed and interpreted ECG and agree with software generated interpretation.
--- NOTE | 2025-05-14 06:21 | W.EDPROG ---
Date of service: 05/14/25 Time of Service: 00:00 Medical Decision Making This patient was signed out to me. Please see previous notes for H&P and inital eval. In brief, pt here with SI and intentional overdose on duloxetine. Asymptomatic, medically cleared, pending placement. Chart reviewed after EMR back up from downtime overnight and medication reconciliation completed. Given recent overdose, hesitant to restart duloxetine. Discussed with poison control; recommended holding off until tomorrow. Home meds ordered with duloxetine to start tomorrow morning. Of note, triage note states 160mg was taken; mental health note one-hundred 60mg tablets which would be a significant amount. I requested nursing notify me when patient is awake so that I can assess him, otherwise to wake him at 0630 for vitals signs and MD assessment. On reassessment pt with marked tremor bilateral upper extremities; he reports this is not new for him but is worse than usual. No agitation or diaphoresis. PERRL, no mydriasis. On exam he does marked hyperreflexia and clonus in his LE. Normal blood pressure and temp, slightly tachycardia at 102. Suggestive of mild serotonin syndrome; will rescind medical clearance and repeat EKG and send CK, give 2mg PO ativan. Poison control updated and concur with plan. Expect response to benzos rapidly, and given mild presentation at this time if symptoms resolve with treatment can likely re-clear within the next several hours. Given this, will continue to hold in the ED. Repeat EKG with acceptable intervals. Will be signed out to oncoming physician, plan as above. Lab Data Lab results reviewed: Yes I reviewed the patient's lab results. Labs: Laboratory Tests Range/Units 05/13/25 05/13/25 05/13/25 15:45 17:21 22:13 WBC (4.4-10.8) 10^3/uL 10.19 RBC (4.36-5.78) 10^6/uL 4.90 Hgb (13.5-17.5) g/dL 15.2 Hct (40.0-50.0) % 45.4 MCV (80-95) fL 93 MCH (27.0-33.0) pg 31.0 MCHC (32.0-36.0) % 33.5 RDW (11.8-14.1) % 13.6 Plt Count (130-400) 10^3/uL 363 MPV (8.0-11.0) fL 9.2 Immature Gran % % 0.2 Neutrophils % % 59.2 Lymphocytes % % 28.9 Monocytes % % 7.5 Eosinophils % % 3.5 Basophils % % 0.7 Nucleated RBC % (0.0-0.3) % 0.0 Absolute Neutrophils (1.2-6.7) 10^3/uL 6.04 Absolute Lymphocytes (1.2-3.4) 10^3/uL 2.94 Absolute Monocytes (0.1-0.8) 10^3/uL 0.76 Absolute Eosinophils (0.0-0.7) 10^3/uL 0.36 Absolute Basophils (0.0-0.2) 10^3/uL 0.07 Sodium (136-145) mmol/L 143 Potassium (3.5-5.1) mmol/L 4.2 Chloride (98-107) mmol/L 104 Carbon Dioxide (21.0-32.0) mmol/L 32.2 H Anion Gap (3-11) mmol/L 6.8 BUN (7-18) mg/dL 4 L Creatinine (0.70-1.30) mg/dL 0.8 Est GFR (CKD-EPI 2020) (mL/min/1.73m2) 104.51 Glucose (74-106) mg/dL 112 H Calcium (8.5-10.1) mg/dL 9.5 Total Bilirubin (0.2-1.0) mg/dL 0.5 AST (15-37) U/L 17 ALT (16-63) U/L 30 Alkaline Phosphatase (46-116) U/L 58 Total Protein (6.4-8.2) g/dL 7.7 Albumin (3.4-5.0) g/dL 4.1 Urine Color (Yellow) Yellow Urine Clarity (Clear) Clear Urine pH (5-8) 7.0 Ur Specific [employer] (1.005-1.025) 1.015 Urine Protein (Neg-Trace) mg/dL Negative Urine Ketones (Negative) mg/dL Negative Urine Blood (Negative) Negative Urine Nitrite (Negative) Negative Urine Bilirubin (Negative) Negative Urine Urobilinogen (Up to 0.2) mg/dL 0.2 Ur Leukocyte Esterase (Negative) Negative Urine Glucose (Negative) mg/dL Negative Salicylates (<2.8) mg/dL 4.6 Urine Opiates Screen (Negative) Negative Urine Methadone Screen (Negative) Negative Acetaminophen (10-30) ug/mL < 2 < 2 Ur Barbiturates Screen (Negative) Negative Ur Tricyclics Screen (Negative) Negative Ur Amphetamines Screen (Negative) Negative U Benzodiazepines Scrn (Negative) Negative Urine Cocaine Screen (Negative) Negative Ur THC Screen (Negative) Positive A Ethyl Alcohol (<10) mg/dL < 3.0 Quality:SDOH Health Related Social Needs: Health related social needs risk of homeless transpo insecurity house/econ circumstance education Health related social needs details patient currently lives in a hotel which he pays out of pocket for. Discharge Plan Disposition Patient Disposition: Psychiatric Hospital/Unit Discharge Details Clinical Impression: Suicide ideation, Depression Primary Care Provider: None,None ED Provider: Shanelle Huffman Home Meds and New Rx's Prescriptions: Continued sumatriptan succinate 100 MG tablet 100 mg PO PRN duloxetine 60 MG capsule,delayed release(DR/EC) 60 mg PO BID clonazepam 1 mg tablet 1 mg PO QID divalproex 500 mg tablet extended release 24 hr 1,000 mg PO HS Patient Comments: TAKE TWO TABLETS BY MOUTH EVERY EVENING AT BEDTIME zolpidem [Ambien] 10 mg .Route .night
[2025-05-14] MEDS: LORazepam 1 MG TAB 2 MG PO (06:35)
[2025-05-14 07:25] LABS: Creatine Kinase 68 U/L (39-308)
[2025-05-14] MEDS: Nicotine 2 MG LOZG SUC ×3 (07:51→13:23)
[2025-05-14] MEDS: clonazePAM 1 MG TAB PO (07:58)
[2025-05-14] MEDS: diazePAM 5 MG TAB PO (11:28)
--- NOTE | 2025-05-14 13:22 | ED.PSYCHBOAR ---
Date of service: 05/14/25 Time of Service: 13:22 Psychiatric Border Handoff Update Brief Story: Patient was here after overdose, there was concern for potential serotonin syndrome. He was medically evaluated by the nighttime physician, and had a prolonged observation here. On reassessment today at noon the patient's symptoms are completely resolved. No hypertonia, leadpipe rigidity, hyperreflexia, clonus, tachycardia or other abnormalities. Patient appears clinically well and medically clear/stable. CPK level normal. I did receive a call after the patient was medically cleared from KIRAN Hernandez and HANNAH Church who accepted the patient for transfer to [facility]. They did request a Depakote level as well as TSH. Those labs are still pending at this time. However Depakote is less than 3. Patient otherwise stable. Patient will be transferred to [facility]. I have extensively reviewed the treatment plan with the patient. I have addressed all patient concerns at this time. I have also discussed the plan with the admitting physician and they agree with the current assessment and plan and have agreed to assume responsibility for the patient. All parties demonstrate verbal understanding and agreement with our assessment and plan at this time. The documentation in this chart was dictated using [employer] dictation software. Please excuse any dictation errors. Status: voluntary Mediation Reconciliation performed: Yes Code Status ordered: Yes Diet ordered: Yes Discharge Plan Disposition Patient Disposition: Psychiatric Hospital/Unit Specific Psychiatric Facility: [facility] Condition: Improving Discharge Details Clinical Impression: Suicide ideation, Depression Primary Care Provider: None,None ED Provider: Terence Ryan Home Meds and New Rx's Prescriptions: Continued sumatriptan succinate 100 MG tablet 100 mg PO PRN duloxetine 60 MG capsule,delayed release(DR/EC) 60 mg PO BID clonazepam 1 mg tablet 1 mg PO QID divalproex 500 mg tablet extended release 24 hr 1,000 mg PO HS Patient Comments: TAKE TWO TABLETS BY MOUTH EVERY EVENING AT BEDTIME zolpidem [Ambien] 10 mg .Route .night Discharge Instructions Instructions: Depression in adults Additional Instructions: You are being transferred to [facility]. Please follow your safety plan and the instructions of your mental health advocates.
--- NOTE | 2025-05-14 13:46 | CMPROGNOTE_ITS ---
Date of service: 05/14/25 Time of Service: 13:47 Care Management Progress Note Progress Note Text Progress Note Text: Isidro presented to the ED after taking an intentional overdose of his medication. He was medically cleared this morning, after a period of observation in the ED. [facility] accepted him for treatment; ED staff coordinated transportation via [employer]. Isidro is voluntary and agreed with this plan of care; he transferred to [facility] this afternoon. Social Determinants of Health Screening Will the Patient Participate in the Screening?: Declined to provide
[2025-05-14 14:00] LABS: TSH (W/Ref FT4) 0.42 uIU/mL (0.36-3.74)
--- NOTE | 2025-05-17 08:56 | NUR.NOTE ---
Access chart to reconcile EKG orders with EKG's in [facility]. Duplicate order cancelled. Nursing Note:
== END 2025-05-14 13:39 ==
PROVIDERS: General Practice; Student in an Organized Health Care Education/Training Program; Emergency Provider Student in an Organized Health Care Education/Training Program
DX: F32.A Depression, unspecified (principal); R45.851 Suicidal ideations; Z59.01 Sheltered homelessness; Z59.89 Other problems related to housing and economic circumstances; Z59.82 Transportation insecurity
CPT/HCPCS: 00123; 36415; 80053; 80307; 82550; 93005; 96127; 99285; G0378; 80164; 80320; 80329; 81003; 84443; 85025; 93010

== ENCOUNTER 2025-05-27 15:02 | Emergency (ER) | payer MEDICARE, SELFPAY ==
[2025-05-27 15:03] VITALS: BP 136/84; PULSE 118; RESP 20; TEMP 37.1; O2SAT 93
--- NOTE | 2025-05-27 15:15 | DI.CT_ITS ---
Exam(s) CT LUMBAR SPINE WO EXAM: CT LUMBAR SPINE WO CLINICAL HISTORY: fall, hit mid/lower back. TECHNIQUE: Imaging Protocol: Axial computed tomography images with coronal and sagittal reformatted images were created and reviewed COMPARISON: CT CT THORACIC LUMBAR SPINE REC from 03/25/2025 FINDINGS: Bones: The last intervertebral disc space is designated the L5/S1 level for the numbering purpose of this examination. The vertebral body heights are well maintained. Alignment is satisfactory. No fracture is seen. Discs: There is mild disc bulging evident at L4-5 and L5-S1. Soft Tissues: The paraspinal soft tissues are unremarkable. IMPRESSION: No evidence of fracture. The preliminary [facility] report was reviewed. RADIATION DOSE DELIVERED: Total DLP DATA REPOSITORY: All CT scans at this facility are submitted to the National Radiology Data Registry (NRDR) Dose Index Registry (DIR) with the [employer] (A[employer]). RADIATION OPTIMIZATION: All CT scans at this facility use at least one of these dose optimization techniques: automated exposure control; mA and/or kV adjustment per patient size (includes targeted exams where dose is matched to clinical indication); or iterative reconstruction.
--- NOTE | 2025-05-27 15:21 | DI.CT_ITS ---
Exam(s) CT PELVIC WO EXAM: CT PELVIC WO CLINICAL HISTORY: fall, hit mid/lower back. TECHNIQUE: Imaging Protocol: Axial computed tomography images with coronal and sagittal reformatted images were created and reviewed. CONTRAST MATERIAL: Oral: no COMPARISON: No exams were available for comparison FINDINGS: Bladder: Symmetric distention, no gross wall thickening. Bowel: No obstruction or bowel wall thickening. Peritoneal cavity: No ascites, collection or mesenteric inflammatory response. Reproductive: Unremarkable. Bones: No fracture. Mild degenerative changes of the right hip. Soft tissues: Unremarkable. IMPRESSION: No acute abnormality The preliminary [facility] report was reviewed. RADIATION DOSE DELIVERED: Total DLP DATA REPOSITORY: All CT scans at this facility are submitted to the National Radiology Data Registry (NRDR) Dose Index Registry (DIR) with the [employer] (ACR). RADIATION OPTIMIZATION: All CT scans at this facility use at least one of these dose optimization techniques: automated exposure control; mA and/or kV adjustment per patient size (includes targeted exams where dose is matched to clinical indication); or iterative reconstruction.
--- NOTE | 2025-05-27 15:46 | W.ED.GENAD ---
Discharge Plan Discharge Details Chief Complaint: Fall/Non TraumaCriteria Clinical Impression: Suicide ideation, Chronic back pain Primary Care Provider: None,None ED Provider: Terence Ryan Home Meds and New Rx's Prescriptions: No Action sumatriptan succinate 100 MG tablet 100 mg PO PRN duloxetine 60 MG capsule,delayed release(DR/EC) 60 mg PO BID clonazepam 1 mg tablet 1 mg PO QID divalproex 500 mg tablet extended release 24 hr 1,000 mg PO HS Patient Comments: TAKE TWO TABLETS BY MOUTH EVERY EVENING AT BEDTIME zolpidem [Ambien] 10 mg .Route .night HPI General Date/Time Provider Initiated Documentation: 05/27/25 15:07. HPI Narrative: 55-year-old male who denies any medical problems but does have a history of psychiatric problems including alcoholism, depression, anxiety, and has been diagnosed with migraines and GERD in the past,(who is also not seen at medical doctor in years) and is prescribed occasional clonazepam by his psychiatrist, and does have a history of chronic low back pain secondary to old vertebral body fractures, who has been admitted in the past for suicidality, presents today for low back pain. Patient is currently homeless, and living in the [facility]. He does not have a tent. He states that he was walking about an hour ago and fell and hit his low back on a rock. He had pain after this. He did take 3 Tylenol prior to arrival. Uncertain as to the dosage. He also states that in his current situation he no longer wants to live. He states that life is not worth living. He is not specific about a plan on how he would end his life but he makes it clear that he does not want to continue this life. He denies any other complaints at this time. Patient denies any saddle anesthesia, numbness or tingling in the groin, change in sensation when wiping. Patient denies any change in sensation during sexual intercourse, difficulty achieving or maintaining an erection or ejaculation, bowel or bladder incontinence, leakage, or retention. Patient denies any weakness in the lower extremities, atypical imbalance. Related Data Home Medications ?Medication ?Instructions ?Recorded ?Confirmed duloxetine 60 mg capsule,delayed 60 mg PO BID 12/15/16 05/27/25 release sumatriptan succinate 100 mg tablet 100 mg PO PRN 12/15/16 05/27/25 clonazepam 1 mg tablet 1 mg PO QID 10/23/24 05/27/25 divalproex 500 mg tablet,extended 1,000 mg PO HS 11/10/24 05/27/25 release 24 hr zolpidem 10 mg .Route .night 04/12/25 05/27/25 Allergies Allergy/AdvReac Type Severity Reaction Status Date / Time prochlorperazine (From Allergy Unknown Unknown Verified 04/20/25 13:39 Compazine) promethazine (From Phenergan) Allergy Unknown Unknown Verified 04/20/25 13:39 NSAIDS (Non-Steroidal Allergy Unknown Verified 04/20/25 13:39 Anti-Inflamma General Stated Complaint: Fall/Non TraumaCriteria PUSHPA: 2 Exam Narrative Exam Narrative: 1.Const: Well-nourished, Well-developed, appearing stated age 2.Eyes: PERRL, no conjunctival injection, and symmetrical lids. 3.ENT: Atraumatic external nose and ears. Moist MM. Neck: Symmetric, trachea midline, No thyromegaly. 4.CVS: +S1/S2, Peripheral pulses 2+ and equal in all extremities. Brisk capillary refill in all extremities. 5.RESP: Unlabored respiratory effort. Clear to auscultation bilaterally. No wheezes rales or rhonchi 6.GI: Soft, Nontender/Nondistended, No hepatosplenomegaly. No guarding or rebound. 7.MSK: Normocephalic/Atraumatic, Extremities w/o deformity or ttp No cyanosis or clubbing, Normal movement of all extremities No midline tenderness to palpation over the cervical or thoracic spine. Patient does have midline tenderness over L3-L4, L5 and S1. Normal ROM in flexion, extension, side bend, and rotation. Patient has +5 out of 5 strength in the lower extremities in dorsiflexion and plantarflexion, knee flexion and extension, hip flexion and extension. Normal strength for dorsiflexion and plantar flexion of the great toe bilaterally. There is +2 over 2 dorsalis pedis pulses bilaterally. There is normal sensation to the skin with light touch at the foot, knee, and hip. Normal saddle sensation. Good sensation over the deep sural nerve area bilaterally. Rectal exam demonstrates good rectal tone with excellent bridget-rectal sensation. Reflexes are +2 over 4 in the patellar reflex bilaterally. +5 out of 5 strength in the medial, ulnar, radial nerve distribution bilaterally in the hands as well as intact light touch sensation to these dermatomes on the hands 8.Skin: Warm, Dry. No rashes or lesions. 9.Neuro: tank cooper II-XII grossly intact. Sensation grossly intact, no focal neurologic deficits. 10.Psych: (AAO) x3. Appropriate mood and affect Course Vital Signs Vital signs: Vital Signs Temperature 37.1 C 05/27/25 15:03 Pulse 118 H 05/27/25 15:03 Respiratory Rate 20 05/27/25 15:03 Blood Pressure 136/84 05/27/25 15:03 Pulse Oximetry 93 05/27/25 15:03 Temperature 37.1 C 05/27/25 15:03 Temperature Source Temporal Artery Scan 05/27/25 15:03 Pulse 118 H 05/27/25 15:03 Respiratory Rate 20 05/27/25 15:03 Blood Pressure 136/84 05/27/25 15:03 Pulse Oximetry 93 05/27/25 15:03 Pain Level 10 05/27/25 15:03 Medical Decision Making 55-year-old male who denies any medical problems but does have a history of psychiatric problems including alcoholism, depression, anxiety, and has been diagnosed with migraines and GERD in the past,(who is also not seen at medical doctor in years) and is prescribed occasional clonazepam by his psychiatrist, and does have a history of chronic low back pain secondary to old vertebral body fractures, who has been admitted in the past for suicidality, presents today for low back pain. Patient is currently homeless, and living in the [facility]. He does not have a tent. He states that he was walking about an hour ago and fell and hit his low back on a rock. He had pain after this. He did take 3 Tylenol prior to arrival. Uncertain as to the dosage. He also states that in his current situation he no longer wants to live. He states that life is not worth living. He is not specific about a plan on how he would end his life but he makes it clear that he does not want to continue this life. He denies any other complaints at this time. Patient denies any saddle anesthesia, numbness or tingling in the groin, change in sensation when wiping. Patient denies any change in sensation during sexual intercourse, difficulty achieving or maintaining an erection or ejaculation, bowel or bladder incontinence, leakage, or retention. Patient denies any weakness in the lower extremities, atypical imbalance. Exam demonstrates well-appearing male, patient has mild midline tenderness over L3-S1. Concern for spinal contusion or worsening of chronic fractures. No concerning red flags to suggest cauda equina syndrome or neurovascular compromise. He otherwise has good muscular strength and normal sensation. Additionally the patient is depressed, and wants to end his life without a clear plan. We will medically clear, but then plan on evaluation by mental health advocates once medically clear. Patient CT imaging negative for acute process. Patient given Lidoderm patches and NSAID therapy. Patient cleared for mental health evaluation. Depakote level normal. Smart form completed. Mental health is seen and assessed the patient and they are requesting a telepsych consult for the patient's continued visits to the ED. I did discuss with [facility] how I suspect that the patient's stated depression and suicidality are situational in basis, and secondary to his living standards and current situation. He states [facility] and was just [facility] out and is now living in the forced within the last 48 to 72 hours. This seems to be a recurring component of his symptoms after he leaves a treatment facility. He shortly thereafter loses his housing component, and then comes to the ER for further assessment and complaint of suicidality. However mental health does request this formal evaluation, and we will place the order. Patient otherwise has his medications ordered, and will board here until mental health advocates are able to find a safety plan outpatient alternative versus inpatient treatment. Pending psychiatry consult. FINDINGS: Bones/joints: Vertebral body height is well preserved. No evidence for fracture. There is severe bulge at the L4-L5 level. There is bilateral foraminal narrowing, right worse than left with moderate central stenosis. There is left-sided moderate to severe protrusion at the L5-S1 level with lateral recess stenosis and bilateral foraminal narrowing, right worse than left. Lungs: Calcified granuloma right lung base. Kidneys and ureters: Nonobstructing left renal calculi. Vasculature: Mild atherosclerotic change noted in the vasculature. Soft tissues: Unremarkable. IMPRESSION: No acute fracture. Spondylosis and stenosis as noted at the L4-L5 level with lateral recess stenosis at the L5-S1 level on the left. Thank you for allowing us to participate in the care of your patient. Dictated and Authenticated by: Marianna White MD FINDINGS: Vasculature: Mild atherosclerotic change noted in the vasculature. Bones/joints: Unremarkable. No acute fracture. No dislocation. Soft tissues: Unremarkable. IMPRESSION: No evidence for acute posttraumatic abnormality. Thank you for allowing us to participate in the care of your patient. Dictated and Authenticated by: Marianna White MD 05/27/2025 4:55 PM Eastern Time ([place] & [place]) Quality:SDOH Health Related Social Needs: Health related social needs risk of homeless transpo insecurity house/econ circumstance education Health related social needs details patient currently lives in a hotel which he pays out of pocket for. PFSH All Active Problems (Updated 05/27/25 @ 23:23 by Terence Ryan DO) Chronic back pain (Acute) Suicide ideation (Acute) Medical History Obesity History of alcoholism GERD (gastroesophageal reflux disease) Tremor Migraines Depression with psychotic features Anxiety Surgical History Repair of inguinal hernia Family History Mother Depression Melanoma Social History Smoking/Tobacco Use Status: Current every day Tobacco Type: cigars Per week: 14 Smoking risk assessment performed?: Yes Alcohol Intake: former Drug use: Occasionally Substance use type: marijuana and crack/cocaine Details: smoked marijuana week before coming to the hospital Housing: other Do you feel safe at home: Yes Do you feel safe in your relationship?: Yes
[2025-05-27] MEDS: Lidocaine 5% Patch 2 PATCH TP (16:09)
[2025-05-27 16:23] LABS: Cannabinoids THC Positive (Negative); METHADONE URINE SCREEN Negative (Negative)
--- NOTE | 2025-05-27 16:51 | DI.VRAD_ITS ---
PROCEDURE INFORMATION: Exam: CT Lumbar Spine Without Contrast Exam date and time: 05/27/2025 4:08 PM Age: 55 years old Clinical indication: Injury or trauma; Blunt trauma (contusions or hematomas); Injury details: Fall, hit mid/lower back TECHNIQUE: Imaging protocol: Computed tomography of the lumbar spine without contrast. COMPARISON: CT THORACIC LUMBAR SPINE REC 03/25/2025 12:45 AM FINDINGS: Bones/joints: Vertebral body height is well preserved. No evidence for fracture. There is severe bulge at the L4-L5 level. There is bilateral foraminal narrowing, right worse than left with moderate central stenosis. There is left-sided moderate to severe protrusion at the L5-S1 level with lateral recess stenosis and bilateral foraminal narrowing, right worse than left. Lungs: Calcified granuloma right lung base. Kidneys and ureters: Nonobstructing left renal calculi. Vasculature: Mild atherosclerotic change noted in the vasculature. Soft tissues: Unremarkable. IMPRESSION: No acute fracture. Spondylosis and stenosis as noted at the L4-L5 level with lateral recess stenosis at the L5-S1 level on the left. Dictated and Authenticated by: Marianna White MD. Orderin Connor Pratt MD
--- NOTE | 2025-05-27 16:55 | DI.VRAD_ITS ---
PROCEDURE INFORMATION: Exam: CT Pelvis Without Contrast, Skeleton Exam date and time: 05/27/2025 4:10 PM Age: 55 years old Clinical indication: Injury or trauma; Blunt trauma (contusions or hematomas); Bilateral; Other: Fall, hit mid/lower back TECHNIQUE: Imaging protocol: Computed tomography of the pelvis without contrast. Exam focused on the skeleton. COMPARISON: CT ABDOMEN PELVIS W 04/12/2025 9:05 AM FINDINGS: Vasculature: Mild atherosclerotic change noted in the vasculature. Bones/joints: Unremarkable. No acute fracture. No dislocation. Soft tissues: Unremarkable. IMPRESSION: No evidence for acute posttraumatic abnormality. Dictated and Authenticated by: Marianna White MD. Orderin Connor Pratt MD
--- NOTE | 2025-05-27 20:33 | PDOC.MHCN ---
Date of service: 05/27/25 Time of Service: 18:46 PHQ-9 Over the last 2 weeks, how often have you been bothered by any of the following problems? 1. Little interest or pleasure in doing things: several days 2. Feeling down, depressed, or hopeless: nearly every day 3. Trouble falling or staying asleep, or sleeping too much: nearly every day 4. Feeling tired or having little energy: nearly every day 5. Poor appetite or overeating: not at all 6. Feeling bad about yourself - or that you are a failure or have let yourself and your family down: more than half the days 7. Trouble concentrating on things, such as reading the newspaper or watching television: several days 8. Moving or speaking so slowly that other people could have noticed? - Or the opposite - being so fidgety or restless that you have been moving around a lot more than usual: several days 9. Thoughts that you would be better off or of hurting yourself in some way: nearly every day Total score: 17 If you checked off any problems, how difficult have these problems made it for you to do your work, take care of things at home, or get along with other people?: extremely difficult PHQ-9 Results: Positive Source: Developed by Drs. Derek Dobbs, Meme Odell, Alok Mott and colleagues, with an educational kai from [employer]. Suicide Severity Rate CSSRS Have you wished you were or wished you could go to sleep and not wake up?: Yes Have you actually had any thoughts of killing yourself?: Yes CSSRS2 Have you been thinking about how you might do this?: Yes Have you had these thoughts and had some intention of acting on them?: Yes Have you started to work out or worked out the details of how to kill yourself? Do you intend to carry out this plan?: No CSSRS3 Have you ever done anything, started to do anything or prepared to do anything to end your life?: Yes CSSRS4 Was this within the past three months?: Yes Screening Score Total Score: 8 Screening: Positive Mental Health Emergency Note Release [facility] release signed:: Yes Reason for Visit The client is known to [facility] and has been seen by [facility] crisis team numerous times within the past month. The client has been hospitalized numerous times with the last time being at [facility] approximately two-three weeks ago. Today the client called 911 to report that he has slipped and hurt his back and also endorsed SI. The client is seen via telehealth at [facility] ED. In the last 2 weeks has the pt presented for ES prior to today?: No Client Information Client is: Adult Outpatient Well Housed: No,status: Homeless Unstable housing Non Suicidal Self Injury Current: No History: No Safety Risk/Harm to Self or Others Current Ideation to Harm Self or Others: Yes to self. Intent: yes, has intent. Plan: no.does not have a plan. Risk: Does risk to harm exist?: yes. Access to means: No. Risk: High Risk Duty to warn indicated: No Asssessment/Mental Status Appearance: Disheveled Attitude: Cooperative Behavior: Unremarkable Speech: Pressured Affect: Cogruent with mood Mood: Stressed and Anxious Thought process: Unremarkable Hallucinations: No Delusions: No Attention: Unremarkable Perception: Not impaired Orientation: Fully orientated Memory: Intact Insight: Fair Judgement: Fair Neurovegetative Symptoms Sleep: Increase Appetitie: No change Interests: No change Energy: No change Libido: Not applicable Substance Use: Do you use nicotine?: No Have you used substances in the last 7 days?: No Additional Issues: Assaultive/Threatening Behavior: No Medical Concerns: No Client engaged in active self harm w/weapon: No Threatening to run away: No Child reported abuse/neglect: No Voluntarily presenting for services: Yes Domestic violence is a concern: No Extreme Psychosis or extreme behavior is present: No Impression The client is a 55 year old single biological male who is currently homeless, however reports that up until last night he was staying at the [facility]. The client reports that he was kicked out due to another tenant stating that he offered him marijuana, which the client reports did not happen. The client presents laying down in the hospital bed dressed in paper hospital attire. The client reports mood as hopeless and he presents with pressured speech. The client is cooperative with the assessment. The client denies hallucinations and delusions. The client reports active SI with no specific plan, however rates intent a 10/10 if he were to leave the hospital. The client reports that he does not feel safe and does not trust himself to not to try to end his life. Based on assessment the client appears to be a person in need of treatment. Plan/Disposition Recommended Disposition: Hospitalization facilities contacted. Plan: Based on assessment and 06/08 intent for suicide the client will remain at [facility] ED on voluntary status pending placement in an inpatient facility. This short story writer requested [facility] to have telepsych consult. The client will be re-assessed daily until placement is secured or the client is able to be safety planned back to the community. Person reported agreement to plan: Yes Reports/communication Outcome discussed with: ED/Personnel (Verbal given to [facility] zone b nurse Day.)
[2025-05-27] MEDS: clonazePAM 1 MG TAB PO (21:17)
[2025-05-27] MEDS: Cyclobenzaprine 10 MG TAB PO (21:17)
[2025-05-27] MEDS: Divalproex Sodium 500 MG TAB.ER.24H 1000 MG PO (21:17)
[2025-05-27] MEDS: Nicotine 4 MG LOZG SUC (23:06)
[2025-05-28] MEDS: Nicotine 4 MG LOZG SUC ×5 (03:06→19:37)
--- NOTE | 2025-05-28 04:09 | PSYCO_ITS ---
Date of service: 05/28/25 Time of Service: 04:13 Summary Note PSYCHIATRY CONSULT NOTE: INITIAL EVALUATION Date/Time:?05/28/2025 4:08:34 AM Name:Yas Limon :?1970 Location of the patient:?[facility] ED Consulting Array Clinician:Stacy Fleming Location of the clinician:?[place] Length of Consult:?40min SUMMARY 55-year-old male, with history of bipolar disorder, current cocaine/cannabis use, remitted alcohol use, history of suicide attempt(s), poor self-care, history of psychiatric hospitalization, with no history of violent behavior, self-referred via EMS for suicidal ideation, substance use, depression. 55y/o swm with h/o substance abuse and mood d/o comes in with c/o back pain after falling. He was medically cleared and reported suicidal thoughts with intent but has not come up with a plan yet He says he hears voices telling him to end his life and attempted by overdose a couple weeks ago. He says he is compliant with meds but was not able to tell me what he takes. VPA level was subtherapeutic and unlikely he has been taking as prescribed. He admits to marijuana but denied further drugs or alcohol, stating he has been sober over 20yrs. UDS showed cocaine and cannabis. BAl was negative. PT is currently homeless with no support system. He presents as thin, unkempt with poor eye contact. he perseverates on his back pain and said he can't take it anymore and plans to end his life. He says he has a payee and that he is on disability for mental health. Given mood lability, ongoing substance abuse, depression with suicidal thoughts and a recent attempt, recommend admit to psych for mood stabilization and safety.Kaylie ent is at elevated risk of danger to self. Patient presently meets criteria for inpatient psychiatric hospitalization. Working Diagnoses:? 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 CPT Codes:?57503 - Psychiatric Diagnostic Evaluation with Medical Services PLAN Disposition:?Voluntary admission when medically stable. Patient understands recommendation for psychiatric admission and consents. Re-consult psychiatry/screening if patient requests discharge. ? Observation level ? Psychiatric 1:1 needed??Initiate psych 1:1 OR Close observation per hospital protocol Work-up:? Pharmacological:? * 1. Depakote 250mg po tid * 2. taper off Klonopin, decrease to 1mg po bid * 3. Zyprexa 10mg po qhs for mood stabilization * * Is patient psychotic? - Yes; Were antipsychotic medications started? - Yes * Informed consent: Discussed risks and benefits of the above recommended psychiatric medications with patient, who demonstrated understanding and gave express informed consent to take the above medications as documented. Follow up needed while in the hospital??[id number] Other:? * Discussed benefits of sleep, exercise, and meditation for anxiety/de pression * Please obtain baseline EKG to monitor for QTc prolongation, cardiac arrhythmias, and torsades de pointes. Would maintain potassium above 4.0 and magnesium above 2.0 * Patient advised to stop all drug and alcohol use. Patient voiced understanding. * If questions arise about the psychiatric care of this patient, please call the [facility]?to request a follow-up consult. ?Please do not contact me individually through the EMR chat as I am not?regularly logged on to?this system. The psychiatrist for the follow-up visit may be a different psychiatrist Discussed plan with onsite garment steamer:?Yes - Dr Terence Ryan HISTORY This evaluation was conducted remotely with the assistance of onsite staff via HIPAA-compliant video call. Patient consented to proceed with the telehealth visit. Requested by:?Terence Ryan, DO Sources of information:?Patient, medical record History of Present Illness:? 55-year-old male, undomiciled, single, on disability, with history of bipolar disorder, current cocaine/cannabis use, remitted alcohol use, history of suicide attempt(s), poor self-care, history of psychiatric hospitalization, with no history of violent behavior, self-referred via EMS for suicidal ideation, substance use, depression. UDS positive for cannabis/cocaine, Alcohol undetectable. In the hospital, patient has been in behavioral control with no reported issues. On psychiatric evaluation, patient is cooperative. Pt is a 55y/o swm with h/o bipolar and substance abuse who comes in with c/o back pain. He was medically cleared and reported suicidal thoughts and severe pain. Pt reports recent suicide attempt by OD . He is not sleeping, he has CAh to harm himself and feels paranoid. He denied h/o trauma or abuse. he denied seeing things. He said his appetite is normal. He says the pain interferes with his sleep. PT reports being 20yrs sober and only admits to use of marijuana. He says he takes his meds as prescribed but also said he overdosed on his Cymbalta a couple weeks ago. He denied having any support system.. Collateral Contacted No-- patient meets criteria for inpatient hospitalization. PSYCHIATRIC REVIEW OF SYSTEMS (symptoms in past two weeks) Pertinent Positives:?depressed mood/anhedonia/hopelessness/insomnia/anergia/self-injurious behavior/irritability/agitation/auditory hallucinations/command hallucinations/paranoia Pertinent Negatives:?no poor appetite/no aggressive behavior PSYCHIATRIC HISTORY Past Psychiatric Diagnoses/Problems:?bipolar disorder Psychiatric Treatment:?Hospitalizations:?psychiatric hospitalization ???Other Past treatment:?medication management ???Current treatment:?medication management; treatment non-adherent Drug/Alcohol History ???Current excessive drug/alcohol use:?cocaine, cannabis ???Past excessive drug/alcohol use:?alcohol ???Drug/alcohol use comment:?Treatment:?rehab ???Withdrawal symptoms:?unknown ???UDS results:?UDS positive for cannabis/cocaine ???BAL results:?undetectable ???Active withdrawal Protocol:? Stressors:?inadequate social support, housing instability, financial problems, treatment non-adherence, exacerbation of mental illness, chronic substance abuse Trauma:?none Family Psychiatric History:?psychiatric disorders requiring psychiatric hospitalization, mom was mentally ill, possible bipolar HEALTH HISTORY Medical Problems:? GERD, moderate chronic pain Is patient linked with PCP??no Psychiatric and other clinically relevant medications:?cymbalta Depakote Klonopin Allergies/Adverse Medication Reactions:?prochlorperazine (From Allergy Unknown Unknown Verified 04/20/25 13:39 Compazine) promethazine (From Phenergan) Allergy Unknown Unknown Verified 04/20/25 13:39 NSAIDS (Non-Steroidal Allergy Unknown Verified 04/20/25 13:39 Anti-Inflamma Physical Findings:?hypertensive, tachycardic, no clinically significant abnormal lab values, QTc unavailable DEMOGRAPHICS/SOCIAL HISTORY Gender:?male Living Situation:?undomiciled Relationship Status:?single Education:?high school/GED Employment:?on disability Social Support Network:?none Legal History:?none Special Considerations:?none RISK EVALUATION Suicidality/self-injury:?Yes suicidal ideation, suicide attempt(s) within past 6 months Primary Suicide Screening (PSS-3) 1. In the past two weeks, have you felt down, depressed, or hopeless??YES 2. In the past two weeks, have you had thoughts of killing yourself??YES 3. In your lifetime, have you ever attempted to kill yourself??YES 3a. Within the past 6 months??YES ESS-6 Secondary Screen ( If #2 is yes or #3a is yes within the past 6 months, then complete secondary screen) 1. Positive on PSS-3 questions 2 & 3 ? active suicidal ideation with a past attempt??YES 2. Have you been thinking about how you might kill yourself??NO 3. Have you had some intention of acting on your thoughts??YES 4. Lifetime psychiatric hospitalization??YES 5. Has drinking or substance abuse ever been a problem for you??YES 6. Current irritability, agitation, or aggression??YES PSS-3/ESS-6 Secondary Screen Scoring:?Severe PSS-3/ESS-6 Scoring Interpretation Legend PSS-3 screen incomplete [Blank PSS-3 questions #2 OR #3a] PSS-3 screen unable to assess [Unable to Assess responses on PSS-3 questions #2 AND #3a] Mild [No current attempt AND No suicide plan or intent AND Score (0-2)] Moderate [No current attempt AND Active suicidal ideation with plan or intent (not both) OR Score (3-4)] Severe [Current attempt OR Suicide plan and intent OR Score (5-6)] HI/Violence/Property Destruction:?no history of violent/aggressive behavior Access to Firearms:?none Grave disability/Poor self-care:?yes poor self-care, medical neglect Psychosis:?Yes Protective Factors:? High Utilization Criteria:? Signs of Secondary Gain:? MENTAL STATUS EXAM Appearance and Attire:? Poor eye contact, Unkempt, Thin Psychomotor agitation:? No abnormality Attitude and behavior:? Cooperative Speech:? No abnormality Mood:? Depressed, Anxious Affect:? Labile Thought Process:? Vague Thought content:? Suicidal ideation, Paranoia Perception:? Auditory hallucinations Intelligence:? Average Abstraction:? Perseverative, Poor reasoning Language:? No abnormality Orientation:? Grossly oriented Sensorium:? Distractible Knowledge:? Appropriate for education and socioeconomic status Memory:? Intact Insight:? Lack of awareness of problems, Failure to recognize benefits of treatment, Lack of motivation to change health risk behaviors, Severe impairment Judgment:? Severe impairment, Impaired in interactions with others, Impaired in response and decision making, Impaired in responses to current situation and behavior, Impaired in self care, Impaired in treatment compliance SUMMARY RISK ASSESSMENT Current Suicide Risk Elevated??PSS-3/ESS-6 Scoring: Severe? Current Violence Risk Elevated??No Issues with ability to care for self.?No SAFE-T Risk Factors Suicidal Behavior:? recent suicide attempt with OD on Cymbalta current suicidal thoughts with intent Current/Past Psychiatric Disorders:? bipolar 2 Current/Past Substance Use:? cocaine cannabis recovering alcoholic [place]aga Symptoms:? command hallucinations insomnia paranoia depression Family History Risk Factors:? mood d/o run in the family Precipitants/Stressors/Interpersonal/Triggers:? lack of social support homeless chronic pain Treatment:? Medication management no?Access to firearms/ammunition Protective Factors Internal:? none External:? none ?
--- NOTE | 2025-05-28 05:50 | ED.PROG_ITS ---
Date of service: 05/28/25 Time of Service: 05:50 Medical Decision Making Medical Records Medical records narrative: This patient was seen and evaluated by telepsychiatry on the overnight shift. The telepsychiatrist who made recommendations that the patient Cymbalta be discontinued, that the Depakote be changed from its current dosing format to 250 mg 3 times daily, the Klonopin should be changed from its current dosing format to 1 mg twice daily, and that the patient begin taking 10 mg of Zyprexa daily. The psychiatrist also recommends the patient be a ongoing inpatient bed search for voluntary bed placement. I have made the changes to the current medication dosing form of the patient's order set. Quality:SDOH Health Related Social Needs: Health related social needs risk of homeless transpo i nsecurity house/econ circumstance education Health related social needs details patient currently lives in a hotel which he pays out of pocket for. Discharge Plan Discharge Details Chief Complaint: Fall/Non TraumaCriteria Clinical Impression: Suicide ideation, Chronic back pain Primary Care Provider: None,None ED Provider: Melquiades Shrestha Home Meds and New Rx's Prescriptions: No Action sumatriptan succinate 100 MG tablet 100 mg PO PRN duloxetine 60 MG capsule,delayed release(DR/EC) 60 mg PO BID clonazepam 1 mg tablet 1 mg PO QID divalproex 500 mg tablet extended release 24 hr 1,000 mg PO HS Patient Comments: TAKE TWO TABLETS BY MOUTH EVERY EVENING AT BEDTIME zolpidem [Ambien] 10 mg .Route .night
[2025-05-28] MEDS: Ketorolac 30 MG/ML VIAL IM (06:15)
[2025-05-28] MEDS: Methocarbamol 500 MG TAB 1000 MG PO ×3 (06:18→19:39)
--- NOTE | 2025-05-28 06:54 | W.PCEDHO ---
Registration Status: REG ER Primary Language: Preferred Language: Romanian ED Information & Data Chief Complaint Fall/Non TraumaCriteria 05/27/25 16:56 Chief Complaint Fall/Non TraumaCriteria 05/27/25 15:51 Other Complaint PsychEval 05/27/25 15:03 Triage Note Pt BIBA with complaints of 05/27/25 15:03 back pain and SI. Pt states he fell while walking, and was laying on side of road for about 30 mins before calling the ambulance. Pt endorses SI, states he doesn 't have a plan but was looking for one. Medical / Surgical History (Last Reviewed 03/14/25 @ 01:14 by Derek Benz MD) Anxiety Depression GERD (gastroesophageal reflux disease) History of alcoholism Migraines Obesity Tremor (Last Reviewed 03/14/25 @ 01:14 by Derek Benz MD) Repair of inguinal hernia Most Recent Vital Signs Temperature 37.1 C 05/27/25 15:03 Temperature Source Temporal Artery Scan 05/27/25 15:03 Pulse 118 H 05/27/25 15:03 Respiratory Rate 20 05/27/25 15:03 Blood Pressure 136/84 05/27/25 15:03 Pulse Oximetry 93 05/27/25 15:03 Pain Level 10 05/27/25 15:03 Allergies prochlorperazine (From Compazine) Allergy (Unknown, Verified 04/20/25 13:39) Unknown promethazine (From Phenergan) Allergy (Unknown, Verified 04/20/25 13:39) Unknown NSAIDS (Non-Steroidal Anti-Inflamma Allergy (Verified 04/20/25 13:39) Unknown Precautions Isolation Standard precaution 05/27/25 16:56 Active Medications Generic Name Dose Route Start Last Admin Trade Name Freq PRN Reason Stop Dose Admin Methocarbamol 1,000 mg 05/28/25 06:07 05/28/25 06:18 Methocarbamol 500 Mg Tab PO 1,000 mg TID PRN Administration Back Pain Nicotine 4 mg 05/27/25 19:51 05/28/25 03:06 Nicotine 4 Mg Lozg SUC 4 mg Q4H PRN PRN Administration Diet Orders Category Date Time Status Regular/Normal [DIET] Nutrition 05/28/25 Breakfast Active Diagnostics 05/27/25 05/27/25 Range/Units 15:54 15:10 Urine Opiates Screen Negative (Negative) Urine Methadone Screen Negative (Negative) Ur Barbiturates Screen Negative (Negative) Valproic Acid 21.7 ( - 150) ug/mL Ur Tricyclics Screen Positive A (Negative) Ur Amphetamines Screen Negative (Negative) U Benzodiazepines Scrn Negative (Negative) Urine Cocaine Screen Positive A (Negative) Ur THC Screen Positive A (Negative) Intake and Output - 24 Hour Total 05/27/25 15:01 thru 05/27/25 15:03 Weight 63.503 kg Falls Risk Assessment History of Falls Admit Due to Fall 05/27/25 16:56 Contributing Factors No Factors 05/27/25 16:56 Ambulatory Aids Independent 05/27/25 16:56 Tubes/Lines None 05/27/25 16:56 Gait Evaluation No gait disturbance 05/27/25 16:56 Fall Total Score 05/27/25 16:56 Level of Risk Moderate Risk 05/27/25 16:56 Problems (Last Reviewed 03/14/25 @ 01:14 by Derek Benz MD) Chronic back pain (Acute) Suicide ideation (Acute) v v v v v v v v v Sending and/or Receiving Nurses: Please use comment section below to note any information pertinent to the patient hand-off not included above. Information / Comments: Report received from: DEANDRE Day @ 0653 on 05/28/25
[2025-05-28] MEDS: clonazePAM 1 MG TAB PO ×2 (07:52→19:37)
[2025-05-28 07:57] VITALS: BP 123/73; PULSE 78; RESP 12; TEMP 37.2; O2SAT 100
--- NOTE | 2025-05-28 08:17 | ED.PSYCHBOAR ---
Date of service: 05/28/25 Time of Service: 08:17 Psychiatric Border Handoff Update Brief Story: I received signout on this patient who was evaluated last shift by telepsychiatry who recommended the patient have his medications changed: Discontinue the Cymbalta, changed the valproic acid from 1000 mg daily to 250 mg 3 times daily, changed the Klonopin from 1 mg 4 times daily to 1 mg twice daily, and add 10 mg of Zyprexa daily. These medication changes were made in the chart. I called pharmacy this morning to discontinue the duloxetine. 4:45 PM I had spoken with Olu Wray from [facility]. He recommended placement. Psychiatry had advised decreasing the patient's Klonopin from 1 mg 4 times daily to 1 mg twice daily. Patient was quite agitated about this. I do not feel that it is unreasonable to decrease his Klonopin to 3 times daily as I ordered him an additional dose today. Patient was signed out to Dr. Rubalcava. Status: voluntary Able to leave: would need physician/XOCHITL and crisis evaluation prior to leaving Mediation Reconciliation performed: Yes Code Status ordered: Yes Diet ordered: Yes Discharge Plan Discharge Details Chief Complaint: Fall/Non TraumaCriteria Clinical Impression: Suicide ideation, Chronic back pain Primary Care Provider: None,None ED Provider: Aram Duran Irvona Meds and New Rx's Prescriptions: No Action sumatriptan succinate 100 MG tablet 100 mg PO PRN duloxetine 60 MG capsule,delayed release(DR/EC) 60 mg PO BID clonazepam 1 mg tablet 1 mg PO QID divalproex 500 mg tablet extended release 24 hr 1,000 mg PO HS Patient Comments: TAKE TWO TABLETS BY MOUTH EVERY EVENING AT BEDTIME zolpidem [Ambien] 10 mg .Route .night
[2025-05-28] MEDS: Divalproex Sodium 250 MG TAB.ER.24H PO ×3 (09:15→19:38)
--- NOTE | 2025-05-28 09:49 | CMSP_ITS ---
Date of service: 05/28/25 Time of Service: 09:49 Care Management Safety Plan Status Status: Voluntary Reason for Wait Reason for Wait: Inpatient Admission Safety Plan Safety Plan: VOLUNTARY FOR INPATIENT PSYCHIATRIC STABILIZATION.? Patient is appropriate in all interactions since arriving at [facility]; Pt has demonstrated appropriate coping and communication skills, has articulated his needs and concerns and is fully engaged during staff interactions. Safety plan has been established with patient, and care team, to adhere to patient goals, identify restrictions based on behavioral status, address nutrition, and determine allowed personal belongings, tools for hygiene and personal care. Determine level of activity including ambulation, level of supervision, visitors, and determine privileges based on behaviors and level of engagement by pt. VOLUNTARY SAFETY PLAN: 1. Will remain on suicide precautions, in paper clothes 2. Will remain in Zone B under direct supervision of one-on-one staff at all times provided by [employer]; CHRISTINA, HOMEBOUND TEACHER ludlow machine operator. 3. May have paper cups, plates, finger foods as well as a cardboard spoon with which to eat meals. 4. Follow [facility] Management of the Admitted Behavioral Health Patient policy. 5. Shower available in Zone B without restriction. 6. Personal belongings-soft items permitted at RN discretion. 7. Visitors - supportive visitors at RN discretion. 8. Activities: soft cart items, hospital tablets (Netflix/[place]+/music) approved per RN discretion. 9.? Bathroom available in Zone B without restriction. 10. Phone: limited to [facility] cordless phone at RN discretion. Due to VOLUNTARY status, if patient wishes to leave [facility], staff will contact [facility] Crisis Screener ([phone]) and Wood Model Maker ([phone]) as soon as possible. In the event of elopement, notify [facility] Police ([phone]). Patient is currently voluntarily at [facility] and seeking inpatient admission when a bed becomes available. [facility] Frontline Home Service Director will continue seeking placement. Please contact the Wood Model Maker ([phone]) and [facility] Home Service Director ([phone]) for any needed changes in the Safety Plan. Safety plan has been provided to interdepartmental care team.
--- NOTE | 2025-05-28 09:49 | PDOC.CMSAFE ---
Date of service: 05/28/25 Time of Service: 09:49 Care Management Safety Plan Status Status: Voluntary Reason for Wait Reason for Wait: Inpatient Admission Safety Plan Safety Plan: VOLUNTARY FOR INPATIENT PSYCHIATRIC STABILIZATION.? Patient is appropriate in all interactions since arriving at [facility]; Pt has demonstrated appropriate coping and communication skills, has articulated his needs and concerns and is fully engaged during staff interactions. Safety plan has been established with patient, and care team, to adhere to patient goals, identify restrictions based on behavioral status, address nutrition, and determine allowed personal belongings, tools for hygiene and personal care. Determine level of activity including ambulation, level of supervision, visitors, and determine privileges based on behaviors and level of engagement by pt. VOLUNTARY SAFETY PLAN: 1. Will remain on suicide precautions, in paper clothes 2. Will remain in Zone B under direct supervision of one-on-one staff at all times provided by [employer]; CHRISTINA, CREDIT CLERK resource development director. 3. May have paper cups, plates, finger foods as well as a cardboard spoon with which to eat meals. 4. Follow [facility] Management of the Admitted Behavioral Health Patient policy. 5. Shower available in Zone B without restriction. 6. Personal belongings-soft items permitted at RN discretion. 7. Visitors - supportive visitors at RN discretion. 8. Activities: soft cart items, hospital tablets (Netflix/[place]+/music) approved per RN discretion. 9.? Bathroom available in Zone B without restriction. 10. Phone: limited to [facility] cordless phone at RN discretion. Due to VOLUNTARY status, if patient wishes to leave [facility], staff will contact [facility] Crisis Screener ([phone]) and Senior Sales Operations Manager ([phone]) as soon as possible. In the event of elopement, notify [facility] Police ([phone]). Patient is currently voluntarily at [facility] and seeking inpatient admission when a bed becomes available. [facility] Frontline Needle Board Repairer will continue seeking placement. Please contact the Senior Sales Operations Manager ([phone]) and [facility] Needle Board Repairer ([phone]) for any needed changes in the Safety Plan. Safety plan has been provided to interdepartmental care team.
--- NOTE | 2025-05-28 10:01 | CMPROGNOTE_ITS ---
Date of service: 05/28/25 Time of Service: 12:28 Care Management Progress Note Progress Note Text Progress Note Text: CM discussed Anusha's plan of care with Zone b RN, housekeeping staff, ED propellant charge loader and [facility]. He is here voluntarily; safety plan in place. Per [facility], Isidro is endourcing SI with rating 8/10; Plan would be to overdose or jump off a bridge. Isidro is currently a client of the [facility] in [place]. Per [facility], he intends to follow up with his community team there. [facility] reports that Isidro had been residing at the [facility] but lost his housing as of Wednesday. Appropriate referrals have been submitted. [facility] also notes that [facility] is reviewing Isidro for potential inpatient admission, and they are familiar with his case. CM will continue to follow. Status Status: Voluntary Reason for Wait: Inpatient Admission Social Determinants of Health Screening Will the Patient Participate in the Screening?: Declined to provide Do you worry about having a steady place to live?: choose not to answer
--- NOTE | 2025-05-28 10:01 | PDOC.CMPRO ---
Date of service: 05/28/25 Time of Service: 12:28 Care Management Progress Note Progress Note Text Progress Note Text: CM discussed Anusha's plan of care with Zone b RN, house player, ED ore charger and [facility]. He is here voluntarily; safety plan in place. Per [facility], Isidro is endourcing SI with rating 8/10; Plan would be to overdose or jump off a bridge. Isidro is currently a client of the [facility] in [place]. Per [facility], he intends to follow up with his community team there. [facility] reports that Isidro had been residing at the [facility] but lost his housing as of Wednesday. Appropriate referrals have been submitted. [facility] also notes that [facility] is reviewing Isidro for potential inpatient admission, and they are familiar with his case. CM will continue to follow. Status Status: Voluntary Reason for Wait: Inpatient Admission Social Determinants of Health Screening Will the Patient Participate in the Screening?: Declined to provide Do you worry about having a steady place to live?: choose not to answer
[2025-05-28] MEDS: Acetaminophen 325 MG TAB 650 MG PO ×2 (10:55→16:57)
--- NOTE | 2025-05-28 12:47 | MHPN_ITS ---
Date of service: 05/28/25 Time of Service: 10:10 Mental Health Emergency Note Release [facility] release signed:: Yes Reason for Visit Mr Limon is a 55 year single male who is currently unhoused and was seen at the [facility] emergency department for suicidal ideation. The client states that he is done making the life choices he has made which per the client report is being defiant. The client states that he just wants help to be able to live in a apartment and get services. The client states that [facility] refused to help him last time he went there. The client states that when [facility] refused to help him he stated he would kill himself and then the police and EMS were called on him. The client reports that after having been kicked out of the [facility] that he had to sleep in the [place] one night and that has left him with a back that hurts. The client states that he woke up every hour the previous night due to back pain. The client reports that he was kicked out of the [facility] as someone accused him of asking another resident for Cannabis, the client states that both himself and the other resident were both kicked out. The client reports that Cannabis is not a problem but that recently Cocaine has been an issue and he has started using Cocaine for the first time in twenty years. The client reports that he wants to go for in patient treatment as if he left he would have suicidal ideation. The client states that he plans to engage in treatment this time going for in patient treatment. In the last 2 weeks has the pt presented for ES prior to today?: No Asssessment/Mental Status Appearance: Unremarkable Attitude: Cooperative Behavior: Unremarkable Speech: Normal Affect: Normal Mood: Stressed and Depressed Thought process: Goal directed Hallucinations: No Delusions: No Attention: Unremarkable Perception: Not impaired Orientation: Fully orientated Memory: Intact Insight: Fair Judgement: Poor Neurovegetative Symptoms Sleep: Decrease Appetitie: No change Interests: No change Energy: Decrease Libido: Not applicable Additional Issues: Assaultive/Threatening Behavior: No Medical Concerns: No Client engaged in active self harm w/weapon: No Threatening to run away: No Child reported abuse/neglect: No Voluntarily presenting for services: Yes Domestic violence is a concern: No Extreme Psychosis or extreme behavior is present: No Impression Mr Limon is a 55 year single male who is currently unhoused and was seen at the [facility] emergency department for suicidal ideation. The client states that he is done making the life choices he has made which per the client report is being defiant. The client states that he just wants help to be able to live in a apartment and get services. The client states that [facility] refused to help him last time he went there. The client states that when [facility] refused to help him he stated he would kill himself and then the police and EMS were called on him. The client reports that after having been kicked out of the [place] that he had to sleep in the [place] one night and that has left him with a back that hurts. The client states that he woke up every hour the previous night due to back pain. The client reports that he was kicked out of the [facility] as someone accused him of asking another resident for Cannabis, the client states that both himself and the other resident were both kicked out. The client reports that Cannabis is not a problem but that recently Cocaine has been an issue and he has started using Cocaine for the first time in twenty years. The client reports that he wants to go for in patient treatment as if he left he would have suicidal ideation. The client states that he plans to engage in treatment this time going for in patient treatment. Plan/Disposition Recommended Disposition: Hospitalization facilities contacted. Plan: The client will wait in zone b for in patient treatment. Person reported agreement to plan: Yes Reports/communication Outcome discussed with: ED/Personnel
[2025-05-28] MEDS: Ketorolac 15 MG/ML VIAL IM (13:00)
[2025-05-28] MEDS: clonazePAM 0.5 MG TAB 1 MG PO (15:51)
[2025-05-28] MEDS: Zolpidem 10 MG TAB PO (19:37)
[2025-05-28] MEDS: OLANZapine 10 MG TAB PO (19:37)
[2025-05-29] MEDS: Nicotine 4 MG LOZG SUC ×5 (00:11→23:58)
[2025-05-29] MEDS: Acetaminophen 325 MG TAB 650 MG PO ×3 (04:30→23:58)
[2025-05-29 07:15] VITALS: BP 164/87; PULSE 76; TEMP 37.4
--- NOTE | 2025-05-29 07:44 | ED.PROG1_ITS ---
Date of service: 05/29/25 Time of Service: 07:44 Psychiatric Border Handoff Update Brief Story: I received signout on this patient 55-year-old male who is in the emergency department voluntarily in the setting of suicidal ideation. He is being considered by the [facility]. No active behavioral issues last shift. 10 AM I was in touch with Nathaniel Lomeli from the [facility] who graciously agreed to accept the patient. I ordered him 1 mg of clonazepam for his second day at 3 times daily dosing. I also ordered him cyclobenzaprine for his chronic back. 3:10 PM Patient had had a bed at the [facility]. He declined this bed. N/AMet with the patient. He requested discharge with a safety plan. I spoke with Elena from [facility]. She arrived. She provided this patient with a safety plan. Status: voluntary Able to leave: would need physician/XOCHITL and crisis evaluation prior to leaving Mediation Reconciliation performed: Yes Code Status ordered: Yes Discharge Plan Disposition Patient Disposition: Home Discharge Details Clinical Impression: Suicide ideation, Chronic back pain Primary Care Provider: None,None ED Provider: Aram Duran Home Meds and New Rx's Prescriptions: No Action sumatriptan succinate 100 MG tablet 100 mg PO PRN duloxetine 60 MG capsule,delayed release(DR/EC) 60 mg PO BID clonazepam 1 mg tablet 1 mg PO QID divalproex 500 mg tablet extended release 24 hr 1,000 mg PO HS Patient Comments: TAKE TWO TABLETS BY MOUTH EVERY EVENING AT BEDTIME zolpidem [Ambien] 10 mg .Route .night Discharge Instructions Additional Instructions: You are seen in the emergency department for your thoughts of harming yourself. You are offered a bed at the [facility] which you declined. You were given a safety plan. If you do not feel comfortable with this plan or if you have any other concerns please return to the emergency department. Otherwise please follow-up with your primary care provider.
[2025-05-29] MEDS: Divalproex Sodium 250 MG TAB.ER.24H PO ×3 (08:37→19:48)
[2025-05-29] MEDS: clonazePAM 1 MG TAB PO ×2 (08:37→19:48)
[2025-05-29] MEDS: Cyclobenzaprine 10 MG TAB PO (11:21)
[2025-05-29] MEDS: clonazePAM 0.5 MG TAB 1 MG PO (12:29)
--- NOTE | 2025-05-29 15:51 | PDOC.MHPN2 ---
Date of service: 05/29/25 Time of Service: 14:12 Mental Health Emergency Note Release [facility] release signed:: Yes Reason for Visit Isidro initially presented to the ED due to back pain and endorsing SI. In the last 2 weeks has the pt presented for ES prior to today?: Unknown Client Information Client is: Adult Outpatient and New Well Housed: No,status: Homeless Non Suicidal Self Injury Current: No History: No Safety Risk/Harm to Self or Others Current Ideation to Harm Self or Others: No Risk: Does risk to harm exist?: No Risk: N/A Duty to warn indicated: No Asssessment/Mental Status Appearance: Unremarkable Attitude: Cooperative Behavior: Unremarkable Speech: Normal Affect: Cogruent with mood Mood: Anxious Thought process: Goal directed Hallucinations: No evidence Delusions: No evidence Attention: Unremarkable Perception: Not impaired Orientation: Fully orientated Memory: Intact Insight: Fair Judgement: Fair Neurovegetative Symptoms Sleep: No change Appetitie: No change Interests: No change Energy: No change Libido: Not applicable Substance Use: Do you use nicotine?: No Have you used substances in the last 7 days?: No Additional Issues: Assaultive/Threatening Behavior: No Medical Concerns: Yes Client engaged in active self harm w/weapon: No Threatening to run away: No Child reported abuse/neglect: No Voluntarily presenting for services: Yes Domestic violence is a concern: No Extreme Psychosis or extreme behavior is present: No Impression Isidro is a [age] year old male who presents while waiting for inpatient placement at [facility]. Isidro originally presented to [facility] due to SI. Isidro is currently in Zone B and refused to go to [facility] was transport was coordinated due to [facility] not properly addressing his medical concerns with his back. 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 Isidro reports he would like to stay in [facility] and go back to the community and work with the [employer] in to coordinate a place to stay for a few days. Isidro reports [facility] is his current payee so he will need to coordinate with them as well. Isidro does have a cellphone and all the phone numbers he needs. Isidro is denying SI, HI, NSSI and is not wanting to pursue treatment so a safety plan was made and can be found in his chart. Isidro will follow up with [facility] on 06/01 at 10am if he does not call in prior. Isidro was provided [facility], [phone], and the front porch as supports for him in the meantime. Plan/Disposition Recommended Disposition: Community resources. Plan: Isidro will be discharged on a safety plan and plans to follow up with the [facility] to secure housing. Isidro will contact [facility] at anytime if he is in need of suport and will follow up on Friday 06/01 at 10am via phone per his preference. Person reported agreement to plan: Yes Reports/communication Outcome discussed with: ED/Personnel
--- NOTE | 2025-05-29 18:19 | PDOC.CMPRO ---
Date of service: 05/29/25 Time of Service: 18:19 Care Management Progress Note Progress Note Text Progress Note Text: Per report, Isidro was accepted by [facility] today. Isidro declined to go to [place] and was reassessed by [facility]; he denied SI/HI/NSSI, and created a safety plan with [facility]. Later, CM spoke to his RN who stated that he felt that [facility] was going to communicate with the [facility] and help him secure a room for the night, with the intention that he will pay tomorrow. Per [facility], this was not offered, and the patient will need to contact [facility] to attempt to secure an emergency mcfp voucher (unsure if he will qualify at this time, but it is a self referral). At this time, [facility] has been requested to re evaluate the patient, as he is refusing to discharge. CM will continue to follow. Social Determinants of Health Screening Will the Patient Participate in the Screening?: Declined to provide Do you worry about having a steady place to live?: choose not to answer
--- NOTE | 2025-05-29 18:19 | CMPROGNOTE_ITS ---
Date of service: 05/29/25 Time of Service: 18:19 Care Management Progress Note Progress Note Text Progress Note Text: Per report, Isidro was accepted by [facility] today. Isidro declined to go to [place] and was reassessed by [facility]; he denied SI/HI/NSSI, and created a safety plan with [facility]. Later, CM spoke to his RN who stated that he felt that [facility] was going to communicate with the [facility] and help him secure a room for the night, with the intention that he will pay tomorrow. Per [facility], this was not offered, and the patient will need to contact [facility] to attempt to secure an emergency custodial voucher (unsure if he will qualify at this time, but it is a self referral). At this time, [facility] has been requested to re evaluate the patient, as he is refusing to discharge. CM will continue to follow. Social Determinants of Health Screening Will the Patient Participate in the Screening?: Declined to provide Do you worry about having a steady place to live?: choose not to answer
[2025-05-29 19:22] VITALS: PULSE 85; RESP 16; TEMP 37.1
[2025-05-29] MEDS: OLANZapine 10 MG TAB PO (19:48)
[2025-05-29] MEDS: Zolpidem 10 MG TAB PO (19:48)
--- NOTE | 2025-05-29 20:45 | MHPN_ITS ---
Date of service: 05/29/25 Time of Service: 18:11 Mental Health Emergency Note Release [facility] release signed:: Yes Reason for Visit The client is known to [facility] and has been seen by [facility] crisis numerous times over the past couple of months. The client has been hospitalized numerous times within the past couple of months mostly voluntary, but also one involuntary admission as well. Today the client was accepted by [facility], however refused transport. ELIS Joselin went to [facility] to safety plan the client. [facility] paged a short time later stating that the client refused to leave and stated: if I leave I am going to kill myself and I will make it very clear that it is [facility] and [facility]'s fault. Per [facility] staff the compressor house operator and advertising operations manager came down and requested a re-assessment and to seek placement for the client. This radio news writer meets with the client in person at [facility] zone b. In the last 2 weeks has the pt presented for ES prior to today?: Yes, presented at [facility] ED Impression The client is a 55 year old male that is currently homeless. The client is currently disabled and receives SSDI benefits. The client identifies as male as uses he/ him pronouns. Screening tools are not completed due to them being completed within the last couple of days. All underrepresented categories are honored. Per hospital staff the client has been very hostile. The client was initially accepted by [facility] [place] today and when transport was in route the client declined the bed. A safety plan was initially made, however the client refused to leave the hospital stating: if I leave I am going to find a way to end my life and I am going to make it known that it is [facility] and [facility];s fault. Initially when this radio news writer enters the room and greets the client he states: nop e you can leave. I talked to my biodiesel processing technician earlier and he told me not to talk to you. This radio news writer attempts to ask the client about SI and initially he refuses to engage and then starts to cry stating: I was scared to go to [facility] I was once held there for a year and I do not want that ever to happen again. The client reports that he is agreeable to stay at [facility] and seek voluntary inpatient treatment, even if it is [facility] that accepts first. Plan/Disposition Recommended Disposition: Hospitalization No. Plan: Referrals will be re-faxed to all hospitals. Client will remain at [facility] ED seeking voluntary inpatient treatment. The client will be re-assessed daily until placement is secured or the client is able to be safety planned back to the community. Person reported agreement to plan: Yes Reports/communication Outcome discussed with: ED/Personnel (Verbal given to [facility] ED staff)
--- NOTE | 2025-05-29 20:45 | PDOC.MHPN2 ---
Date of service: 05/29/25 Time of Service: 18:11 Mental Health Emergency Note Release [facility] release signed:: Yes Reason for Visit The client is known to [facility] and has been seen by [facility] crisis numerous times over the past couple of months. The client has been hospitalized numerous times within the past couple of months mostly voluntary, but also one involuntary admission as well. Today the client was accepted by [facility], however refused transport. ELIS Joselin went to [facility] to safety plan the client. [facility] paged a short time later stating that the client refused to leave and stated: if I leave I am going to kill myself and I will make it very clear that it is [facility] and [facility]'s fault. Per [facility] staff the household personal assistant and manager behavior came down and requested a re-assessment and to seek placement for the client. This adjusto writer operator meets with the client in person at [facility] zone b. In the last 2 weeks has the pt presented for ES prior to today?: Yes, presented at [facility] ED Impression The client is a 55 year old male that is currently homeless. The client is currently disabled and receives SSDI benefits. The client identifies as male as uses he/ him pronouns. Screening tools are not completed due to them being completed within the last couple of days. All underrepresented categories are honored. Per hospital staff the client has been very hostile. The client was initially accepted by [facility] today and when transport was in route the client declined the bed. A safety plan was initially made, however the client refused to leave the hospital stating: if I leave I am going to find a way to end my life and I am going to make it known that it is [facility] and [facility];s fault. Initially when this adjusto writer operator enters the room and greets the client he states: nope you can leave. I talked to my management trainee program stores earlier and he told me not to talk to you. This adjusto writer operator attempts to ask the client about SI and initially he refuses to engage and then starts to cry stating: I was scared to go to [facility] I was once held there for a year and I do not want that ever to happen again. The client reports that he is agreeable to stay at [facility] and seek voluntary inpatient treatment, even if it is [facility] that accepts first. Plan/Disposition Recommended Disposition: Hospitalization No. Plan: Referrals will be re-faxed to all hospitals. Client will remain at [facility] ED seeking voluntary inpatient treatment. The client will be re-assessed daily until placement is secured or the client is able to be safety planned back to the community. Person reported agreement to plan: Yes Reports/communication Outcome discussed with: ED/Personnel (Verbal given to [facility] ED staff)
[2025-05-29] MEDS: SUMAtriptan 50 MG TAB 100 MG PO (20:57)
--- NOTE | 2025-05-29 22:21 | W.EDPROG ---
Date of service: 05/29/25 Time of Service: 22:21 Medical Decision Making Patient had declined admission to [place] and agreed to a safety plan. He was being discharged but had no place to go. Subsequently reported that he would immediately go to the closest [place] if we were to discharge him. He reiterated this to the dyehouse worker and software release manager. He was reevaluated by mental health. Safety plan rescinded since he could not agree to it. Does remain voluntary at this time and understands that [place] may potentially be his ultimate admission destination. Quality:SDOH Health Related Social Needs: Health related social needs risk of homeless transpo insecurity house/econ circumstance education Health related social needs details patient currently lives in a hotel which he pays out of pocket for. Discharge Plan Discharge Details Chief Complaint: Fall/Non TraumaCriteria Clinical Impression: Suicide ideation, Chronic back pain Primary Care Provider: None,None ED Provider: Derek Benz [facility] and New Rx's Prescriptions: No Action sumatriptan succinate 100 MG tablet 100 mg PO PRN duloxetine 60 MG capsule,delayed release(DR/EC) 60 mg PO BID clonazepam 1 mg tablet 1 mg PO QID divalproex 500 mg tablet extended release 24 hr 1,000 mg PO HS Patient Comments: TAKE TWO TABLETS BY MOUTH EVERY EVENING AT BEDTIME zolpidem [Ambien] 10 mg .Route .night
[2025-05-30] MEDS: Nicotine 4 MG LOZG SUC ×5 (03:48→20:49)
[2025-05-30 07:43] VITALS: BP 119/82; PULSE 84; RESP 16; TEMP 36.1; O2SAT 99
--- NOTE | 2025-05-30 07:45 | ED.PROG1_ITS ---
Date of service: 05/30/25 Time of Service: 07:46 Psychiatric Border Handoff Update Brief Story: [facility] refused [facility]. He now states that he is willing to go to [facility]. We are waiting for placement for him. Patient was quite upset at the fact that telepsychiatry had recommended cutting his clonazepam from 1 mg 4 times daily to 1 mg twice daily. He did request repeat telepsych consult. New telepsych consult recommends 1 mg 3 times daily for clonazepam. This has been adjusted. Patient continues to oscillate between feeling depressed and suicidal, wanting to go home, and wanting to go to a facility. He makes occasional statements like I am just going to leave. I am done with this. [facility]. And then later will make statements like no, I really want to go to [facility], I am sorry for what I said, I want to go and get help there. At this time we are still seeking placement for the patient. Status: voluntary Able to leave: would need physician/XOCHITL and crisis evaluation prior to leaving Behavioral Concerns: None Potential Disposition: [place] Barriers to Disposition: Patient compliance and acceptance Medical Concerns: None Mediation Reconciliation performed: Yes Code Status ordered: Yes Diet ordered: Yes Discharge Plan Discharge Details Chief Complaint: Fall/Non TraumaCriteria Clinical Impression: Suicide ideation, Chronic back pain Primary Care Provider: None,None ED Provider: Terence Ryan Home Meds and New Rx's Prescriptions: No Action sumatriptan succinate 100 MG tablet 100 mg PO PRN duloxetine 60 MG capsule,delayed release(DR/EC) 60 mg PO BID clonazepam 1 mg tablet 1 mg PO QID divalproex 500 mg tablet extended release 24 hr 1,000 mg PO HS Patient Comments: TAKE TWO TABLETS BY MOUTH EVERY EVENING AT BEDTIME zolpidem [Ambien] 10 mg .Route .night
[2025-05-30] MEDS: clonazePAM 1 MG TAB PO ×2 (07:54→19:36)
[2025-05-30] MEDS: Divalproex Sodium 250 MG TAB.ER.24H PO ×3 (07:54→19:36)
[2025-05-30] MEDS: Acetaminophen 325 MG TAB 650 MG PO ×2 (08:54→16:16)
[2025-05-30] MEDS: Methocarbamol 500 MG TAB 1000 MG PO ×2 (09:12→16:27)
[2025-05-30] MEDS: Loperamide 2 MG CAP PO (09:37)
[2025-05-30] MEDS: Lidocaine 5% Patch 2 PATCH TP (09:37)
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
--- NOTE | 2025-05-30 15:20 | MHPN_ITS ---
Date of service: 05/30/25 Time of Service: 11:31 Mental Health Emergency Note Release [facility] release signed:: Yes Reason for Visit Mr Limon is a 55 year old single that is currently unhoused. The client reports that he is having suicidal thoughts. The client reports if he leaves he will complete suicide. The client denies HI. The client reports that he is not sleeping well due to back pain. The client states that the hospital did a xray on his back and he has a bulging disc and arthritis in his lower back. The client reports that he wants to go to treatment and that he is going to go to the groups offered except for the art groups. The client states he is struggling with being unhoused and with his case specialist at [facility] [place] not getting him his money as they are his payee and also not helping him to find housing. This clinician suggested the client get on waiting lists with multiple shelters throughout the state so that the client has a better chance of having a place when he gets out of treatment. In the last 2 weeks has the pt presented for ES prior to today?: No Asssessment/Mental Status Appearance: Unremarkable Attitude: Cooperative and Friendly Behavior: Unremarkable Speech: Normal Affect: Expansive Mood: Stressed, Depressed and Anxious Thought process: Goal directed Hallucinations: No Delusions: No Attention: Unremarkable Perception: Not impaired Orientation: Fully orientated Memory: Intact Insight: Poor Judgement: Poor Neurovegetative Symptoms Sleep: Decrease Appetitie: Decrease Interests: Decrease Energy: Decrease Libido: Not applicable Additional Issues: Assaultive/Threatening Behavior: No Medical Concerns: No Client engaged in active self harm w/weapon: No Threatening to run away: No Child reported abuse/neglect: No Voluntarily presenting for services: Yes Domestic violence is a concern: No Extreme Psychosis or extreme behavior is present: No Impression Mr Limon is a 55 year old single that is currently unhoused. The client reports that he is having suicidal thoughts. The client reports if he leaves he will complete suicide. The client denies HI. The client reports that he is not sleeping well due to back pain. The client states that the hospital did a xray on his back and he has a bulging disc and arthritis in his lower back. The client reports that he wants to go to treatment and that he is going to go to the groups offered except for the art groups. The client states he is struggling with being unhoused and with his case specialist at [facility] not getting him his money as they are his payee and also not helping him to find housing. This clinician suggested the client get on waiting lists with multiple shelters throughout the state so that the client has a better chance of having a place when he gets out of treatment. Plan/Disposition Recommended Disposition: Hospitalization facilities contacted. Plan: The client is waiting for in patient treatment at [facility]. Reports/communication Outcome discussed with: ED/Personnel
--- NOTE | 2025-05-30 17:49 | CMSP_ITS ---
Date of service: 05/30/25 Time of Service: 17:49 Care Management Safety Plan Status Status: Voluntary Reason for Wait Reason for Wait: Inpatient Admission Safety Plan Safety Plan: VOLUNTARY FOR INPATIENT PSYCHIATRIC STABILIZATION.? Patient is appropriate in all interactions since arriving at [facility]; Pt has demonstrated appropriate coping and communication skills, has articulated his needs and concerns and is fully engaged during staff interactions. Safety plan has been established with patient, and care team, to adhere to patient goals, identify restrictions based on behavioral status, address nutrition, and determine allowed personal belongings, tools for hygiene and personal care. Determine level of activity including ambulation, level of supervision, visitors, and determine privileges based on behaviors and level of engagement by pt. VOLUNTARY SAFETY PLAN: 1. Will remain on suicide precautions, in paper clothes 2. Will remain in Zone B under direct supervision of one-on-one staff at all times provided by [employer]; CHRISTINA, ROBOTICS MECHANIC basting machine operator. 3. May have paper cups, plates, finger foods as well as a cardboard spoon with which to eat meals. 4. Follow [facility] Management of the Admitted Behavioral Health Patient policy. 5. Shower available in Zone B without restriction. 6. Personal belongings-soft items permitted at RN discretion. 7. Visitors - supportive visitors at RN discretion. 8. Activities: soft cart items, hospital tablets (Netflix/[place]+/music) approved per RN discretion. 9.? Bathroom available in Zone B without restriction. 10. Phone: limited to [facility] cordless phone at RN discretion. Due to VOLUNTARY status, if patient wishes to leave [facility], staff will contact [facility] Crisis Screener ([phone]) and [employer] Buffer ([phone]) as soon as possible. In the event of elopement, notify [facility] Police ([phone]). Patient is currently voluntarily at [facility] and seeking inpatient admission when a bed becomes available. [facility] Frontline Care Center Manager will continue seeking placement. Please contact the [employer] Buffer ([phone]) and [facility] Care Center Manager ([phone]) for any needed changes in the Safety Plan. Safety plan has been provided to interdepartmental care team.
--- NOTE | 2025-05-30 17:49 | PDOC.CMSAFE ---
Date of service: 05/30/25 Time of Service: 17:49 Care Management Safety Plan Status Status: Voluntary Reason for Wait Reason for Wait: Inpatient Admission Safety Plan Safety Plan: VOLUNTARY FOR INPATIENT PSYCHIATRIC STABILIZATION.? Patient is appropriate in all interactions since arriving at [facility]; Pt has demonstrated appropriate coping and communication skills, has articulated his needs and concerns and is fully engaged during staff interactions. Safety plan has been established with patient, and care team, to adhere to patient goals, identify restrictions based on behavioral status, address nutrition, and determine allowed personal belongings, tools for hygiene and personal care. Determine level of activity including ambulation, level of supervision, visitors, and determine privileges based on behaviors and level of engagement by pt. VOLUNTARY SAFETY PLAN: 1. Will remain on suicide precautions, in paper clothes 2. Will remain in Zone B under direct supervision of one-on-one staff at all times provided by [employer]; CHRISTINA, PHYSICIAN lightning rod erector. 3. May have paper cups, plates, finger foods as well as a cardboard spoon with which to eat meals. 4. Follow [facility] Management of the Admitted Behavioral Health Patient policy. 5. Shower available in Zone B without restriction. 6. Personal belongings-soft items permitted at RN discretion. 7. Visitors - supportive visitors at RN discretion. 8. Activities: soft cart items, hospital tablets (Netflix/[place]+/music) approved per RN discretion. 9.? Bathroom available in Zone B without restriction. 10. Phone: limited to [facility] cordless phone at RN discretion. Due to VOLUNTARY status, if patient wishes to leave [facility], staff will contact [facility] Crisis Screener ([phone]) and City Designer ([phone]) as soon as possible. In the event of elopement, notify [facility] Police ([phone]). Patient is currently voluntarily at [facility] and seeking inpatient admission when a bed becomes available. [facility] Frontline Foam Tank Laminator will continue seeking placement. Please contact the City Designer ([phone]) and [facility] Foam Tank Laminator ([phone]) for any needed changes in the Safety Plan. Safety plan has been provided to interdepartmental care team.
--- NOTE | 2025-05-30 17:50 | CMPROGNOTE_ITS ---
Date of service: 05/30/25 Time of Service: 17:50 Care Management Progress Note Progress Note Text Progress Note Text: CM huddled with ED MD and [facility] clinician today to discuss Isidro's plan of care. Per [facility], Isidro remains voluntary, seeking inpatient psychiatric treatment. Per report, last evening he made threats to end his life if he was to leave. CM discussed his plan with [facility], as he has a pattern of not accepting voluntary beds; [facility] clinician will discuss this with his occupational therapy supervisor regarding an involuntary hold vs safety plan, if he declines a voluntary bed again during this stay. Referrals have been resent to facilities by [facility]; safety plan in place. CM will continue to follow. Social Determinants of Health Screening Will the Patient Participate in the Screening?: Declined to provide Do you worry about having a steady place to live?: choose not to answer
--- NOTE | 2025-05-30 17:50 | PDOC.CMPRO ---
Date of service: 05/30/25 Time of Service: 17:50 Care Management Progress Note Progress Note Text Progress Note Text: CM huddled with ED MD and [facility] clinician today to discuss Isidro's plan of care. Per [facility], Isidro remains voluntary, seeking inpatient psychiatric treatment. Per report, last evening he made threats to end his life if he was to leave. CM discussed his plan with [facility], as he has a pattern of not accepting voluntary beds; [facility] clinician will discuss this with his service center supervisor regarding an involuntary hold vs safety plan, if he declines a voluntary bed again during this stay. Referrals have been resent to facilities by [facility]; safety plan in place. CM will continue to follow. Social Determinants of Health Screening Will the Patient Participate in the Screening?: Declined to provide Do you worry about having a steady place to live?: choose not to answer
[2025-05-30] MEDS: OLANZapine 10 MG TAB PO (19:36)
[2025-05-30] MEDS: Zolpidem 10 MG TAB PO (19:36)
[2025-05-30 19:48] VITALS: BP 126/89; PULSE 108; RESP 16; O2SAT 96
[2025-05-30] MEDS: Patch Removal LIDOCAINE 2 EACH TP (20:11)
[2025-05-31] MEDS: Methocarbamol 500 MG TAB 1000 MG PO ×3 (01:04→15:03)
[2025-05-31] MEDS: Nicotine 4 MG LOZG SUC ×8 (01:04→20:02)
[2025-05-31] MEDS: Lidocaine 5% Patch 2 PATCH TP (08:01)
[2025-05-31] MEDS: clonazePAM 1 MG TAB PO ×3 (08:01→20:02)
[2025-05-31] MEDS: Divalproex Sodium 250 MG TAB.ER.24H PO ×3 (08:01→20:02)
[2025-05-31 08:24] VITALS: BP 150/87; PULSE 98; RESP 18; TEMP 35.9; O2SAT 100
[2025-05-31] MEDS: SUMAtriptan 50 MG TAB 100 MG PO (10:56)
--- NOTE | 2025-05-31 14:59 | MHPN_ITS ---
Date of service: 05/31/25 Time of Service: 10:30 Mental Health Emergency Note Release [facility] release signed:: Yes Reason for Visit Mr Limon is a 55 year old single male who is currently unhoused. The client reports that he did not sleep while the previous night due to a nightmare. The client reports that he has a migraine and is avoiding lights currently. The client states he wants to work on his suicidal ideation. The client reports reports that he spoke with his case management assistant at the [facility] the previous day and that the client's checks are now going to be mailed to [facility] to be distributed to the client per the client. The client states that he struggling with his substance use and being unhoused as a he ages. The client states he was able to eat breakfast. The client reports that he is still wanting in patient treatment. This clinician discussed with the client changing designated agency to [facility] if the client is wanting to be in the [facility]. The client reports being agreeable to this and having a case management assistant when he gets out of treatment to look for housing and help him get on waiting lists for shelters after treatment. In the last 2 weeks has the pt presented for ES prior to today?: No Asssessment/Mental Status Appearance: Unremarkable Attitude: Cooperative and Friendly Behavior: Unremarkable Speech: Normal Affect: Expansive Mood: Stressed and Depressed Thought process: Unremarkable Hallucinations: No evidence Delusions: No evidence Attention: Unremarkable Perception: Not impaired Orientation: Fully orientated Memory: Intact Insight: Poor Judgement: Poor Neurovegetative Symptoms Sleep: Decrease Appetitie: No change Interests: No change Energy: Decrease Libido: Not applicable Additional Issues: Assaultive/Threatening Behavior: No Medical Concerns: Yes Client engaged in active self harm w/weapon: No Threatening to run away: No Child reported abuse/neglect: No Voluntarily presenting for services: Yes Domestic violence is a concern: No Extreme Psychosis or extreme behavior is present: No Impression Mr Limon is a 55 year old single male who is currently unhoused. The client reports that he did not sleep while the previous night due to a nightmare. The client reports that he has a migraine and is avoiding lights currently. The client states he wants to work on his suicidal ideation. The client reports reports that he spoke with his case management assistant at the [facility] the previous day and that the client's checks are now going to be mailed to [facility] to be distributed to the client per the client. The client states that he struggling with his substance use and being unhoused as a he ages. The client states he was able to eat breakfast. The client reports that he is still wanting in patient treatment. This clinician discussed with the client changing designated agency to [facility] if the client is wanting to be in the [facility]. The client reports being agreeable to this and having a case management assistant when he gets out of treatment to look for housing and help him get on waiting lists for shelters after treatment. Plan/Disposition Recommended Disposition: Hospitalization facilities contacted. Plan: The client will wait in zone b for in patient treatment. Reports/communication Outcome discussed with: ED/Personnel
--- NOTE | 2025-05-31 16:11 | CMSP_ITS ---
Date of service: 05/31/25 Time of Service: 16:11 Care Management Safety Plan Status Status: Voluntary Reason for Wait Reason for Wait: Inpatient Admission Safety Plan Safety Plan: VOLUNTARY FOR INPATIENT PSYCHIATRIC STABILIZATION.? Patient is appropriate in all interactions since arriving at [facility]; Pt has demonstrated appropriate coping and communication skills, has articulated his needs and concerns and is fully engaged during staff interactions. Safety plan has been established with patient, and care team, to adhere to patient goals, identify restrictions based on behavioral status, address nutrition, and determine allowed personal belongings, tools for hygiene and personal care. Determine level of activity including ambulation, level of supervision, visitors, and determine privileges based on behaviors and level of engagement by pt. VOLUNTARY SAFETY PLAN: 1. Will remain on suicide precautions, in paper clothes 2. Will remain in Zone B under direct supervision of one-on-one staff at all times provided by [employer]; CHRISTINA, GAME PROGRAMMER planimeter operator. 3. May have paper cups, plates, finger foods as well as a cardboard spoon with which to eat meals. 4. Follow [facility] Management of the Admitted Behavioral Health Patient policy. 5. Shower available in Zone B without restriction. 6. Personal belongings-soft items permitted at RN discretion. 7. Visitors - supportive visitors at RN discretion. 8. Activities: soft cart items, hospital tablets (Netflix/[place]+/music) approved per RN discretion. 9.? Bathroom available in Zone B without restriction. 10. Phone: limited to [facility] cordless phone at RN discretion. Due to VOLUNTARY status, if patient wishes to leave [facility], staff will contact [facility] Crisis Screener ([phone]) and Line Crew Supervisor ([phone]) as soon as possible. In the event of elopement, notify [facility] Police ([phone]). Patient is currently voluntarily at [facility] and seeking inpatient admission when a bed becomes available. [facility] Frontline Engine Manager will continue seeking placement. Please contact the Line Crew Supervisor ([phone]) and [facility] Engine Manager ([phone]) for any needed changes in the Safety Plan. Safety plan has been provided to interdepartmental care team.
--- NOTE | 2025-05-31 16:11 | PDOC.CMSAFE ---
Date of service: 05/31/25 Time of Service: 16:11 Care Management Safety Plan Status Status: Voluntary Reason for Wait Reason for Wait: Inpatient Admission Safety Plan Safety Plan: VOLUNTARY FOR INPATIENT PSYCHIATRIC STABILIZATION.? Patient is appropriate in all interactions since arriving at [facility]; Pt has demonstrated appropriate coping and communication skills, has articulated his needs and concerns and is fully engaged during staff interactions. Safety plan has been established with patient, and care team, to adhere to patient goals, identify restrictions based on behavioral status, address nutrition, and determine allowed personal belongings, tools for hygiene and personal care. Determine level of activity including ambulation, level of supervision, visitors, and determine privileges based on behaviors and level of engagement by pt. VOLUNTARY SAFETY PLAN: 1. Will remain on suicide precautions, in paper clothes 2. Will remain in Zone B under direct supervision of one-on-one staff at all times provided by [employer]; CHRISTINA, [employer] health and wellness coordinator. 3. May have paper cups, plates, finger foods as well as a cardboard spoon with which to eat meals. 4. Follow [facility] Management of the Admitted Behavioral Health Patient policy. 5. Shower available in Zone B without restriction. 6. Personal belongings-soft items permitted at RN discretion. 7. Visitors - supportive visitors at RN discretion. 8. Activities: soft cart items, hospital tablets ([employer]flix/[place]+/music) approved per RN discretion. 9.? Bathroom available in Zone B without restriction. 10. Phone: limited to [facility] cordless phone at RN discretion. Due to VOLUNTARY status, if patient wishes to leave [facility], staff will contact [facility] Crisis Screener ([phone]) and Web Software Engineer ([phone]) as soon as possible. In the event of elopement, notify [facility] ([phone]). Patient is currently voluntarily at [facility] and seeking inpatient admission when a bed becomes available. [facility] Frontline Broomcorn Sorter will continue seeking placement. Please contact the Web Software Engineer ([phone]) and [facility] Broomcorn Sorter ([phone]) for any needed changes in the Safety Plan. Safety plan has been provided to interdepartmental care team.
--- NOTE | 2025-05-31 16:12 | PDOC.CMPRO ---
Date of service: 05/31/25 Time of Service: 16:12 Care Management Progress Note Progress Note Text Progress Note Text: CM met with ED staff regarding Isidro's plan of care. Per report, Isidro remains agreeable to voluntary inpatient psychiatric treatment. Referrals were resent to all facilities, and are being reviewed; no beds available today. Per report, [facility] is working on becoming Isidro's designated agency in order to support coordination of services in the community. He is currently supported by [facility], but is out of their catchment area in [facility]. Safety plan in place. CM will continue to follow. Social Determinants of Health Screening Will the Patient Participate in the Screening?: Declined to provide Do you worry about having a steady place to live?: choose not to answer
[2025-05-31] MEDS: Acetaminophen 325 MG TAB 650 MG PO (16:56)
--- NOTE | 2025-05-31 16:56 | ED.PROG1_ITS ---
Date of service: 05/31/25 Time of Service: 16:56 Psychiatric Border Handoff Update Brief Story: Patient is here for suicidal ideation. Status: voluntary Able to leave: would need physician/XOCHITL and crisis evaluation prior to leaving Barriers to Disposition: Patient previously refused to go to [facility] when presented as an option. Patient now agreeable. Mediation Reconciliation performed: Yes Code Status ordered: Yes Diet ordered: Yes Discharge Plan Discharge Details Chief Complaint: Fall/Non TraumaCriteria Clinical Impression: Suicide ideation, Chronic back pain Primary Care Provider: None,None ED Provider: Blair Buchanan Home Meds and New Rx's Prescriptions: No Action sumatriptan succinate 100 MG tablet 100 mg PO PRN duloxetine 60 MG capsule,delayed release(DR/EC) 60 mg PO BID clonazepam 1 mg tablet 1 mg PO QID divalproex 500 mg tablet extended release 24 hr 1,000 mg PO HS Patient Comments: TAKE TWO TABLETS BY MOUTH EVERY EVENING AT BEDTIME zolpidem [Ambien] 10 mg .Route .night
[2025-05-31] MEDS: OLANZapine 10 MG TAB PO (20:02)
[2025-05-31] MEDS: Zolpidem 10 MG TAB PO (20:02)
[2025-05-31] MEDS: Patch Removal LIDOCAINE 2 EACH TP (21:00)
[2025-06-01] MEDS: Nicotine 4 MG LOZG SUC ×3 (02:37→12:42)
--- NOTE | 2025-06-01 07:01 | ED.PSYCHBOAR ---
Date of service: 06/01/25 Time of Service: 07:01 Psychiatric Border Handoff Update Brief Story: Patient seeking voluntary placement for thoughts of self-harm, no new acute complaints. Will continue to monitor until safe disposition found. Status: voluntary Mediation Reconciliation performed: Yes Code Status ordered: Yes Diet ordered: Yes Discharge Plan Discharge Details Chief Complaint: Fall/Non TraumaCriteria Clinical Impression: Suicide ideation, Chronic back pain Primary Care Provider: None,None ED Provider: Michael Rubalcava Home Meds and New Rx's Prescriptions: No Action sumatriptan succinate 100 MG tablet 100 mg PO PRN duloxetine 60 MG capsule,delayed release(DR/EC) 60 mg PO BID clonazepam 1 mg tablet 1 mg PO QID divalproex 500 mg tablet extended release 24 hr 1,000 mg PO HS Patient Comments: TAKE TWO TABLETS BY MOUTH EVERY EVENING AT BEDTIME zolpidem [Ambien] 10 mg .Route .night
[2025-06-01] MEDS: clonazePAM 1 MG TAB PO ×2 (08:05→13:16)
[2025-06-01] MEDS: Divalproex Sodium 250 MG TAB.ER.24H PO ×2 (08:05→13:16)
[2025-06-01] MEDS: Lidocaine 5% Patch 2 PATCH TP (08:05)
[2025-06-01] MEDS: Acetaminophen 325 MG TAB 650 MG PO (08:05)
[2025-06-01] MEDS: Methocarbamol 500 MG TAB 1000 MG PO (09:13)
[2025-06-01 10:56] VITALS: BP 137/74; PULSE 67; RESP 16; TEMP 36.6; O2SAT 96
--- NOTE | 2025-06-01 13:31 | CMPROGNOTE_ITS ---
Date of service: 06/01/25 Time of Service: 13:31 Care Management Progress Note Progress Note Text Progress Note Text: [facility] reached out to CM this morning to inform that Isidro has been accepted at [facility] for today. Per RN, Isidro did express hesitation about going to , but eventually agreed to transfer for inpatient psychiatric treatment. He transported via [facility] [employer], coordinated by ED RN. CM will continue to follow. Social Determinants of Health Screening Will the Patient Participate in the Screening?: Declined to provide Do you worry about having a steady place to live?: choose not to answer
== END 2025-06-01 13:25 ==
PROVIDERS: Student in an Organized Health Care Education/Training Program; Emergency Provider Emergency Medicine
DX: M54.9 Dorsalgia, unspecified (principal); R45.851 Suicidal ideations; Z59.02 Unsheltered homelessness; Z59.82 Transportation insecurity
CPT/HCPCS: 00123; 36415; 80307; 96127; 99285; G0378; 72131; 72192; 80164; J1885; J3490

== ENCOUNTER 2025-06-16 13:32 | Emergency (ER) | payer MEDICARE, SELFPAY ==
[2025-06-16 13:36] VITALS: BP 122/72; PULSE 115; RESP 16; TEMP 37.1; O2SAT 90
--- NOTE | 2025-06-16 14:30 | DI.CT_ITS ---
Exam(s) CT LUMBAR SPINE WO EXAM: CT LUMBAR SPINE WO CLINICAL HISTORY: Fall, L. low back pain. TECHNIQUE: Imaging Protocol: Axial computed tomography images with coronal and sagittal reformatted images were created and reviewed COMPARISON: CT CT LUMBAR SPINE WO from 05/27/2025 FINDINGS: Bones: The last intervertebral disc space is designated the L5/S1 level for the numbering purpose of this examination. The vertebral body heights are well maintained. Mild dextroscoliosis versus patient positioning. No fracture is seen. T12-L1: No disc herniations or bulges are present. L1-2: No disc herniations or bulges are present. L2-3: No disc herniations or bulges are present. L3-4: No disc herniations or bulges are present. L4-5: Disc height is maintained. Minimal endplate osteophytes. Mild broad- based disc bulging. Mild bilateral neural foraminal narrowing. L5-S1: Mild disc bulging. Mild neural foraminal narrowing. The visualized SI joints and sacrum are well maintained. Soft Tissues: The paraspinal soft tissues are unremarkable. IMPRESSION: No evidence of fracture. Mild degenerative changes at L4-5 and L5-S1 The preliminary [facility] report was reviewed. RADIATION DOSE DELIVERED: Total DLP DATA REPOSITORY: All CT scans at this facility are submitted to the National Radiology Data Registry (NRDR) Dose Index Registry (DIR) with the [employer] (ACR). RADIATION OPTIMIZATION: All CT scans at this facility use at least one of these dose optimization techniques: automated exposure control; mA and/or kV adjustment per patient size (includes targeted exams where dose is matched to clinical indication); or iterative reconstruction.
--- NOTE | 2025-06-16 14:30 | DI.CT_ITS ---
Exam(s) CT PELVIC WO EXAM: CT PELVIC WO CLINICAL HISTORY: Fall. L. hip and low back pain. TECHNIQUE: Imaging Protocol: Axial computed tomography images with coronal and sagittal reformatted images were created and reviewed. CONTRAST MATERIAL: Oral: no COMPARISON: CT CT PELVIC WO from 05/27/2025 FINDINGS: Bladder: Symmetric distention, no gross wall thickening. Bowel: No obstruction or bowel wall thickening. The appendix is normal. Peritoneal cavity: No ascites, collection or mesenteric inflammatory response. Reproductive: Unremarkable. Bones: No fracture. Soft tissues: Small fat containing left inguinal hernia. The SI joints, hip joints and pubic symphysis are unremarkable. IMPRESSION: No acute abnormality. The preliminary [facility] report was reviewed. RADIATION DOSE DELIVERED: Total DLP DATA REPOSITORY: All CT scans at this facility are submitted to the National Radiology Data Registry (NRDR) Dose Index Registry (DIR) with the [employer] (ACR). RADIATION OPTIMIZATION: All CT scans at this facility use at least one of these dose optimization techniques: automated exposure control; mA and/or kV adjustment per patient size (includes targeted exams where dose is matched to clinical indication); or iterative reconstruction.
--- NOTE | 2025-06-16 14:45 | ED.GENADUL_ITS ---
Discharge Plan Disposition Patient Disposition: Home Condition: Stable Discharge Details Clinical Impression: Chronic back pain Primary Care Provider: None,None ED Provider: Alexa Dwyer Home Meds and New Rx's Prescriptions: No Action sumatriptan succinate 100 MG tablet 100 mg PO PRN duloxetine 60 MG capsule,delayed release(DR/EC) 60 mg PO BID clonazepam 1 mg tablet 1 mg PO QID divalproex 500 mg tablet extended release 24 hr 1,000 mg PO HS Patient Comments: TAKE TWO TABLETS BY MOUTH EVERY EVENING AT BEDTIME zolpidem [Ambien] 10 mg .Route .night Discharge Instructions Instructions: Low Back Pain (DC) Additional Instructions: You were seen in the emergency department today for evaluation of low back pain that happened after a fall. In our department you do full physical examination performed, and had CT scans that did not show any fracture, dislocation, or other new injuries. You do have some [id number] changes in your back and received medications for your pain. It is safe for you to leave the hospital, and I recommend that you give your primary care doctor's office a call to try to schedule an ED follow-up visit appointment. Please take all of your medications as prescribed and follow-up with your outpatient providers. You can utilize [facility] for housing resources as the nights ago colder, and thank you for allowing us to be part of your care. HPI General Mode of arrival: EMS . Date/Time Provider Initiated Documentation: 06/16/25 13:37 . Limitations to Documentation: no limitations . Information obtained by: patient and old records reviewed . HPI Narrative: This is a 55-year-old male patient with a history of chronic back pain and depression, presenting for evaluation after a fall. The patient reports that he slipped while walking down a hill and landed on his bottom, and had pain in his left lower back/hip radiating into his buttocks. He was able to get up after this event and ambulate but states that it hurts to walk. Prior to this event he was in his normal state of health. He does not take blood thinners, states that he did not hit his head, nor lose consciousness. This event was not prec eded by any chest pain, dizziness or other medical complaints. The patient states that he is not experiencing any numbness or tingling in his saddle region or lower extremities. He has not had any weakness or sensory loss of the lower extremities. Due to a very high ED census, initial evaluation was performed in the waiting room with patient consent to expedite evaluation and imaging. Related Data Home Medications ?Medication ?Instructions ?Recorded ?Confirmed duloxetine 60 mg capsule,delayed 60 mg PO BID 12/15/16 06/16/25 release sumatriptan succinate 100 mg tablet 100 mg PO PRN 11/2806/16/25 clonazepam 1 mg tablet 1 mg PO QID 10/23/24 5 divalproex 500 mg tablet,extended 1,000 mg PO HS 11/1006/16/25 release 24 hr zolpidem 10 mg .Route .night 04/12/25 06/16/25 Allergies Allergy/AdvReac Type Severity Reaction Status Date / Time prochlorperazine (From Allergy Unknown Unknown Verified 06/16/25 13:42 Compazine) promethazine (From Phenergan) Allergy Unknown Unknown Verified 06/16/25 13:42 NSAIDS (Non-Steroidal Allergy Unknown Verified 06/16/25 13:42 Anti-Inflamma General Stated Complaint: Nk/Back Pain PUSHPA: 4 Exam Narrative Exam Narrative: Gen: Awake and alert, in no apparent distress HEENT: Non-icteric sclera Neck: Supple Lungs: No apparent respiratory distress, normal respiratory effort. CV: Appears well perfused, strong distal pulses Abdomen: Non-distended, soft MSK: Moves 4 extremities without apparent limitation in ROM. No T or L-spine step-offs, tenderness to palpation over the left SI region with no overlying skin changes. Some pain into the left buttock, pelvis stable to AP compression. 5 out of 5 strength bilateral lower extremities and symmetrical, preserved sensation and strong DP pulses bilaterally. Skin: Visualized skin without rashes, cyanosis. Neuro: No obvious focal deficits or facial asymmetry. Speaks in full, clear sentences. Psych: Appropriate for situation. Course Vital Signs Vital signs: Vital Signs Temperature 37.1 C 06/16/25 13:36 Pulse 115 H 06/16/25 13:36 Respiratory Rate 16 06/16/25 13:36 Blood Pressure 122/72 06/16/25 13:36 Pulse Oximetry 90 L 06/16/25 13:36 Temperature 37.1 C 06/16/25 13:36 Temperature Source Oral 06/16/25 13:36 Pulse 115 H 06/16/25 13:36 Respiratory Rate 16 06/16/25 13:36 Blood Pressure 122/72 06/16/25 13:36 Blood Pressure Position Sitting 06/16/25 13:36 Pulse Oximetry 90 L 06/16/25 13:36 Oxygen Delivery Method Room Air 06/16/25 13:36 Oxygen Flow Rate 0 06/16/25 13:36 Medical Decision Making This is a 55-year-old male patient presenting for evaluation of left lower back pain after mechanical fall. Differential includes but is not limited to fracture, dislocation, sprain/strain, muscular spasm, sciatica/radiculopathy. I am reassured by the lack of neurodeficits against severe spinal cord injury. Reassuringly, this was a mechanical fall and there was no preceding medical complaints to suggest ACS, syncope, vasovagal syndrome, arrhythmia. Over by the patient with a dose of Tylenol for initial pain management and we will obtain a Noncon CT lumbar spine and pelvis to evaluate for injury. - Tylenol ineffective, provided the patient with a dose of oral morphine, patient reports that he has an allergy to NSAIDs. The CT scans were reviewed by myself, and the radiology report notes no acute traumatic findings, degenerative changes are appreciated, the patient was informed of these findings. He endorses some depression but did not endorse suicidal ideation, and I had a emma conversation with him regarding his disposition. He is currently unhoused, states that he was trying to stay in a hotel but thinks that he will be [facility] the [facility]. I did ensure that he had access to all resources such as 211 and community connections, and the patient has been referred to establish with a primary care provider in the past. At this time, the patient has had a full medical evaluation and is safe for discharge to home. They are hemodynamically stable, ambulatory, and tolerating PO. They are understanding of the follow-up plan and return precautions. They left our facility without incident. Alexa Dwyer MD Quality:SDOH Health Related Social Needs: Health related social needs risk of homeless transpo i nsecurity house/econ circumstance education Health related social needs details patient currently lives in a hotel which he pays out of pocket for. PFSH All Active Problems (Updated 06/16/25 @ 17:58 by Alexa Dwyer MD) Chronic back pain (Acute) Suicide ideation (Acute) Medical History Obesity History of alcoholism GERD (gastroesophageal reflux disease) Tremor Migraines Depression with psychotic features Anxiety Surgical History Repair of inguinal hernia Family History Mother Depression Melanoma Social History Smoking/Tobacco Use Status: Current every day Tobacco Type: cigars Per week: 14 Smoking risk assessment performed?: Yes Alcohol Intake: former Drug use: Occasionally Substance use type: marijuana and crack/cocaine Details: smoked marijuana week before coming to the hospital Housing: other Do you feel safe at home: Yes Do you feel safe in your relationship?: Yes
[2025-06-16 15:33] VITALS: BP 121/78; PULSE 105; O2SAT 93
[2025-06-16] MEDS: Acetaminophen 500 MG TAB 1000 MG PO (15:36)
--- NOTE | 2025-06-16 17:28 | DI.[facility]AD_ITS ---
PROCEDURE INFORMATION: Exam: CT Pelvis Without Contrast Exam date and time: 06/16/2025 3:43 PM Age: 55 years old Clinical indication: Hip pain; Left hip; L hip and low back pain TECHNIQUE: Imaging protocol: Computed tomography of the pelvis without contrast. COMPARISON: CT PELVIC WO 05/27/2025 4:10 PM FINDINGS: Intestine: No acute bowel pathology is seen in the pelvis. Appendix: The appendix appears normal. Intraperitoneal space: No gross ascites or free air is seen in the pelvis. Lymph nodes: No pathologically enlarged pelvic sidewall lymph nodes are seen. The distal abdominal aorta appears normal in caliber. Reproductive: The prostate gland and seminal vesicles appear normal. Urinary bladder: The urinary bladder appears normal. Bones/joints: No acute fracture or dislocation is seen in the pelvis or hip joints. No hip effusion is demonstrated. Dedicated imaging through the lumbar spine was obtained concurrently and will be dictated separately. Soft tissues: There is a small fat containing left inguinal region hernia. There is suggestion of scarring from an old right inguinal herniorrhaphy. Correlation with surgical history is recommended. No gross superficial soft tissue fluid collection or mass is demonstrated. IMPRESSION: No acute fracture or dislocation seen in the pelvis or at the hip joints. No hip effusion demonstrated. Dictated and Authenticated by: True Nevarez MD. Orderin [facility] Liu MD
[2025-06-16 17:30] VITALS: BP 125/81; PULSE 96; RESP 18; O2SAT 95
--- NOTE | 2025-06-16 17:38 | DI.[facility]AD_ITS ---
PROCEDURE INFORMATION: Exam: CT Lumbar Spine Without Contrast Exam date and time: 06/16/2025 3:46 PM Age: 55 years old Clinical indication: Low back pain TECHNIQUE: Imaging protocol: Computed tomography of the lumbar spine without contrast. COMPARISON: CT LUMBAR SPINE WO 05/27/2025 4:08 PM FINDINGS: Bones/joints: No acute lumbar fracture or malalignment is seen. There is mild dextroscoliotic curvature through the lower lumbar region, possibly positional. CT imaging through the pelvis was obtained concurrently and has been dictated separately. T12-L1: No focal disc herniation. No central canal narrowing or neural foraminal narrowing. L1-L2: Disc height preserved. No focal disc herniation. No central canal narrowing or neural foraminal narrowing. L2-L3: Disc height preserved. No focal disc herniation. Mild thickening of the ligamentum flavum. Mild central canal narrowing. Mild bilateral facet arthrosis. No significant foraminal narrowing. L3-L4: Disc height preserved. Small anterior osteophytes. No focal disc herniation. Ligamentum flavum thickening. Mild central canal narrowing. No significant foraminal narrowing. L4-L5: Disc height preserved. Broad-based disc bulging along the anterior, left, and posterior margins of the disc space with associated osteophytic ridging, prominent along the anterior and left margin of the superior endplate of L5. Moderate facet arthrosis on the left. Moderate central canal narrowing, image 181 of series 2. Moderate left-sided foraminal narrowing and moderate-severe right-sided foraminal narrowing with disc and/or osteophytic material apparently abutting but not grossly deforming the L4 nerve roots L5-S1: Mild loss of posterior disc height. Small vacuum disc deformity. Small broad-based posterior disc bulge with suggestion of a small superimposed left paramidline disc extrusion with inferior subligamentous extension, images 141 of series 2 and 29 of series 8, abutting the thecal sac, not well demonstrated. Moderate left and moderate-severe right-sided foraminal narrowing with osteophytic material abutting the right L5 nerve root. Kidneys and ureters: Nonobstructing renal calculi measuring 4 mm on the left and 2 mm on the right. No hydronephrosis or ureterectasis. Vasculature: Normal caliber abdominal aorta. Soft tissues: No gross superficial soft tissue fluid collection or mass is seen through the visualized lumbar region. IMPRESSION: 1. No acute lumbar fracture or malalignment is seen. 2. Degenerative changes, as detailed level by level above, with the worse findings at L4-L5 and L5-S1. If clinically warranted, nonemergent follow up MRI could be obtained for improved visualization of the intervertebral discs and spinal nerve roots. Dictated and Authenticated by: True Nevarez MD. Orderin [facility] Christ[facility] Liu MD
[2025-06-16] MEDS: MORPHine IR 15 MG TAB PO (18:10)
[2025-06-16 18:12] VITALS: BP 129/80; PULSE 97; RESP 18; O2SAT 98
== END 2025-06-16 18:13 | disposition home or self-care (01) ==
PROVIDERS: Emergency Provider Emergency Medicine
DX: M54.50 Low back pain, unspecified (principal); G89.29 Other chronic pain; W01.0XXA Fall on same level from slipping, tripping and stumbling without subsequent striking against object, initial encounter
CPT/HCPCS: 99284; 99283; 72131; 72192

== ENCOUNTER 2025-06-21 14:57 | Emergency (ER) | payer MEDICARE, SELFPAY ==
[2025-06-21 14:59] VITALS: BP 120/73; PULSE 86; RESP 20; TEMP 36.7; O2SAT 93
[2025-06-21 17:07] VITALS: O2SAT 96
--- NOTE | 2025-06-21 17:15 | PDOC.MHCN_ITS ---
Date of service: 06/21/25 Time of Service: 15:59 PHQ-9 Over the last 2 weeks, how often have you been bothered by any of the following problems? 1. Little interest or pleasure in doing things: nearly every day 2. Feeling down, depressed, or hopeless: nearly every day 3. Trouble falling or staying asleep, or sleeping too much: more than half the days 4. Feeling tired or having little energy: nearly every day 5. Poor appetite or overeating: nearly every day 6. Feeling bad about yourself - or that you are a failure or have let yourself and your family down: nearly every day 7. Trouble concentrating on things, such as reading the newspaper or watching television: nearly every day 8. Moving or speaking so slowly that other people could have noticed? - Or the opposite - being so fidgety or restless that you have been moving around a lot more than usual: several days 9. Thoughts that you would be better off or of hurting yourself in some way: nearly every day Total score: 24 If you checked off any problems, how difficult have these problems made it for you to do your work, take care of things at home, or get along with other people?: very difficult PHQ-9 Results: Positive Source: Developed by Drs. Derek Dobbs, Meme Odell, Alok Mott and colleagues, with an educational kai from [email or web address]. Suicide Severity Rate CSSRS Have you wished you were or wished you could go to sleep and not wake up?: Yes Have you actually had any thoughts of killing yourself?: Yes CSSRS2 Have you been thinking about how you might do this?: Yes Have you had these thoughts and had some intention of acting on them?: Yes Have you started to work out or worked out the details of how to kill yourself? Do you intend to carry out this plan?: Yes CSSRS3 Have you ever done anything, started to do anything or prepared to do anything to end your life?: Yes CSSRS4 Was this within the past three months?: Yes Screening Score Total Score: 8 Screening: Positive Mental Health Emergency Note Release [facility] release signed:: Yes Reason for Visit Suicidal In the last 2 weeks has the pt presented for ES prior to today?: No Client Information Client is: Adult Outpatient Well Housed: No,status: Homeless Non Suicidal Self Injury Current: No History: No Safety Risk/Harm to Self or Others Current Ideation to Harm Self or Others: Yes to self. Intent: yes, has intent. Plan: yes,has a plan. History of suicide attempt: yes,history of suicide attempt reported. Details of previous suicide attempt: Reports history of several suicide attempts. Most recently, states that he overdosed on Cymbalta approx 1 month ago. Risk: Does risk to harm exist?: yes. Risk: High Risk Duty to warn indicated: No Asssessment/Mental Status Appearance: Disheveled and Poor hygiene Attitude: Guarded Behavior: Unremarkable Speech: Soft Affect: Flat Mood: Stressed and Depressed Thought process: Unremarkable Hallucinations: No evidence Delusions: No evidence Attention: Unremarkable Perception: Not impaired Orientation: Fully orientated Memory: Intact Insight: Poor Judgement: Poor Neurovegetative Symptoms Sleep: Decrease Appetitie: Increase Interests: Decrease Energy: Decrease Libido: Not applicable Substance Use: Drug Issues: Other (Reports use of cocaine last night (08/20/2025), approximately 2 grams) Have you used substances in the last 7 days?: yes, Reports cocaine use last night. Approximately 2 grams. Additional Issues: Assaultive/Threatening Behavior: No Client engaged in active self harm w/weapon: No Threatening to run away: No Child reported abuse/neglect: No Voluntarily presenting for services: Yes Domestic violence is a concern: No Extreme Psychosis or extreme behavior is present: No Resources Reosurces reviewed and given:: [facility] Plan/Disposition Recommended Disposition: Hospitalization (All appropriate referrals will be made.) No. Plan: Client will be admitted to [facility] while referrals are made for inpatient hospitalization. Person reported agreement to plan: Yes Reports/communication Outcome discussed with: ED/Personnel (Updated charge nurse of outcome. Also updated ER doctor.) and Other (Talent Development Specialist Alayna updated of Intake status.)
[2025-06-21 17:30] LABS: Cannabinoids THC Positive (Negative); METHADONE URINE SCREEN Negative (Negative)
[2025-06-21] MEDS: Nicotine 2 MG LOZG SUC (17:40)
--- NOTE | 2025-06-21 19:25 | CMSP_ITS ---
Date of service: 06/21/25 Time of Service: 19:25 Care Management Safety Plan Status Status: Voluntary Reason for Wait Reason for Wait: Inpatient Admission Safety Plan Safety Plan: VOLUNTARY FOR INPATIENT PSYCHIATRIC STABILIZATION.? Patient is appropriate in all interactions since arriving at [facility]; Pt has demonstrated appropriate coping and communication skills, has articulated his needs and concerns and is fully engaged during staff interactions. Safety plan has been established with patient, and care team, to adhere to patient goals, identify restrictions based on behavioral status, address nutrition, and determine allowed personal belongings, tools for hygiene and personal care. Determine level of activity including ambulation, level of supervision, visitors, and determine privileges based on behaviors and level of engagement by pt. VOLUNTARY SAFETY PLAN: 1. Will remain on suicide precautions, in paper clothes 2. Will remain in Zone B under direct supervision of one-on-one staff at all times provided by [employer]; CHRISTINA, FLOORWALKER curtain supervisor. 3. May have paper cups, plates, finger foods as well as a cardboard spoon with which to eat meals. 4. Follow [facility] Management of the Admitted Behavioral Health Patient policy. 5. Shower available in Zone B without restriction. 6. Personal belongings-soft items permitted at RN discretion. 7. Visitors - supportive visitors at RN discretion. 8. Activities: soft cart items, hospital tablets (Netflix/Pet[employer]+/music) approved per RN discretion. 9.? Bathroom available in Zone B without restriction. 10. Phone: limited to [facility] cordless phone at RN discretion. Due to VOLUNTARY status, if patient wishes to leave [facility], staff will contact [facility] Crisis Screener ([phone]) and Critical Care Nurse Practitioner ([phone]) as soon as possible. In the event of elopement, notify [facility] Police ([phone]). Patient is currently voluntarily at [facility] and seeking inpatient admission when a bed becomes available. [facility] Frontline Sales Operations Analyst will continue seeking placement. Please contact the Critical Care Nurse Practitioner ([phone]) and [facility] Sales Operations Analyst ([phone]) for any needed changes in the Safety Plan. Safety plan has been provided to interdepartmental care team.
--- NOTE | 2025-06-21 19:25 | PDOC.CMSAFE ---
Date of service: 06/21/25 Time of Service: 19:25 Care Management Safety Plan Status Status: Voluntary Reason for Wait Reason for Wait: Inpatient Admission Safety Plan Safety Plan: VOLUNTARY FOR INPATIENT PSYCHIATRIC STABILIZATION.? Patient is appropriate in all interactions since arriving at [facility]; Pt has demonstrated appropriate coping and communication skills, has articulated his needs and concerns and is fully engaged during staff interactions. Safety plan has been established with patient, and care team, to adhere to patient goals, identify restrictions based on behavioral status, address nutrition, and determine allowed personal belongings, tools for hygiene and personal care. Determine level of activity including ambulation, level of supervision, visitors, and determine privileges based on behaviors and level of engagement by pt. VOLUNTARY SAFETY PLAN: 1. Will remain on suicide precautions, in paper clothes 2. Will remain in Zone B under direct supervision of one-on-one staff at all times provided by [employer]; CHRISTINA, SALES PROMOTION MANAGER rehabilitation program coordinator. 3. May have paper cups, plates, finger foods as well as a cardboard spoon with which to eat meals. 4. Follow [facility] Management of the Admitted Behavioral Health Patient policy. 5. Shower available in Zone B without restriction. 6. Personal belongings-soft items permitted at RN discretion. 7. Visitors - supportive visitors at RN discretion. 8. Activities: soft cart items, hospital tablets (Netflix/[place]+/music) approved per RN discretion. 9.? Bathroom available in Zone B without restriction. 10. Phone: limited to [facility] cordless phone at RN discretion. Due to VOLUNTARY status, if patient wishes to leave [facility], staff will contact [facility] Crisis Screener ([phone]) and Control Manager ([phone]) as soon as possible. In the event of elopement, notify [facility] Police ([phone]). Patient is currently voluntarily at [facility] and seeking inpatient admission when a bed becomes available. [facility] Frontline Dietician will continue seeking placement. Please contact the Control Manager ([phone]) and [facility] Dietician ([phone]) for any needed changes in the Safety Plan. Safety plan has been provided to interdepartmental care team.
--- NOTE | 2025-06-21 19:29 | W.ED.GENAD ---
Discharge Plan Discharge Details Chief Complaint: PsychEval Clinical Impression: Suicide ideation Primary Care Provider: None,None ED Provider: Shabbir Gonzalez Home Meds and New Rx's Prescriptions: No Action duloxetine 60 MG capsule,delayed release(DR/EC) 60 mg PO BID clonazepam 1 mg tablet 1 mg PO TID divalproex 500 mg tablet extended release 24 hr 250 mg PO TID Patient Comments: TAKE TWO TABLETS BY MOUTH EVERY EVENING AT BEDTIME olanzapine 10 mg tablet 10 mg PO HS zolpidem 12.5 mg tablet,ext release multiphase 12.5 mg PO HS hydroxyzine pamoate 25 mg capsule 25 mg PO Q4H PRN Rx Instructions: for anxiety HPI General Date/Time Provider Initiated Documentation: 06/21/25 15:02. HPI Narrative: MDM/Narrative: Initial Assessment: 55-year-old male with chronic suicidality, presents with acute suicidal ideation. Differential Diagnosis: - Suicidal ideation - Suspected secondary gain - Unstable housing contributing to depression - Living in [facility] for 5 days - Feels unsafe, fears jumping into traffic or overdosing - Inpatient admission for further management ED Course: - Cleared under Smart clearance procedure - Home meds ordered - CODE STATUS updated - Diet ordered Final Assessment: Chronic suicidality, presenting with acute suicidal ideation. Suspected secondary gain due to unstable housing. Cleared under Smart clearance procedure, home meds ordered, CODE STATUS updated, diet ordered. Voluntary admission pending bed placement. Clinical Impression: - Suicidal ideation Disposition: - Voluntary admission pending bed placement This document was created with assistance from [employer]. The patient consented to its use. HPI: The patient is a 55-year-old male with a history of chronic suicidal ideation, homelessness, chronic lumbar pain, and major depressive disorder, presenting for evaluation of suicidal ideation. The patient reports living in the [facility] for the past 5 days and experiencing exacerbation of depressive symptoms due to inclement weather, specifically rain. He expresses a desire to end his life, consistent with previous emergency department visits. The patient attributes his depressive symptoms to his current housing situation. He reports having no access to his bank accounts, though the reasoning for this is unclear. The patient feels unsafe and is requesting inpatient psychiatric care due to fears of impulsively jumping into traffic or overdosing. ROS: Negative besides as mentioned above Exam: Vital signs: Reviewed. General Appearance: Alert and oriented. No acute distress. HEENT: NCAT, EOMI, not icteric. External ears normal. No rhinorrhea. Moist mucous membranes. Neck: Supple, full range of motion, no observable masses, No meningeal sign. Respiratory: No Respiratory distress. No tachypnea. Cardiovascular: RRR, no edema. Gastrointestinal: Soft, nondistended, No rebound tenderness. Back: No midline tenderness to palpation or palpable step-offs of the C/T/L spine. Skin: Warm and dry, no rash. Neurological: Normal Gait, Grossly intact. Psychiatric: Appropriate for situation. Labs: Laboratory Tests Range/Units 06/21/25 17:10 Urine Opiates Screen (Negative) Negative Urine Methadone Screen (Negative) Negative Ur Barbiturates Screen (Negative) Negative Ur Tricyclics Screen (Negative) Negative Ur Amphetamines Screen (Negative) Negative U Benzodiazepines Scrn (Negative) Negative Urine Cocaine Screen (Negative) Positive A Ur THC Screen (Negative) Positive A Related Data Home Medications ?Medication ?Instructions ?Recorded ?Confirmed duloxetine 60 mg capsule,delayed 60 mg PO BID 12/15/16 06/21/25 release clonazepam 1 mg tablet 1 mg PO TID 10/23/24 06/21/25 divalproex 500 mg tablet,extended 250 mg PO TID 11/10/24 06/21/25 release 24 hr hydroxyzine pamoate 25 mg capsule 25 mg PO Q4H PRN 06/21/25 06/21/25 olanzapine 10 mg tablet 10 mg PO HS 06/21/25 06/21/25 zolpidem 12.5 mg tablet,extended 12.5 mg PO HS 06/21/25 06/21/25 release,multiphase Allergies Allergy/AdvReac Type Severity Reaction Status Date / Time prochlorperazine (From Allergy Unknown Unknown Verified 06/16/25 13:42 Compazine) promethazine (From Phenergan) Allergy Unknown Unknown Verified 06/16/25 13:42 NSAIDS (Non-Steroidal Allergy Unknown Verified 06/16/25 13:42 Anti-Inflamma General Stated Complaint: PsychEval PUSHPA: 2 Course Vital Signs Vital signs: Vital Signs Temperature 36.7 C 06/21/25 14:59 Pulse 86 06/21/25 14:59 Respiratory Rate 20 06/21/25 14:59 Blood Pressure 120/73 06/21/25 14:59 Pulse Oximetry 93 06/21/25 14:59 Temperature 36.7 C 06/21/25 14:59 Pulse 86 06/21/25 14:59 Respiratory Rate 20 06/21/25 14:59 Blood Pressure 120/73 06/21/25 14:59 Blood Pressure Position Sitting 06/21/25 14:59 Pulse Oximetry 96 06/21/25 17:07 Oxygen Delivery Method Room Air 06/21/25 17:07 Oxygen Flow Rate 0 06/21/25 17:07 Lab/Test Results Lab/Test Results: Laboratory Tests Range/Units 06/21/25 17:10 Urine Opiates Screen (Negative) Negative Urine Methadone Screen (Negative) Negative Ur Barbiturates Screen (Negative) Negative Ur Tricyclics Screen (Negative) Negative Ur Amphetamines Screen (Negative) Negative U Benzodiazepines Scrn (Negative) Negative Urine Cocaine Screen (Negative) Positive A Ur THC Screen (Negative) Positive A Medical Decision Making Quality:SDOH Health Related Social Needs: Health related social needs risk of homeless transpo insecurity house/econ circumstance education Health related social needs details patient currently lives in a hotel which he pays out of pocket for. PFSH All Active Problems (Updated 06/21/25 @ 19:39 by Shabbir Gonzalez MD) Chronic back pain (Acute) Suicide ideation (Acute) Medical History Obesity History of alcoholism GERD (gastroesophageal reflux disease) Tremor Migraines Depression with psychotic features Anxiety Surgical History Repair of inguinal hernia Family History Mother Depression Melanoma Social History Smoking/Tobacco Use Status: Current every day Tobacco Type: cigars Per week: 14 Smoking risk assessment performed?: Yes Alcohol Intake: former Drug use: Occasionally Substance use type: marijuana and crack/cocaine Details: smoked marijuana week before coming to the hospital Housing: homeless Do you feel safe at home: Yes Do you feel safe in your relationship?: Yes
[2025-06-21] MEDS: Divalproex 250 MG TABEC PO (20:03)
[2025-06-21] MEDS: clonazePAM 1 MG TAB PO (20:03)
[2025-06-21] MEDS: Zolpidem 5 MG TAB PO (20:03)
[2025-06-21] MEDS: OLANZapine ODT 5 MG TAB PO (20:03)
[2025-06-22] MEDS: Nicotine 2 MG LOZG SUC ×2 (06:10→14:51)
--- NOTE | 2025-06-22 07:32 | ED.PROG1_ITS ---
Date of service: 06/22/25 Time of Service: 07:33 Psychiatric Border Handoff Update Brief Story: 55-year-old male I received signout on with feelings of being unsafe. 10:10 AM I spoke w/Desi Will from the [facility] who graciously agreed to accept the patient for hospitalization. 4:15 PM I signed transfer paperwork and patient was transferred uneventfully to the [facility] with [facility]. Status: voluntary Able to leave: would need physician/XOCHITL and crisis evaluation prior to leaving Mediation Reconciliation performed: Yes Code Status ordered: Yes Diet ordered: Yes Discharge Plan Disposition Patient Disposition: Psychiatric Hospital/Unit Specific Psychiatric Facility: [facility] Discharge Details Clinical Impression: Suicide ideation Primary Care Provider: None,None ED Provider: Aram Duran Meds and New Rx's Prescriptions: Continued duloxetine 60 MG capsule,delayed release(DR/EC) 60 mg PO BID clonazepam 1 mg tablet 1 mg PO TID divalproex 500 mg tablet extended release 24 hr 250 mg PO TID Patient Comments: TAKE TWO TABLETS BY MOUTH EVERY EVENING AT BEDTIME olanzapine 10 mg tablet 10 mg PO HS zolpidem 12.5 mg tablet,ext release multiphase 12.5 mg PO HS hydroxyzine pamoate 25 mg capsule 25 mg PO Q4H PRN Rx Instructions: for anxiety Discharge Instructions Additional Instructions: You are seen in the emergency department. No medications were changed. You were transferred to the [facility].
[2025-06-22] MEDS: Divalproex 250 MG TABEC PO (08:33)
[2025-06-22] MEDS: clonazePAM 1 MG TAB PO ×2 (08:33→14:50)
[2025-06-22] MEDS: DULoxetine 30 MG CAP 60 MG PO (08:33)
[2025-06-22 09:59] VITALS: BP 116/74; PULSE 96; RESP 17; TEMP 36.6; O2SAT 98
--- NOTE | 2025-06-22 18:00 | CMPROGNOTE_ITS ---
Date of service: 06/22/25 Time of Service: 14:00 Care Management Progress Note Progress Note Text Progress Note Text: Isidro was accepted at [facility] today for inpatient psychiatric treatment. Due to his pattern of declining bed offers and then refusing to safety plan, CM requested that [facility] be present for discharge. Isidro transported to [facility] without incident; CM appreciates the support from [facility]. Isidro transported via [facility]. He will follow up with [facility] for continued community support post discharge from his inpatient psychiatric treatment. Social Determinants of Health Screening Will the Patient Participate in the Screening?: Declined to provide
--- NOTE | 2025-06-22 18:00 | PDOC.CMPRO ---
Date of service: 06/22/25 Time of Service: 14:00 Care Management Progress Note Progress Note Text Progress Note Text: Isidro was accepted at [facility] today for inpatient psychiatric treatment. Due to his pattern of declining bed offers and then refusing to safety plan, CM requested that [facility] be present for discharge. Isidro transported to [facility] without incident; CM appreciates the support from [facility]. Isidro transported via [facility]. He will follow up with [facility] for continued community support post discharge from his inpatient psychiatric treatment. Social Determinants of Health Screening Will the Patient Participate in the Screening?: Declined to provide
== END 2025-06-22 16:04 ==
PROVIDERS: General Practice; Emergency Provider Emergency Medicine
DX: F14.90 Cocaine use, unspecified, uncomplicated (principal); R45.851 Suicidal ideations
CPT/HCPCS: 99285 ×2; 36415; 00123; 80307; 96127; G0378; 80164

== ENCOUNTER 2025-07-03 18:56 | Emergency (ER) | payer MEDICARE, SELFPAY ==
[2025-07-03 18:57] VITALS: BP 118/79; PULSE 90; RESP 16; TEMP 36.8; O2SAT 91
--- NOTE | 2025-07-03 19:00 | RT.EKG_ITS ---
APPROVED REPORT Exam: Resting ECG Reason for Exam: dizzyness Patient Location: E HR:90 bpm ECG Measurements Heart Rate 90 AXIS OH 163 P -57 QRSd 96 QRS 13 QT 348 T -74 QTc 427 Conclusion Sinus or ectopic atrial rhythm...P axis (-45,135) Low voltage, extremity leads...all extremity leads <0.5mV Nonspecific T abnormalities, inferior leads...T <-0.10mV, II III aVF Limb lead changes new compared to 05/14/2025
[2025-07-03 19:57] VITALS: RESP 16
--- NOTE | 2025-07-03 20:09 | W.ED.GENAD ---
Discharge Plan Disposition Patient Disposition: Home Condition: Stable Discharge Details Clinical Impression: Medication reaction Primary Care Provider: None,None ED Provider: Joie España Home Meds and New Rx's Prescriptions: No Action duloxetine 60 MG capsule,delayed release(DR/EC) 60 mg PO BID clonazepam 1 mg tablet 1 mg PO TID divalproex 500 mg tablet extended release 24 hr 250 mg PO TID Patient Comments: TAKE TWO TABLETS BY MOUTH EVERY EVENING AT BEDTIME olanzapine 10 mg tablet 10 mg PO HS zolpidem 12.5 mg tablet,ext release multiphase 12.5 mg PO HS hydroxyzine pamoate 25 mg capsule 25 mg PO Q4H PRN Rx Instructions: for anxiety Discharge Instructions Instructions: Side effects from medicines, Adverse Drug Reactions, Adult ED Additional Instructions: At this time I do believe that you are having side effects from the added hydroxyzine medication along with the Depakote and Cymbalta. Please stop the Hydroxyzine if this is causing the symptoms. Drink lots of fluids. Follow up with primary care provider in 3-5 days. Return to ED sooner if any worsening or concerns. Stand Alone Forms: Portal Information Referrals: [facility] Internal Medicine [Provider Group] - 1 week Referral Note: Call for appointment Primary Care Provider [Outside] - 5 days HPI General Mode of arrival: EMS. Date/Time Provider Initiated Documentation: 07/03/25 19:06. Limitations to Documentation: no limitations. Information obtained by: patient, RN notes reviewed and old records reviewed. HPI Narrative: 55-year-old male presents to the ER via EMS after feeling off balance and dizzy after being discharged from [facility] today. He is staying in a hotel. He states that he smoked some marijuana took a nap and woke up very dizzy and staggering. He was just started on Depakote and Cymbalta which she states that he has been on several past but it never taken them together and this is new. Denies any alcohol, he does have mild slurring of his words. I do suspect that this is a medication reaction denies any chest pain shortness of breath cough or any other associated symptoms. Denies any headache. Denies drinking any alcohol. Related Data Home Medications Medication Instructions Recorded Confirmed duloxetine 60 mg capsule,delayed 60 mg PO BID 12/15/16 07/03/25 release clonazepam 1 mg tablet 1 mg PO TID 10/23/24 07/03/25 divalproex 500 mg tablet,extended 250 mg PO TID 11/10/24 07/03/25 release 24 hr hydroxyzine pamoate 25 mg capsule 25 mg PO Q4H PRN 06/21/25 07/03/25 olanzapine 10 mg tablet 10 mg PO HS 06/21/25 07/03/25 zolpidem 12.5 mg tablet,extended 12.5 mg PO HS 06/21/25 07/03/25 release,multiphase Allergies Allergy/AdvReac Type Severity Reaction Status Date / Time prochlorperazine (From Allergy Unknown Unknown Verified 07/03/25 19:04 Compazine) promethazine (From Phenergan) Allergy Unknown Unknown Verified 07/03/25 19:04 NSAIDS (Non-Steroidal Allergy Unknown Verified 07/03/25 19:04 Anti-Inflamma General Stated Complaint: Dizzy/Sync PUSHPA: 3 Review of Systems All systems reviewed & are unremarkable except as noted in HPI and below ENT Ears, Nose, Mouth, and Throat: Reports dizziness Musculoskeletal Musculoskeletal: Reports abnormal gait Neurologic Neurologic: Reports as per HPI, Reports abnormal gait, Reports dizziness and Reports lack of coordination Exam Narrative Exam Narrative: Constitutional: Alert and oriented x3. Appears stated age. Normal body habitus. Head: Normocephalic, no trauma. Eyes: Pupils PERRL, Red reflex noted, EOM's intact. Eyelids symmetrical without lesions, discharge, or swelling. ENT: Bilateral TM's WNL, External ear normal to inspection, no mastoid TTP, swelling, or erythema, Nasal turbinates WNL, no nasal discharge. Normal dentition, Posterior pharynx WNL, no exudate. Chest: RRR, Normal S1, S2, distal pulses intact. Resp: Lungs clear to auscultation bilaterally, no wheezes, rales, or rhonchi. Abdomen: Soft, non-distended, Normoactive bowel sounds all 4 quads. Musculoskeletal: Normal gait, Moves all 4 extremities without difficulty. Skin: No suspicious rashes or lesions. Capillary refill less than 2 sec. Neurologic: Cranial nerves II-XII intact. Alert and oriented x 3. Motor: No deficits noted. Sensory: Intact bilaterally all 4 extremities. Patient does have slightly unsteady gait, Hematologic/Lymphatic: No ecchymosis, no lymphadenopathy. Course Vital Signs Vital signs: Vital Signs Temperature 36.8 C 07/03/25 18:57 Pulse 90 07/03/25 18:57 Respiratory Rate 16 07/03/25 18:57 Blood Pressure 118/79 07/03/25 18:57 Pulse Oximetry 91 L 07/03/25 18:57 Temperature 36.8 C 07/03/25 18:57 Temperature Source Oral 07/03/25 18:57 Pulse 90 07/03/25 18:57 Respiratory Rate 16 07/03/25 19:57 Respiratory Effort Normal, Non-Labored 07/03/25 19:57 Respiratory Depth Normal 07/03/25 19:57 Respiratory Pattern Normal 07/03/25 19:57 Blood Pressure 118/79 07/03/25 18:57 Blood Pressure Position Sitting 07/03/25 18:57 Pulse Oximetry 91 L 07/03/25 18:57 Oxygen Delivery Method Room Air 07/03/25 18:57 Oxygen Flow Rate 0 07/03/25 18:57 Medical Decision Making 55-year-old male presents to the ER via EMS after feeling off balance and dizzy after being discharged from [facility] today. He is staying in a hotel. He states that he smoked some marijuana took a nap and woke up very dizzy and staggering. He was just started on Depakote and Cymbalta which she states that he has been on several past but it never taken them together and this is new. Denies any alcohol, he does have mild slurring of his words. I do suspect that this is a medication reaction denies any chest pain shortness of breath cough or any other associated symptoms. Denies any headache. Denies drinking any alcohol. Will check a urinalysis, give meclizine 12.5 mg, p.o. fluids and reevaluate. Will consider labs and head CT if no improvement with the meclizine. 2126: Patient reevaluation he reports feeling somewhat better, she has also started to take hydroxyzine which could be attributing to his symptoms. I did instruct her not to take this anymore. Will plan on discharging patient home I did encourage him to increase oral fluids and speak with the prescribing provider and to stop taking the hydroxyzine. This text was generated using [employer] system, please disregard any oddities of phrase or misspellings. Quality:SDOH Health Related Social Needs: Health related social needs risk of homeless transpo insecurity house/econ circumstance education Health related social needs details patient currently lives in a hotel which he pays out of pocket for. PFSH All Active Problems (Updated 07/03/25 @ 21:30 by Joie España NP) Medication reaction (Acute) Suicide ideation (Acute) Medical History Obesity History of alcoholism GERD (gastroesophageal reflux disease) Tremor Migraines Depression with psychotic features Anxiety Surgical History Repair of inguinal hernia Family History Mother Depression Melanoma Social History Smoking/Tobacco Use Status: Current every day Tobacco Type: cigars Per week: 14 Smoking risk assessment performed?: Yes Alcohol Intake: former Drug use: Occasionally Substance use type: marijuana and crack/cocaine Details: smoked marijuana today 07/03/25 Housing: homeless Do you feel safe at home: Yes Do you feel safe in your relationship?: Yes
[2025-07-03] MEDS: Meclizine 12.5 MG TAB PO (20:24)
[2025-07-03 21:44] VITALS: PULSE 77; RESP 16; O2SAT 96
[2025-07-03 22:00] LABS: Glucose Negative (Negative)
[2025-07-03 22:07] LABS: Cannabinoids THC Positive (Negative)
== END 2025-07-03 21:47 | disposition home or self-care (01) ==
PROVIDERS: Emergency Provider Registered Nurse Emergency
DX: T50.905A Adverse effect of unspecified drugs, medicaments and biological substances, initial encounter (principal); R42 Dizziness and giddiness; Z59.01 Sheltered homelessness; Z59.82 Transportation insecurity; Z59.89 Other problems related to housing and economic circumstances
CPT/HCPCS: 99283; 99284; 80307; 93005; 81003; 93010

== ENCOUNTER 2025-07-08 09:47 | Emergency (ER) | payer MEDICARE, SELFPAY ==
[2025-07-08] VITALS (14 sets, daily range): BP systolic 129–151; BP diastolic 71–90; PULSE 71–85; RESP 13–29; TEMP 36.8; O2SAT 95–98
--- NOTE | 2025-07-08 09:30 | RT.EKG_ITS ---
APPROVED REPORT Exam: Resting ECG Reason for Exam: dizziness Patient Location: E HR:80 bpm ECG Measurements Heart Rate 80 AXIS TX 160 P 31 QRSd 86 QRS 36 QT 352 T 60 QTc 406 Conclusion Sinus rhythm...normal P axis, V-rate 60- 99 No STEMI
--- NOTE | 2025-07-08 10:15 | DI.CT_ITS ---
Exam(s) CT BRAIN NECK CTA EXAM: CT BRAIN NECK CTA CLINICAL HISTORY: headache, dizziness. TECHNIQUE: Imaging Protocol: Axial CT angiography was performed with multi- slice acquisition and multi-planar and/or 3D reconstructions. CONTRAST MATERIAL: Intravenous: Omnipaque 350 contrast volume:70 mL COMPARISON: CT CT HEAD CERVICAL SPINE WO from 01/19/[address] HEAD CERVICAL SPINE WO from 04/21/2025 FINDINGS: CT Head W/O and W: Ventricles and Extra axial spaces: Normal in size and morphology for the patient's age. Hemorrhage: None. Cerebral parenchyma: There is no evidence of an acute territorial infarct seen at this time. No acute mass effect is present. Midline shift: None. Brainstem/Cerebellum: Normal. Calvarium: Normal. Visualized Paranasal sinuses/Mastoids: Clear. Soft Tissues: Unremarkable. Enhancement: Unremarkable. CTA Neck W: Common Carotid: Right: No dissection, occlusion or significant stenosis. Left: No dissection, occlusion or significant stenosis. External Carotid: Right: No occlusion or significant stenosis. Left: No occlusion or significant stenosis. Internal Carotid: Right: No dissection, occlusion or significant stenosis. Left: No dissection, occlusion or significant stenosis. Vertebral Artery: Right: No dissection, occlusion or significant stenosis. Left: No dissection, occlusion or significant stenosis. Lung Apices: Emphysematous changes are seen in the lung apices. Bones: Within normal limits for the patient's age. There is reversal of the normal cervical lordosis which is likely degenerative in nature. Soft Tissues: Normal. Thyroid gland: Unremarkable. CTA Brain W: Internal Carotid Arteries: Normal. Anterior Cerebral Arteries: Right: No aneurysm, occlusion or significant stenosis. Left: No aneurysm, occlusion or significant stenosis. Middle Cerebral Arteries: Right: No aneurysm, occlusion or significant stenosis. Left: No aneurysm, occlusion or significant stenosis. Posterior Cerebral Arteries: Right: No aneurysm, occlusion or significant stenosis. Left: No aneurysm, occlusion or significant stenosis. Vertebral Arteries: Right: No aneurysm, occlusion or significant stenosis. Left: No aneurysm, occlusion or significant stenosis. Basilar Artery: No aneurysm, occlusion or significant stenosis. IMPRESSION: 1. No large vessel occlusion or significant stenosis on the CT angiography of the head. 2. No acute intracranial process. 3. No occlusion or significant stenosis on the CT angiography of the neck. RADIATION DOSE DELIVERED: 2,344.99mGy.cm Total DLP DATA REPOSITORY: All CT scans at this facility are submitted to the National Radiology Data Registry (NRDR) Dose Index Registry (DIR) with the [employer] (ACR). RADIATION OPTIMIZATION: All CT scans at this facility use at least one of these dose optimization techniques: automated exposure control; mA and/or kV adjustment per patient size (includes targeted exams where dose is matched to clinical indication); or iterative reconstruction.
--- NOTE | 2025-07-08 10:15 | DI.RAD_ITS ---
Exam(s) XR CHEST 2V PA LATERAL EXAM: XR CHEST 2V PA LATERAL CLINICAL HISTORY: dizziness TECHNIQUE: 2D digital imaging was performed of the chest. Two images were obtained. PA and lateral views were obtained. COMPARISON: CR XR CHEST 2V PA LATERAL from 04/15/2025 FINDINGS: MEDIASTINUM: Normal. HEART: Normal. PULMONARY VASCULATURE: Normal. LUNGS: There are no focal consolidating infiltrates. PLEURAL SPACE: No pleural effusion or pneumothorax. BONE:Within normal limits for the patient's age. OTHER FINDINGS:There is elevation of the left hemidiaphragm. IMPRESSION: No focal consolidating infiltrates. DATA REPOSITORY: RADIATION DOSE DELIVERED:
--- NOTE | 2025-07-08 10:17 | W.ED.GENAD ---
Discharge Plan Disposition Patient Disposition: Home Condition: Good Discharge Details Clinical Impression: Dizziness Primary Care Provider: None,None ED Provider: Mitra Nevarez Home Meds and New Rx's Prescriptions: Continued duloxetine 60 MG capsule,delayed release(DR/EC) 60 mg PO BID clonazepam 1 mg tablet 1 mg PO TID divalproex 500 mg tablet extended release 24 hr 250 mg PO TID Patient Comments: TAKE TWO TABLETS BY MOUTH EVERY EVENING AT BEDTIME olanzapine 10 mg tablet 10 mg PO HS zolpidem 12.5 mg tablet,ext release multiphase 12.5 mg PO HS hydroxyzine pamoate 25 mg capsule 25 mg PO Q4H PRN Rx Instructions: for anxiety Discharge Instructions Instructions: Dizziness, Adult ED Additional Instructions: Please follow-up with care management to establish care with a PCP and schedule a follow-up appointment for further evaluation including your episodes of dizziness. A referral has been made to care management to help you get a PCP in the local area. Your workup today was very reassuring. Your dizziness resolved with the medication provided (meclizine). You may take a dose of meclizine every 8 hours as needed for new episodes of dizziness (0.5 to 1 tablet). Stay well hydrated, drink plenty of fluids throughout the day. Return to emergency care if develop new severe dizziness, uncontrollable vomiting, trouble walking, weakness, severe headaches, vision changes, or if you are very worried and need to be checked again immediately Stand Alone Forms: Portal Information Referrals: Care Management [Provider Group] HPI General Date/Time Provider Initiated Documentation: 07/08/25 10:07. HPI Narrative: Isidro is a 55-year-old male with history of GERD, migraines, depression/anxiety who presents to the emergency department today for evaluation of sudden onset of dizziness 1 hour ago. He reports that feels like the room is spinning, feels like he has to shuffle to walk because he is afraid he is going to kill over to 1 side. Also reports mild left-sided headache and slightly blurred vision and mild shortness of breath which has improved since arrival to ED. Denies fever/chills, recent illness such as congestion/sore throat/cough, chest pain, nausea/vomiting, change in p.o. intake, abdominal pain, change in bowel or bladder function extremity numbness/weakness. He did have similar episode of dizziness 6 days ago which was treated with meclizine and attributed to medication reaction. He reports that he has been started on new medication since discharge from [facility], but has been taking them as prescribed and no medication changes in the last week. Denies recent surgery/immobility/hormone use, history of blood clots or cancer. Related Data Home Medications Medication Instructions Recorded Confirmed duloxetine 60 mg capsule,delayed 60 mg PO BID 12/15/16 07/08/25 release clonazepam 1 mg tablet 1 mg PO TID 10/23/24 07/08/25 divalproex 500 mg tablet,extended 250 mg PO TID 11/10/24 07/08/25 release 24 hr hydroxyzine pamoate 25 mg capsule 25 mg PO Q4H PRN 06/21/25 07/08/25 olanzapine 10 mg tablet 10 mg PO HS 06/21/25 07/08/25 zolpidem 12.5 mg tablet,extended 12.5 mg PO HS 06/21/25 07/08/25 release,multiphase Allergies Allergy/AdvReac Type Severity Reaction Status Date / Time prochlorperazine (From Allergy Unknown Unknown Verified 07/08/25 09:58 Compazine) promethazine (From Phenergan) Allergy Unknown Unknown Verified 07/08/25 09:58 NSAIDS (Non-Steroidal Allergy Unknown Verified 07/08/25 09:58 Anti-Inflamma General Stated Complaint: Dizzy/Sync PUSHPA: 3 Exam Const General: cooperative, healthy appearing, comfortable, no acute distress and well developed Nutritional Appearance: average body habitus and well nourished Orientation: alert and oriented x3 [facility] Head: normal to inspection and atraumatic Ears: hearing grossly normal bilaterally Mouth: oral mucosae normal Resp Effort & Inspection: normal respiratory effort and able to speak in complete sentences Auscultation: clear to auscultation bilaterally Cardio Rate: regular rate Rhythm: regular rhythm Pulses: radial pulses present GI Inspection: normal to inspection Palpation: soft, not firm, no guarding and nontender Skin General skin exam: no rashes or lesions noted Neuro General: patient alert, patient oriented x3, tone normal, moves all extremities, no meningeal signs, no focal motor deficits and CN's II-XI intact bilaterally Cranial Nerves: CN's II-XI intact bilaterally, PERRL, EOM intact bilaterally, no nystagmus, facial strength normal, hearing normal, able to rotate head bilaterally and able to elevate shoulders bilaterally Cognition: normal cognition Speech: speech normal Gait: shuffling Motor: muscle tone normal throughout and strength 5/5 throughout Sensory Exam: no sensory deficits noted Coordination: [id number] test normal, Romberg test normal, Does not sway with eyes open and rapid alternating movement UE normal Extrem General: normal to inspection and no pedal edema Course Vital Signs Vital signs: Vital Signs Temperature 36.8 C 07/08/25 09:55 Pulse 85 07/08/25 09:55 Respiratory Rate 18 07/08/25 09:55 Blood Pressure 151/71 H 07/08/25 09:55 Pulse Oximetry 95 07/08/25 09:55 Temperature 36.8 C 07/08/25 09:55 Temperature Source Oral 07/08/25 09:55 Pulse 85 07/08/25 09:55 Respiratory Rate 18 07/08/25 09:55 Blood Pressure 151/71 H 07/08/25 09:55 Pulse Oximetry 95 07/08/25 09:55 Medical Decision Making Isidro is a 55year old MALE who presents to the emergency department for evaluation of dizziness starting 1 hour ago accompanied by mild blurred vision, feeling of imbalance while walking, and mild left-sided headache. Denies history of trauma or obvious inciting incident. Physical exam remarkable for shuffling gait. Otherwise unremarkable neurological exam. Cranial nerves II through XII intact, PERRL, EOM's intact, no nystagmus. Normal finger to finger, finger nose, Romberg, rapid alternating movements. 5/5 muscle strength upper and lower extremities, sensation grossly intact. Patient is alert and oriented x 4. D/dx includes but is not limited to: BPPV, posterior CVA, intracranial hemorrhage, cardiac arrhythmia, electrolyte imbalance, migraine headache, medication reaction, dehydration, anxiety, viral illness I independently interpreted the following tests: EKG shows normal sinus rhythm, rate 80, no changes consistent with acute ischemia, normal intervals. CBC, CMP, magnesium, TSH, and serial troponins all unremarkable. CTA head and neck unremarkable, no large vessel occlusion or significant stenosis or other acute intracranial process. No acute abnormality noted on chest x-ray. While in the emergency dept patient received lactated Ringer's and meclizine. He reports full improvement of symptoms, is able to ambulate around the department without difficulty and says that his symptoms have resolved. He was able to drink p.o. zoya ayanna without difficulty. Unclear etiology of dizziness, workup today reassuring. Possibly related to BPPV or atypical migraine, recommend close follow-up with primary care for further evaluation/management. As patient does not currently have a PCP, referral made to care management to help establish care with PCP in the local area. Will provide a limited number of meclizine tablets for symptomatic management Reviewed discharge instructions with patient, including symptomatic management, importance of establishing care/follow up with PCP, and red flags indicating need for return to emergency care. Pt voices agreement with plan of care Imaging Data Radiologic Study: Radiologist's impression: Exam(s) CT BRAIN NECK CTA EXAM: CT BRAIN NECK CTA CLINICAL HISTORY: headache, dizziness. TECHNIQUE: Imaging Protocol: Axial CT angiography was performed with multi-slice acquisition and multi-planar and/or 3D reconstructions. CONTRAST MATERIAL: Intravenous: Omnipaque 350 contrast volume:70 mL COMPARISON: CT CT HEAD CERVICAL SPINE WO from 01/19/[address] HEAD CERVICAL SPINE WO from 04/21/2025 FINDINGS: CT Head W/O and W: Ventricles and Extra axial spaces: Normal in size and morphology for the patient's age. Hemorrhage: None. Cerebral parenchyma: There is no evidence of an acute territorial infarct seen at this time. No acute mass effect is present. Midline shift: None. Brainstem/Cerebellum: Normal. Calvarium: Normal. Visualized Paranasal sinuses/Mastoids: Clear. Soft Tissues: Unremarkable. Enhancement: Unremarkable. CTA Neck W: Common Carotid: Right: No dissection, occlusion or significant stenosis. Left: No dissection, occlusion or significant stenosis. External Carotid: Right: No occlusion or significant stenosis. Left: No occlusion or significant stenosis. Internal Carotid: Right: No dissection, occlusion or significant stenosis. Left: No dissection, occlusion or significant stenosis. Vertebral Artery: Right: No dissection, occlusion or significant stenosis. Left: No dissection, occlusion or significant stenosis. Lung Apices: Emphysematous changes are seen in the lung apices. Bones: Within normal limits for the patient's age. There is reversal of the normal cervical lordosis which is likely degenerative in nature. Soft Tissues: Normal. Thyroid gland: Unremarkable. CTA Brain W: Internal Carotid Arteries: Normal. Anterior Cerebral Arteries: Right: No aneurysm, occlusion or significant stenosis. Left: No aneurysm, occlusion or significant stenosis. Middle Cerebral Arteries: Right: No aneurysm, occlusion or significant stenosis. Left: No aneurysm, occlusion or significant stenosis. Posterior Cerebral Arteries: Right: No aneurysm, occlusion or significant stenosis. Left: No aneurysm, occlusion or significant stenosis. Vertebral Arteries: Right: No aneurysm, occlusion or significant stenosis. Left: No aneurysm, occlusion or significant stenosis. Basilar Artery: No aneurysm, occlusion or significant stenosis. IMPRESSION: 1. No large vessel occlusion or significant stenosis on the CT angiography of the head. 2. No acute intracranial process. 3. No occlusion or significant stenosis on the CT angiography of the neck. Radiologic Study #2: Radiologist's impression: Exam(s) XR CHEST 2V PA LATERAL EXAM: XR CHEST 2V PA LATERAL CLINICAL HISTORY: dizziness TECHNIQUE: 2D digital imaging was performed of the chest. Two images were obtained. PA and lateral views were obtained. COMPARISON: CR XR CHEST 2V PA LATERAL from 04/15/2025 FINDINGS: MEDIASTINUM: Normal. HEART: Normal. PULMONARY VASCULATURE: Normal. LUNGS: There are no focal consolidating infiltrates. PLEURAL SPACE: No pleural effusion or pneumothorax. BONE:Within normal limits for the patient's age. OTHER FINDINGS:There is elevation of the left hemidiaphragm. IMPRESSION: No focal consolidating infiltrates. Quality:SDOH Health Related Social Needs: Health related social needs risk of homeless transpo insecurity house/econ circumstance education Health related social needs details patient currently lives in a hotel which he pays out of pocket for. PFSH All Active Problems (Updated 07/08/25 @ 13:11 by Mitra Lopez) Dizziness (Acute) Medication reaction (Acute) Suicide ideation (Acute) Medical History Obesity History of alcoholism GERD (gastroesophageal reflux disease) Tremor Migraines Depression with psychotic features Anxiety Surgical History Repair of inguinal hernia Family History Mother Depression Melanoma Social History Smoking/Tobacco Use Status: Current every day Tobacco Type: cigars Per week: 14 Smoking risk assessment performed?: Yes Alcohol Intake: former Drug use: Occasionally Substance use type: marijuana and crack/cocaine Details: smoked marijuana today 07/03/25 Housing: homeless Do you feel safe at home: Yes Do you feel safe in your relationship?: Yes
[2025-07-08 10:45] LABS: Abs Immature Grans 0.02 10^3/uL (0.0-0.06); HCT 42.8 % (40.0-50.0); HGB 14.2 g/dL (13.5-17.5); Immature Grans % 0.2 %; MCH 29.8 pg (27.0-33.0); MCHC 33.2 % (32.0-36.0); MCV 90 fL (80-95); MPV 9.0 fL (8.0-11.0); Platelet Count 363 10^3/uL (130-400); RBC 4.76 10^6/uL (4.36-5.78); RDW 13.1 % (11.8-14.1); RDW-SD 43.2 fL; WBC 9.07 10^3/uL (4.4-10.8)
[2025-07-08] MEDS: Omnipaque 350 MG/ML 100 ML BTL IJ (10:53)
[2025-07-08] MEDS: Normal Saline - Diluent 50 ML VIAL IJ (10:53)
[2025-07-08] MEDS: Normal Saline Flush 10 ML SYR IVP (10:54)
[2025-07-08] MEDS: Meclizine 25 MG TAB PO ×2 (11:02→13:40)
[2025-07-08] MEDS: Lactated Ringers 500 ML IV (11:03)
[2025-07-08 11:09] LABS: ALT 62 U/L (16-63); AST 29 U/L (15-37); Albumin 3.7 g/dL (3.4-5.0); Alkaline Phosphatase 61 U/L (46-116); Anion Gap 5.6 mmol/L (3-11); BUN 9 mg/dL (7-18); Bilirubin, Total 0.2 mg/dL (0.2-1.0); CO2 32.4 mmol/L (21.0-32.0); Calcium 9.7 mg/dL (8.5-10.1); Chloride 103 mmol/L (98-107); Glucose 117 mg/dL (74-106); Magnesium 1.8 mg/dL (1.8-2.4); Potassium 4.3 mmol/L (3.5-5.1); Sodium 141 mmol/L (136-145); TSH (W/Ref FT4) 1.80 uIU/mL (0.36-3.74); Total Protein 7.4 g/dL (6.4-8.2)
[2025-07-08 11:16] LABS: Troponin I < 4 ng/L (<or=76)
[2025-07-08 11:37] LABS: Glucose Negative (Negative)
[2025-07-08 11:51] LABS: COVID-19 PCR Negative (Negative); RSV PCR Negative (Negative)
[2025-07-08 12:57] LABS: Troponin I 5 ng/L (<or=76)
== END 2025-07-08 13:45 | disposition home or self-care (01) ==
PROVIDERS: Emergency Provider Nurse Practitioner Family
DX: R42 Dizziness and giddiness (principal); R51.9 Headache, unspecified; H53.8 Other visual disturbances; Z59.82 Transportation insecurity; Z59.02 Unsheltered homelessness
CPT/HCPCS: 36415; 70496; 70498; 80053; 87637; 93005; 96360; 99285; 71046; 81003; 83735; 84443; 84484; 85025; 93010; 99284; J3490

== ENCOUNTER 2025-07-08 17:06 | Emergency (ER) | payer MEDICARE, SELFPAY ==
[2025-07-08 17:02] VITALS: BP 166/73; PULSE 105; RESP 18; O2SAT 95
--- NOTE | 2025-07-08 17:06 | W.ED.GENAD ---
Discharge Plan Discharge Details Chief Complaint: PsychEval Primary Care Provider: None,None ED Provider: Mitra Nevarez Home Meds and New Rx's Prescriptions: No Action duloxetine 60 MG capsule,delayed release(DR/EC) 60 mg PO BID clonazepam 1 mg tablet 1 mg PO TID divalproex 500 mg tablet extended release 24 hr 250 mg PO TID Patient Comments: TAKE TWO TABLETS BY MOUTH EVERY EVENING AT BEDTIME olanzapine 10 mg tablet 10 mg PO HS zolpidem 12.5 mg tablet,ext release multiphase 12.5 mg PO HS hydroxyzine pamoate 25 mg capsule 25 mg PO Q4H PRN Rx Instructions: for anxiety HPI General Date/Time Provider Initiated Documentation: 07/08/25 18:31. HPI Narrative: Isidro is a 55-year-old male presents to the emergency department today after evaluation in the field by [facility] for suicidal ideation. Reports he has been feeling overall well, denies recent illness, chest pains, n/v, change in PO intake, weakness. He was evaluated earlier today in the emergency department for an episode of dizziness, discharged home after reassuring workup and full resolution of symptoms after meclizine. He was brought back to the [facility], where he has been staying. Related Data Home Medications Medication Instructions Recorded Confirmed duloxetine 60 mg capsule,delayed 60 mg PO BID 12/15/16 07/08/25 release clonazepam 1 mg tablet 1 mg PO TID 10/23/24 07/08/25 divalproex 500 mg tablet,extended 250 mg PO TID 11/10/24 07/08/25 release 24 hr hydroxyzine pamoate 25 mg capsule 25 mg PO Q4H PRN 06/21/25 07/08/25 olanzapine 10 mg tablet 10 mg PO HS 06/21/25 07/08/25 zolpidem 12.5 mg tablet,extended 12.5 mg PO HS 06/21/25 07/08/25 release,multiphase Allergies Allergy/AdvReac Type Severity Reaction Status Date / Time prochlorperazine (From Allergy Unknown Unknown Verified 07/08/25 17:04 Compazine) promethazine (From Phenergan) Allergy Unknown Unknown Verified 07/08/25 17:04 NSAIDS (Non-Steroidal Allergy Unknown Verified 07/08/25 17:04 Anti-Inflamma General Stated Complaint: PsychEval PUSHPA: 2 Exam Const General: cooperative, healthy appearing, comfortable, no acute distress and well developed Nutritional Appearance: average body habitus and well nourished Orientation: alert and oriented x3 HENMT Head: normal to inspection and atraumatic Ears: hearing grossly normal bilaterally Mouth: oral mucosae normal Resp Effort & Inspection: normal respiratory effort and able to speak in complete sentences Auscultation: clear to auscultation bilaterally Cardio Rate: regular rate Rhythm: regular rhythm Pulses: radial pulses present GI Inspection: normal to inspection Palpation: soft, not firm, no guarding and nontender Skin General skin exam: no rashes or lesions noted Neuro General: patient alert, patient oriented x3, tone normal, moves all extremities, no meningeal signs, no focal motor deficits and CN's II-XI intact bilaterally Cognition: normal cognition Speech: speech normal Motor: muscle tone normal throughout Extrem General: normal to inspection and no pedal edema Course Vital Signs Vital signs: Vital Signs Pulse 105 H 07/08/25 17:02 Respiratory Rate 18 07/08/25 17:02 Blood Pressure 166/73 H 07/08/25 17:02 Pulse Oximetry 95 07/08/25 17:02 Pulse 105 H 07/08/25 17:02 Respiratory Rate 18 07/08/25 17:02 Blood Pressure 166/73 H 07/08/25 17:02 Pulse Oximetry 95 07/08/25 17:02 Medical Decision Making Isidro is a 55-year-old male who presents to the emergency department today for evaluation of suicidal ideation. Says that he just crashed after being told that his hotel room was not paid for and that he did not have a place to stay tonight. Admits to feeling like killing himself, says he plan to run out in traffic. Denies any self-harm behaviors, alcohol or drug use, thoughts of hurting others, hallucinations. He does have a history of multiple psychiatric admissions. Recently medically cleared, says he has overall feeling well, only mild dizziness at this time but is able to ambulate normally. Physical exam reassuring. Easy work of breathing, in no acute distress. Patient alert and oriented. History and presentation consistent with suicidal ideation with plan. I independently interpreted the following tests: CBC, CMP, magnesium, troponins, TSH all unremarkable (these were performed earlier today during previous workup). ASA, APAP, EtOH, and UDS all reassuring (UDS + for cannabis, which pt admits to using last night). As patient has already been evaluated by Elena at [facility], patient to be referred for voluntary inpatient treatment. He does have a history of suicide attempts 20 days ago; he attempted to end his life via overdose at that time, which resulted in inpatient hospitalization at [facility]. Peter did request methocarbamol for back discomfort and Tylenol for headache, these were ordered as PRNs. Handoff report given to Dr. Rubalcava, attending physicina Quality:SDOH Health Related Social Needs: Health related social needs risk of homeless transpo insecurity house/econ circumstance education Health related social needs details patient currently lives in a hotel which he pays out of pocket for. PFSH All Active Problems (Updated 07/08/25 @ 13:11 by Mitra Lopez) Dizziness (Acute) Medication reaction (Acute) Suicide ideation (Acute) Medical History Obesity History of alcoholism GERD (gastroesophageal reflux disease) Tremor Migraines Depression with psychotic features Anxiety Surgical History Repair of inguinal hernia Family History Mother Depression Melanoma Social History Smoking/Tobacco Use Status: Current every day Tobacco Type: cigars Per week: 14 Smoking risk assessment performed?: Yes Alcohol Intake: former Drug use: Occasionally Substance use type: marijuana and crack/cocaine Details: smoked marijuana today 07/03/25 Housing: homeless Do you feel safe at home: Yes Do you feel safe in your relationship?: Yes
--- NOTE | 2025-07-08 17:30 | PDOC.CMPRO ---
Date of service: 07/08/25 Time of Service: 17:41 Care Management Progress Note Progress Note Text Progress Note Text: Isidro presented to the ED earlier today for a medical reasons, was treated, and subsequently discharged back to the [facility], where he had been staying. Per report, upon returning to the [facility], Isidro was unable to remain there as his bill had not been paid. He then re-presented to the ED seeking psychiatric care, stating to triage staff that he “does not want to live like this anymore.” CM contacted Michelle at [facility] and requested that Isidro be considered for a care bed placement, as this may be a more appropriate and sustainable option given his current circumstances and available resources. A safety plan has been established. CINDY is awaiting a response from [facility] and will continue to follow. Status Status: Interim Reason for Wait: Assessment/Screening Social Determinants of Health Screening Will the Patient Participate in the Screening?: Unable to obtain
--- NOTE | 2025-07-08 17:36 | CMSP_ITS ---
Date of service: 07/08/25 Time of Service: 17:39 Care Management Safety Plan Status Status: Interim Reason for Wait Reason for Wait: Assessment/Screening Safety Plan Safety Plan: CM will respond to ED to assess patient after patient has been medically cleared and assessed by screener. If screener deems patient meets criteria for psychiatric stabilization CM will facilitate interdepartmental huddle with [facility] screener for safety planning considerations and meet with patient to review [facility] policy and safety plan, establish individual wishes for treatment and maintain patient rights. In the interim; please note safety plan below to guide patient care while awaiting further assessment in the ED. SAFETY PLAN: 1. Will remain on suicide precautions and in paper clothes. 2. Will remain in room under direct supervision of one-on-one staff at all times provided by CHRISTINA, LAB[employer] crematory attendant. 3. May have paper cups, plates, finger foods as well as a cardboard spoon with which to eat meals. 4. Follow [facility] Management of the Admitted Behavioral Health Patient policy. 5. Comfort bath system only. 6. No personal belongings 7. No visitors. 8. Phone: limited to cordless phone at RN discretion. 9. Due to VOLUNTARY status, if patient wishes to leave [facility], staff will contact [facility] Crisis Screener ([phone]) and On-Call Cooking Chef ([phone]) as soon as possible. In the event of elopement, notify [facility] Police ([phone]). If deemed appropriate for inpatient psychiatric care, safety plan will be established with patient, and care team, to adhere to patient goals, identify restrictions based on behavioral status, address nutrition, and determine allowed personal belongings, tools for hygiene and personal care. As well plan will determine level of activity including ambulation, level of supervision, visitors, and determine privileges based on level of acuity, behaviors and level of engagement by patient.
[2025-07-08 17:47] LABS: Salicylate 4.0 mg/dL (<2.8)
[2025-07-08 17:48] LABS: Acetaminophen < 2 ug/mL (10-30)
[2025-07-08 18:14] LABS: Cannabinoids THC Positive (Negative)
--- NOTE | 2025-07-08 18:39 | PDOC.MHCN ---
Date of service: 07/08/25 Time of Service: 16:50 PHQ-9 Over the last 2 weeks, how often have you been bothered by any of the following problems? 1. Little interest or pleasure in doing things: nearly every day 2. Feeling down, depressed, or hopeless: nearly every day 3. Trouble falling or staying asleep, or sleeping too much: nearly every day 4. Feeling tired or having little energy: nearly every day 5. Poor appetite or overeating: nearly every day 6. Feeling bad about yourself - or that you are a failure or have let yourself and your family down: nearly every day 7. Trouble concentrating on things, such as reading the newspaper or watching television: nearly every day 8. Moving or speaking so slowly that other people could have noticed? - Or the opposite - being so fidgety or restless that you have been moving around a lot more than usual: nearly every day 9. Thoughts that you would be better off or of hurting yourself in some way: nearly every day Total score: 27 If you checked off any problems, how difficult have these problems made it for you to do your work, take care of things at home, or get along with other people?: very difficult Source: Developed by Drs. Derek Dobbs, Meme Odell, Alok Mott and colleagues, with an educational kai from [employer]. Suicide Severity Rate CSSRS Have you wished you were or wished you could go to sleep and not wake up?: Yes Have you actually had any thoughts of killing yourself?: Yes CSSRS2 Have you been thinking about how you might do this?: Yes Have you had these thoughts and had some intention of acting on them?: Yes Have you started to work out or worked out the details of how to kill yourself? Do you intend to carry out this plan?: No CSSRS3 Have you ever done anything, started to do anything or prepared to do anything to end your life?: Yes CSSRS4 Was this within the past three months?: Yes Screening Score Total Score: 8 Screening: Positive Mental Health Emergency Note Release [facility] release signed:: Yes Reason for Visit Isidro was seen by this underwriter solicitation director and RICK Martinez at the [facility] in [facility]. Isidro is previously known to this underwriter solicitation director, RICK Martinez, and [facility]. Isidro was referred for a mobile crisis assessment by Chrissy as he was endorsing suicidal ideation after his card was declined for the hotel. In the last 2 weeks has the pt presented for ES prior to today?: Yes, presented at [facility] ED Client Information Client is: OUTPATIENT THERAPIST and Adult Outpatient Well Housed: No,status: Homeless Unstable housing Non Suicidal Self Injury Current: No History: No Safety Risk/Harm to Self or Others Current Ideation to Harm Self or Others: Yes to self. (Isidro reports he is having thoughts of ending his life and rates himself an 8/10 with intent and plan. Isidro reports he would jump off any bridge he can find. ) Intent: yes, has intent. Plan: yes,has a plan. History of suicide attempt: yes,history of suicide attempt reported. Details of previous suicide attempt: Isidro attempted to overdose 20 days ago. Risk: Does risk to harm exist?: yes. Access to means: No. Risk: N/A Duty to warn indicated: No Asssessment/Mental Status Appearance: Poor hygiene Attitude: Cooperative Behavior: Poor impulse control Speech: Normal Affect: Cogruent with mood Mood: Stressed and Anxious Thought process: Unremarkable Hallucinations: No evidence Delusions: No evidence Attention: Unremarkable Perception: Not impaired Orientation: Fully orientated Memory: Intact Insight: Fair Judgement: Fair Neurovegetative Symptoms Sleep: Decrease Appetitie: Increase Interests: Decrease Energy: Decrease Libido: Not applicable Substance Use: Do you use nicotine?: No Have you used substances in the last 7 days?: yes, Isidro reports that he used marijuana this week; but no other substances. Additional Issues: Assaultive/Threatening Behavior: No Medical Concerns: No Client engaged in active self harm w/weapon: No Threatening to run away: No Child reported abuse/neglect: No Voluntarily presenting for services: Yes Domestic violence is a concern: No Extreme Psychosis or extreme behavior is present: No Impression Isidro is a [age] year old [facility] male who uses he/him pronouns. Isidro is currently homeless and has been paying for a hotel room at [facility] out of pocket. Isidro is first on the list at the [facility] and reports that [address] has not been helpful for him. Isidro is struggling tonight as his payee has not transferred his money so his card is declining and the [facility] will not allow him to spend the night. Isidro presents to this underwriter solicitation director in street clothes appropriate for the weather, slightly disheveled with poor hygeine event with dirt appearing under his nails. Isidro reports he is not doing well, and he does not know what to do anymore. Isidro thought when he was released from [facility] one week ago he would not need to return as he found it helpful and was hopeful to use his skills within the community and begin services at [facility]. Isidro is feeling like he is stuck and unsure what to do as he feels like every time he makes a step towards improvement something else happens. Isidro is endorsing suicidal ideation with a plan to jump off a bridge and rates his intent an 04/08 stating that if he were to be out on the street he is scared what he would do to himself. Isidro is denying HI or NSSI at this time. Isidro did report he tried to end his life via overdose about 20 days ago which sent him to [facility]. Isidro does have access to medications, but no other means. Isidro is not able to stay safe in the community and feels he would attempt to end his life. Isidro will be transported via [facility] from the [facility] to [facility] to seek voluntary inpatient treatment. Plan/Disposition Recommended Disposition: Hospitalization (Isidro will be referred to all hospitals on 07/08. ) facilities contacted. Plan: Isidro will remain at [facility] seeking voluntary treatment. Isidro will be seen once daily while at [facility] Person reported agreement to plan: Yes Reports/communication Outcome discussed with: ED/Personnel
[2025-07-08 18:50] VITALS: PULSE 85
[2025-07-08 19:36] VITALS: BP 120/78; PULSE 91; RESP 22; TEMP 36.9; O2SAT 91
[2025-07-08] MEDS: Nicotine 2 MG LOZG SUC (19:49)
[2025-07-08] MEDS: clonazePAM 1 MG TAB PO (19:49)
[2025-07-08] MEDS: Acetaminophen 325 MG TAB 650 MG PO (19:49)
[2025-07-08] MEDS: OLANZapine 10 MG TAB PO (19:49)
[2025-07-08] MEDS: Divalproex Sodium 500 MG TAB.ER.24H 250 MG PO (19:50)
[2025-07-08 20:26] VITALS: PULSE 64; O2SAT 94
[2025-07-08] MEDS: Methocarbamol 500 MG TAB 1000 MG PO (20:37)
[2025-07-09] MEDS: Nicotine 2 MG LOZG SUC ×6 (07:17→20:50)
[2025-07-09] MEDS: Methocarbamol 500 MG TAB 1000 MG PO ×2 (08:00→17:17)
[2025-07-09] MEDS: Divalproex Sodium 500 MG TAB.ER.24H 250 MG PO ×3 (08:00→20:51)
[2025-07-09] MEDS: clonazePAM 1 MG TAB PO ×3 (08:01→20:50)
--- NOTE | 2025-07-09 17:36 | PDOC.MHPN2 ---
Date of service: 07/09/25 Time of Service: 13:55 Mental Health Emergency Note Release [facility] release signed:: Yes Reason for Visit Suicidal Ideation In the last 2 weeks has the pt presented for ES prior to today?: Yes, presented at [facility] ED Client Information Client is: Adult Outpatient Well Housed: No,status: Homeless Non Suicidal Self Injury Current: No History: No Safety Risk/Harm to Self or Others Current Ideation to Harm Self or Others: Yes to self. Intent: yes, has intent. Plan: yes,has a plan. History of suicide attempt: yes,history of suicide attempt reported. Details of previous suicide attempt: Client reports serious overdose suicide attempt in Apr. Risk: Does risk to harm exist?: yes. Access to means: Yes. Types of Means: Medication. Details: Client has unmitigated access to his daily prescription medications . Risk: Moderate Risk Duty to warn indicated: No Asssessment/Mental Status Appearance: Disheveled and Poor hygiene Attitude: Cooperative Behavior: Unremarkable Speech: Normal Affect: Flat and Cogruent with mood Mood: Depressed Thought process: Unremarkable Hallucinations: No Delusions: No Attention: Unremarkable Perception: Not impaired Orientation: Fully orientated Memory: Intact Insight: Fair Judgement: Fair Neurovegetative Symptoms Sleep: Decrease Appetitie: Decrease Interests: Decrease Energy: Decrease Libido: Not applicable Substance Use: Do you use nicotine?: Yes Have you used substances in the last 7 days?: yes, Reports only MJ since getting out of the hospital. Additional Issues: Assaultive/Threatening Behavior: No Medical Concerns: No Client engaged in active self harm w/weapon: No Threatening to run away: No Child reported abuse/neglect: No Voluntarily presenting for services: Yes Domestic violence is a concern: No Extreme Psychosis or extreme behavior is present: No Impression Client is a 55 y/o Male who is in Zone B at [facility] for Suicidal Ideation. He is well known to [facility] and to this com writer. The client is laying on his bed at the time of this assessment. He is disheveled and malodorous. Client states that when his [facility] card was declined at the [facility] that he became frustrated and sad. He states that he can't believe what his life has turned into, and that he does not want to continue to live anymore. He specifically points to a disconnect he feels with his Rep Payee, which he states is causing trouble getting his basic needs met. Client reports that he feels hopeless about his life changing, and that he feels suicidal. He states that he has plans to either run into traffic or to jump off a bridge. He alludes to a serious overdose attempt that he reports he made in April, and says I would make sure I didn't fail this time. Resources [facility] reviewed and given:: [facility] and [facility] Plan/Disposition Recommended Disposition: Other. Plan: Client will remain in Zone B of [facility] until appropriate inpatient placement is found. Person reported agreement to plan: Yes Facilities contacted if Applicable [facility] Not accepted, No bed available [facility] Not accepted, No bed available [facility] Not accepted, No bed available, [facility] Not accepted, No bed available [facility] Not accepted, No bed available Reports/communication Outcome discussed with: ED/Personnel
--- NOTE | 2025-07-09 17:43 | ED.PSYCHBOAR ---
Date of service: 07/09/25 Time of Service: 17:44 Psychiatric Border Handoff Update Brief Story: Patient is here voluntarily for suicidal thoughts. He does have housing insecurity. Status: voluntary Able to leave: would need physician/XOCHITL and crisis evaluation prior to leaving Barriers to Disposition: Housing concerns Medical Concerns: Patient complained of headache today was given Tylenol Future to do Items: Reassess potential placement versus establish outpatient safety plan. Discharge Plan Discharge Details Chief Complaint: PsychEval Primary Care Provider: None,None ED Provider: Blair Buchanan [facility] Meds and New Rx's Prescriptions: No Action duloxetine 60 MG capsule,delayed release(DR/EC) 60 mg PO BID clonazepam 1 mg tablet 1 mg PO TID divalproex 500 mg tablet extended release 24 hr 250 mg PO TID Patient Comments: TAKE TWO TABLETS BY MOUTH EVERY EVENING AT BEDTIME olanzapine 10 mg tablet 10 mg PO HS zolpidem 12.5 mg tablet,ext release multiphase 12.5 mg PO HS hydroxyzine pamoate 25 mg capsule 25 mg PO Q4H PRN Rx Instructions: for anxiety
--- NOTE | 2025-07-09 19:07 | CMSP_ITS ---
Date of service: 07/09/25 Time of Service: 19:07 Care Management Safety Plan Status Status: Voluntary Reason for Wait Reason for Wait: Inpatient Admission Safety Plan Safety Plan: VOLUNTARY FOR INPATIENT PSYCHIATRIC STABILIZATION. Patient is appropriate in all interactions since arriving at [facility]; Pt has demonstrated appropriate coping and communication skills, has articulated his needs and concerns and is fully engaged during staff interactions. Safety plan has been established with patient, and care team, to adhere to patient goals, identify restrictions based on behavioral status, address nutrition, and determine allowed personal belongings, tools for hygiene and personal care. Determine level of activity including ambulation, level of supervision, visitors, and determine privileges based on behaviors and level of engagement by pt. VOLUNTARY SAFETY PLAN: 1. Will remain on suicide precautions, in paper clothes 2. Will remain in Zone B under direct supervision of one-on-one staff at all times provided by [employer]; CHRISTINA, [employer] iron and steel work supervisor. 3. May have paper cups, plates, finger foods as well as a cardboard spoon with which to eat meals. 4. Follow [facility] Management of the Admitted Behavioral Health Patient policy. 5. Shower available in Zone B without restriction. 6. Personal belongings-soft items permitted at RN discretion. 7. Visitors - supportive visitors at RN discretion. 8. Activities: soft cart items, hospital tablets (Netflix/[employer]+/music) approved per RN discretion. 9. Bathroom available in Zone B without restriction. 10. Phone: limited to [facility] cordless phone at RN discretion. Due to VOLUNTARY status, if patient wishes to leave [facility], staff will contact [facility] Crisis Screener ([phone]) and Aboriginal Liaison Officer ([phone]) as soon as possible. In the event of elopement, notify [facility] Police ([phone]). Patient is currently voluntarily at [facility] and seeking inpatient admission when a bed becomes available. [facility] [employer] Sports Coach will continue seeking placement. Please contact the Aboriginal Liaison Officer ([phone]) and [facility] Middle School Sports Coach ([phone]) for any needed changes in the Safety Plan. Safety plan has been provided to interdepartmental care team.
--- NOTE | 2025-07-09 19:07 | CMPROGNOTE_ITS ---
Date of service: 07/09/25 Time of Service: 19:07 Care Management Progress Note Progress Note Text Progress Note Text: CM huddled with [facility] and [facility] staff regarding Isidro's plan of care. Per [facility], Isidro continues to feel suicidal, stating that if he leaves he will end his life. Isidro has made statements that he feels suicidal because he is unhoused at this time. [facility] feels that he is not able to safety plan to the community. He has been to inpatient psychiatric treatment many times, most recently on 06/22/25. He is currently voluntary, seeking inpatient psychiatric treatment. Referrals are placed by [facility]; no beds available today. Safety plan in place. CM will continue to follow. Social Determinants of Health Screening Will the Patient Participate in the Screening?: Unable to obtain
--- NOTE | 2025-07-09 19:07 | PDOC.CMSAFE ---
Date of service: 07/09/25 Time of Service: 19:07 Care Management Safety Plan Status Status: Voluntary Reason for Wait Reason for Wait: Inpatient Admission Safety Plan Safety Plan: VOLUNTARY FOR INPATIENT PSYCHIATRIC STABILIZATION. Patient is appropriate in all interactions since arriving at [facility]; Pt has demonstrated appropriate coping and communication skills, has articulated his needs and concerns and is fully engaged during staff interactions. Safety plan has been established with patient, and care team, to adhere to patient goals, identify restrictions based on behavioral status, address nutrition, and determine allowed personal belongings, tools for hygiene and personal care. Determine level of activity including ambulation, level of supervision, visitors, and determine privileges based on behaviors and level of engagement by pt. VOLUNTARY SAFETY PLAN: 1. Will remain on suicide precautions, in paper clothes 2. Will remain in Zone B under direct supervision of one-on-one staff at all times provided by [employer]; CHRISTINA, TOOL [employer] activity director. 3. May have paper cups, plates, finger foods as well as a cardboard spoon with which to eat meals. 4. Follow [facility] Management of the Admitted Behavioral Health Patient policy. 5. Shower available in Zone B without restriction. 6. Personal belongings-soft items permitted at RN discretion. 7. Visitors - supportive visitors at RN discretion. 8. Activities: soft cart items, hospital tablets (Netflix/[place]+/music) approved per RN discretion. 9. Bathroom available in Zone B without restriction. 10. Phone: limited to [facility] cordless phone at RN discretion. Due to VOLUNTARY status, if patient wishes to leave [facility], staff will contact [facility] Crisis Screener ([phone]) and Fur Farmer ([phone]) as soon as possible. In the event of elopement, notify [facility] Police ([phone]). Patient is currently voluntarily at [facility] and seeking inpatient admission when a bed becomes available. [facility] Frontline Pattern Marking Supervisor will continue seeking placement. Please contact the Fur Farmer ([phone]) and [facility] Pattern Marking Supervisor ([phone]) for any needed changes in the Safety Plan. Safety plan has been provided to interdepartmental care team.
[2025-07-09 20:04] VITALS: BP 131/85; PULSE 92; RESP 17; TEMP 35.9; O2SAT 95
[2025-07-09] MEDS: SUMAtriptan 25 MG TAB PO (20:48)
[2025-07-09] MEDS: ZOLPIDEM 12.5 MG PO (20:49)
[2025-07-09] MEDS: Acetaminophen 500 MG TAB 1000 MG PO (20:49)
[2025-07-09] MEDS: DULoxetine 20 MG CAP 60 MG PO (20:50)
[2025-07-09] MEDS: OLANZapine 10 MG TAB PO (20:50)
[2025-07-10] MEDS: Nicotine 2 MG LOZG SUC ×4 (07:02→15:01)
[2025-07-10 07:20] VITALS: BP 178/81; PULSE 95; RESP 16; TEMP 36.4; O2SAT 98
--- NOTE | 2025-07-10 07:26 | ED.PSYCHBOAR ---
Date of service: 07/10/25 Time of Service: 08:19 Psychiatric Border Handoff Update Brief Story: I received signout on this 55-year-old male with history of suicidal ideation currently boarding as he feels unsafe in his current housing situation. 11:17 AM I spoke with Desi Will from the [facility] who graciously agreed to accept the patient for hospitalization. Nursing requested valproic acid level which has been ordered. 12:33 PM Subtherapeutic valproic acid level. 3:45 PM There was concern for the patient that he would not get his nighttime meds if he were to go to the [facility]. As a result I ordered his nighttime medications with the exception of zolpidem: Clonazepam 1 mg, Depakote, 250 mg, duloxetine 60 mg, and olanzapine 10 mg. I signed transfer paperwork to have the patient transferred to the [facility]. Patient was transferred via [facility]. Status: voluntary Able to leave: would need physician/XOCHITL and crisis evaluation prior to leaving Mediation Reconciliation performed: Yes Code Status ordered: Yes Diet ordered: Yes Discharge Plan Disposition Patient Disposition: Transfer-Acute Inpatient Care Discharge Details Clinical Impression: Unhoused person Primary Care Provider: None,None ED Provider: Aram Duran [place] Meds and New Rx's Prescriptions: Continued duloxetine 60 MG capsule,delayed release(DR/EC) 60 mg PO BID clonazepam 1 mg tablet 1 mg PO TID divalproex 500 mg tablet extended release 24 hr 250 mg PO TID Patient Comments: TAKE TWO TABLETS BY MOUTH EVERY EVENING AT BEDTIME olanzapine 10 mg tablet 10 mg PO HS zolpidem 12.5 mg tablet,ext release multiphase 12.5 mg PO HS hydroxyzine pamoate 25 mg capsule 25 mg PO Q4H PRN Rx Instructions: for anxiety Discharge Instructions Additional Instructions: You are transferred to the emergency department to the [facility]. No medications were changed.
[2025-07-10] MEDS: Methocarbamol 500 MG TAB 1000 MG PO (07:35)
[2025-07-10] MEDS: DULoxetine 20 MG CAP 60 MG PO (08:07)
[2025-07-10] MEDS: Divalproex Sodium 500 MG TAB.ER.24H 250 MG PO ×2 (08:07→14:58)
[2025-07-10] MEDS: clonazePAM 1 MG TAB PO ×2 (08:08→14:57)
[2025-07-10] MEDS: DULoxetine 30 MG CAP 60 MG PO (15:47)
[2025-07-10] MEDS: Divalproex 250 MG TABEC PO (15:48)
[2025-07-10] MEDS: OLANZapine ODT 5 MG TAB 10 MG PO (15:48)
[2025-07-10] MEDS: clonazePAM 0.5 MG TAB 1 MG PO (15:50)
--- NOTE | 2025-07-10 17:36 | PDOC.CMPRO ---
Date of service: 07/10/25 Time of Service: 17:36 Care Management Progress Note Progress Note Text Progress Note Text: Isidro was accepted at [facility] for inpatient psychiatric care. The facility requested that he arrive around 6pm. He was transported via [facility], EMS, coordinated by ED staff. Per report, he expressed concern about not receiving medications this evening, as he was arriving late; MD agreed to administer medications early. Isidro will follow up with his outpatient community supports once he returns to the community. CINDY will continue to follow. Social Determinants of Health Screening Will the Patient Participate in the Screening?: Unable to obtain
--- NOTE | 2025-07-19 08:34 | NUR.NOTE ---
Accessed Pt chart for Dr Duran, he wanted to make sure a referral was submitted for a Primary Care Provider
== END 2025-07-10 16:04 | disposition short-term general hospital (02) ==
PROVIDERS: Nurse Practitioner Family; Emergency Provider Emergency Medicine
DX: F32.A Depression, unspecified (principal); R45.851 Suicidal ideations; Z59.02 Unsheltered homelessness; Z59.89 Other problems related to housing and economic circumstances; Z59.82 Transportation insecurity
CPT/HCPCS: 99285 ×3; 00123; 80307; 96127; G0378; 80164; 80320; 80329; J3490

== ENCOUNTER 2025-07-22 12:44 | Emergency (ER) | payer MEDICARE, SELFPAY ==
[2025-07-22 12:44] VITALS: BP 141/87; PULSE 91; RESP 16; TEMP 36.8; O2SAT 99
[2025-07-22] MEDS: clonazePAM 1 MG TAB PO (13:19)
[2025-07-22] MEDS: Divalproex 250 MG TABEC PO (13:26)
[2025-07-22] MEDS: OLANZapine 10 MG TAB PO (13:55)
[2025-07-22] MEDS: hydrOXYzine HCL 25 MG TAB 75 MG PO (13:56)
[2025-07-22] MEDS: clonazePAM 1 MG TAB 3 MG PO (13:56)
[2025-07-22] MEDS: Divalproex 250 MG TABEC 750 MG PO (13:58)
[2025-07-22] MEDS: DULoxetine 30 MG CAP 120 MG PO (13:59)
[2025-07-22] MEDS: Nicotine 4 MG LOZG SUC (13:59)
--- NOTE | 2025-07-22 16:29 | W.ED.GENAD ---
Discharge Plan Disposition Patient Disposition: Home Condition: Stable Discharge Details Clinical Impression: Medication administered Primary Care Provider: None,None ED Provider: Laura Jauregui Home Meds and New Rx's Prescriptions: Continued duloxetine 60 MG capsule,delayed release(DR/EC) 60 mg PO BID clonazepam 1 mg tablet 1 mg PO TID PRN olanzapine 10 mg tablet 10 mg PO HS zolpidem 12.5 mg tablet,ext release multiphase 12.5 mg PO HS hydroxyzine pamoate 25 mg capsule 25 mg PO Q4H PRN Rx Instructions: for anxiety omeprazole 20 mg capsule,delayed release(DR/EC) 20 mg PO DAILY sumatriptan succinate 100 mg tablet 100 mg PO Q2H PRN divalproex 250 mg tablet extended release 24 hr 250 mg PO TID Discharge Instructions Additional Instructions: Please take all your medications as prescribed, you received a dose of the divalproex 250 mg in clonazepam 1 mg here in the emergency department at around 130 Please call [employer] tomorrow to see if they are able to deliver your medications, if not ask [facility] to take you to [facility] Please return earlier should you have new or worsening complaints Stand Alone Forms: Portal Information Discharge Data Discharge Date/Time-TO BE ENTERED AT DEPARTURE: 07/22/25 14:23 HPI General Date/Time Provider Initiated Documentation: 07/22/25 12:58. HPI Narrative: This 55 yo male presents with report of running out of his psychiatric medications on Wednesday. Pt states he was dc'd from [place] after a mental health stay on Wednesday. He states He was given a 2-day supply of his medications. He states his generalized courtesy car driver was supposed to deliver his medications was on vacation this week so he did not receive them. He states he feels really shaky and tremulous now secondary to not taking his Klonopin and Depakote. Patient denies any suicidal ideation homicidal ideation chest pain, shortness of breath, or dizziness. He denies any fever or chills. Denies any attempts to harm self denies any auditory visual hallucinations. Related Data Home Medications Medication Instructions Recorded Confirmed duloxetine 60 mg capsule,delayed 60 mg PO BID 12/15/16 07/22/25 release clonazepam 1 mg tablet 1 mg PO TID PRN 10/23/24 07/22/25 hydroxyzine pamoate 25 mg capsule 25 mg PO Q4H PRN 06/21/25 07/22/25 olanzapine 10 mg tablet 10 mg PO HS 06/21/25 07/22/25 zolpidem 12.5 mg tablet,extended 12.5 mg PO HS 06/21/25 07/22/25 release,multiphase divalproex 250 mg tablet,extended 250 mg PO TID 07/22/25 07/22/25 release 24 hr omeprazole 20 mg capsule,delayed 20 mg PO DAILY 07/22/25 07/22/25 release sumatriptan succinate 100 mg tablet 100 mg PO Q2H PRN 07/22/25 07/22/25 Allergies Allergy/AdvReac Type Severity Reaction Status Date / Time prochlorperazine (From Allergy Unknown Unknown Verified 07/22/25 12:47 Compazine) promethazine (From Phenergan) Allergy Unknown Unknown Verified 07/22/25 12:47 NSAIDS (Non-Steroidal Allergy Unknown Verified 07/22/25 12:47 Anti-Inflamma General Stated Complaint: RX Refill PUSHPA: 5 Exam Narrative Exam Narrative: 55-year-old male tremulous, alert and oriented and answering questions appropriately, anxious in appearance. No suicidality or homicidality, no visible signs of trauma. Pupils equal round reactive to light and accommodation ambulatory with steady gait, slight tremor Course Vital Signs Vital signs: Vital Signs Temperature 36.8 C 07/22/25 12:44 Pulse 91 H 07/22/25 12:44 Respiratory Rate 16 07/22/25 12:44 Blood Pressure 141/87 H 07/22/25 12:44 Pulse Oximetry 99 07/22/25 12:44 Temperature 36.8 C 07/22/25 12:44 Temperature Source Oral 07/22/25 12:44 Pulse 91 H 07/22/25 12:44 Respiratory Rate 16 07/22/25 12:44 Blood Pressure 141/87 H 07/22/25 12:44 Blood Pressure Position Sitting 07/22/25 12:44 Pulse Oximetry 99 07/22/25 12:44 Oxygen Delivery Method Room Air 07/22/25 12:44 Oxygen Flow Rate 0 07/22/25 12:44 Pain Level 6 07/22/25 12:44 Medical Decision Making assessment and plan: Patient is alert and oriented, he is tremulous and anxious. Gerimal Klonopin 1 mg immediately secondary risk of seizures with benzodiazepine withdrawal and a benzo diazepam dependent patient. He also received his Depakote. Patient is otherwise feeling very much improved and I have written his meds to treat him for his mental health until Wednesday. He is going to call general tomorrow to be sure his medications are delivered and if for any reason they cannot be he will reach out to [facility] and have them drive him to [place] tomorrow. pt discharged symptomatically improved with return precautions discussed. Quality:SDOH Health Related Social Needs: Health related social needs inadequate housing risk of homeless food insecurity transpo insecurity material hardship house/econ circumstance daily activities lonely/isolated Health related social needs details does not drive [facility] All Active Problems (Updated 07/22/25 @ 14:15 by KIRAN [place]) Medication administered (Acute) Unhoused person (Acute) Dizziness (Acute) Medication reaction (Acute) Suicide ideation (Acute) Medical History Obesity History of alcoholism GERD (gastroesophageal reflux disease) Tremor Migraines Depression with psychotic features Anxiety Surgical History Repair of inguinal hernia Family History Mother Depression Melanoma Social History Smoking/Tobacco Use Status: Current every day Tobacco Type: cigars Per week: 14 Smoking risk assessment performed?: Yes Alcohol Intake: former Drug use: Occasionally Substance use type: marijuana and crack/cocaine Details: smoked marijuana today 07/03/25 Housing: homeless Do you feel safe at home: Yes Do you feel safe in your relationship?: Yes
== END 2025-07-22 14:23 | disposition home or self-care (01) ==
PROVIDERS: Emergency Provider Physician Assistant
DX: Z79.899 Other long term (current) drug therapy (principal)
CPT/HCPCS: 99283 ×2

== ENCOUNTER 2025-07-25 18:18 | Emergency (ER) | payer MEDICARE, SELFPAY ==
[2025-07-25 18:18] VITALS: BP 121/99; PULSE 93; RESP 16; TEMP 36.8
--- NOTE | 2025-07-25 18:28 | ED.GENADUL_ITS ---
Discharge Plan Disposition Condition: Stable Discharge Details Chief Complaint: PsychEval Clinical Impression: Suicidal ideation Primary Care Provider: None,None ED Provider: Terence Mane Home Meds and New Rx's Prescriptions: No Action duloxetine 60 MG capsule,delayed release(DR/EC) 60 mg PO BID clonazepam 1 mg tablet 1 mg PO TID PRN olanzapine 10 mg tablet 10 mg PO HS zolpidem 12.5 mg tablet,ext release multiphase 12.5 mg PO HS hydroxyzine pamoate 25 mg capsule 25 mg PO Q4H PRN Rx Instructions: for anxiety omeprazole 20 mg capsule,delayed release(DR/EC) 20 mg PO DAILY sumatriptan succinate 100 mg tablet 100 mg PO Q2H PRN divalproex 250 mg tablet extended release 24 hr 250 mg PO TID HPI General Date/Time Provider Initiated Documentation: 07/25/25 18:28 . HPI Narrative: 55 year-old male presents to ED today by EMS with a chief complaint of suicidal ideation with plan and intent with onset acute on chronically. Patient recently was discharged from [facility], and makes his way back to the ED as it is his last night in paid hotel-housing, and he states he has desire to throw himself into traffic with every intent that he will do so out of desperation. Qu ality described as suicidal ideation, just over it, no radiation to homicidal ideation, physical complaints like chest pain, shortness of breath, nausea/vomiting, cough, fever. Severity is described as severe. Palliating factors include nothing identified. Provoking factors include having to go back into unhoused situation. Events leading up to the incident/Associated Symptoms: Patient was evaluated by [facility] in the field. Patient not anticoagulated. Related Data Home Medications ?Medication ?Instructions ?Recorded ?Confirmed duloxetine 60 mg capsule,delayed 60 mg PO BID 12/15/16 07/25/25 release clonazepam 1 mg tablet 1 mg PO TID PRN 10/23/24 hydroxyzine pamoate 25 mg capsule 25 mg PO Q4H PRN 07/25/25 olanzapine 10 mg tablet 10 mg PO HS 06/21/25 zolpidem 12.5 mg tablet,extended 12.5 mg PO HS 5 07/25/25 release,multiphase divalproex 250 mg tablet,extended 250 mg PO TID 07/25/25 release 24 hr omeprazole 20 mg capsule,delayed 20 mg PO DAILY 07/25/25 release sumatriptan succinate 100 mg tablet 100 mg PO Q2H PRN 07/22/25 07/25/25 Allergies Allergy/AdvReac Type Severity Reaction Status Date / Time prochlorperazine (From Allergy Unknown Unknown Verified 07/25/25 18:22 Compazine) promethazine (From Phenergan) Allergy Unknown Unknown Verified 07/25/25 18:22 NSAIDS (Non-Steroidal Allergy Unknown Verified 07/25/25 18:22 Anti-Inflamma General Stated Complaint: PsychEval PUSHPA: 2 Review of Systems All systems reviewed & are unremarkable except as noted in HPI and below Exam Narrative Exam Narrative: GENERAL APPEARANCE: Well-nourished, non-toxic, awake and alert, atraumatic, no acute distress. SKIN: Warm, pink, dry, intact, without rashes/lesions/ulcerations. HEAD: Normocephalic, atraumatic, normal hair distribution for gender/age. EYES: Normal conjunctiva, no exudates on lids/lashes. ENT: Nares patent, no circumoral cyanosis, no facial swelling NECK: Supple, trachea midline, painless cervical ROM. LUNGS/CHEST: Non-labored respirations, normal A/P diameter, symmetrical expansion, no chest wall deformity HEART (CV/PV): No peripheral edema, no JVD. ABDOMEN: Soft, non-distended, no guarding. MSK: Normal ROM, no swelling/deformity to bilateral UEs or LEs, moving all extremities without weakness, no cyanosis, spine midline without tenderness, normal curvature. NEURO: Mental Status AAOx4 - alert to person, place, time, events No facial droop, no forehead involvement. Motor: No focal weakness - strength 5/5 in bilateral UEs and LEs, proximal and distal, symmetric. Sensory: sensation intact to light touch globally. Gait normal: patient ambulated without ataxia into ED room. PSYCH: dysthymic, cooperative, flat affect, appropriate speech, suicidal, non-homicidal, non-psychotic Course Vital Signs Vital signs: Vital Signs Temperature 36.8 C 07/25/25 18:18 Pulse 93 H 07/25/25 18:18 Respiratory Rate 16 07/25/25 18:18 Blood Pressure 121/99 H 07/25/25 18:18 Temperature 36.8 C 07/25/25 18:18 Temperature Source Oral 07/25/25 18:18 Pulse 93 H 07/25/25 18:18 Respiratory Rate 16 07/25/25 18:18 Blood Pressure 121/99 H 07/25/25 18:18 Oxygen Delivery Method Room Air 07/25/25 18:18 Oxygen Flow Rate 0 07/25/25 18:18 Pain Level 8 07/25/25 18:18 Medical Decision Making This dictation utilizes [id number] dictation software and may contain unedited grammatical errors. 55 year-old male presents to ED today by EMS with a chief complaint of suicidal ideation with plan and intent with onset acute on chronically. Patient recently was discharged from [facility], and makes his way back to the ED as it is his last night in paid hotel-housing, and he states he has desire to throw himself into traffic with every intent that he will do so out of desperation. Quality described as suicidal ideation, just over it, no radiation to homicidal ideation, physical complaints like chest pain, shortness of breath, nausea/vomiting, cough, fever. Severity is described as severe. Palliating factors include nothing identified. Provoking factors include having to go back into unhoused situation. Events leading up to the incident/Associated Symptoms: Patient was evaluated by [facility] in the field. Patients' medical history: History of alcoholism, GERD, migraines, anxiety, suicidal ideation. Family and social history: Imminently becoming homeless, denies active drug or alcohol use. Pertinent exam findings / vital signs include benign cardiopulmonary exam, nontoxic and afebrile, appropriate speech, flat affect and suicidal, denies desire to harm others. Differential / pathologies of concern include suicidal ideation, depression. Diagnostic studies of: - UDS - pos for benzos & THC Interventions of: - Will give Tylenol and Robaxin as he states he has back pain that is his chronic baseline. - Discussed with [facility], he is a danger to himself unsupervised, they are sending referrals, he is here voluntarily awaiting possible placement. - Home meds ordered per med rec. ED Course/Assessment/Plan: 55-year-old male presents from his last night in subsidized hotel housing after discharge from [facility], endorsing suicidal ideation with intent and plan of throwing himself in traffic due to the depression over having to be unhoused, [facility] evaluated him in the field and they are sending referrals he is voluntary, he is chronic mild back pain and was given Tylenol and Robaxin and has no other physical complaints here has been calm and cooperative throughout the shift. Disposition of Suicidal Ideation. Patient verbalized understanding of the plan and return to ED criteria and engaged in shared decision making. Medical Records Medical records reviewed: Yes I reviewed the patient's medical records. Lab Data Lab results reviewed: Yes I reviewed the patient's lab results. Labs: Laboratory Tests Range/Units 07/25/25 18:35 Urine Opiates Screen (Negative) Negative Urine Methadone Screen (Negative) Negative Ur Barbiturates Screen (Negative) Negative Ur Tricyclics Screen (Negative) Negative Ur Amphetamines Screen (Negative) Negative U Benzodiazepines Scrn (Negative) Positive A Urine Cocaine Screen (Negative) Negative U Cannabinoids Screen (Negative) Positive A Quality:SDOH Health Related Social Needs: Health related social needs risk of homeless food inse curity transpo insecurity house/econ circumstance lonely/isolated Health related social needs details Pt is homeless wit h difficulty finding a safe place to stay and food PFSH All Active Problems (Updated 07/25/25 @ 19:23 by KIRAN Smith) Suicidal ideation (Acute) Medication administered (Acute) Unhoused person (Acute) Dizziness (Acute) Medication reaction (Acute) Suicide ideation (Acute) Medical History Obesity History of alcoholism GERD (gastroesophageal reflux disease) Tremor Migraines Depression with psychotic features Anxiety Surgical History Repair of inguinal hernia Family History Mother Depression Melanoma Social History Smoking/Tobacco Use Status: Current every day Tobacco Type: cigars Per week: 14 Smoking risk assessment performed?: Yes Alcohol Intake: former Drug use: Occasionally Substance use type: former substance user, marijuana and crack/cocaine Details: smoked marijuana today 07/03/25 Housing: homeless Do you feel safe at home: Yes Do you feel safe in your relationship?: Yes
--- NOTE | 2025-07-25 19:46 | PDOC.MHCN ---
Date of service: 07/25/25 Time of Service: 19:46 PHQ-9 Over the last 2 weeks, how often have you been bothered by any of the following problems? 1. Little interest or pleasure in doing things: nearly every day 2. Feeling down, depressed, or hopeless: nearly every day 3. Trouble falling or staying asleep, or sleeping too much: several days 4. Feeling tired or having little energy: nearly every day 5. Poor appetite or overeating: nearly every day 6. Feeling bad about yourself - or that you are a failure or have let yourself and your family down: nearly every day 7. Trouble concentrating on things, such as reading the newspaper or watching television: nearly every day 8. Moving or speaking so slowly that other people could have noticed? - Or the opposite - being so fidgety or restless that you have been moving around a lot more than usual: more than half the days 9. Thoughts that you would be better off or of hurting yourself in some way: nearly every day Total score: 24 If you checked off any problems, how difficult have these problems made it for you to do your work, take care of things at home, or get along with other people?: extremely difficult PHQ-9 Results: Positive Source: Developed by Drs. Derek Dobbs, Meme Odell, Alok Mott and colleagues, with an educational kai from [employer]. Suicide Severity Rate CSSRS Have you wished you were or wished you could go to sleep and not wake up?: Yes Have you actually had any thoughts of killing yourself?: Yes CSSRS2 Have you been thinking about how you might do this?: Yes Have you had these thoughts and had some intention of acting on them?: Yes Have you started to work out or worked out the details of how to kill yourself? Do you intend to carry out this plan?: Yes CSSRS3 Have you ever done anything, started to do anything or prepared to do anything to end your life?: Yes CSSRS4 Was this within the past three months?: Yes Screening Score Total Score: 8 Screening: Positive Mental Health Emergency Note Release [facility] release signed:: Yes Reason for Visit Suicidal Ideation/Depression In the last 2 weeks has the pt presented for ES prior to today?: Yes, presented at [facility] ED Client Information Well Housed: No,status: Homeless Non Suicidal Self Injury Current: No History: No Safety Risk/Harm to Self or Others Current Ideation to Harm Self or Others: Yes to self. Intent: yes, has intent. Plan: yes,has a plan. History of suicide attempt: yes,history of suicide attempt reported. Details of previous suicide attempt: Cl reports serious overdose attempt in April of 2025 that required hospitalization. CALM/Risk Level Does risk to harm exist?: yes. Access to means: Yes. Types of Means: Medication. Details: Client has unmitigated access to daily medications. . Risk: Moderate Risk Duty to warn indicated: No Asssessment/Mental Status Appearance: Unremarkable and Disheveled Attitude: Guarded Behavior: Unremarkable Speech: Normal Affect: Flat Mood: Depressed Thought process: Unremarkable Hallucinations: No evidence Delusions: No evidence Attention: Unremarkable Perception: Not impaired Orientation: Fully orientated Memory: Intact Insight: Poor Judgement: Poor Neurovegetative Symptoms Sleep: Decrease Appetitie: Decrease Interests: Decrease Energy: Decrease Libido: Not applicable Substance Use: Do you use nicotine?: No Have you used substances in the last 7 days?: yes, Client smokes MJ Additional Issues: Assaultive/Threatening Behavior: No Medical Concerns: No Client engaged in active self harm w/weapon: No Threatening to run away: No Child reported abuse/neglect: No Voluntarily presenting for services: Yes Domestic violence is a concern: No Extreme Psychosis or extreme behavior is present: No Impression Client is a 55 y/o male who is well known to [facility] and to this screenplay writer. He is referred for Mobile Crisis Assessment after making suicidal statements to friends and first responders when he was asked to leave the hotel where he was staying in a friend's room. Client reports +Suicidal Ideation, with multiple plans and +Intent. He states that he would find a bridge and jump off of it or that he would run into traffic. He states that his Intent is 10/10, I would do whatever I needed to do. Isidro states that without someone around to prevent him, he will follow through with suicide. Isidro agrees with this screenplay writer's recommendation to go to the ER to wait while referrals are put in for inpatient hospital placement. Resources Reosurces reviewed and given:: Other (Called 211 to see what resources might be available. Has used his bed nights through emergency housing.) Plan/Disposition Recommended Disposition: Hospitalization facilities contacted. Plan: Client will wait in ED of [facility] for appropriate placement at inpatient psychiatric facility. Person reported agreement to plan: Yes Reports/communication Outcome discussed with: ED/Personnel
[2025-07-25] MEDS: Methocarbamol 750 MG TAB PO (19:47)
[2025-07-25] MEDS: Acetaminophen 500 MG TAB 1000 MG PO (19:48)
--- NOTE | 2025-07-25 19:52 | NUR.NOTE ---
Nursing Note: Belongings were inventoried, labeled, and placed in ZB2 locker. Medications were labeled and sent to pharmacy by warehouse shipping clerk. A pipe was obtained and sent to Security.
[2025-07-25 20:25] LABS: Cannabinoids THC Positive (Negative)
[2025-07-26 07:25] VITALS: BP 134/83; PULSE 66; TEMP 36.6; O2SAT 99
[2025-07-26] MEDS: Divalproex Sodium 250 MG TAB.ER.24H PO ×3 (07:46→19:56)
[2025-07-26] MEDS: Methocarbamol 750 MG TAB PO ×4 (07:46→19:55)
[2025-07-26] MEDS: Omeprazole 20 MG CAPCR PO (07:46)
[2025-07-26] MEDS: clonazePAM 1 MG TAB PO ×3 (07:53→22:38)
--- NOTE | 2025-07-26 08:12 | ED.PROG1_ITS ---
Date of service: 07/26/25 Time of Service: 08:00 Psychiatric Border Handoff Update Brief Story: This is a 55-year-old male patient boarding in our emergency department voluntarily for suicidal ideation. Prior to my taking over their care, the patient was medically cleared, and has been resting comfortably. They have met with the foster care social worker and we are awaiting final dispo. They have not required any additional medications for restraint or sedation. They have been admitted to ED psych observation. The patient was signed out to the oncoming provider prior to final disposition. Remained hemodynamically appropriate, calm, cooperative, and comfortable while under my care. Alexa Dwyer MD Status: voluntary Able to leave: yes Discharge Plan Disposition Condition: Stable Discharge Details Chief Complaint: PsychEval Clinical Impression: Suicidal ideation Primary Care Provider: None,None ED Provider: Alexa Dwyer Home Meds and New Rx's Prescriptions: No Action duloxetine 60 MG capsule,delayed release(DR/EC) 60 mg PO BID clonazepam 1 mg tablet 1 mg PO TID PRN olanzapine 10 mg tablet 10 mg PO HS zolpidem 12.5 mg tablet,ext release multiphase 12.5 mg PO HS hydroxyzine pamoate 25 mg capsule 25 mg PO Q4H PRN Rx Instructions: for anxiety omeprazole 20 mg capsule,delayed release(DR/EC) 20 mg PO DAILY sumatriptan succinate 100 mg tablet 100 mg PO Q2H PRN divalproex 250 mg tablet extended release 24 hr 250 mg PO TID
[2025-07-26] MEDS: Nicotine 4 MG LOZG SUC ×5 (08:27→22:41)
[2025-07-26] MEDS: DULoxetine 30 MG CAP 60 MG PO ×2 (08:43→19:56)
[2025-07-26] MEDS: SUMAtriptan 50 MG TAB 100 MG PO (14:19)
[2025-07-26 19:20] VITALS: BP 138/74; PULSE 68; RESP 16; TEMP 36.6; O2SAT 98
[2025-07-26] MEDS: ZOLPIDEM 12.5 MG PO (19:55)
[2025-07-26] MEDS: OLANZapine 10 MG TAB PO (19:56)
[2025-07-26] MEDS: hydrOXYzine PAMOATE 25 MG CAP PO (20:37)
[2025-07-27] MEDS: Nicotine 4 MG LOZG SUC ×3 (06:14→09:43)
--- NOTE | 2025-07-27 07:03 | ED.PSYCHBOAR ---
Date of service: 07/27/25 Time of Service: 07:00 Psychiatric Border Handoff Update Brief Story: This is a 55-year-old male patient boarding voluntarily in our emergency department for suicidal ideation. Prior to my taking over their care, the patient was medically cleared, and has been resting comfortably. They have met with the director social service and we are awaiting final dispo. They have not required any additional medications for restraint or sedation. They have been admitted to ED psych observation. The patient was accepted to [facility], report was given to Desi Will, and he will be transported today. He was provided with a Lidoderm patch, we had placed a PT consult for his chronic low back pain to make recommendations for stretches and other exercises which could improve that chronic complaint. The patient remained hemodynamically appropriate while under my care, and was transferred to [place] without incident. Alexa Dwyer MD Status: voluntary Able to leave: yes Discharge Plan Disposition Patient Disposition: Psychiatric Hospital/Unit Condition: Stable Discharge Details Clinical Impression: Suicidal ideation Primary Care Provider: None,None ED Provider: Alexa Dwyer Home Meds and New Rx's Prescriptions: No Action duloxetine 60 MG capsule,delayed release(DR/EC) 60 mg PO BID clonazepam 1 mg tablet 1 mg PO TID PRN olanzapine 10 mg tablet 10 mg PO HS zolpidem 12.5 mg tablet,ext release multiphase 12.5 mg PO HS hydroxyzine pamoate 25 mg capsule 25 mg PO Q4H PRN Rx Instructions: for anxiety omeprazole 20 mg capsule,delayed release(DR/EC) 20 mg PO DAILY sumatriptan succinate 100 mg tablet 100 mg PO Q2H PRN divalproex 250 mg tablet extended release 24 hr 250 mg PO TID Discharge Instructions Instructions: Depression, Adult ED Additional Instructions: You were seen in the emergency department today for evaluation of suicidal ideation and depression. In our department a full physical examination performed, and met with a member of our crisis team. You have been accepted to [facility], please follow all of the recommendations of the mental health providers there both during your stay and after discharge. You met with a member of our physical therapy team to discuss some stretches and exercises for your chronic low back pain. Please follow-up with your primary care provider in the next few days to discuss this visit and any symptoms that change, worsen, or persist. Thank you for allowing us to be part of your care.
[2025-07-27] MEDS: Divalproex Sodium 250 MG TAB.ER.24H PO (07:52)
[2025-07-27] MEDS: Methocarbamol 750 MG TAB PO (07:52)
[2025-07-27] MEDS: Omeprazole 20 MG CAPCR PO (07:52)
[2025-07-27] MEDS: DULoxetine 30 MG CAP 60 MG PO (07:52)
[2025-07-27] MEDS: clonazePAM 1 MG TAB PO (07:56)
[2025-07-27 07:58] VITALS: BP 133/90; PULSE 76; RESP 18; TEMP 36.6; O2SAT 100
--- NOTE | 2025-07-27 10:12 | CMSP_ITS ---
Date of service: 07/27/25 Time of Service: 10:13 Care Management Safety Plan Status Status: Voluntary Reason for Wait Reason for Wait: Inpatient Admission Safety Plan Safety Plan: VOLUNTARY FOR INPATIENT PSYCHIATRIC STABILIZATION.? Patient is appropriate in all interactions since arriving at [facility]; Pt has demonstrated appropriate coping and communication skills, has articulated his needs and concerns and is fully engaged during staff interactions. Safety plan has been established with patient, and care team, to adhere to patient goals, identify restrictions based on behavioral status, address nutrition, and determine allowed personal belongings, tools for hygiene and personal care. Determine level of activity including ambulation, level of supervision, visitors, and determine privileges based on behaviors and level of engagement by pt. VOLUNTARY SAFETY PLAN: 1. Will remain on suicide precautions, in paper clothes 2. Will remain in ER room under direct supervision of one-on-one staff at all times provided by [employer]; CHRISTINA, FEED INSPECTION SUPERVISOR nickel operator. 3. May have paper cups, plates, finger foods as well as a cardboard spoon with which to eat meals. 4. Follow [facility] Management of the Admitted Behavioral Health Patient policy. 5. Shower available in Zone B without restriction. 6. Personal belongings-soft items permitted at RN discretion. 7. Visitors - supportive visitors at RN discretion. 8. Activities: soft cart items, hospital tablets (Netflix/Bell Buckle+/music) approved per RN discretion. 9.? Bathroom available in ED without restriction. 10. Phone: limited to [facility] cordless phone at RN discretion. Due to VOLUNTARY status, if patient wishes to leave [facility], staff will contact [facility] Crisis Screener ([phone]) and Industrial Technologist ([phone]) as soon as possible. In the event of elopement, notify [facility] Police ([phone]). Patient is currently voluntarily at [facility] and seeking inpatient admission when a bed becomes available. [facility] Frontline Auto Mechanics Teacher will continue seeking placement. Please contact the Industrial Technologist ([phone]) and [facility] Auto Mechanics Teacher ([phone]) for any needed changes in the Safety Plan. Safety plan has been provided to interdepartmental care team.
--- NOTE | 2025-07-27 10:12 | PDOC.CMSAFE ---
Date of service: 07/27/25 Time of Service: 10:13 Care Management Safety Plan Status Status: Voluntary Reason for Wait Reason for Wait: Inpatient Admission Safety Plan Safety Plan: VOLUNTARY FOR INPATIENT PSYCHIATRIC STABILIZATION.? Patient is appropriate in all interactions since arriving at [facility]; Pt has demonstrated appropriate coping and communication skills, has articulated his needs and concerns and is fully engaged during staff interactions. Safety plan has been established with patient, and care team, to adhere to patient goals, identify restrictions based on behavioral status, address nutrition, and determine allowed personal belongings, tools for hygiene and personal care. Determine level of activity including ambulation, level of supervision, visitors, and determine privileges based on behaviors and level of engagement by pt. VOLUNTARY SAFETY PLAN: 1. Will remain on suicide precautions, in paper clothes 2. Will remain in ER room under direct supervision of one-on-one staff at all times provided by [employer]; CHRISTINA, SUPERINTENDENT RENTING MANAGING transportation broker. 3. May have paper cups, plates, finger foods as well as a cardboard spoon with which to eat meals. 4. Follow [facility] Management of the Admitted Behavioral Health Patient policy. 5. Shower available in Zone B without restriction. 6. Personal belongings-soft items permitted at RN discretion. 7. Visitors - supportive visitors at RN discretion. 8. Activities: soft cart items, hospital tablets (Netflix/Elizabeth+/music) approved per RN discretion. 9.? Bathroom available in ED without restriction. 10. Phone: limited to [facility] cordless phone at RN discretion. Due to VOLUNTARY status, if patient wishes to leave [facility], staff will contact [facility] Crisis Screener ([phone]) and Manager Organizational ([phone]) as soon as possible. In the event of elopement, notify [facility] Police ([phone]). Patient is currently voluntarily at [facility] and seeking inpatient admission when a bed becomes available. [facility] Frontline Field Machinist will continue seeking placement. Please contact the Manager Organizational ([phone]) and [facility] Field Machinist ([phone]) for any needed changes in the Safety Plan. Safety plan has been provided to interdepartmental care team.
--- NOTE | 2025-07-27 10:14 | CMPROGNOTE_ITS ---
Date of service: 07/27/25 Time of Service: 10:14 Care Management Progress Note Progress Note Text Progress Note Text: CM discussed Patel plan of care with ED RN. Per report, Isidro was accepted to [facility] on 07/10 for inpatient psychiatric treatment. He continues to seek inpatient treatment. Isidro was accepted to [facility] for inpaient treatment and will transfer there today. Safety plan in place. CM will follow. Status Status: Voluntary Reason for Wait: Inpatient Admission Social Determinants of Health Screening Social Determinants of health last assessed in clinic: 07/27/25 Will the Patient Participate in the Screening?: Yes Do you worry about having a steady place to live?: yes What is your living situation today?: I do not have steady housing Problems where you live: no known problems In the past 12 months, have you had to go without electric, gas, oil or water in your home?: no 1. Within the past 12 months, we worried whether our food would run out before we got money to buy more.: Don't know/refused 2. Within the past 12 months, the food we bought just didn't last and we didn't have money to get more.: Don't know/refused Has lack of transportation kept you from medical appointments or from doing things needed for daily living?: yes Has anyone in your life made you feel unsafe or unsupported?: yes How often does anyone, including family and friends, physically hurt you?: Never How often does anyone, including family and friends, insult or talk down to you?: Frequently How often does anyone, including family and friends, threaten you with harm?: Never How often does anyone, including family and friends, scream or curse at you?: Never [facility] Safety total score: 8 How hard is it for you to pay for the very basics like food, housing, medical care, and heating? Would you say it is:: Very hard Do you want help finding or keeping work or a job?: I do not need or want help If for any reason you need help with day-to-day activities such as bathing, preparing meals, shopping, managing finances, etc., do you get the help you need?: I don?t need any help How often do you feel lonely or isolated from those around you?: Always Do you speak a language other than Salvadorean at home?: No Health Related Social Needs Health related social needs: housing instability, housed, with risk of homelessness (Z59.811), transportation insecurity (Z59.82), problems related to housing/economic circumstances (Z59.89) and feeling lonely/isolated (Z60.8) Health related social needs details: Pt is homeless with difficulty finding a safe place to stay and food
[2025-07-27] MEDS: Lidocaine 5% Patch 1 PATCH TP (10:38)
--- NOTE | 2025-07-27 10:57 | PT.INIE ---
PT Notes Visit Reasons: samaraex / Physical Therapy Emergency Room Initial Evaluation Date: 07/27/2025 Referring Doctor: Alexa De La Cruz PT Orders: PT CONSULT: PT evaluation for Exacerbation of Chronic Condition Precautions: Standard Patient Profile/Admitting Diagnosis: Isidro is a 55yo male presented to the ED with Suicidal Ideation. While in ED he reported low back pain / stiffness. MD COnsulted PT for worsening chronic back pain , requesting instruction in specific stretches to reduce pain and stiffness prior to transfer to [facility] for Psych placement PMHX: History of alcoholism GERD (gastroesophageal reflux disease) Tremor Migraines Depression with psychotic featuresAnxiety Surgical History Repair of inguinal hernia Social History/Home Situation: Pt is homeless at this time He reports being independent ambulation without AD. He is a retired Marine. Equipment Owned/DME: None Subjective: Pt reports his back is stiff and becoming painful . He states he has done stretches ( demonstrated seated figure 4). Pt agreeable to participate in assessment and instruction in flexion biased stretches Objective: [] General Observation: male semireclined on stretcher in ED. 1:1 supervision sitting outside the room. Mental Status:Alert Ox 3, not oriented to date but knew Thanksgiving was yesterday. Able to follow instructions, cooperative Pain: 4/10 low back ROM: [] BUE: WNL BLE : WFL tight hip flexors noted limiting hip extension to neutral. Anterior pelvic tilt Strength: [] BUE: grossly 5/5 BLE: Grossly 5/5 Sensation: intact Bed Mobility/Transfers: [] Supine to sit independent Sit to stand independent Stand to sit independent Bed to chair independent Gait: independent without AD 300 feet reciprocal pattern Balance: [] Static Sitting: Normal Dynamic Sitting: Good limited forward flexion d/t pain Static Standing: Normal Dynamic Standing: Good above knee height without pain Special Tests: [] Mobility Limitations Standardized Measure [] [facility] 6 clicks Basic Mobility Inpatient Short Form: [] Raw Score: 24 CMS Score: 0% deficit Informed Consent/Education: Patient instructed in purpose of PT consult. Treatment : 32321 Packet containing flexion biased low back exercise has been given to patient. Education and training on initial set of exercises that can be done at home have been completed with patient. Access Code: [email or web address] URL: [email or web address] Date: 07/27/2025 Prepared by: Dalia Armas Exercises - Supine Posterior Pelvic Tilt - 2 x daily - 7 x weekly - 1 sets - 10 reps - 3sec hold - Supine Single Knee to Chest Stretch - 2 x daily - 7 x weekly - 1 sets - 5 reps - 30sec hold - Supine Double Knee to Chest Modified - 2 x daily - 7 x weekly - 1 sets - 5 reps - 30sec hold - Seated Lumbar Flexion Stretch - 2 x daily - 7 x weekly - 1 sets - 5 reps - 30sec hold Assessment: Isidro is a 55yo male presenting with low back stiffness after being on stretcher in ED for 2+ days. Pt with positive SLR test Left. tenderness to L3 with palpation. He demonstrates no impairments in functional mobility however limited forward flexion stand and sit. Pt reports hooklying position reduces pain and prone increases pain. Pt instructed in flexion biased stretches immediately prior to discharge to [facility]. A copy of the exercises was sent with his discharge paperwork for carryover and assist in management of his back pain/stiffness. No further skilled PT indicated in this setting. However pt may benefit from Outpatient PT when able to attend. Patient is assessed as a low complexity based on the following: History: 55-year-old male with impairment level findings, functional limitations, and past medical history as indicated above Examination: Demonstrable impairment in strength, balance, and mobility level with underlying impairments and functional limitations as documented above Presentation: stable Decision Making: low Goals: N/A. PT evaluation and 1-2 treatment sessions only for functional mobility training using recommended AD and for HEP instruction. Plan of Care/Treatment Plan: N/A. PT evaluation and 1-2 treatment session only for functional mobility training using recommended AD and for HEP instruction. DISCHARGE RECOMMENDATIONS: Outpatient PT after inpatient Psych admission TREATMENT CODE/TIME: 65631,33148/ [id number] Thank you for the opportunity to participate in the care of this patient. Susannah Armas, PT [facility]
== END 2025-07-27 10:55 ==
PROVIDERS: Physician Assistant; Emergency Provider Emergency Medicine
DX: M54.50 Low back pain, unspecified (principal); R45.851 Suicidal ideations; Z59.02 Unsheltered homelessness; Z59.82 Transportation insecurity; Z59.89 Other problems related to housing and economic circumstances; Z60.8 Other problems related to social environment; Z59.41 Food insecurity
CPT/HCPCS: 00123; 80307; 96127; 97110; 97161; 99285; G0378

== ENCOUNTER 2025-08-10 00:28 | Emergency (ER) | payer MEDICARE, SELFPAY ==
[2025-08-10] VITALS (62 sets, daily range): BP systolic 121–169; BP diastolic 78–103; PULSE 63–121; RESP 16–32; TEMP 37.1; O2SAT 89–95
--- NOTE | 2025-08-10 00:25 | ED.GENADUL_ITS ---
Discharge Plan Disposition Patient Disposition: Home Condition: Good Discharge Details Clinical Impression: Syncope, Benzodiazepine withdrawal Primary Care Provider: None,None ED Provider: Derek Benz [facility] and New Rx's Prescriptions: Continued olanzapine 10 mg tablet 10 mg PO HS Qty: 15 0RF omeprazole 20 mg capsule,delayed release(DR/EC) 20 mg PO DAILY Qty: 15 0RF divalproex 250 mg tablet extended release 24 hr 250 mg PO TID Qty: 42 0RF duloxetine 60 MG capsule,delayed release(DR/EC) 60 mg PO BID Qty: 30 0RF zolpidem 12.5 mg tablet,ext release multiphase 12.5 mg PO HS Qty: 15 0RF sumatriptan succinate 100 mg tablet 100 mg PO Q2H PRN Changed clonazepam 1 mg tablet 1 mg PO BID Qty: 30 0RF hydroxyzine pamoate 25 mg capsule 25 mg PO Q4H PRN (Reason: Anxiety) Qty: 50 0RF Rx Instructions: for anxiety No Action methocarbamol [Robaxin] .ROUTE Discharge Instructions Instructions: Fainting, Adult ED Additional Instructions: You were seen in the ED after fainting. You appear to be having some withdrawal from your medication, specifically your clonazepam. It is important not to lose or misplace the medications I have prescribed to cover you for the next two weeks. Follow up with [facility] as scheduled/planned. Continue to work on establishing primary care in this area. Return to ED for recurrent fainting, chest pain, trouble breathing, neurological change, other concerns. Stand Alone Forms: Portal Information HPI General Mode of arrival: EMS . Date/Time Provider Initiated Documentation: 08/10/25 00:36 . Limitations to Documentation: no limitations . Information obtained by: patient, RN notes reviewed and old records reviewed . HPI Narrative: Patient presents to ED after reportedly having 2 blackout events. Patient states that he was discharged from [facility] on Wednesday. He is now staying at the [facility]. He reports that [place] discharged him with 2 weeks supply of medication which he is unable to find and has not been taking any of his medication since the discharge. Reports that he went outside to have a cigarette and had a brief blackout and found himself on the floor. He states he went to lay down for a while but when he went to get back up had another event. Does not think that the last very long. There was no tongue biting or incontinence. He is quite tremulous and shaky. Denies any headache, neck pain, chest pain, shortness of breath, neurologic change, vomiting or diarrhea. He has been eating and drinking normally. No SI or HI. Related Data Home Medications ?Medication ?Instructions ?Recorded ?Confirmed sumatriptan succinate 100 mg tablet 100 mg PO Q2H PRN 07/22/25 08/10/25 clonazepam 1 mg tablet 1 mg PO BID Anxiety #30 tabs 08/10/25 divalproex 250 mg tablet,extended 250 mg PO TID #42 ta bs 08/10/25 release 24 hr duloxetine 60 mg capsule,delayed 60 mg PO BID #30 caps 08/10/25 release hydroxyzine pamoate 25 mg capsule 25 mg PO Q4H PRN Anx iety #50 caps 08/10/25 methocarbamol .ROUTE 08/10/25 olanzapine 10 mg tablet 10 mg PO HS #15 tabs 5 omeprazole 20 mg capsule,delayed 20 mg PO DAILY #15 ca ps 08/10/25 release zolpidem 12.5 mg tablet,extended 12.5 mg PO HS #15 tab s 08/10/25 release,multiphase Previous Rx's ?Medication ?Instructions ?Recorded clonazepam 1 mg tablet 1 mg PO BID Anxiety #30 tabs 08/10/25 divalproex 250 mg tablet,extended 250 mg PO TID #42 ta bs 08/10/25 release 24 hr duloxetine 60 mg capsule,delayed 60 mg PO BID #30 caps 08/10/25 release hydroxyzine pamoate 25 mg capsule 25 mg PO Q4H PRN Anx iety #50 caps 08/10/25 olanzapine 10 mg tablet 10 mg PO HS #15 tabs 5 omeprazole 20 mg capsule,delayed 20 mg PO DAILY #15 ca ps 08/10/25 release zolpidem 12.5 mg tablet,extended 12.5 mg PO HS #15 tab s 08/10/25 release,multiphase Allergies Allergy/AdvReac Type Severity Reaction Status Date / Time prochlorperazine (From Allergy Unknown Unknown Verified 08/10/25 00:23 Compazine) promethazine (From Phenergan) Allergy Unknown Unknown Verified 08/10/25 00:23 NSAIDS (Non-Steroidal Allergy Unknown Verified 08/10/25 00:23 Anti-Inflamma General Stated Complaint: Seizure PUSHPA: 3 Exam Narrative Exam Narrative: Const: WDWN male in NAD. VS per triage. HEENT: NC/AT. Normal facial exam. Neck: Supple. Trachea midline. Lungs: Normal respiratory effort. Lungs are clear. Cor: RRR without murmur. Good radial pulses. GI: Soft/ND/NT. Neuro: A+O x 3. Normal speech, mentation, gait. Cranial nerves II - XII grossly intact. No gross motor or sensory deficit. Ext: No C/C/E. Course Vital Signs Vital signs: Respiratory Effort Normal 08/10/25 00:21 Pain Level 7 08/10/25 00:17 Medical Decision Making Patient presenting to ED after 2 possible syncopal event this evening. Reports being discharged from [facility] [place] but does not have the medication that he was discharged with. Those medications include clonazepam, divalproex, duloxetine and olanzapine. He is somewhat tremulous and shaky here. The events do not sound like seizures. His heart rate and blood pressure are upper normal limits. He has no symptoms currently other than feeling shaky and anxious. Probably is having some withdrawal from not having his medications, specifically the clonazepam which is written as TID, prn. I have ordered him for his clonazepam, divalproex, duloxetine and olanzapine. Will get an EKG, laboratory studies, CT head as he does think that he struck his head during his blackout. Cervical spine can be cleared clinically. Will maintain on the monitor and also check orthostatics as 1 event was related to him getting up from his bed. 04:00 - Patient is not orthostatic. EKG is unchanged from previous. Labs are unremarkable and valproic acid level is low consistent with his history. Urine is negative for infection. CT head prelim read from radiology is negative. Patient has been sinus on the monitor. Patient feels better after receiving his medications. Will plan to monitor until morning. After discussion with patient will provide the two week supply of medications that he was discharged from [place] with. He follows up with [facility] and is still working on getting PCP up here. Lab Data Lab results reviewed: Yes I reviewed the patient's lab results. Lab results narrative: see MDM ECG Data Attestation: I personally reviewed and interpreted this ECG (s) as follows: Prior ECG tracings: available for review Interpretation: see MDM Quality:SDOH Health Related Social Needs: Health related social needs risk of homeless transpo i nsecurity house/econ circumstance lonely/isolated Health related social needs details Pt is homeless wit h difficulty finding a safe place to stay and food PFSH All Active Problems (Updated 08/10/25 @ 06:33 by Derek Benz MD) Benzodiazepine withdrawal (Acute) Syncope (Chronic) Suicidal ideation (Acute) Medication administered (Acute) Suicide ideation (Acute) Medical History Obesity History of alcoholism GERD (gastroesophageal reflux disease) Tremor Migraines Depression with psychotic features Anxiety Surgical History Repair of inguinal hernia Family History Mother Depression Melanoma Social History Smoking/Tobacco Use Status: Current every day Tobacco Type: cigars Per week: 14 Smoking risk assessment performed?: Yes Alcohol Intake: former Drug use: Occasionally Substance use type: former substance user, marijuana and crack/cocaine Details: smoked marijuana today 07/03/25 Housing: homeless Do you feel safe at home: Yes Do you feel safe in your relationship?: Yes
--- NOTE | 2025-08-10 00:30 | RT.EKG_ITS ---
APPROVED REPORT Exam: Resting ECG Reason for Exam: syncope Patient Location: E HR:80 bpm ECG Measurements Heart Rate 80 AXIS DC 161 P 36 QRSd 89 QRS 56 QT 365 T 55 QTc 422 Conclusion Sinus rhythm...normal P axis, V-rate 60- [address]/Interval There are no significant changes compared to prior EKG performed on 07/08/2025 at 09:52.
[2025-08-10 00:52] LABS: Glucose Negative (Negative)
[2025-08-10 01:06] LABS: Abs Immature Grans 0.01 10^3/uL (0.0-0.06); HCT 40.3 % (40.0-50.0); HGB 13.4 g/dL (13.5-17.5); Immature Grans % 0.1 %; MCH 29.5 pg (27.0-33.0); MCHC 33.3 % (32.0-36.0); MCV 89 fL (80-95); MPV 9.3 fL (8.0-11.0); Platelet Count 324 10^3/uL (130-400); RBC 4.55 10^6/uL (4.36-5.78); RDW 13.0 % (11.8-14.1); RDW-SD 42.5 fL; WBC 9.87 10^3/uL (4.4-10.8)
[2025-08-10] MEDS: Divalproex 250 MG TABEC PO (01:15)
[2025-08-10] MEDS: clonazePAM 1 MG TAB PO (01:16)
[2025-08-10] MEDS: OLANZapine 10 MG TAB PO (01:16)
[2025-08-10] MEDS: DULoxetine 30 MG CAP 60 MG PO (01:16)
[2025-08-10 01:21] LABS: Magnesium 1.6 mg/dL (1.6-2.6)
[2025-08-10 01:26] LABS: ALT 30 U/L (10-49); AST 23 U/L (<34); Albumin 4.1 g/dL (3.2-5.0); Alkaline Phosphatase 49 U/L (46-116); Anion Gap 9 mmol/L (3-11); BUN 11 mg/dL (9-23); Bilirubin, Total 0.3 mg/dL (0.2-1.2); CO2 30.0 mmol/L (20.0-31.0); Calcium 9.0 mg/dL (8.3-10.6); Chloride 106 mmol/L (98-107); Glucose 87 mg/dL (74-106); Potassium 3.5 mmol/L (3.5-5.1); Sodium 145 mmol/L (136-145); Total Protein 6.8 g/dL (5.7-8.2)
--- NOTE | 2025-08-10 02:12 | DI.CT_ITS ---
Exam(s) CT HEAD WO EXAM: CT HEAD WO CLINICAL HISTORY: head injury. TECHNIQUE: Imaging Protocol: Axial computed tomography images with coronal and sagittal reformatted images were created and reviewed COMPARISON: CT CT BRAIN NECK CTA from 07/08/2025 FINDINGS: Ventricles and Extra axial spaces: Normal in size and morphology for the patient's age. Hemorrhage: None. Cerebral parenchyma: No evidence of acute infarct or mass. Midline shift: None. Brainstem/Cerebellum: Normal. Bones: No skull or facial fractures. Visualized Paranasal sinuses:Clear. Mastoids: Clear. Soft Tissues: Unremarkable. ORBITS: Unremarkable. PITUITARY: Not enlarged. IMPRESSION: No acute intracranial process. The preliminary [facility] report was reviewed. RADIATION DOSE DELIVERED: 868.28mGy.cm Total DLP DATA REPOSITORY: All CT scans at this facility are submitted to the National Radiology Data Registry (NRDR) Dose Index Registry (DIR) with the [employer] (A[employer]). RADIATION OPTIMIZATION: All CT scans at this facility use at least one of these dose optimization techniques: automated exposure control; mA and/or kV adjustment per patient size (includes targeted exams where dose is matched to clinical indication); or iterative reconstruction.
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
== END 2025-08-10 07:17 | disposition home or self-care (01) ==
PROVIDERS: Emergency Provider Emergency Medicine
DX: R55 Syncope and collapse (principal); F13.939 Sedative, hypnotic or anxiolytic use, unspecified with withdrawal, unspecified; Z59.41 Food insecurity; Z59.811 Housing instability, housed, with risk of homelessness; Z59.82 Transportation insecurity; Z59.89 Other problems related to housing and economic circumstances
CPT/HCPCS: 99284 ×2; 80053; 93005; 70450; 80164; 81003; 83735; 85025; 93010

== ENCOUNTER 2025-08-27 00:26 | Emergency (ER) | payer MEDICARE, SELFPAY ==
[2025-08-27 00:15] VITALS: BP 144/75; PULSE 77; RESP 18; O2SAT 97
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
[2025-08-27] MEDS: clonazePAM 0.5 MG TAB 1 MG PO (00:56)
[2025-08-27] MEDS: OLANZapine 10 MG TAB PO (00:56)
[2025-08-27] MEDS: DULoxetine 30 MG CAP 60 MG PO (00:57)
[2025-08-27] MEDS: Divalproex 250 MG TABEC PO (00:57)
[2025-08-27 01:27] VITALS: RESP 16
--- NOTE | 2025-08-27 08:42 | CMPROGNOTE_ITS ---
Date of service: 08/27/25 Time of Service: 08:48 Care Management Progress Note Progress Note Text Progress Note Text: CM was contacted by the vat house supervisor regarding concerns related to transportation and primary care follow-up for Isidro. It was noted that Isidro receives his medications through [facility] and has currently run out of his prescribed medications. CM contacted [facility] to notify them of Isidro?s emergency department visit and to request assistance with community follow-up, including support with establishing and maintaining primary care and facilitating medication refills. Per [facility], they have attempted to engage him with community services, which he has declined. Marianne Mckenzie was identified as the T-Doc provider contract programmer for primary care follow-up. CM requested that the ED proceed according to the current T-Doc protocol and utilize [facility] for transportation. CM will continue to follow up with [facility] to encourage enhanced community support related to medication management and primary care engagement, as prior T-Doc appointments resulted in no-call/no- show occurrences. Social Determinants of Health Screening Will the Patient Participate in the Screening?: Declined to provide
--- NOTE | 2025-08-27 08:42 | PDOC.CMPRO ---
Date of service: 08/27/25 Time of Service: 08:48 Care Management Progress Note Progress Note Text Progress Note Text: CM was contacted by the senior data warehouse architect regarding concerns related to transportation and primary care follow-up for Isidro. It was noted that Isidro receives his medications through [facility] and has currently run out of his prescribed medications. CM contacted [facility] to notify them of Isidro?s emergency department visit and to request assistance with community follow-up, including support with establishing and maintaining primary care and facilitating medication refills. Per [facility], they have attempted to engage him with community services, which he has declined. Marianne Mckenzie was identified as the T-Doc provider transitional nurse for primary care follow-up. CM requested that the ED proceed according to the current T-Doc protocol and utilize [facility] for transportation. CM will continue to follow up with [facility] to encourage enhanced community support related to medication management and primary care engagement, as prior T-Doc appointments resulted in no-call/no-show occurrences. Social Determinants of Health Screening Will the Patient Participate in the Screening?: Declined to provide
== END 2025-08-27 01:27 | disposition home or self-care (01) ==
PROVIDERS: Emergency Provider Emergency Medicine
DX: F41.9 Anxiety disorder, unspecified (principal); Z76.0 Encounter for issue of repeat prescription; Z59.82 Transportation insecurity; Z59.811 Housing instability, housed, with risk of homelessness
CPT/HCPCS: 99283 ×2